=== PATIENT | male | born 1970 | race Caucasian/White ===

== ENCOUNTER → 2016-07-26 | Outpatient (CLI) | payer BC ==
[~2016-07-26] MED LIST: B-CO-25 PO; CHOL200010 PO; CNC/54 PO; DABI150C PO; MULT-281 PO; TADA5TAB11 PO; TMB/100 PO; TPRSR/50 PO
--- NOTE | 2016-07-27 07:18 | PAP/PSG TECHNICIAN REPORT ---
[facility] [employer] Polysomnogram Report Study name: None Report date: 07/27/2016 Study date: 07/26/2016 Referring Physician: DR.STEVEN HAMZAH M.D. Name: DEREK MUÑIZ Interpreting Physician: Leland Steel D.O. Date of : 1970 [employer]: Gladis Pablo, PSGT. Sex: Male Age: 45 StudyType: PSG Weight: 221 lbs Height: 45 years, Height 71" BMI: 30.82 Medications: Pradaha 150 mg, Flecaihide 100 mg, HCTZ 25/15 mg, Escitapram 10 mg, Omeprazole 20 mg, Methylphehidate ER 54 mg, Cialis 5 mg ,Vit.-D 1999 Patient History 45 yr. old male in room # 5, presents tonight for a baseline sleep study, he had a home sleep study that he states was inconclusive". Pt. feels tired all the time, has witnessed apnea choking and coughing throughout the night.Pt. states that he moves his legs a lot during sleep. Parameters Monitored NPSG: E1-M2, E2-M1, Fp1-M2, Fp2-M1, F3-M2, F4-M2, F4-M1, C3-M2, C4-M2, C4-M1, O1-M2, O2-M2, O2-M1, T3-M2, T4-M1, P3-M2, P4-M1, CHIN1, CHIN2, HR, EKG, Legs, PFLOW, SNOR, FLOW, CFLOW, Tidal Volume, THOR, ABDO, SpO2, PLTH, CPRESS, ETCO2 Wave, ETCO2, pH Sleep Architecture Sleep Stages Time at Lights Off 11:01:48 PM STAGES Time (min.) TST (%) Time at Lights On 5:17:48 AM Wake 95.0 -- Total Recording Time (TRT) 377.50 min. N1 7.0 2 Total Sleep Period (TSP) 317.0 min. N2 185.0 66 Total Sleep Time (TST) 281.0min. N3 62.5 22 Awake Time 95.5 min. REM 26.5 9 Wake after Sleep Onset 36.0 min. Sleep Efficiency (SE) 75 % Sleep Onset Latency (CLIF) 59.0 min. Number of Stage 1 Shifts None Awakenings 8 Stage Changes 31 Number of REM periods 3 REM 26.5 9 REM Latency 249.5 min. NREM 254.5 91 Body Position Analysis Supine Right Left Side Prone Vertical Total Sleep Time (min.) 182.7 27.3 121.5 148.76 0.0 0.0 Total Sleep Time (%) 47% 10% 43% 53 0% N/A% Total Sleep Time REM (min.) 17.1 9.4 0.0 None 0.0 0.0 Total Sleep Time NREM (min.) 115.2 17.8 121.5 None 0.0 0.0 Intermittent Wake (min.) 50.5 1.5 43.0 None 0.0 0.0 Total Sleep Period (%) 46% None None None None None Arousals Myoclonus (PLM) * Events Count Index Events Count Index Spontaneous 18 4 Events Awake (PLMW) 3 1.9 Respiratory 6 1.3 Events Asleep w/ Arousal (PLMA) 10 2.1 PLM 10 2 Events Asleep w/o Arousal (PLMS) 369 78.8 Snoring 4 1 Total Asleep 379 80.9 Total 38 8 Total 382 61 Respiratory Analysis * CA OA MA CH H RERA Total Count 0 26 6 0 78 0 110 Index 0.0 5.6 1.3 0 16.7 0 23.5 Mean Duration 0.0 23.3 28.2 0.00 20.9 0.0 21.9 Longest Duration 0.0 35.3 34.2 0.00 34.2 0.0 43.4 Respiratory Event Summary Total Supine ~Supine Right Left Prone REM NREM Apneas Count 32 25 7 3 4 N/A 4 28 Index 6.8 11 3 6.6 2.0 N/A 9 7 Hypopneas (4% Desat) Count 78 40 38 25 13 N/A 20 58 Index 16.7 18.1 15 55.0 6.4 N/A 45.3 13.7 Apneas & All Hypopneas Count 110 65 45 28 17 N/A 24 86 Index 23.5 29 18 62 8 N/A 54.3 20.3 Respiratory Events (Pigment Making Supervisor+All Hyp+RERA) Count 110 65 45 28 17 N/A 24 86 Index 23.5 29 18 61.6 8.4 N/A 54.3 20.3 Respiratory Related Arousal Count 6 65 2 1 1 N/A 1 5 Index 1.3 2 1 2 0 N/A 2 1 Snoring Analysis Supine Right Left Prone REM NREM Total Snore duration 26.5 min Snores count 739 77 403 N/A 23 1,196 1,219 Snore mean duration 1.3 Sec Snores index 335 169 199 N/A 52.1 282.0 260.3 TST with snoring (%) 9.4% Desaturation Event Summary: Minimum %SpO2 Event Count Mean/Min/Max Duration(sec.) Desaturation Index % Time In Bed > 90 118 26.3 / 12.0 / 59.0 22.7 85.4 86 - 90 8 19.5 / 13.3 / 29.3 9.8 13.4 81 - 85 0 N/A 0.0 1.2 76 - 80 0 N/A 0.0 0.0 71 - 75 0 N/A 0.0 0.0 66 - 70 0 N/A 0.0 0.0 61 - 65 0 N/A 0.0 0.0 56 - 60 0 N/A 0.0 0.0 51 - 55 0 N/A 0.0 0.0 < 50 0 N/A 0.0 0.0 Total REM NREM Awake <50% 0.0 min. 0.0 min. 0.0 min. 0.0 min. 51 - 60% 0.0 min. 0.0 min. 0.0 min. 0.0 min. 61 - 70% 0.0 min. 0.0 min. 0.0 min. 0.0 min. 71 - 80% 0.1 min. 0.0 min. 0.0 min. 0.1 min. 81 - 90% 53.4 min. 14.7 min. 32.6 min. 6.1 min. 91 - 100% 312.3 min. 11.8 min. 218.1 min. 82.3 min. Average 92 90 92 93 Minimum SpO2 80 83 82 80 Desaturation Event Index 19.1 52.1 22.9 0.6 # Desat. Events below 89% 72 18 54 0 Time(%) with Saturation below 89% 6.0 1.8 3.9 0.4 Time(min.) with Saturation below 89% 22.0 6.5 14.1 1.3 Time (mins) REM (mins) NREM (mins) % of TST SpO2 Below 90% 114 23 N91 11.2 SpO2 Below 88% 33 0 0 5 Heart Rate Analysis Min (bpm) Max (bpm) Average (bpm) Awake 38 127 56 NREM 42 76 51 REM 44 65 53 Overall 42 76 51 Supplemental O2 Values Minimum O2 level: None Value Start Time End Time [employer] Comments PSG Study Mr. Muñiz slept in the right, left, and supine positions. No cardiac arrhythmia or PLM's noted. No bruxism noted. Snoring was noted and scored as a 3 on a scale of 1 through 5. (0=no snoring, 5=snoring loud enough to be heard through a closed door or down the [address] way) Mr. Muñiz stated, I did sleep as well as I do when I am in my own bed. The final report will be interpreted and signed by a sleep physician. The completed physician report will then be placed in the patient medical record. Moderate snoring was displayed, most of his respiratory events were while he was in the supine position. Therapy (cm H2O) 0 TIB (min.) 376.0 TST (min.) 281.0 Sleep Onset (min.) 59.0 REM Onset From Sleep (min.) 249.5 Sleep Efficiency % 75 Wakefulness (%) 25 Wakefulness (min.) 95.5 NREM 1 (%) 2 NREM 1 (min.) 7.0 NREM 2 (%) 66 NREM 2 (min.) 185.0 NREM 3 (%) 22 NREM 3 (min.) 62.5 REM (%) 9 REM (min.) 26.5 # Arousals 38 Arousal Index 8 # Snore 1,219 Snore Index 260.3 AHI 23.5 AHI Supine 29 AHI Non-Supine 18 NREM AHI 20.3 REM AHI 54.3 RDI 23.5 # Obstructive Apnea 26 # Central Apnea 0 # Mixed Apnea 6 # Hypopneas 78 RERAs 0 Total Respiratory Events 110 Time Below SpO2 89% (min.) 20.7 Mean NREM SpO2 (%) 92 Mean REM SpO2 (%) 90 Mean Sleep SpO2 (%) 92 Min NREM SpO2 (%) 82 Min REM SpO2 (%) 83 Position Supine (min.) 182.7 Position Non-supine (min.) 148.8 LM Index Sleep 80.9 LM Index NREM 85.8 LM Index REM 34.0 Mean Heart Rate (bpm) 51 Min Heart Rate (bpm) 42
--- NOTE | 2016-07-31 21:04 | POLYSOMNOGRAPH REPORT ---
REFERRING PHYSICIAN: Dr. Ignacio West and Rafael Dugan. CLINICAL DATA: The patient is a 45-year-old male. He has a history of observed apnea, tiredness, and increased leg movements. A home study was done 04/10/2016 that suggested an AHI of 13.8. He is referred for an in-lab sleep study to confirm whether he definitively has sleep apnea and to evaluate the degree of abnormality. His BMI is 30.82. SLEEP ARCHITECTURE: The total sleep period was 317 minutes. Total sleep time was 281.0 minutes. Sleep efficiency was moderately reduced to 75%. Sleep onset latency was prolonged at 59 minutes. Wake after sleep onset was 36 minutes. REM latency was severely prolonged to 249.5 minutes. There was only 1 REM period. Sleep consisted of stage N1 2%, stage N2 66%, stage N3 22%, REM sleep 9%. AROUSAL DATA: The patient had a total of 38 arousals including 18 spontaneous arousals, 6 respiratory arousals, 10 PLM arousals, and 4 snoring arousals. The arousal index was 8. PLM DATA: The patient had a total of 379 periodic limb movements of sleep for an index of 80.9. This would be severely elevated. There were only 10 arousals associated with the limb movements for a PLM arousal index of 2.1. RESPIRATORY DATA: The patient had a total of 110 respiratory events including 26 obstructive apneas, 6 mixed apneas, and 78 hypopneas. The hypopneas were scored according to the 4% desaturation rule. The apnea hypopnea index was 23.5 and was compatible with moderate obstructive sleep apnea. The longest apnea was 35.3 seconds. The longest hypopnea was 34.2 seconds. OXIMETRY DATA: The average saturation was 92%. The minimum saturation was 80%. He had 33 minutes with saturations less than 88%. HEART RATE DATA: The cardiac rates ranged from 42-76 beats per minute. The average was 51 beats per minute. The rhythm was normal sinus. No arrhythmias were noted. STONEMASON SUPERVISOR COMMENTS: The patient slept in the right, left, and supine position. No bruxism was noted. Snoring was noted and scored as a 3 on a scale of 1 through 5. The patient indicated he did sleep as well as he does when he is in his own bed. IMPRESSION: 1. Obstructive sleep apnea -- moderate. 2. Periodic limb movement disorder. COMMENTS: The patient has moderate sleep apnea. His sleep efficiency was decreased mainly because of a marked prolongation of sleep initiation. His sleep architecture was abnormal showing decreased REM from normal. He does take escitalopram, which can suppress REM sleep. The patient has significant symptoms and treatment would seem to be indicated. RECOMMENDATIONS: 1. It is advised that the patient be given a trial of nasal CPAP. He could be referred for a CPAP titration. He would need to be referred back for this procedure. 2. An alternative to a CPAP titration study would be initiation of therapy with auto CPAP. 3. The patient has frequent leg movements. This likely does not need treatment at present. Would advise treatment of the underlying sleep disordered breathing first. Consideration could be given to pharmacological therapy for the leg movements if this did not improve significantly with treatment of the sleep apnea. 4. The patient has a mild elevation of body mass index at 30.82. Weight loss is advised as even modest weight reduction may result in improvement in sleep disordered breathing. 5. The patient had increased events supine. It is suggested that he avoid sleeping in the supine position.
== END | disposition home or self-care (01) ==
LOC: C.NEUR 20:00
PROVIDERS: ATTEND Internal Medicine Cardiovascular Disease
DX: G47.30 Sleep apnea, unspecified (principal); R06.83 Snoring

== ENCOUNTER → 2016-08-12 | Outpatient (CLI) | payer BC ==
[~2016-08-12] VITALS: Ht 180.3 cm; Wt 220.4 kg
[2016-08-12 14:30] VITALS: BP 130/8; PULSE 67; Ht 180.3 cm; Wt 220.4 kg
== END | disposition home or self-care (01) ==
LOC: C.NEUR 14:14
PROVIDERS: ATTEND Internal Medicine Pulmonary Disease
DX: G47.30 Sleep apnea, unspecified (principal); G47.61 Periodic limb movement disorder; I48.0 Paroxysmal atrial fibrillation

== ENCOUNTER → 2016-09-28 | Outpatient (CLI) | payer BC ==
--- NOTE | 2016-09-29 05:45 | PAP/PSG TECHNICIAN REPORT ---
[facility] General Maintenance Engineer Polysomnogram Report Study name: None Report date: 09/29/2016 Study date: 09/28/2016 Referring Physician: Artie Yu M.D. Name: DEREK MUÑIZ Interpreting Physician: Artie Yu M.D. Date of : 1970 General Maintenance Engineer: Jess Cullen RPSGT. Sex: Male Age: 46 StudyType: PSG PAP Weight: 220 lbs Height: 46 years, Height 5' 11" Neck Circum: 16 inches BMI: 30.68 Medications: Cialis 5 mg, Concerta 54 mg, Effexor XR 75 mg, Flecainide Acetate 100 mg, Mens One Daily, Pradaxa 150 mg, Spironolactone, Vitamin D 2000 units Patient History 46 yr. old male here for a new titration sleep study. Patients PSG was done on 07/26/16 and had an AHI of 23.5 and a PLM index of 80.9. ESS 11/20. Parameters Monitored NPSG: E1-M2, E2-M1, Fp1-M2, Fp2-M1, F3-M2, F4-M2, F4-M1, C3-M2, C4-M2, C4-M1, O1-M2, O2-M2, O2-M1, T3-M2, T4-M1, P3-M2, P4-M1, CHIN1, CHIN2, HR, EKG, Legs, PFLOW, SNOR, FLOW, CFLOW, Tidal Volume, THOR, ABDO, SpO2, PLTH, CPRESS, ETCO2 Wave, ETCO2, pH Sleep Architecture Sleep Stages Time at Lights Off 11:01:58 PM STAGES Time (min.) TST (%) Time at Lights On 5:35:28 AM Wake 69.0 -- Total Recording Time (TRT) 392.50 min. N1 21.5 7 Total Sleep Period (TSP) 355.0 min. N2 154.0 48 Total Sleep Time (TST) 323.5min. N3 126.0 39 Awake Time 69.0 min. REM 22.0 7 Wake after Sleep Onset 32.5 min. Sleep Efficiency (SE) 82 % Sleep Onset Latency (CLIF) 37.5 min. Number of Stage 1 Shifts None Awakenings 12 Stage Changes 51 Number of REM periods 2 REM 22.0 7 REM Latency 212.0 min. NREM 301.5 93 Body Position Analysis Supine Right Left Side Prone Vertical Total Sleep Time (min.) 246.9 0.0 138.0 138.00 0.0 0.0 Total Sleep Time (%) 57% 0% 43% 43 0% N/A% Total Sleep Time REM (min.) 0.0 0.0 22.0 None 0.0 0.0 Total Sleep Time NREM (min.) 185.5 0.0 116.0 None 0.0 0.0 Intermittent Wake (min.) 61.4 0.0 7.6 None 0.0 0.0 Total Sleep Period (%) 59% None None None None None Arousals Myoclonus (PLM) * Events Count Index Events Count Index Spontaneous 1 0 Events Awake (PLMW) 81 70.4 Respiratory 0 0.0 Events Asleep w/ Arousal (PLMA) 13 2.4 PLM 13 2 Events Asleep w/o Arousal (PLMS) 259 48.0 Snoring 0 0 Total Asleep 272 50.4 Total 14 3 Total 353 54 Respiratory Analysis * CA OA MA CH H RERA Total Count 0 0 0 0 0 0 0 Index 0.0 0.0 0.0 0 0.0 0 0.0 Mean Duration 0.0 0.0 0.0 0.00 0.0 0.0 0.0 Longest Duration 0.0 0.0 0.0 0.00 0.0 0.0 0.0 Respiratory Event Summary Total Supine ~Supine Right Left Prone REM NREM Apneas Count 0 0 0 N/A 0 N/A 0 0 Index 0.0 0 0 N/A 0.0 N/A 0 0 Hypopneas (4% Desat) Count 0 0 0 N/A 0 N/A 0 0 Index 0.0 0.0 0 N/A 0.0 N/A 0.0 0.0 Apneas & All Hypopneas Count 0 0 0 N/A 0 N/A 0 0 Index 0.0 0 0 N/A 0 N/A 0.0 0.0 Respiratory Events (Production Director+All Hyp+RERA) Count 0 0 0 N/A 0 N/A 0 0 Index 0.0 0 0 N/A 0.0 N/A 0.0 0.0 Respiratory Related Arousal Count 0 0 0 N/A 0 N/A 0 0 Index 0.0 0 0 N/A 0 N/A 0 0 Snoring Analysis Supine Right Left Prone REM NREM Total Snore duration 26.4 min Snores count 1,227 N/A 36 N/A 1 1,262 1,263 Snore mean duration 1.3 Sec Snores index 397 N/A 16 N/A 2.7 251.1 234.3 TST with snoring (%) 8.2% Desaturation Event Summary: Minimum %SpO2 Event Count Mean/Min/Max Duration(sec.) Desaturation Index % Time In Bed > 90 12 29.5 / 4.0 / 60.0 2.0 93.1 86 - 90 1 8.3 / 8.3 / 8.3 2.2 6.9 81 - 85 0 N/A 0.0 0.0 76 - 80 0 N/A 0.0 0.0 71 - 75 0 N/A 0.0 0.0 66 - 70 0 N/A 0.0 0.0 61 - 65 0 N/A 0.0 0.0 56 - 60 0 N/A 0.0 0.0 51 - 55 0 N/A 0.0 0.0 < 50 0 N/A 0.0 0.0 Total REM NREM Awake <50% 0.0 min. 0.0 min. 0.0 min. 0.0 min. 51 - 60% 0.0 min. 0.0 min. 0.0 min. 0.0 min. 61 - 70% 0.0 min. 0.0 min. 0.0 min. 0.0 min. 71 - 80% 0.0 min. 0.0 min. 0.0 min. 0.0 min. 81 - 90% 26.7 min. 0.5 min. 22.8 min. 3.5 min. 91 - 100% 363.0 min. 21.5 min. 277.5 min. 64.0 min. Average 93 92 93 94 Minimum SpO2 89 90 89 89 Desaturation Event Index 1.8 0.0 0.4 8.7 # Desat. Events below 89% N/A N/A N/A N/A Time(%) with Saturation below 89% 0.0 0.0 0.0 0.0 Time(min.) with Saturation below 89% 0.0 0.0 0.0 0.0 Time (mins) REM (mins) NREM (mins) % of TST SpO2 Below 90% 1 N/A N1 0.6 SpO2 Below 88% 0 0 0 0 Heart Rate Analysis Min (bpm) Max (bpm) Average (bpm) Awake 37 127 60 NREM 42 86 56 REM 48 64 54 Overall 42 86 55 Supplemental O2 Values Minimum O2 level: None Value Start Time End Time General Maintenance Engineer Comments Mr. Muñiz slept in the right, left, and supine positions. No cardiac arrhythmia or PLMs noted. No bruxism noted. CPAP was initiated at +4 CMH2O room air and up-titrated to a level of + 5 CMH2O Cflex 1, which nearly eliminated all respiratory events and snoring. A ResMEd Shore FX nasal mask was used during titration. Mr. Muñiz did not wake to use the restroom during the night. Mr. Muñiz, I slept better than I do at home. The final report will be interpreted and signed by a sleep physician. The completed physician report will then be placed in the patient medical record. Therapy Event: Therapy (cm H20) 4 5 Total Time at Pressure (min.) 51.9 340.6 TST at Pressure (min.) 14.4 309.1 # Periods 1 1 Sleep Onset (min.) 37.5 0.0 REM Onset (min.) N/A 197.6 Sleep Efficiency % 27 90 Wakefulness (%) 72.2 9.2 Wakefulness (min.) 37.5 31.5 NREM 1 (%) 9.6 4.8 NREM 1 (min.) 5.0 16.5 NREM 2 (%) 18.2 42.4 NREM 2 (min.) 9.4 144.6 NREM 3 (%) 0.0 37.0 NREM 3 (min.) 0.0 126.0 REM (%) 0.0 6.5 REM (min.) 0.0 22.0 # Arousals 1 13 Arousal Index 4.2 2.5 # Snore 62 1,201 Snore Index 257.5 233.2 AHI 0.0 0.0 AHI Supine 0.0 0.0 AHI Non-Supine N/A 0.0 NREM AHI 0.0 0.0 REM AHI N/A 0.0 RDI 0.0 0.0 # Obstructive 0 0 # Central Ap 0 0 # Mixed 0 0 # Hypopneas 0 0 RERAS 0 0 Total Respiratory Events 0 0 Time Below SpO2 89.00% (min.) 0.0 0.0 Mean NREM SpO2 (%) 91 93 Mean REM SpO2 (%) N/A 92 Mean Sleep SpO2 (%) 91 93 Min NREM SpO2 (%) 89 89 Min REM SpO2 (%) N/A 90 Position Supine (min.) 14.4 171.1 Position Non-supine (min.) 0.0 138.0 LM Index Sleep 141.2 46.2 LM Index NREM 141.2 47.7 LM Index REM N/A 27.3 Mean Heart Rate (bpm) 61 55 Min Heart Rate (bpm) 54 42
--- NOTE | 2016-10-03 01:50 | POLYSOMNOGRAPH REPORT ---
CLINICAL DATA: A 46-year-old male with BMI of 30.7 referred for a sleep study with CPAP. His baseline PSG done on 07/26/2016 showed moderate sleep apnea with an AHI of 23.5 and a PLM index of 80.9. His [place] sleep score is 9/24. SLEEP ARCHITECTURE: Total recording time was 392.5 minutes. Total sleep period was 355 minutes. Total sleep time was 323.5 minutes divided between 301.5 minutes of non-REM sleep and 22 minutes of REM sleep. Sleep onset latency was delayed at 37.5 minutes. REM latency was delayed at 212 minutes. Sleep efficiency was 83%. Wake after sleep onset was 33.5 minutes. Sleep consisted of stage N1 7%, stage N2 48%, stage N3 39% and REM 7%. AROUSAL DATA: 14 arousals were recorded for an index of 3 per hour. PERIODIC LIMB MOVEMENTS DATA: Significant PLMD was seen. There were 272 limb movements during sleep noted for an index of 50 per hour with arousal index of 2.4 per hour. RESPIRATORY DATA: The AHI was 0. No respiratory events were recorded. OXIMETRY DATA: No significant hypoxemia was seen. Oxygen jamie was 89%. Mean saturation was 93%. ELECTROCARDIOGRAM: Heart rate ranged from 42-86 beats per minute. No significant arrhythmias were noted. ELECTRONICS MANUFACTURER'S COMMENTS AND TREATMENT SUMMARY: The patient was started on CPAP at 5 cm water pressure. He slept at this level for 309 minutes with an AHI of 0. The patient used a ResMed Shore FX nasal mask during the titration. He slept better than he usually does. IMPRESSION: Moderate sleep apnea/hypopnea, corrected with CPAP at 5 cm water pressure. C-Flex 1 with a ResMed Shore FX nasal mask. RECOMMENDATIONS: The patient should be started on the above noted regimen and seen back in followup within 90 days to document efficacy and compliance.
== END | disposition home or self-care (01) ==
LOC: C.NEUR 20:00
PROVIDERS: ATTEND Internal Medicine Pulmonary Disease
DX: I48.0 Paroxysmal atrial fibrillation (principal); G47.30 Sleep apnea, unspecified; G47.61 Periodic limb movement disorder

== ENCOUNTER 2018-12-31 06:04 | Inpatient (IN) ==
[2018-12-12 12:22] LABS: Basophils # (auto) 0.05 K/uL (0-0.2); Basophils % (auto) 0.5 %; Eosinophils # (auto) 0.11 K/uL (0-0.5); Hematocrit (blood only) 42.1 % (42-52); Hemoglobin 14.6 g/dL (14.0-18.0); Immature Granulocytes # (auto) 0.04 K/uL (0.00-0.02); Immature Granulocytes % (auto) 0.4 %; Lymphocytes # (auto) 3.09 K/uL (1.2-3.4); Lymphocytes % (auto) 28.9 %; Mean Corpuscular Hgb Conc 34.7 g/dL (32-36); Mean Corpuscular Volume 86.4 fL (80-100); Mean Platelet Volume 9.3 fL (7.4-10.4); Monocytes # (auto) 0.99 K/uL (0.11-0.59); Monocytes % (auto) 9.2 %; Neutrophils # (auto) 6.43 K/uL (1.4-6.5); Platelet Count 273 K/uL (130-400); RDW Coefficient of Variation 13.3 % (11.5-14.5); RDW Standard Deviation 42.4 fL (36.4-46.3); Red Blood Count 4.87 M/uL (4.7-6.1); White Blood Count 10.71 K/uL (4.8-10.8)
[2018-12-12 12:27] LABS: INR 1.2 (0.9-1.1); Partial Thromboplastin Ratio 1.3; Partial Thromboplastin Time 33.9 Seconds (21.0-31.0); Prothrombin Time 12.3 Seconds (9.0-12.0)
[2018-12-12 12:30] LABS: BUN Creatinine Ratio 21.9 (10-20); Blood Urea Nitrogen 19 mg/dl (7-18); Calcium 9.1 mg/dl (8.5-10.1); Carbon Dioxide 32 mmol/L (21-32); Chloride 101 mmol/L (98-107); Est GFR (African American) 117.7; Est GFR (Non-African American) 101.6; Glucose 104 mg/dl (70-99); Potassium 3.7 mmol/L (3.5-5.1); Sodium 137 mmol/L (136-145)
--- NOTE | 2018-12-14 11:34 | Anesthesiology Consultation ---
Date of Service December 14, 2018 Assessment & Plan (1) Encounter for pre-operative examination: Chart Review Chart Review: Acceptable Risk for Surgery and Patient NOT seen in Pre Admission Testing Consults Requested none History Surgery Operation Date: 12/31/18 09:50 Proposed Procedures p C4-C5, C5-C6 Anterior Cervical Discectomy and Fusion with Iliac Crest Bone Graft - Artie Rodgers, Height/Weight Height: 5 ft 11 in Weight: 97.522 kg Allergies Allergy/AdvReac Type Severity Reaction Status Date / Time amoxicillin [From Augmentin] AdvReac Gastrointestinal Verified 12/14/18 10:15 Upset clavulanic acid AdvReac Gastrointestinal Verified 12/14/18 10:15 [From Augmentin] Upset levofloxacin [From Levaquin] AdvReac Vomiting Verified 12/14/18 10:15 Medications Home Medications Medication Instructions Recorded Confirmed Last Taken cholecalciferol (vitamin D3) 2,000 unit PO QAM 06/12/18 12/14/18 Unknown [Vitamin D3] diclofenac sodium 75 mg PO BID 06/12/18 12/14/18 Unknown flecainide 100 mg PO Q12H 06/12/18 12/14/18 Unknown methylphenidate HCl [Concerta] 54 mg PO QAM 06/12/18 12/14/18 Unknown omeprazole 20 mg PO QAM 06/12/18 12/14/18 Unknown pramipexole [Mirapex] 0.125 mg PO QPM 06/12/18 12/14/18 Unknown rivaroxaban [Xarelto] 20 mg PO QAM 06/12/18 12/14/18 Unknown rizatriptan [Maxalt] 10 mg PO DAILY PRN 06/12/18 12/14/18 Unknown spironolacton-hydrochlorothiaz 1 tab PO QAM 06/12/18 12/14/18 Unknown tadalafil [Cialis] 5 mg PO QAM 06/12/18 12/14/18 Unknown vitamin B complex 1 tab PO QAM 06/12/18 12/14/18 Unknown duloxetine 60 mg PO QAM 12/14/18 12/14/18 Unknown tramadol 50 mg PO Q6H PRN 12/14/18 12/14/18 Unknown Past Medical History Medical History Atrial fibrillation Chronic neck and back pain Chronic sinusitis Erectile dysfunction GERD (gastroesophageal reflux disease) Migraine Peripheral neuropathy LEFT ARM Restless leg syndrome Sleep apnea CPAP Past Surgical History Surgical History History of cardioversion [facility] ~2016 History of tooth extraction WITH ANESTHESIA STOP BANG Total 4 Social History Smoking Status: Former smoker Smoking cigarettes per day: SMOKED ~1-2PPD X 30 YEARS Do You Dip or Chew Tobacco: No Smoking End Date: 2013 Hx Alcohol Use: No Hx Substance Use: Yes substance use type: marijuana Testing Laboratory Results 12/12/18 10:28 12/12/18 10:28 PT 12.3 Seconds (9.0-12.0) H 12/12/18 10:28 INR 1.2 (0.9-1.1) H 12/12/18 10:28 APTT 33.9 Seconds (21.0-31.0) H 12/12/18 10:28 Electrocardiogram Date: 12/12/18 Sinus bradycardia. HR 55. Otherwise normal. Chest X-Ray Date: 06/19/18 XR chest Pre-admission PA/Lat HISTORY: 47 years-old Male pat preoperative exam. No acute chest complaints COMPARISON: None available TECHNIQUE: PA and lateral views of the chest FINDINGS: Cardiomediastinal and hilar silhouettes are within normal limits. There is minimal interstitial coarsening which may be chronic. Minimal right basilar and right perihilar opacities statistically favor atelectasis. No pneumothorax, pleural effusion, or overt pulmonary edema. Bones of the chest appear grossly intact. IMPRESSION: Minimal right basilar right perihilar opacities suggest probable atelectasis.
--- NOTE | 2018-12-28 13:47 | History and Physical Report ---
DATE OF ADMISSION: 12/31/2018 CHIEF COMPLAINT: Neck and arm pain with associated weakness. HISTORY OF PRESENT ILLNESS: John is delightful; he is 48 years of age. He has cervical disc pathology, cord compression, nerve root irritation. We have treated him conservatively for multiple months. He has had a progressive neurological deficit. We worked diligently to get him approved by insurance carriers and finally did gain approval. He is here for a 2-level ACDF cervical spine C4-C6. PAST MEDICAL HISTORY: Hypertension. PAST SURGICAL HISTORY: Cardioversion. ALLERGIES: AUGMENTIN, LEVAQUIN. SOCIAL HISTORY: He is . No alcohol or tobacco. REVIEW OF SYSTEMS: Twelve-system review is negative for fevers, sweats, or chills. Ears, nose, and throat negative. Denies chest pain or palpitations. No nausea, vomiting, urgency, or frequency. He has joint pain, stiffness and weakness. MEDICATIONS: Numerous, reviewed and entered. EXAMINATION GENERAL: He is 5 feet 11 inches, 209 pounds. VITAL SIGNS: Blood pressure 130/80, pulse 80, respirations 16. HEENT: Pupils react to light and accommodation. Ear, nose and throat clear. CARDIAC: Normal S1, S2. No S3. LUNGS: Clear to auscultation. ABDOMEN: Soft, nontender. MUSCULOSKELETAL: He has pain with flexion and extension of cervical spine. He has numbness and tingling. He has weakness as well. Positive Spurling maneuver with deltoid weakness and biceps malfunction. IMPRESSION: Includes a 2-level cervical spine pathology of significant severity with cord compression in a 48-year-old gentleman with deficits. PLAN: Includes an anterior cervical discectomy and fusion C4-C5 and C5-C6 cervical spine. [facility]
[~2018-12-31 06:04] MED LIST changes: -B-CO-25 PO; +CEFAZOLIN 2000MG 2,000 MG/15 ML SYR IV SCH; -CHOL200010 PO; -CNC/54 PO; -DABI150C PO; +LR 15ML/HR IV SCH; -MULT-281 PO; +SODIUM CHLORIDE 0.9% 1,000 ML IV SCH; -TADA5TAB11 PO; -TMB/100 PO; -TPRSR/50 PO
[2018-12-31] MEDS ORDERED: DEXAMETHASONE SOD INJ 4 MG/ML VIAL ONE (06:52)
[2018-12-31] MEDS ORDERED: NEOSTIGMINE METHYLSULFATE 5 MG/5 ML SYR ONE (06:52)
[2018-12-31] MEDS ORDERED: MIDAZOLAM HCL 1 MG/ML 2ML VIAL ONE (06:52)
[2018-12-31] MEDS ORDERED: LIDOCAINE HCL 2% 2 ML VIAL/AMP(20MG/ML) INFIL ONE (06:52)
[2018-12-31] MEDS ORDERED: PROPOFOL IV EMULSION 10 MG/ML 20 ML VIAL IV ONE (06:52)
[2018-12-31] MEDS ORDERED: fentaNYL citrate 100 MCG/2 ML VIAL ONE ×5 (06:52→09:40)
[2018-12-31] MEDS ORDERED: ONDANSETRON INJ 2 MG/ML 2 ML VIAL ONE (06:52)
[2018-12-31] MEDS ORDERED: ROCURONIUM BROMIDE 10 MG/ML 5 ML VIAL ONE ×4 (06:52→09:39)
[2018-12-31] MEDS ORDERED: GLYCOPYRROLATE 0.2 MG/ML VIAL ONE (06:52)
[2018-12-31] MEDS ORDERED: BACITRACIN INJ 50,000 UNIT VIAL ONE (07:01)
[2018-12-31] MEDS ORDERED: GELATIN SPONGE SZ 100 ONE (07:05)
[2018-12-31] MEDS ORDERED: THROMBIN FOR SOLN 20000 UNIT KIT ONE (07:06)
[2018-12-31] MEDS ORDERED: BUPIVACAINE 0.5 % 5 MG/1 ML MPF 30ML VIAL ONE (07:08)
--- NOTE | 2018-12-31 07:19 | History & Physical Bridge Note ---
Date of Service December 31, 2018 History & Physical Bridge Note I have examined the patient, reviewed the History & Physical and in the interval since the performance of the History & Physical I have noted the following changes of clinical significance: Iliac crest bone graft.
[2018-12-31] MEDS ORDERED: ATROPINE SULFATE 0.1 MG/ML 10ML SYR IV PRN (07:23)
[2018-12-31] MEDS ORDERED: ONDANSETRON INJ 2 MG/ML 2 ML VIAL IV PRN ×2 (07:23→12:05)
[2018-12-31] MEDS ORDERED: ePHEDrine sulfate 50 MG/ML AMP IV PRN (07:23)
--- NOTE | 2018-12-31 10:13 | Post Operative Brief Note ---
PG Immediate Post Op with CF Date of Surgery December 31, 2018 Pre & Post Diagnosis Operation Date: 12/31/18 07:30 Pre-Op Diagnosis: Cervical Stenosis Post-Op Diagnosis: Cervical Stenosis I identified the patient and participated in the time-out.: Yes Procedure Operation Date: 12/31/18 07:30 Actual Procedures p C4-C5, C5-C6, C6-C7 Anterior Cervical Discectomy and Fusion with Iliac Crest Bone Graft - Artie Rodgers DO Surgeon Artie Rodgers DO Shell Plater amie Estimated Blood Loss 15 Findings Consistent with Post-Op Diagnosis Specimens Specimen Description: none per surgeon Drains Fabens Drain
[2018-12-31] MEDS: fentaNYL citrate 100 MCG/2 ML VIAL IV PRN ×2 (10:31→10:36)
--- NOTE | 2018-12-31 11:01 | Fluoroscopy Report ---
FL spine 1V any level CLINICAL HISTORY: 48 years-old Male presenting with ACDF C4-C6. TECHNIQUE: 1 fluoroscopic image(s) recorded as part of an intraoperative procedure. COMPARISON: 04/27/2018. FINDINGS/IMPRESSION: Postsurgical changes of anterior cervical discectomy and fusion of C4-C7. Straightening of normal tiffanie tomic lordosis. Support tubing evident projecting over the anterior neck. Please see surgical report for further details. Fluoroscopy dosage (mGy): 1.11. Fluoroscopy time: 6.1 seconds. Number or time of high level fluoroscopy (HLF), digital spot, or digital subtraction images: 0. Electronically signed by: Russel Cantu M.D. 12/31/2018 10:59 AM
--- NOTE | 2018-12-31 11:01 | Operative Report ---
DATE OF OPERATION: 12/31/2018 PREOPERATIVE DIAGNOSIS: Spinal cord compression C4-C7 cervical spine. POSTOPERATIVE DIAGNOSIS: Spinal cord compression C4-C7 cervical spine. PROCEDURE: 1. Included a 3-level anterior cervical diskectomy and fusion C4-C5, C5-C6, C6-C7 cervical spine with an anterior plating system by the [employer]. 2 Structural autografts from the left iliac crest. Bone graft used was structural autograft, allograft spacer at C4-C5 cervical spine, demineralized bone matrix. SURGEON: Artie Rodgers DO. MAC OPERATOR: Oscar Farias PA-C. DESCRIPTION OF PROCEDURE: The patient was taken to the Operating Room and general intubated. Anesthetic provided to the patient, kept supine, scrubbed, prepped and draped sterile. I made a skin incision in the cervical spine roughly over the C5-C6 interspace dissecting the soft tissue in the same plane. We readily came down at C5-C6. We also dissected up to C4-C5 and down to C6-C7 with relative ease. Formal diskectomies were provided to each interspace C4-C5, C5-C6 and C6-C7. I cleaned out the entire disk itself. We were lateral to the uncovertebral joints. We were back in through the posterior longitudinal ligament. All visible disk material was retrieved. I undercut the vertebral bodies as well. I completed the foraminotomies in addition. We then went to the iliac crest. I made a skin incision, fascial incision. We were able to harvest structural autograft for the diskectomy sites. I felt that the volume of bone was quite significant. I thought it was only appropriate to take 2 of the iliac crest structural autograft versus 3. I thought 3 might be a little too much bone harvest and give rise to structural instability of his pelvis. I was able to place the bone graft into the C6-C7 area and then C5-C6 areas of cervical spine. The C6-C7 interval was approximately 8-9 mm in height, the C5-C6 was approximately 7-8 mm in height. The remaining disk at C4-C5 was approximately 6 mm in height to 7 and I placed in a structural allograft at the C5-C6 region. I also used demineralized bone matrix as an adjunct to the bone. We then picked a plate from the [employer], it measured 51 mm in longitudinal length. This fit nicely, contoured in lordosis in the cervical spine. I would get screws up into 4, down in 7 and all screws were filled in between. This was locked into place. I was very pleased with the contour of the plate and it sat flushing on the vertebral bodies. We irrigated thoroughly, locked in the plate, put a [place] drain deep to the wound, closed the wound over a drain in the cervical spine. The left iliac crest was closed with 1 Vicryl suture, 2-0 and 3-0 nylon on the skin surface. Sterile dressings applied as well to both areas. The patient then extubated safely. Collar applied and brought to the PACU in improved stable condition. There were no apparent intraoperative complications. ESTIMATED BLOOD LOSS: Approximately 15 mL. COUNTS: Sponge and needle count correct at the close. I attest to the content of the Intraoperative Record and any orders documented therein. Any exception s are noted below.
--- NOTE | 2018-12-31 11:08 | Anesthesiology Progress Note ---
Date of Service December 31, 2018 Anesthesia Post Procedure Vital Signs Vital Signs: Temp Pulse Pulse Resp BP Pulse Ox 12/31/18 11:00 36.8 C 91 H 20 158/94 H 98 12/31/18 10:50 36.8 C 88 16 168/92 H 98 12/31/18 10:40 36.8 C 85 17 151/95 H 93 12/31/18 10:30 36.8 C 80 12 168/114 H 98 12/31/18 10:22 36.8 C 93 H 16 172/103 H 96 12/31/18 06:22 36.7 C 84 20 156/93 H 96 Pain Intensity Right Shoulder: Pain Intensity: 3 Transfer of Care Handoff Completed per policy Notes Mental Status: alert / awake / arousable and participated in evaluation Patient Amnestic to Procedure: Yes Nausea / Vomiting: adequately controlled Pain: adequately controlled Airway Patency, RR, SpO2: stable & adequate BP & HR: stable & adequate Hydration State: stable & adequate Anesthetic Complications: no major complications apparent and Pt Satisfied with anesthetic care
[2018-12-31] MEDS: HYDROmorphone INJ 1 MG/ML SYRINGE IV PRN ×4 (11:10→11:25)
[2018-12-31] MEDS ORDERED: FAMOTIDINE 20 MG TAB PO PRN (12:05)
[2018-12-31] MEDS ORDERED: PROMETHAZINE HCL 12.5 MG in SODIUM CHLORIDE 0.9% 50 ML IV PRN (12:05)
[2018-12-31] MEDS ORDERED: DO NOT ADMINISTER FLU VACCINE PRN (12:05)
[2018-12-31] MEDS ORDERED: RACEPINEPHRINE 2.25% NEBU SOLN 0.5 ML VIAL INH PRN (12:05)
[2018-12-31] MEDS ORDERED: ONDANSETRON 4 MG OD TAB PO PRN (12:05)
[2018-12-31] MEDS ORDERED: SOD PHOSPHATE/SOD BIPHOSPHATE ENEMA 132 ML BTL PR PRN (12:05)
[2018-12-31] MEDS ORDERED: RIZATRIPTAN BENZOATE 10 MG TAB PO PRN (12:05)
[2018-12-31] MEDS ORDERED: MAGNESIUM HYDROXIDE SUSP 30 ML UDC PO PRN (12:05)
[2018-12-31] MEDS ORDERED: ALUMINUM/MAGNESIUM SUSP 30 ML UDC PO PRN (12:05)
[2018-12-31] MEDS ORDERED: LORazepam 0.5 MG TAB PO PRN (12:05)
[2018-12-31] MEDS ORDERED: HYDROmorphone INJ 0.5 MG/0.5 ML SYR IV PRN (12:05)
[2018-12-31] MEDS ORDERED: NALOXONE HCL 0.4 MG/1 ML VIAL/CARP IV PRN (12:05)
[2018-12-31] MEDS ORDERED: ACETAMINOPHEN 1,000 MG/100 ML VIAL IV PRN (12:05)
[2018-12-31] MEDS ORDERED: DO NOT ADMINISTER PNEUMOCOCCAL VACCINE PRN (12:05)
[2018-12-31] MEDS ORDERED: DEXAMETHASONE SOD PHOSPHATE 8 MG in SYRINGE 0 ML IV PRN (12:05)
[2018-12-31] MEDS ORDERED: LORazepam 0.5 MG/1 ML VIAL IV PRN (12:05)
[2018-12-31] MEDS: SODIUM CHLORIDE 0.9% 1000ML 1,000 ML IV SCH (14:25)
[2018-12-31] MEDS: CEFAZOLIN 2000MG 2,000 MG/15 ML SYR IV SCH ×2 (14:25→21:16)
[2018-12-31] MEDS: FLECAINIDE ACETATE 100 MG TABLET PO SCH ×2 (15:49→21:18)
[2018-12-31] MEDS: OXYCODONE HCL IR 5 MG TAB (IMMEDIATE RELEASE) PO PRN (19:27)
[2018-12-31] MEDS ORDERED: DOCUSATE SODIUM/SENNA 50/8.6MG TAB PO SCH (21:00)
[2018-12-31] MEDS ORDERED: PRAMIPEXOLE DIHYDROCHLO 0.25 MG TAB PO SCH (21:00)
[2019-01-01] MEDS: OXYCODONE HCL IR 5 MG TAB (IMMEDIATE RELEASE) PO PRN ×2 (01:04→05:08)
[2019-01-01] MEDS: SODIUM CHLORIDE 0.9% 1000ML 1,000 ML IV SCH (03:09)
--- NOTE | 2019-01-01 08:00 | Anesthesiology Progress Note ---
Date of Service January 01, 2019 Anesthesia Post Procedure Vital Signs Vital Signs: Temp Pulse Pulse Resp BP BP Pulse Ox 01/01/19 06:59 36.8 C 75 16 135/84 90 01/01/19 06:55 77 20 91 01/01/19 05:05 36.8 C 69 16 142/89 H 97 01/01/19 03:06 36.8 C 84 16 122/78 99 01/01/19 01:06 36.5 C 72 18 130/80 98 12/31/18 23:10 78 18 98 12/31/18 22:50 36.7 C 73 16 146/84 H 97 12/31/18 21:11 36.7 C 77 16 135/87 97 12/31/18 19:20 93 H 16 95 12/31/18 18:55 75 14 139/88 97 12/31/18 17:02 36.7 C 90 16 135/81 97 12/31/18 15:40 92 H 16 94 12/31/18 15:19 78 18 92 12/31/18 15:00 77 15 134/86 96 12/31/18 14:02 84 14 141/77 H 96 12/31/18 13:00 36.8 C 94 H 15 147/80 H 97 12/31/18 12:57 97 H 14 96 12/31/18 12:28 36.9 C 92 H 16 147/90 H 96 12/31/18 12:00 36.7 C 87 15 149/90 H 96 12/31/18 11:40 37.6 C H 83 19 148/95 H 95 12/31/18 11:30 37.6 C H 81 16 151/94 H 95 12/31/18 11:20 37.6 C H 89 13 144/92 H 98 12/31/18 11:10 37.6 C H 81 13 150/103 H 99 12/31/18 11:00 36.8 C 91 H 20 158/94 H 98 12/31/18 10:50 36.8 C 88 16 168/92 H 98 12/31/18 10:40 36.8 C 85 17 151/95 H 93 12/31/18 10:30 36.8 C 80 12 168/114 H 98 12/31/18 10:22 36.8 C 93 H 16 172/103 H 96 Pain Intensity Right Shoulder: Pain Intensity: 3 Neck: Pain Intensity: 5 Notes Mental Status: alert / awake / arousable and participated in evaluation Patient Amnestic to Procedure: Yes Nausea / Vomiting: adequately controlled Pain: adequately controlled Airway Patency, RR, SpO2: stable & adequate BP & HR: stable & adequate Hydration State: stable & adequate Anesthetic Complications: no major complications apparent and Pt Satisfied with anesthetic care
[2019-01-01] MEDS: FLECAINIDE ACETATE 100 MG TABLET PO SCH (08:04)
[2019-01-01] MEDS ORDERED: MULTIVITAMIN TAB PO SCH (09:00)
[2019-01-01] MEDS ORDERED: DULOXETINE HCL 60 MG CAP PO SCH (09:00)
[2019-01-01] MEDS ORDERED: PANTOprazole 40 MG TAB PO SCH (09:00)
[2019-01-01] MEDS ORDERED: SPIRONOLACTONE/HCTZ 25-25 PO SCH (09:00)
[2019-01-01] MEDS ORDERED: LACTATED RINGER'S 1,000 ML IV SCH (09:15)
[2019-01-01] MEDS ORDERED: POLYETHYLENE (MIRALAX) 17 GM PACK PO SCH (12:00)
[2019-01-01] MEDS ORDERED: RIVAROXABAN 20 MG TAB PO SCH (16:30)
[2019-01-02] MEDS ORDERED: BISACODYL 10 MG SUPP PR PRN (10:17)
--- NOTE | 2019-01-08 11:34 | Discharge Summary ---
He was discharged home after surgery, improved, stable. Minimal complaints of pain. No neurological deficit. No chest pain, shortness of breath. He has a followup appointment in 10 days and medication on his chart for pain. Instructions, precautions given at length.
--- NOTE | 2019-01-09 06:47 | Coding Query ---
CODING QUERY To promote full compliance with coding requirements relating to patient care, provider participation is requested in all cases of cpc coder uncertainty. Please assist us with the question(s) below: Coding Question(s): The H&P documents Cervical Spine Pathology of significant severity with cord compression, the Operative Report documents Spinal Cord Compression C4-C7 cervical spine and the Brief Operative Note documents Cervical Stenosis. Please specify below, in your clinical opinion. ( x) Cervical Spinal Pathology with Spinal Cord Compression with Cervical Spinal Stenosis ( ) Cervical Spinal Pathology with Spinal Cord Compression - NOT Cervical Spinal Stenosis ( ) Other: Please Specify Physician's Response(s): Thank you Ashley Joseph Principal Diagnosis: "that condition established after study, to be chiefly responsible for occasioning the admission of the patient to the hospital for care." Co-Existing Principal Diagnosis: "when two or more diagnoses equally meet the criteria for principal diagnosis as determined by the circumstances of admission, diagnostic work up, and/or therapy provided, and the Alphabetic Index, Tabular List, or another coding guideline does not provide sequencing direction, any one of the diagnoses may be sequenced first." "When the physician has documented what appears to be a current diagnosis in the body of the record, but has not included the diagnosis in the final diagnostic statement, the physician should be asked whether the diagnosis should be added." (Source [facility]oding [facility] 2 QTR90. p3-4) BIJAL
== END 2019-01-01 14:53 | disposition home or self-care (01) | DRG 472 ==
LOC: ASU 06:04 → 3E 10:20

== ENCOUNTER 2020-01-30 02:52 | Observation (INO) ==
[2020-01-30 03:24] LABS: Basophils # (auto) 0.03 K/uL (0-0.2); Basophils % (auto) 0.3 %; Hematocrit (blood only) 39.4 % (42-52); Hemoglobin 12.6 g/dL (14.0-18.0); Immature Granulocytes # (auto) 0.02 K/uL (0.00-0.02); Immature Granulocytes % (auto) 0.2 %; Lymphocytes # (auto) 1.42 K/uL (1.2-3.4); Lymphocytes % (auto) 12.1 %; Mean Corpuscular Hemoglobin 24.2 pg (25-34); Mean Corpuscular Volume 75.8 fL (80-100); Mean Platelet Volume 8.8 fL (7.4-10.4); Monocytes # (auto) 0.46 K/uL (0.11-0.59); Monocytes % (auto) 3.9 %; Neutrophils # (auto) 9.85 K/uL (1.4-6.5); Neutrophils % (auto) 83.5 %; Platelet Count 257 K/uL (130-400); RDW Coefficient of Variation 15.2 % (11.5-14.5); RDW Standard Deviation 41.9 fL (36.4-46.3); White Blood Count 11.78 K/uL (4.8-10.8)
--- NOTE | 2020-01-30 03:26 | Emergency Department Note ---
History of Present Illness General Chief complaint: Neuro Symptoms/Deficit Stated complaint: SOB Time Seen by Provider: 01/30/20 03:04 Source: patient Mode of arrival: ambulatory Limitations: altered mental status History of Present Illness Maximum Pain Intensity: 5 This patient is a 49-year-old male who presents to the emergency department accompanied by his for evaluation of headache and confusion. Patient states that he does not feel well, reports headache and nausea. According to the patient's , patient developed a headache yesterday, about 11 hours ago while at work. He returned home and the headache became more severe. His states that he did not eat much for dinner and went upstairs to take a nap, thinking that the headache was due to a migraine. She reports that she heard a loud noise and when she found the patient, he was on his knees beside the bed and had urinated himself. She states that he has been saying things that do not make sense. She reports there have been multiple episodes where the patient seems to fall asleep in the middle of talking and then jolts himself awake. Patient does have history of migraines and took a Maxalt tonight for possible migraine. She states he has never had any neurological symptoms with his migraines. Patient denies any drug or alcohol use. He denies any recent trauma. Home Medications Medication Instructions Recorded Confirmed Type cholecalciferol (vitamin D3) 2,000 unit PO QAM 06/12/18 01/30/20 History [Vitamin D3] omeprazole 20 mg PO QAM 06/12/18 01/30/20 History pramipexole [Mirapex] 0.125 mg PO QPM 06/12/18 01/30/20 History rizatriptan [Maxalt] 10 mg PO DAILY PRN 06/12/18 01/30/20 History tadalafil [Cialis] 5 mg PO QAM 06/12/18 01/30/20 History vitamin B complex 1 tab PO QAM 06/12/18 01/30/20 History multivitamin 1 tab PO DAILY 12/21/18 01/30/20 History flecainide 100 mg tablet 100 mg PO Q12H #180 tab 02/08/19 01/30/20 Rx albuterol sulfate 90 mcg/actuation 2 puff INHALATION Q6H PRN #18 g 01/07/20 01/30/20 Rx aerosol inhaler fluticasone fur. 100 mcg-umeclid 1 inh INHALATION DAILY #60 ea 01/07/20 01/30/20 Rx 62.5 mcg-vilant 25 mcg inhalat.powder Anoro Ellipta 1 inh INHALATION DAILY 01/30/20 01/30/20 History Allergies Allergy/AdvReac Type Severity Reaction Status Date / Time amoxicillin [From Augmentin] AdvReac Gastrointestinal Verified 01/30/20 03:20 Upset clavulanic acid AdvReac Gastrointestinal Verified 01/30/20 03:20 [From Augmentin] Upset levofloxacin [From Levaquin] AdvReac Vomiting Verified 01/30/20 03:20 Past Med/Surg History Medical History (Updated 02/05/20 @ 22:41 by Camelia Mclaughlin PA-C) Atrial fibrillation Chronic neck and back pain Chronic sinusitis Erectile dysfunction GERD (gastroesophageal reflux disease) Migraine Peripheral neuropathy LEFT ARM Restless leg syndrome Sleep apnea CPAP Surgical History History of cardioversion [facility] ~2016 History of cervical spinal surgery History of tooth extraction WITH ANESTHESIA Social History Smoking Status: Former smoker packs per day: 2; Years Smoked: 25; Cigarettes Per Day: SMOKED ~1-2PPD X 30 YEARS; Number of Years Since Quit: 2; Second Hand Exposure: No; Do You Dip or Chew Tobacco: No; Tobacco Cessation Education Requested by Patient: No Hx Alcohol Use: No Hx Substance Use: No Preferred Language: Mohawk Communication Ability: Effective Hospitality Host Required: No Beliefs That Will Affect Care: None Current Living Situation: Alone Other Information That Helps Us Care for You: No Feels Safe at Home: Yes Safety Concerns: Feels Safe At This Time Assistive Devices: Glasses Review of Systems A total of 10 systems reviewed and were otherwise negative Physical Exam Vital Signs Vital Signs - 24 hr 01/30/20 02:59 Temperature 36.3 C L Temperature Source Oral Pulse Rate 73 Respiratory Rate 18 Respiratory Effort / Characteristics Non-Labored Respiratory Depth Normal Blood Pressure 148/90 H Blood Pressure Mean 109 Pulse Oximetry 93 Oxygen Delivery Method Room Air Sepsis Recent Fever Within 48 Hours No Sepsis New/Unexplained Change in Mental Status Yes Sepsis Action Taken by Nursing No Action Required VITALS: Vitals are noted on the nurse's note and reviewed by myself. GENERAL: This is a 49-year-old male, in mild distress, sitting up in bed. SKIN: The skin was without rashes, erythema, edema, or bruising. HEAD: Normocephalic atraumatic. EARS: External auditory canals clear, tympanic membranes pearly rodriguez without erythema or effusion bilaterally. EYES: Pupils equal round and reactive to light and accommodation. Extraocular movements intact. NOSE: Patent, turbinates without inflammation or discharge. MOUTH: Mucous membranes moist. Tonsils are not enlarged. Pharynx without erythema or exudate. NECK: Supple without nuchal rigidity. No lymphadenopathy. No meningismus. HEART: Regular rate and rhythm without murmurs gallops or rubs. LUNGS: Clear to auscultation bilaterally without wheezes, rales or rhonchi. ABDOMEN: Positive bowel sounds x 4. Soft, nontender to palpation. MUSCULOSKELETAL: Full range of motion of all extremities strength 5/5 throughout all extremities. NEURO: Patient is alert and oriented to person and place. Initially states that it is August 30, 2020. Patient follows commands appropriately but seems to have some trouble with word finding and mild slurring of his speech. No obvious facial droop. Patient with positive right pronator drift. [id number] testing intact. Rapid alternating movements intact. Course Consultations Consultation #1: Dr. Dhruv Bright tele-stroke neurologist Reviewed patient's presentation and workup/exam findings with Dr. Bartlett. She states that given low NIH stroke scale, would not recommend intervention at this time. She agrees that TPA not indicated given anticoagulant use, length of time from symptoms, and relatively minor deficits on exam. She recommends obtaining MRI and admitting the patient to the hospital with frequent neuro checks. If patient's condition changes, Kaila can be consulted and transfer arranged at that time. Consultation #2: Dr. Chris Wells [facility] [place] Administered Medications Discontinued Medications Dexamethasone (Dexamethasone Sod Inj 10 Mg/Ml Vial) 10 mg IV NOW ONE Stop: 01/30/20 03:45 Last Admin: 01/30/20 04:10 Dose: 10 mg Documented by: [id number] Diphenhydramine HCl (Diphenhydramine 50 Mg/Ml Vial) 12.5 mg IV NOW STA Stop: 01/30/20 03:45 Last Admin: 01/30/20 04:10 Dose: 12.5 mg Documented by: [id number] Sodium Chloride (Nss 1000ml) 1,000 mls @ 999 mls/hr IV .Q1H1M ONE Stop: 01/30/20 04:41 Last Infusion: 01/30/20 05:24 Dose: 0 mls/hr Documented by: [id number] Admin: 01/30/20 04:10 Dose: 999 mls/hr Documented by: [id number] Prochlorperazine (Compazine) 1 mls @ 1 mls/min IV ONE ONE Stop: 01/30/20 03:45 Last Admin: 01/30/20 04:10 Dose: 1 mls/min Documented by: [id number] Lorazepam (Ativan) 1 mg in 2 mls @ 2 mls/min IV NOW STA Stop: 01/30/20 05:10 Last Admin: 01/30/20 05:23 Dose: 2 mls/min Documented by: [id number] Lactated Ringer's (Lr) 1,000 mls @ 125 mls/hr IV .Q8H BEKAH Stop: 02/29/20 09:13 Last Admin: 01/30/20 09:37 Dose: 125 mls/hr Documented by: [id number] Heparin Sodium/Dextrose (Heparin Sodium/Dextrose) 25,000 units in 500 mls @ 33 mls/hr IV .[id number] [facility]; Protocol Stop: 02/29/20 09:13 Last Admin: 01/30/20 09:37 Dose: 1,650 units/hr, 33 mls/hr Documented by: [id number] Cosigned by: [id number] Ioversol (Optiray 320 125ml) 125 ml IV ONCE ONE Stop: 01/30/20 04:09 Last Admin: 01/30/20 04:08 Dose: 119 ml Documented by: [id number] Medical Decision Making Differential Diagnosis Infection, hypoglycemia, electrolyte abnormalities, overdose, toxicologic, cardiac sources, intracerebral event, neurologic, trauma, as well as other pathologies. Home Medications Current Medication List: was personally reviewed by me Laboratory Data Attestation: I reviewed the patient's lab results. Result diagrams: 01/30/20 03:10 01/30/20 03:10 Lab Results 01/30/20 01/30/20 01/30/20 Range/Units 03:10 03:10 03:10 WBC 11.78 H (4.8-10.8) K/uL RBC 5.20 (4.7-6.1) M/uL Hgb 12.6 L (14.0-18.0) g/dL Hct 39.4 L (42-52) % MCV 75.8 L (80-100) fL MCH 24.2 L (25-34) pg MCHC 32.0 (32-36) g/dL RDW Std Deviation 41.9 (36.4-46.3) fL RDW Coeff of Aisha 15.2 H (11.5-14.5) % Plt Count 257 (130-400) K/uL MPV 8.8 (7.4-10.4) fL Immature Gran % (Auto) 0.2 % Neut % (Auto) 83.5 % Lymph % (Auto) 12.1 % [place] % (Auto) 3.9 % Eos % (Auto) 0.0 % Baso % (Auto) 0.3 % Neut # (Auto) 9.85 H (1.4-6.5) K/uL Lymph # (Auto) 1.42 (1.2-3.4) K/uL [place] # (Auto) 0.46 (0.11-0.59) K/uL Eos # (Auto) 0.00 (0-0.5) K/uL Baso # (Auto) 0.03 (0-0.2) K/uL Immature Gran # (Auto) 0.02 (0.00-0.02) K/uL PT 11.5 (9.0-12.0) Seconds INR 1.1 (0.9-1.1) APTT 27.1 (21.0-31.0) Seconds PTT Ratio 1.0 Heparin Anti-Xa, LM Wt (< 0.10) IU/ML Sodium (136-145) mmol/L Potassium (3.5-5.1) mmol/L Chloride (98-107) mmol/L Carbon Dioxide (21-32) mmol/L Anion Gap (3-11) BUN (7-18) mg/dl Creatinine (0.6-1.4) mg/dl Est Cr Clr Drug Dosing ml/min Est GFR ( Amer) Est GFR (Non-Af Amer) BUN/Creatinine Ratio (10-20) Glucose (70-99) mg/dl POC Glucose 123 H (70-99) mg/dl Calcium (8.5-10.1) mg/dl Magnesium (1.8-2.4) mg/dl Total Bilirubin (0.2-1) mg/dl AST (15-37) U/L ALT (12-78) U/L Alkaline Phosphatase (45-117) U/L Troponin I (0-0.045) ng/ml Total Protein (6.4-8.2) gm/dl Albumin (3.4-5.0) gm/dl Globulin (2.5-4.0) gm/dl Albumin/Globulin Ratio (0.9-2) Urine Color Urine Appearance (Clear) Urine pH (4.5-7.5) Ur Specific [place] (1.000-1.030) Urine Protein (Negative) Urine Glucose (UA) (Negative) Urine Ketones (Negative) Urine Blood (Negative) Urine Nitrite (Negative) Urine Bilirubin (Negative) Urine Urobilinogen (Negative) Ur Leukocyte Esterase (Negative) Urine Opiates Screen (Neg) Ur Methadone, Qual (Neg) Urine Barbiturates (Neg) Ur Phencyclidine (PCP) (Neg) U Amphetamin/Meth Scrn (Neg) MDMA (Ecstasy) Screen (Neg) U Benzodiazepines Scrn (Neg) Ur Cocaine Metabolite (Neg) U Marijuana (THC) Screen (Neg) Ethyl Alcohol mg/dL (0-3) mg/dl SARS-CoV-2 Ag (Rapid) (Negative) Blood Type Antibody Screen 01/30/20 01/30/20 01/30/20 Range/Units 03:10 03:24 04:05 WBC (4.8-10.8) K/uL RBC (4.7-6.1) M/uL Hgb (14.0-18.0) g/dL Hct (42-52) % MCV (80-100) fL MCH (25-34) pg MCHC (32-36) g/dL RDW Std Deviation (36.4-46.3) fL RDW Coeff of Aisha (11.5-14.5) % Plt Count (130-400) K/uL MPV (7.4-10.4) fL Immature Gran % (Auto) % Neut % (Auto) % Lymph % (Auto) % [place] % (Auto) % Eos % (Auto) % Baso % (Auto) % Neut # (Auto) (1.4-6.5) K/uL Lymph # (Auto) (1.2-3.4) K/uL [place] # (Auto) (0.11-0.59) K/uL Eos # (Auto) (0-0.5) K/uL Baso # (Auto) (0-0.2) K/uL Immature Gran # (Auto) (0.00-0.02) K/uL PT (9.0-12.0) Seconds INR (0.9-1.1) APTT (21.0-31.0) Seconds PTT Ratio Heparin Anti-Xa, LM Wt (< 0.10) IU/ML Sodium 137 Cancelled (136-145) mmol/L Potassium 3.5 Cancelled (3.5-5.1) mmol/L Chloride 105 Cancelled (98-107) mmol/L Carbon Dioxide 27 Cancelled (21-32) mmol/L Anion Gap 5.0 Cancelled (3-11) BUN 14 Cancelled (7-18) mg/dl Creatinine 1.00 Cancelled (0.6-1.4) mg/dl Est Cr Clr Drug Dosing 114.2 Cancelled ml/min Est GFR ( Amer) 102.0 Cancelled Est GFR (Non-Af Amer) 88.0 Cancelled BUN/Creatinine Ratio 13.6 Cancelled (10-20) Glucose 132 H Cancelled (70-99) mg/dl POC Glucose (70-99) mg/dl Calcium 8.4 L Cancelled (8.5-10.1) mg/dl Magnesium 2.0 (1.8-2.4) mg/dl Total Bilirubin 0.3 (0.2-1) mg/dl AST 25 (15-37) U/L ALT 41 (12-78) U/L Alkaline Phosphatase 93 (45-117) U/L Troponin I < 0.015 (0-0.045) ng/ml Total Protein 8.1 (6.4-8.2) gm/dl Albumin 3.6 (3.4-5.0) gm/dl Globulin 4.5 H (2.5-4.0) gm/dl Albumin/Globulin Ratio 0.8 L (0.9-2) Urine Color Urine Appearance (Clear) Urine pH (4.5-7.5) Ur Specific [place] (1.000-1.030) Urine Protein (Negative) Urine Glucose (UA) (Negative) Urine Ketones (Negative) Urine Blood (Negative) Urine Nitrite (Negative) Urine Bilirubin (Negative) Urine Urobilinogen (Negative) Ur Leukocyte Esterase (Negative) Urine Opiates Screen (Neg) Ur Methadone, Qual (Neg) Urine Barbiturates (Neg) Ur Phencyclidine (PCP) (Neg) U Amphetamin/Meth Scrn (Neg) MDMA (Ecstasy) Screen (Neg) U Benzodiazepines Scrn (Neg) Ur Cocaine Metabolite (Neg) U Marijuana (THC) Screen (Neg) Ethyl Alcohol mg/dL (0-3) mg/dl SARS-CoV-2 Ag (Rapid) (Negative) Blood Type A Positive Antibody Screen NEGATIVE 01/30/20 01/30/20 01/30/20 Range/Units 04:08 05:00 05:11 WBC (4.8-10.8) K/uL RBC (4.7-6.1) M/uL Hgb (14.0-18.0) g/dL Hct (42-52) % MCV (80-100) fL MCH (25-34) pg MCHC (32-36) g/dL RDW Std Deviation (36.4-46.3) fL RDW Coeff of Aisha (11.5-14.5) % Plt Count (130-400) K/uL MPV (7.4-10.4) fL Immature Gran % (Auto) % Neut % (Auto) % Lymph % (Auto) % [place] % (Auto) % Eos % (Auto) % Baso % (Auto) % Neut # (Auto) (1.4-6.5) K/uL Lymph # (Auto) (1.2-3.4) K/uL [place] # (Auto) (0.11-0.59) K/uL Eos # (Auto) (0-0.5) K/uL Baso # (Auto) (0-0.2) K/uL Immature Gran # (Auto) (0.00-0.02) K/uL PT (9.0-12.0) Seconds INR (0.9-1.1) APTT (21.0-31.0) Seconds PTT Ratio Heparin Anti-Xa, LM Wt (< 0.10) IU/ML Sodium (136-145) mmol/L Potassium (3.5-5.1) mmol/L Chloride (98-107) mmol/L Carbon Dioxide (21-32) mmol/L Anion Gap (3-11) BUN (7-18) mg/dl Creatinine (0.6-1.4) mg/dl Est Cr Clr Drug Dosing ml/min Est GFR ( Amer) Est GFR (Non-Af Amer) BUN/Creatinine Ratio (10-20) Glucose (70-99) mg/dl POC Glucose (70-99) mg/dl Calcium (8.5-10.1) mg/dl Magnesium (1.8-2.4) mg/dl Total Bilirubin (0.2-1) mg/dl AST (15-37) U/L ALT (12-78) U/L Alkaline Phosphatase (45-117) U/L Troponin I (0-0.045) ng/ml Total Protein (6.4-8.2) gm/dl Albumin (3.4-5.0) gm/dl Globulin (2.5-4.0) gm/dl Albumin/Globulin Ratio (0.9-2) Urine Color Yellow Urine Appearance Clear (Clear) Urine pH 6.0 (4.5-7.5) Ur Specific [place] 1.036 H (1.000-1.030) Urine Protein Negative (Negative) Urine Glucose (UA) Negative (Negative) Urine Ketones Trace H (Negative) Urine Blood Negative (Negative) Urine Nitrite Negative (Negative) Urine Bilirubin Negative (Negative) Urine Urobilinogen Negative (Negative) Ur Leukocyte Esterase Negative (Negative) Urine Opiates Screen (Neg) Ur Methadone, Qual (Neg) Urine Barbiturates (Neg) Ur Phencyclidine (PCP) (Neg) U Amphetamin/Meth Scrn (Neg) MDMA (Ecstasy) Screen (Neg) U Benzodiazepines Scrn (Neg) Ur Cocaine Metabolite (Neg) U Marijuana (THC) Screen (Neg) Ethyl Alcohol mg/dL < 3.0 (0-3) mg/dl SARS-CoV-2 Ag (Rapid) Negative (Negative) Blood Type Antibody Screen 01/30/20 01/30/20 Range/Units 05:11 05:17 WBC (4.8-10.8) K/uL RBC (4.7-6.1) M/uL Hgb (14.0-18.0) g/dL Hct (42-52) % MCV (80-100) fL MCH (25-34) pg MCHC (32-36) g/dL RDW Std Deviation (36.4-46.3) fL RDW Coeff of Aisha (11.5-14.5) % Plt Count (130-400) K/uL MPV (7.4-10.4) fL Immature Gran % (Auto) % Neut % (Auto) % Lymph % (Auto) % [place] % (Auto) % Eos % (Auto) % Baso % (Auto) % Neut # (Auto) (1.4-6.5) K/uL Lymph # (Auto) (1.2-3.4) K/uL [place] # (Auto) (0.11-0.59) K/uL Eos # (Auto) (0-0.5) K/uL Baso # (Auto) (0-0.2) K/uL Immature Gran # (Auto) (0.00-0.02) K/uL PT (9.0-12.0) Seconds INR (0.9-1.1) APTT (21.0-31.0) Seconds PTT Ratio Heparin Anti-Xa, LM Wt 0.45 (< 0.10) IU/ML Sodium (136-145) mmol/L Potassium (3.5-5.1) mmol/L Chloride (98-107) mmol/L Carbon Dioxide (21-32) mmol/L Anion Gap (3-11) BUN (7-18) mg/dl Creatinine (0.6-1.4) mg/dl Est Cr Clr Drug Dosing ml/min Est GFR ( Amer) Est GFR (Non-Af Amer) BUN/Creatinine Ratio (10-20) Glucose (70-99) mg/dl POC Glucose (70-99) mg/dl Calcium (8.5-10.1) mg/dl Magnesium (1.8-2.4) mg/dl Total Bilirubin (0.2-1) mg/dl AST (15-37) U/L ALT (12-78) U/L Alkaline Phosphatase (45-117) U/L Troponin I (0-0.045) ng/ml Total Protein (6.4-8.2) gm/dl Albumin (3.4-5.0) gm/dl Globulin (2.5-4.0) gm/dl Albumin/Globulin Ratio (0.9-2) Urine Color Urine Appearance (Clear) Urine pH (4.5-7.5) Ur Specific [place] (1.000-1.030) Urine Protein (Negative) Urine Glucose (UA) (Negative) Urine Ketones (Negative) Urine Blood (Negative) Urine Nitrite (Negative) Urine Bilirubin (Negative) Urine Urobilinogen (Negative) Ur Leukocyte Esterase (Negative) Urine Opiates Screen Neg (Neg) Ur Methadone, Qual Neg (Neg) Urine Barbiturates Neg (Neg) Ur Phencyclidine (PCP) Neg (Neg) U Amphetamin/Meth Scrn Neg (Neg) MDMA (Ecstasy) Screen Neg (Neg) U Benzodiazepines Scrn Neg (Neg) Ur Cocaine Metabolite Neg (Neg) U Marijuana (THC) Screen Neg (Neg) Ethyl Alcohol mg/dL (0-3) mg/dl SARS-CoV-2 Ag (Rapid) (Negative) Blood Type Antibody Screen Imaging Data Attestation: I personally reviewed and interpreted this imaging study as follows: Radiologist's Impression: CT HEAD: The paranasal sinuses and mastoid air cells are normally aerated. There is no skull fracture or scalp hematoma. There is a normal gyral pattern of the brain. There is no mass lesion or midline shift. The rodriguez-white matter differentiation is maintained. The ventricles and CSF spaces are normal. There is no evidence of acute large vessel infarct or intracranial hemorrhage. Radiologist: Wolf Estevez MD CTA HEAD: There is thrombus in the distal left internal carotid artery at the origin of the left M1 segment which is occluded. There is collateral reconstitution of the left M2 segments. The distal vertebral, and basilar arteries are widely patent bilaterally. The A1, right M1, and P1 segments are widely patent. The anterior, right middle, and posterior through arteries are otherwise unremarkable. No aneurysm or vascular formation. Radiologist: Wolf Estevez MD CTA NECK: Mild aneurysmal dilation of the ascending aortic arch measuring 3.9 cm. No dissection. The great vessel origins are widely patent. There is a trace amount of calcified plaque in both carotid bifurcations with no sylvian stenosis or dissection. Both internal carotid arteries are widely patent through the neck. The vertebral arteries there widely patent bilaterally. No stenosis or dissection. Incidental note is made of multilevel fusion in the cervical spine. Moderate emphysematous changes in the lungs bilaterally. No focal infiltrate, pneumothorax, or pleural effusion identified. Radiologist: Wolf Estevez MD MR brain wo con HISTORY: 49 years-old Male stroke acute strokelike symptoms COMPARISON: CT head, CTA head and neck studies of same day TECHNIQUE: Multiple planar multisequence MRI the brain was obtained without the use of IV contrast. FINDINGS: Acute infarct involves the head of the left caudate nucleus with small additional acute infarct of the medial left temporal lobe measuring up to 1.8 cm. Additional tiny areas of restricted diffusion suggestive of acute infarct noted within the left lentiform nucleus and left operculum. No significant T2/FLAIR prolongation identified within these distributions. There is no acute intracranial hemorrhage, midline shift, abnormal extra axial collection, hydrocephalus or intracranial mass. Motion degraded exam. Midline structures including the corpus callosum, brainstem, optic chiasm, pituitary and pineal glands appear unremarkable the sagittal T1 series. No cerebellar tonsillar herniation. Minimal patchy T2/FLAIR hyperintensities throughout the white matter may reflect a component of chronic microvascular ischemic disease.. Acute thrombus involving the left M1 segment is better characterized on comparison CTA of the head. Cerebral venous sinuses major arterial flow voids appear otherwise unremarkable. Mild mucosal thickening of the paranasal sinuses and nasal turbinates. Trace mastoid effusions. The orbits, skull and soft tissues are unremarkable. IMPRESSION: 1. Acute thrombus of the left M1 segment is better characterized on comparison CTA of the head. Acute infarcts of the left caudate head and medial left temporal lobe are noted in addition to a few additional tiny subcentimeter acute infarcts of the left MCA distribution. 2. No acute intracranial hemorrhage, midline shift or significant cytotoxic edema. ECG Data Attestation: I personally reviewed and interpreted this ECG as follows: Indication: + altered mental status Rate (beats per minute): 72 Rhythm: + normal sinus ECG Intervals/blocks: + First degree AV block ECG ST segments: + Nonspecific ST abnormalities Change: the following changes noted (T wave inversions anterior leads) MDM Narrative Continuous nurse monitoring: Order was placed for continuous nurse monitoring. Patient was placed on the nurse monitoring. Patient was noted to be in normal sinus rhythm at an initial rate of 73 bpm. The patient is a 49-year-old male who presents today for evaluation of headache and dysarthria. states that the patient seems to be somewhat confused at times and does not seem like himself. Patient's exam is remarkable for dysarthria, some trouble word finding and a right pronator drift. Otherwise, patient has no other focal neurological deficits. On initial evaluation, it was unclear whether the symptoms could be due to stroke or possibly a complex migraine. Stroke work-up was initiated while patient was given IV medications to treat a possible complex migraine. A noncontrast CT scan of the head was initially performed and was reviewed by stat rad with no acute abnormalities. A CT angiogram was then performed which did show a thrombus in the distal left ICA. At this time, the findings were di scussed with the patient and his . Patient is not a TPA candidate given anticoagulant use and length of time from the onset of symptoms (11 hours). The case was discussed with the stroke neurologist at [place], who agreed that TPA was not indicated and recommended MRI and admission to the medical service. She did not feel that patient would benefit from intervention at this time given low NIH stroke scale, but did recommend transfer if the patient's condition worsened. Patient was given 1 mg lorazepam for the MRI as he has restless legs and was unable to hold still for this. The patient was independently evaluated by Dr. Michaud, who agreed with my assessment and treatment plan. Impression & Plan Cerebrovascular accident Discharge Plan Visit Data Chief Complaint: Neuro Symptoms/Deficit Stated Complaint: SOB ED Provider: Marilee Michaud ED Midlevel Provider: Camelia Mclaughlin Discharge Problem: Cerebrovascular accident Patient Disposition: Admitted As Inpatient Discharge Instructions Interventions: ED Discharge Assessment Last Done: 01/30/20 08:25 Discharge Problem: Cerebrovascular accident Qualifiers: CVA mechanism: thrombosis Precerebral and cerebral artery: carotid artery Laterality of affected vessel: left Qualified Code(s): I63.032 - Cerebral infarction due to thrombosis of left carotid artery
[2020-01-30 03:34] LABS: INR 1.1 (0.9-1.1); Partial Thromboplastin Time 27.1 Seconds (21.0-31.0); Prothrombin Time 11.5 Seconds (9.0-12.0)
[2020-01-30] MEDS ORDERED: SODIUM CHLORIDE 0.9% 1000ML 1,000 ML IV ONE (03:41)
[2020-01-30 03:43] LABS: Alanine Aminotransferase 41 U/L (12-78); Albumin Level 3.6 gm/dl (3.4-5.0); Aspartate Aminotransferase 25 U/L (15-37); BUN Creatinine Ratio 13.6 (10-20); Blood Urea Nitrogen 14 mg/dl (7-18); Calcium 8.4 mg/dl (8.5-10.1); Carbon Dioxide 27 mmol/L (21-32); Chloride 105 mmol/L (98-107); Creatinine Clr Calc Pharmacy 114.2 ml/min; Glucose 132 mg/dl (70-99); Potassium 3.5 mmol/L (3.5-5.1); Sodium 137 mmol/L (136-145)
[2020-01-30] MEDS ORDERED: diphenhydrAMINE 50 MG/ML VIAL IV STA (03:44)
[2020-01-30] MEDS ORDERED: DEXAMETHASONE SOD INJ 10 MG/ML VIAL IV ONE (03:44)
[2020-01-30] MEDS ORDERED: PROCHLORPERAZINE 1 ML IV ONE (03:44)
[2020-01-30 03:48] LABS: Albumin Globulin Ratio 0.8 (0.9-2); Alkaline Phosphatase 93 U/L (45-117); Bilirubin,Total 0.3 mg/dl (0.2-1); Globulin 4.5 gm/dl (2.5-4.0); Total Protein 8.1 gm/dl (6.4-8.2); Troponin I < 0.015 ng/ml (0-0.045)
[2020-01-30] MEDS ORDERED: OPTIRAY 320 125ml IV ONE (04:08)
[2020-01-30] MEDS ORDERED: LORazepam 1 MG/2 ML VIAL IV STA (05:09)
[2020-01-30 05:24] LABS: Appearance Urine Clear (Clear); Bilirubin Urine Negative (Negative); Blood Urine Negative (Negative); Color Urine Yellow; Glucose Urine UA Negative (Negative); Ketones Urine Trace (Negative); Leukocyte Esterase Urine Negative (Negative); Nitrite Urine Negative (Negative); Protein Urine Negative (Negative); Specific Gravity Urine 1.036 (1.000-1.030); Urobilinogen Urine Negative (Negative)
[2020-01-30 06:05] LABS: Amphetamines+Metham, Urine Neg (Neg); Barbiturates, Urine Neg (Neg); Benzodiazepine, Urine Neg (Neg); Cocaine, Urine Neg (Neg); MDMA (Ecstacy), Urine Neg (Neg); Methadone, Urine Neg (Neg); Opiate, Urine Neg (Neg); Phencyclidine, Urine Neg (Neg)
--- NOTE | 2020-01-30 06:52 | Magnetic Resonance Report ---
MR brain wo con HISTORY: 49 years-old Male stroke acute strokelike symptoms COMPARISON: CT head, CTA head and neck studies of same day TECHNIQUE: Multiple planar multisequence MRI the brain was obtained without the use of IV contrast. FINDINGS: Acute infarct involves the head of the left caudate nucleus with small additional acute infarct of th e medial left temporal lobe measuring up to 1.8 cm. Additional tiny areas of restricted diffusion sug gestive of acute infarct noted within the left lentiform nucleus and left operculum. No significant T 2/FLAIR prolongation identified within these distributions. There is no acute intracranial hemorrhage, midline shift, abnormal extra axial collection, hydrocepha juju or intracranial mass. Motion degraded exam. Midline structures including the corpus callosum, bra instem, optic chiasm, pituitary and pineal glands appear unremarkable the sagittal T1 series. No cere bellar tonsillar herniation. Minimal patchy T2/FLAIR hyperintensities throughout the white matter may reflect a component of chronic microvascular ischemic disease.. Acute thrombus involving the left M1 segment is better characterized on comparison CTA of the head. Cerebral venous sinuses major arteria l flow voids appear otherwise unremarkable. Mild mucosal thickening of the paranasal sinuses and nasa l turbinates. Trace mastoid effusions. The orbits, skull and soft tissues are unremarkable. IMPRESSION: 1. Acute thrombus of the left M1 segment is better characterized on comparison CTA of the head. Acute infarcts of the left caudate head and medial left temporal lobe are noted in addition to a few addit ional tiny subcentimeter acute infarcts of the left MCA distribution. 2. No acute intracranial hemorrhage, midline shift or significant cytotoxic edema. ACT 112: Negative or not required by law. The above report was generated using voice recognition software. It may contain grammatical, syntax o r spelling errors. Electronically signed by: Ben Hicks M.D. 01/30/2020 6:50 AM
--- NOTE | 2020-01-30 06:52 | History & Physical Report ---
Date of Service January 30, 2020 Assessment & Plan (1) Carotid thrombosis, left: Patient is a 49-year-old male with a past medical history of COPD with emphysema, organic. Limb movement disorder, moderate obstructive sleep apnea, morbid obesity, ex-smoker, exertional shortness of breath, elevated hemidiaphragm, dyspnea, wheezing, migraine headaches on Maxalt status post cervical spinal fusion, with a history of paroxysmal atrial fibrillation on chronic anticoagulation with Xarelto, who presents after a syncopal episode in which he urinated himself and having strokelike symptoms imaging is diagnosed a left internal carotid artery thrombus. #Left carotid thrombus Patient presenting with signs and symptoms concerning for stroke, stroke work-up was obtained, demonstrating a left internal carotid thrombus. This finding is especially surprising given the fact that he appears to be on the appropriate therapy to prevent this from occurring including rivaroxaban 20 mg daily, appropriate diabetes therapy, he could benefit from the addition of a statin. [facility] was contacted who recommended he be evaluated here. He will be admitted to medical floors with telemetry, will hold blood thinners, will obtain an MRI to further characterize his condition, and have neurology evaluate him. -Follow-up brain MRI -Neuro vital checks -Monitor closely -Consult neurology -Hold rivaroxaban for now pending neurology consult -Start atorvastatin 40 mg -LR @125 #COPD with emphysema -Continue home Ellipta Continue home albuterol #Obstructive sleep apnea -CPAP ordered #Morbid obesity -Likely contributing to current presentation, recommend dietary consultation on discharge #ADHD -Holding methylphenidate #Migraine -Holding Maxalt #Paroxysmal atrial fibrillation -Continue flecainide grams twice daily -Hold Xarelto pending neurology evaluation #GERD -Continue omeprazole #Restless leg syndrome -Hold Mirapex #Diabetes type 2 -Glycemic consult placed FENa: N.p.o. pending neuro Code Status: Full DVT PPX: SCDs PT/OT: Ordered Dispo: Telemetry Seth Estevez MD PGY 2, FCM This chart was completed utilizing [employer] voice recognition software. Grammatical errors, random word insertions, pronoun errors, and in complete se ntences are an occasional consequence of the system. Any questions or concerns about the content, text, or information contained within the body of this dictation should be addressed directly to the physician for clarification. (2) COPD with emphysema: (3) Organic periodic limb movement disorder: (4) Moderate obstructive sleep apnea: (5) Morbid obesity: (6) Ex-smoker: (7) Exertional shortness of breath: (8) Dyspnea: (9) Elevated hemidiaphragm: (10) Wheezing: (11) S/P cervical spinal fusion: History of Present Illness Patient is a 49-year-old male with a past medical history of COPD with emphysema, organic. Limb movement disorder, moderate obstructive sleep apnea, morbid obesity, ex-smoker, exertional shortness of breath, elevated hemidiaphr agm, dyspnea, wheezing, migraine headaches on Maxalt status post cervical spinal fusion, with a history of paroxysmal atrial fibrillation on chronic anticoagulation with Xarelto, who presents after a syncopal episode in which he urinated himself and having strokelike symptoms imaging is diagnosed a left internal carotid artery thrombus. Patient is intermittently able to participate in the interview. The majority of the history was obtained from his . His reported that the patient stated he had a headache and nausea at work, it was so severe that he came home from work. His stated she had had beds in her ear and heard a thud at some point later, to which she found the patient having a syncopal episode and in his own urine. Patient was slightly confused and obtunded. She helped the patient cleaned himself up, and he appeared to be getting better. At some point later she reported that he was fully dressed and said he needed to go to the ER. He became somnolent in the car, and his neurological symptoms progressively worsened. He was evaluated in the emergency department, and imaging demonstrated left internal carotid artery thrombus. Labs were pertinent for an elevated white count of 11.78, Chem-7 was within normal limits, glucose was 132, UA was normal, drug screen was negative. The emergency department contacted [facility] who recommended admission to the hospital and further work-up locally. Patient will obtain a brain MRI, and be admitted for further work-up and evaluation by our specialists. Primary Care Provider: Ignacio West MD Allergies Allergy/AdvReac Type Severity Reaction Status Date / Time amoxicillin [From Augmentin] AdvReac Gastrointestinal Verified 01/30/20 03:20 Upset clavulanic acid AdvReac Gastrointestinal Verified 01/30/20 03:20 [From Augmentin] Upset levofloxacin [From Levaquin] AdvReac Vomiting Verified 01/30/20 03:20 Home Medications Medication Instructions Recorded Confirmed Type cholecalciferol (vitamin D3) 2,000 unit PO QAM 06/12/18 01/30/20 History [Vitamin D3] omeprazole 20 mg PO QAM 06/12/18 01/30/20 History pramipexole [Mirapex] 0.125 mg PO QPM 06/12/18 01/30/20 History rizatriptan [Maxalt] 10 mg PO DAILY PRN 06/12/18 01/30/20 History tadalafil [Cialis] 5 mg PO QAM 06/12/18 01/30/20 History vitamin B complex 1 tab PO QAM 06/12/18 01/30/20 History multivitamin 1 tab PO DAILY 12/21/18 01/30/20 History flecainide 100 mg tablet 100 mg PO Q12H #180 tab 02/08/19 01/30/20 Rx albuterol sulfate 90 mcg/actuation 2 puff INHALATION Q6H PRN #18 g 01/07/20 01/30/20 Rx aerosol inhaler fluticasone fur. 100 mcg-umeclid 1 inh INHALATION DAILY #60 ea 01/07/20 01/30/20 Rx 62.5 mcg-vilant 25 mcg inhalat.powder Anoro Ellipta 1 inh INHALATION DAILY 01/30/20 01/30/20 History Past Med/Surg History Medical History (Updated 01/30/20 @ 06:50 by Seth Estevez MD) Atrial fibrillation Chronic neck and back pain Chronic sinusitis Erectile dysfunction GERD (gastroesophageal reflux disease) Migraine Peripheral neuropathy LEFT ARM Restless leg syndrome Sleep apnea CPAP Surgical History History of cardioversion [facility] ~2016 History of cervical spinal surgery History of tooth extraction WITH ANESTHESIA Social History Smoking Status: Former smoker packs per day: 2; Years Smoked: 25; Cigarettes Per Day: SMOKED ~1-2PPD X 30 YEARS; Number of Years Since Quit: 2; Second Hand Exposure: No; Do You Dip or Chew Tobacco: No; Tobacco Cessation Education Requested by Patient: No Hx Alcohol Use: No Hx Substance Use: No Preferred Language: Greek Communication Ability: Effective [employer] Required: No Beliefs That Will Affect Care: None Current Living Situation: Alone Other Information That Helps Us Care for You: No Feels Safe at Home: Yes Safety Concerns: Feels Safe At This Time Assistive Devices: Glasses Review of Systems Review of Systems: All systems reviewed & are unremarkable except as noted in HPI & below Physical Exam 2 Physical Exam: General: No acute distress HEENT: Normocephalic atraumatic Neck: Normal to visual inspection Cardiac: Regular rate and rhythm, I did not appreciate significant murmurs rubs or gallops, normal S1, normal S2, pedal edema bilaterally 2+, Respiratory: Intermittent wheezes and rhonchi's bilaterally consistent with emphysema, patient was also snoring quite loudly GI: Soft nontender nondistended, bowel sounds present in all 4 quadrants MSK: Moves all extremities Neuro: Intermittently alert and oriented, when asked with day of the week it was he responded strawberry, however he knew what month it was, what year it was, and was attempting to state who the president was. Patient was able to report that sensation was intact, was able to answer some questions, however definitely struggled. He was unable to participate in her cranial nerve exam, however from what I could tell CN II through XII appear to be grossly intact his main limitations appear to be somnolence and intermittent expressive aphasia Psych: Somnolent Results & Data Results & Data ([facility]) Vital Signs (Past 12 Hours) Vital Signs Temp Pulse Resp BP Pulse Ox 01/30/20 06:07 82 23 142/93 H 95 01/30/20 05:18 22 161/107 H 95 01/30/20 05:00 78 19 167/86 H 94 01/30/20 04:31 79 17 122/93 94 01/30/20 04:05 84 21 177/96 H 93 01/30/20 03:30 68 17 138/90 01/30/20 02:59 36.3 C L 73 18 148/90 H 93 Laboratory Results 01/30/20 01/30/20 01/30/20 Range/Units 05:17 05:11 05:11 WBC (4.8-10.8) K/uL RBC (4.7-6.1) M/uL Hgb (14.0-18.0) g/dL Hct (42-52) % MCV (80-100) fL MCH (25-34) pg MCHC (32-36) g/dL RDW Std Deviation (36.4-46.3) fL RDW Coeff of Aisha (11.5-14.5) % Plt Count (130-400) K/uL MPV (7.4-10.4) fL Immature Gran % (Auto) % Neut % (Auto) % Lymph % (Auto) % [place] % (Auto) % Eos % (Auto) % Baso % (Auto) % Neut # (Auto) (1.4-6.5) K/uL Lymph # (Auto) (1.2-3.4) K/uL [place] # (Auto) (0.11-0.59) K/uL Eos # (Auto) (0-0.5) K/uL Baso # (Auto) (0-0.2) K/uL Immature Gran # (Auto) (0.00-0.02) K/uL PT (9.0-12.0) Seconds INR (0.9-1.1) APTT (21.0-31.0) Seconds PTT Ratio Heparin Anti-Xa, LM Wt 0.45 (< 0.10) IU/ML Sodium (136-145) mmol/L Potassium (3.5-5.1) mmol/L Chloride (98-107) mmol/L Carbon Dioxide (21-32) mmol/L Anion Gap (3-11) BUN (7-18) mg/dl Creatinine (0.6-1.4) mg/dl Est Cr Clr Drug Dosing ml/min Est GFR ( Amer) Est GFR (Non-Af Amer) BUN/Creatinine Ratio (10-20) Glucose (70-99) mg/dl POC Glucose (70-99) mg/dl Calcium (8.5-10.1) mg/dl Magnesium (1.8-2.4) mg/dl Total Bilirubin (0.2-1) mg/dl AST (15-37) U/L ALT (12-78) U/L Alkaline Phosphatase (45-117) U/L Troponin I (0-0.045) ng/ml Total Protein (6.4-8.2) gm/dl Albumin (3.4-5.0) gm/dl Globulin (2.5-4.0) gm/dl Albumin/Globulin Ratio (0.9-2) Urine Color Yellow Urine Appearance Clear (Clear) Urine pH 6.0 (4.5-7.5) Ur Specific [place] 1.036 H (1.000-1.030) Urine Protein Negative (Negative) Urine Glucose (UA) Negative (Negative) Urine Ketones Trace H (Negative) Urine Blood Negative (Negative) Urine Nitrite Negative (Negative) Urine Bilirubin Negative (Negative) Urine Urobilinogen Negative (Negative) Ur Leukocyte Esterase Negative (Negative) Urine Opiates Screen Neg (Neg) Ur Methadone, Qual Neg (Neg) Urine Barbiturates Neg (Neg) Ur Phencyclidine (PCP) Neg (Neg) U Amphetamin/Meth Scrn Neg (Neg) MDMA (Ecstasy) Screen Neg (Neg) U Benzodiazepines Scrn Neg (Neg) Ur Cocaine Metabolite Neg (Neg) U Marijuana (THC) Screen Neg (Neg) Ethyl Alcohol mg/dL (0-3) mg/dl SARS-CoV-2 Ag (Rapid) (Negative) Blood Type Antibody Screen 01/30/20 01/30/20 01/30/20 Range/Units 05:00 04:08 04:05 WBC (4.8-10.8) K/uL RBC (4.7-6.1) M/uL Hgb (14.0-18.0) g/dL Hct (42-52) % MCV (80-100) fL MCH (25-34) pg MCHC (32-36) g/dL RDW Std Deviation (36.4-46.3) fL RDW Coeff of Aisha (11.5-14.5) % Plt Count (130-400) K/uL MPV (7.4-10.4) fL Immature Gran % (Auto) % Neut % (Auto) % Lymph % (Auto) % [place] % (Auto) % Eos % (Auto) % Baso % (Auto) % Neut # (Auto) (1.4-6.5) K/uL Lymph # (Auto) (1.2-3.4) K/uL [place] # (Auto) (0.11-0.59) K/uL Eos # (Auto) (0-0.5) K/uL Baso # (Auto) (0-0.2) K/uL Immature Gran # (Auto) (0.00-0.02) K/uL PT (9.0-12.0) Seconds INR (0.9-1.1) APTT (21.0-31.0) Seconds PTT Ratio Heparin Anti-Xa, LM Wt (< 0.10) IU/ML Sodium Cancelled (136-145) mmol/L Potassium Cancelled (3.5-5.1) mmol/L Chloride Cancelled (98-107) mmol/L Carbon Dioxide Cancelled (21-32) mmol/L Anion Gap Cancelled (3-11) BUN Cancelled (7-18) mg/dl Creatinine Cancelled (0.6-1.4) mg/dl Est Cr Clr Drug Dosing Cancelled ml/min Est GFR ( Amer) Cancelled Est GFR (Non-Af Amer) Cancelled BUN/Creatinine Ratio Cancelled (10-20) Glucose Cancelled (70-99) mg/dl POC Glucose (70-99) mg/dl Calcium Cancelled (8.5-10.1) mg/dl Magnesium (1.8-2.4) mg/dl Total Bilirubin (0.2-1) mg/dl AST (15-37) U/L ALT (12-78) U/L Alkaline Phosphatase (45-117) U/L Troponin I (0-0.045) ng/ml Total Protein (6.4-8.2) gm/dl Albumin (3.4-5.0) gm/dl Globulin (2.5-4.0) gm/dl Albumin/Globulin Ratio (0.9-2) Urine Color Urine Appearance (Clear) Urine pH (4.5-7.5) Ur Specific [place] (1.000-1.030) Urine Protein (Negative) Urine Glucose (UA) (Negative) Urine Ketones (Negative) Urine Blood (Negative) Urine Nitrite (Negative) Urine Bilirubin (Negative) Urine Urobilinogen (Negative) Ur Leukocyte Esterase (Negative) Urine Opiates Screen (Neg) Ur Methadone, Qual (Neg) Urine Barbiturates (Neg) Ur Phencyclidine (PCP) (Neg) U Amphetamin/Meth Scrn (Neg) MDMA (Ecstasy) Screen (Neg) U Benzodiazepines Scrn (Neg) Ur Cocaine Metabolite (Neg) U Marijuana (THC) Screen (Neg) Ethyl Alcohol mg/dL < 3.0 (0-3) mg/dl SARS-CoV-2 Ag (Rapid) Negative (Negative) Blood Type Antibody Screen 01/30/20 01/30/20 01/30/20 Range/Units 03:24 03:10 03:10 WBC (4.8-10.8) K/uL RBC (4.7-6.1) M/uL Hgb (14.0-18.0) g/dL Hct (42-52) % MCV (80-100) fL MCH (25-34) pg MCHC (32-36) g/dL RDW Std Deviation (36.4-46.3) fL RDW Coeff of Aisha (11.5-14.5) % Plt Count (130-400) K/uL MPV (7.4-10.4) fL Immature Gran % (Auto) % Neut % (Auto) % Lymph % (Auto) % [place] % (Auto) % Eos % (Auto) % Baso % (Auto) % Neut # (Auto) (1.4-6.5) K/uL Lymph # (Auto) (1.2-3.4) K/uL [place] # (Auto) (0.11-0.59) K/uL Eos # (Auto) (0-0.5) K/uL Baso # (Auto) (0-0.2) K/uL Immature Gran # (Auto) (0.00-0.02) K/uL PT 11.5 (9.0-12.0) Seconds INR 1.1 (0.9-1.1) APTT 27.1 (21.0-31.0) Seconds PTT Ratio 1.0 Heparin Anti-Xa, LM Wt (< 0.10) IU/ML Sodium 137 (136-145) mmol/L Potassium 3.5 (3.5-5.1) mmol/L Chloride 105 (98-107) mmol/L Carbon Dioxide 27 (21-32) mmol/L Anion Gap 5.0 (3-11) BUN 14 (7-18) mg/dl Creatinine 1.00 (0.6-1.4) mg/dl Est Cr Clr Drug Dosing 114.2 ml/min Est GFR ( Amer) 102.0 Est GFR (Non-Af Amer) 88.0 BUN/Creatinine Ratio 13.6 (10-20) Glucose 132 H (70-99) mg/dl POC Glucose (70-99) mg/dl Calcium 8.4 L (8.5-10.1) mg/dl Magnesium 2.0 (1.8-2.4) mg/dl Total Bilirubin 0.3 (0.2-1) mg/dl AST 25 (15-37) U/L ALT 41 (12-78) U/L Alkaline Phosphatase 93 (45-117) U/L Troponin I < 0.015 (0-0.045) ng/ml Total Protein 8.1 (6.4-8.2) gm/dl Albumin 3.6 (3.4-5.0) gm/dl Globulin 4.5 H (2.5-4.0) gm/dl Albumin/Globulin Ratio 0.8 L (0.9-2) Urine Color Urine Appearance (Clear) Urine pH (4.5-7.5) Ur Specific [place] (1.000-1.030) Urine Protein (Negative) Urine Glucose (UA) (Negative) Urine Ketones (Negative) Urine Blood (Negative) Urine Nitrite (Negative) Urine Bilirubin (Negative) Urine Urobilinogen (Negative) Ur Leukocyte Esterase (Negative) Urine Opiates Screen (Neg) Ur Methadone, Qual (Neg) Urine Barbiturates (Neg) Ur Phencyclidine (PCP) (Neg) U Amphetamin/Meth Scrn (Neg) MDMA (Ecstasy) Screen (Neg) U Benzodiazepines Scrn (Neg) Ur Cocaine Metabolite (Neg) U Marijuana (THC) Screen (Neg) Ethyl Alcohol mg/dL (0-3) mg/dl SARS-CoV-2 Ag (Rapid) (Negative) Blood Type A Positive Antibody Screen NEGATIVE 01/30/20 01/30/20 Range/Units 03:10 03:10 WBC 11.78 H (4.8-10.8) K/uL RBC 5.20 (4.7-6.1) M/uL Hgb 12.6 L (14.0-18.0) g/dL Hct 39.4 L (42-52) % MCV 75.8 L (80-100) fL MCH 24.2 L (25-34) pg MCHC 32.0 (32-36) g/dL RDW Std Deviation 41.9 (36.4-46.3) fL RDW Coeff of Aisha 15.2 H (11.5-14.5) % Plt Count 257 (130-400) K/uL MPV 8.8 (7.4-10.4) fL Immature Gran % (Auto) 0.2 % Neut % (Auto) 83.5 % Lymph % (Auto) 12.1 % [place] % (Auto) 3.9 % Eos % (Auto) 0.0 % Baso % (Auto) 0.3 % Neut # (Auto) 9.85 H (1.4-6.5) K/uL Lymph # (Auto) 1.42 (1.2-3.4) K/uL [place] # (Auto) 0.46 (0.11-0.59) K/uL Eos # (Auto) 0.00 (0-0.5) K/uL Baso # (Auto) 0.03 (0-0.2) K/uL Immature Gran # (Auto) 0.02 (0.00-0.02) K/uL PT (9.0-12.0) Seconds INR (0.9-1.1) APTT (21.0-31.0) Seconds PTT Ratio Heparin Anti-Xa, LM Wt (< 0.10) IU/ML Sodium (136-145) mmol/L Potassium (3.5-5.1) mmol/L Chloride (98-107) mmol/L Carbon Dioxide (21-32) mmol/L Anion Gap (3-11) BUN (7-18) mg/dl Creatinine (0.6-1.4) mg/dl Est Cr Clr Drug Dosing ml/min Est GFR ( Amer) Est GFR (Non-Af Amer) BUN/Creatinine Ratio (10-20) Glucose (70-99) mg/dl POC Glucose 123 H (70-99) mg/dl Calcium (8.5-10.1) mg/dl Magnesium (1.8-2.4) mg/dl Total Bilirubin (0.2-1) mg/dl AST (15-37) U/L ALT (12-78) U/L Alkaline Phosphatase (45-117) U/L Troponin I (0-0.045) ng/ml Total Protein (6.4-8.2) gm/dl Albumin (3.4-5.0) gm/dl Globulin (2.5-4.0) gm/dl Albumin/Globulin Ratio (0.9-2) Urine Color Urine Appearance (Clear) Urine pH (4.5-7.5) Ur Specific [place] (1.000-1.030) Urine Protein (Negative) Urine Glucose (UA) (Negative) Urine Ketones (Negative) Urine Blood (Negative) Urine Nitrite (Negative) Urine Bilirubin (Negative) Urine Urobilinogen (Negative) Ur Leukocyte Esterase (Negative) Urine Opiates Screen (Neg) Ur Methadone, Qual (Neg) Urine Barbiturates (Neg) Ur Phencyclidine (PCP) (Neg) U Amphetamin/Meth Scrn (Neg) MDMA (Ecstasy) Screen (Neg) U Benzodiazepines Scrn (Neg) Ur Cocaine Metabolite (Neg) U Marijuana (THC) Screen (Neg) Ethyl Alcohol mg/dL (0-3) mg/dl SARS-CoV-2 Ag (Rapid) (Negative) Blood Type Antibody Screen Code Status & VTE Plan Code Status full Supervising Physician Co-Signing Physician Notes Attending addendum: I have physically seen this patient, have supervised the medical residents activities, and agree with the H&P unless as otherwise noted. Assessment and Plan: Thrombus of distal LICA at origin of left M1 segment- The patient will be admitted to telemetry for serial cardiac enzymes, serial EKG's, cardiac rhythm monitoring and a 2-D echocardiogram with Dopplers. Occurred while patient is on Xarelto. Anti- Xa pending. MRI brain ordered Stroke without TPA order set Consult PT/OT/neurology Start high-dose statin atorvastatin 40 mg daily LR @ 125 mils per hour COPD- Continue home inhalers ADHD- Hold methylphenidate Remaining orders and notations as noted Resident Activity Tracking Resident Involvement: Resident Care Provided Care Provided: Adult Hospital Medicine
--- NOTE | 2020-01-30 06:54 | CT Scan Report ---
CT head/brain wo con CLINICAL HISTORY: 49 years-old Male with Stroke evaluation . Acute strokelike symptoms TECHNIQUE: Multiple axial CT images of the head were obtained without contrast. A dose lowering tech nique was utilized adhering to the principles of ALARA. CT DOSE: 921.40 mGy.cm COMPARISON: MRI brain of same day. FINDINGS: Acute thrombus of the left M1 segment is noted with dense MCA sign. There is a small acute infarct of the medial left temporal lobe. The acute infarct of the left caudate head as seen on brain MRI of sa me day is not well appreciated by CT. There is no acute intracranial hemorrhage, midline shift or abn ormal extra axial collection. No hydrocephalus or intracranial mass. No acute calvarial fracture. The mastoid air cells are clear. Mild mucosal thickening of the ethmoid sinuses. Soft tissues and orbits are unremarkable. IMPRESSION: 1. Dense left MCA sign compatible with acute thrombus of the M1 segment. 2. Small acute infarct of the medial left temporal lobe. Please refer to MRI brain of same day for ad ditional findings. ACT 112: Negative or not required by law. The above report was generated using voice recognition software. It may contain grammatical, syntax o r spelling errors. Electronically signed by: Ben Hicks M.D. 01/30/2020 6:53 AM
[2020-01-30] MEDS ORDERED: ONDANSETRON INJ 2 MG/ML 2 ML VIAL IV PRN (07:07)
--- NOTE | 2020-01-30 07:09 | CT Scan Report ---
CT angio head w con CLINICAL HISTORY: 49 years-old Male with confusion, headache. Acute strokelike symptoms COMPARISON STUDY: Head CT and brain MRI studies of same day TECHNIQUE: Following the IV administration of 118 cc of Optiray 320, CT angiogram of the brain was pe rformed from the skull base to the vertex. Images are reviewed in the axial, sagittal, and coronal pl anes. 3-D MIPS images are created and assessed. IV contrast was administered without complication. Al l measurements were obtained according to NASCET criteria. A dose lowering technique was utilized adh ering to the principles of ALARA. CT DOSE: 757.33 mGy.cm FINDINGS: The dense MCA sign on the left correlates with acute occlusive thrombus of the left carotid terminus and left M1 segment measuring up to 1.4 cm in transverse dimension (image 108 series 3) with reconsti tution of the distal M1 segment just proximal to the trifurcation. The distal right internal carotid artery, right middle and bilateral anterior cerebral arteries are patent. The imaged distal vertebral arteries, basilar and posterior cerebral arteries are patent. Cerebral venous sinuses are patent. Ac thanh infarcts of the left caudate nucleus and medial left temporal lobe better seen on comparison brai n MRI. Unremarkable soft tissues. No acute calvarial fracture. IMPRESSION: 1. Acute occlusive thrombus of the left carotid terminus and left M1 segment with reconstitution of f low within the distal M1 segment just proximal to the trifurcation. 2. Acute infarcts of the left caudate nucleus and medial left temporal lobe are better characterized on the brain MRI study of same day. ACT 112: Negative or not required by law. The above report was generated using voice recognition software. It may contain grammatical, syntax o r spelling errors. Electronically signed by: Ben Hicks M.D. 01/30/2020 7:08 AM
--- NOTE | 2020-01-30 07:21 | CT Scan Report ---
NECK CTA HISTORY: confusion, headache TECHNIQUE: Multiaxial CT images of the neck were performed following the intravenous administration o f contrast to evaluate the major cervical vessels. Maximum intensity projection images were also obta ined. All measurements were calculated based on NASCET criteria. A dose lowering technique was utili zed adhering to the principles of ALARA. COMPARISON STUDY: None. FINDINGS: The aortic arch and proximal great vessels are widely patent. There is no significant sten osis, occlusion, or dissection identified within the bilateral common carotid, internal carotid, or v ertebral arteries. Anterior cervical discectomy and fusion from C4 through C7. Minimal calcified plaq ue within the carotid bifurcations. Emphysema. The ascending thoracic aorta measures up to 4 cm in di ameter. IMPRESSION: No significant stenosis, occlusion, or dissection identified within the carotid or vertebral arteries . Emphysema. The ascending thoracic aorta measures up to 4 cm in diameter. ACT 112: Negative or not required by law. Electronically signed by: Brice Franco M.D. 01/30/2020 7:19 AM
[2020-01-30] MEDS ORDERED: ATORVASTATIN 40 MG TAB PO SCH (09:00)
[2020-01-30] MEDS ORDERED: LACTATED RINGER'S 1,000 ML IV SCH (09:14)
[2020-01-30] MEDS ORDERED: POTASSIUM CHLORIDE 10 MEQ TABCR PO SCH (09:14)
[2020-01-30] MEDS ORDERED: HEPARIN SODIUM/DEXTROSE 25,000 UNITS/500 ML BAG IV SCH (09:14)
[2020-01-30] MEDS ORDERED: UMECLIDINIUM/VILANTEROL 62.5/25MCG 7 PUFFS/INHALER INH SCH (09:14)
[2020-01-30] MEDS ORDERED: ALBUTEROL HFA 8 GM INHALER INH PRN (09:14)
[2020-01-30] MEDS ORDERED: SPIRONOLACTONE/HCTZ 25-25 PO SCH (09:14)
[2020-01-30] MEDS ORDERED: MULTIVITAMIN TAB PO SCH (09:14)
[2020-01-30] MEDS ORDERED: FLECAINIDE ACETATE 100 MG TABLET PO SCH (09:14)
[2020-01-30] MEDS ORDERED: PHARMACY GLYCEMIC MGMT CONSULT PRN (09:30)
[2020-01-30] MEDS ORDERED: CHOLECALCIFEROL 1,000 UNITS 25 MCG TAB PO SCH (09:30)
[2020-01-30] MEDS ORDERED: VITAMIN B COMPLEX TAB PO SCH (09:30)
[2020-01-30] MEDS ORDERED: PANTOprazole 40 MG TAB PO SCH (09:30)
[2020-01-30] MEDS ORDERED: HEPARIN IV BOLUS 7,000 UNITS in SYRINGE 0 ML IV ONE (09:45)
[2020-01-30] MEDS ORDERED: Nursing to Pharmacy Communication SCH (09:45)
--- NOTE | 2020-01-30 10:21 | Discharge Summary ---
Date of Service January 30, 2020 Admission HPI Per Admitting Provider Patient is a 49-year-old male with a past medical history of COPD with emphysema, organic. Limb movement disorder, moderate obstructive sleep apnea, morbid obesity, ex-smoker, exertional shortness of breath, elevated hemidiaphragm, dyspnea, wheezing, migraine headaches on Maxalt status post cervical spinal fusion, with a history of paroxysmal atrial fibrillation on chronic anticoagulation with Xarelto, who presents after a syncopal episode in which he urinated himself and having strokelike symptoms imaging is diagnosed a left internal carotid artery thrombus. Patient is intermittently able to participate in the interview. The majority of the history was obtained from his . His reported that the patient stated he had a headache and nausea at work, it was so severe that he came home from work. His stated she had had beds in her ear and heard a thud at some point later, to which she found the patient having a syncopal episode and in his own urine. Patient was slightly confused and obtunded. She helped the patient cleaned himself up, and he appeared to be getting better. At some point later she reported that he was fully dressed and said he needed to go to the ER. He became somnolent in the car, and his neurological symptoms progressively worsened. He was evaluated in the emergency department, and imaging demonstrated left internal carotid artery thrombus. Labs were pertinent for an elevated white count of 11.78, Chem-7 was within normal limits, glucose was 132, UA was normal, drug screen was negative. The emergency department contacted [facility] who recommended admission to the hospital and further work-up locally. Patient will obtain a brain MRI, and be admitted for further work-up and evaluation by our specialists. Primary Care Provider: Ignacio West MD Admission Exam Per Admitting Provider General: No acute distress HEENT: Normocephalic atraumatic Neck: Normal to visual inspection Cardiac: Regular rate and rhythm, I did not appreciate significant murmurs rubs or gallops, normal S1, normal S2, pedal edema bilaterally 2+, Respiratory: Intermittent wheezes and rhonchi's bilaterally consistent with emphysema, patient was also snoring quite loudly GI: Soft nontender nondistended, bowel sounds present in all 4 quadrants MSK: Moves all extremities Neuro: Intermittently alert and oriented, when asked with day of the week it was he responded strawberry, however he knew what month it was, what year it was, and was attempting to state who the president was. Patient was able to report that sensation was intact, was able to answer some questions, however definitely struggled. He was unable to participate in her cranial nerve exam, however from what I could tell CN II through XII appear to be grossly intact his main limitations appear to be somnolence and intermittent expressive aphasia Psych: Somnolent Principal Diagnosis Intracranial ICA thrombus acute ischemic stroke Discharge Exam General: No acute distress HEENT: Normocephalic atraumatic Neck: Normal to visual inspection Cardiac: Regular rate and rhythm, I did not appreciate significant murmurs rubs or gallops, normal S1, normal S2, pedal edema bilaterally 2+, Respiratory: Intermittent wheezes and rhonchi's bilaterally consistent with emphysema, patient was also snoring quite loudly GI: Soft nontender nondistended, bowel sounds present in all 4 quadrants MSK: Moves all extremities Neuro: Intermittently alert and oriented, unable to answer any meaningful questions besides his name. CN II-XII intact, notable right pronator drift, patient with marked dysarthria and inappropriate word choices similar to a Broca's aphasia, inattentive, needs frequent coercion and stimulation, mild ataxia. Psych: Somnolent Discharge Data Allergies Allergy/AdvReac Type Severity Reaction Status Date / Time amoxicillin [From Augmentin] AdvReac Gastrointestinal Verified 01/30/20 03:20 Upset clavulanic acid AdvReac Gastrointestinal Verified 01/30/20 03:20 [From Augmentin] Upset levofloxacin [From Levaquin] AdvReac Vomiting Verified 01/30/20 03:20 Consultations 01/30/20 05:48 ED Decision to Admit Stat 01/30/20 07:07 Consult Neurology Routine 01/30/20 07:11 Consult Case Management - Discharge Planning Routine 01/30/20 09:44 Burn CD for patient Stat Ordered Studies 01/30/20 03:15 CT head/brain wo con Urgent 01/30/20 03:41 CT angio head w con Urgent CT angio neck with con Urgent 01/30/20 04:58 MR brain wo con Urgent Hospital Course (1) Carotid thrombosis, left: Update as of 7 am this morning, I evaluated patient and they appeared to be doing worse with confusion, dysarthria, inattention, incontinence, pronator drift on exam. NIH stroke scale had increased to 8 from 2 at time of initial telestroke evaluation from [facility]. Patient unable to tell me any significant history but at bedside, Ashley, tells me that his symptoms have been significantly waxing and waning tells me last known well was around 6 or 7 last night. Given progressive nature of symptoms immediately started patient on heparin drip and discussed case with our attending neurologist and then [facility] who was full of neuro ICU beds. I then called [facility] and spoke with their stroke neurologist production graphic designer, their interventionalist surgeon and their neuro ICU physician who will accept the patient (Dr. Bird) who all agreed he needed transfer for emergent thrombectomy. Patient will be taken by helicopter to [facility] directly to OR and we will continue heparin drip en route. -Kiran Ness Patient is a 49-year-old male with a past medical history of COPD with emphysema, organic. Limb movement disorder, moderate obstructive sleep apnea, morbid obesity, ex-smoker, exertional shortness of breath, elevated hemidiaphragm, dyspnea, wheezing, migraine headaches on Maxalt status post cervical spinal fusion, with a history of paroxysmal atrial fibrillation on chronic anticoagulation with Xarelto, who presents after a syncopal episode in which he urinated himself and having strokelike symptoms imaging is diagnosed a left internal carotid artery thrombus. #Left carotid thrombus Patient presenting with signs and symptoms concerning for stroke, stroke work-up was obtained, demonstrating a left internal carotid thrombus. This finding is especially surprising given the fact that he appears to be on the appropriate therapy to prevent this from occurring including rivaroxaban 20 mg daily, appropriate diabetes therapy, he could benefit from the addition of a statin. [facility] was contacted who recommended he be evaluated here. He will be admitted to medical floors with telemetry, will hold blood thinners, will obtain an MRI to further characterize his condition, and have neurology evaluate him. -Follow-up brain MRI -Neuro vital checks -Monitor closely -Consult neurology -Hold rivaroxaban for now pending neurology consult -Start atorvastatin 40 mg -LR @125 #COPD with emphysema -Continue home Ellipta Continue home albuterol #Obstructive sleep apnea -CPAP ordered #Morbid obesity -Likely contributing to current presentation, recommend dietary consultation on discharge #ADHD -Holding methylphenidate #Migraine -Holding Maxalt #Paroxysmal atrial fibrillation -Continue flecainide grams twice daily -Hold Xarelto pending neurology evaluation #GERD -Continue omeprazole #Restless leg syndrome -Hold Mirapex #Diabetes type 2 -Glycemic consult placed FENa: N.p.o. pending neuro Code Status: Full DVT PPX: SCDs PT/OT: Ordered Dispo: Telemetry Seth Estevez MD PGY 2, FCM This chart was completed utilizing [employer] voice recognition software. Grammatical errors, random word insertions, pronoun errors, and in complete sentences are an occasional consequence of the system. Any questions or concerns about the content, text, or information contained within the body of this dictation should be addressed directly to the physician for clarification. (2) COPD with emphysema: (3) Organic periodic limb movement disorder: (4) Moderate obstructive sleep apnea: (5) Morbid obesity: (6) Ex-smoker: (7) Exertional shortness of breath: (8) Dyspnea: (9) Elevated hemidiaphragm: (10) Wheezing: (11) S/P cervical spinal fusion: Total Time Total Time Spent Total Time Spent (In Minutes): 70 Discharge Plan Discharge Items Patient Disposition: Transfer Acute Care Hospital Reason For Visit: Stroke Discharge Diagnosis: Stroke Intracranial ICA thrombus Activity: Per Instructions section Non-emergency contact: Neurologist Call non-emergency contact if: your symptoms worsen Follow-up/Referrals: Ignacio West MD [Primary Care Provider] - Diet: Nothing by Mouth Addtl Attending Provider Instructions: H and P included below from admitting physician. With my (Dr. Ness) interval history immediately below Update as of 7 am this morning, I evaluated patient and they appeared to be doing worse with confusion, dysarthria, inattention, incontinence, pronator drift on exam. NIH stroke scale had increased to 8 from 2 at time of initial telestroke evaluation from [facility]. Patient unable to tell me any significant history but at bedside, Ashley, tells me that his symptoms have been significantly waxing and waning tells me last known well was around 6 or 7 last night. Given progressive nature of symptoms immediately started patient on heparin drip and discussed case with our attending neurologist and then contacted [facility] who was full of neuro ICU beds. I then called [facility] and spoke with their stroke neurologist production graphic designer, their interventionalist surgeon and their neuro ICU physician who will accept the patient (Dr. Bird) who all agreed he needed transfer for emergent thrombectomy. Patient will be taken by helicopter to [facility] directly to OR and we will continue heparin drip en route. Most recent vitals 9 am today BP 129/83 Pulse rate of 85 Resp Rate of 18 temp erature of 36.5 oxygenating at 93 and maintaining own airway. HISTORY AND PHYSICAL Date of Service January 30, 2020 Assessment & Plan (1) Carotid thrombosis, left: Patient is a 49-year-old male with a past medical history of COPD with emphysema, organic. Limb movement disorder, moderate obstructive sleep apnea, morbid obesity, ex-smoker, exertional shortness of breath, elevated hemidi aphragm, dyspnea, wheezing, migraine headaches on Maxalt status post cervical spinal fusion, with a history of paroxysmal atrial fibrillation on chronic anticoagulation with Xarelto, who presents after a syncopal episode in which he urinated himself and having strokelike symptoms imaging is diagnosed a left internal carotid artery thrombus. #Left carotid thrombus Patient presenting with signs and symptoms concerning for stroke, stroke work-up was obtained, demonstrating a left internal carotid thrombus. This finding is especially surprising given the fact that he appears to be on the appropriate therapy to prevent this from occurring including rivaroxaban 20 mg daily, appropriate diabetes therapy, he could benefit from the addition of a statin. [facility] was contacted who recommended he be evaluated here. He will be admitted to medical floors with telemetry, will hold blood thinners, will obtain an MRI to further characterize his condition, and have neurology evaluate him. -Follow-up brain MRI -Neuro vital checks -Monitor closely -Consult neurology -Hold rivaroxaban for now pending neurology consult -Start atorvastatin 40 mg -LR @125 #COPD with emphysema -Continue home Ellipta Continue home albuterol #Obstructive sleep apnea -CPAP ordered #Morbid obesity -Likely contributing to current presentation, recommend dietary consultation on discharge #ADHD -Holding methylphenidate #Migraine -Holding Maxalt #Paroxysmal atrial fibrillation -Continue flecainide grams twice daily -Hold Xarelto pending neurology evaluation #GERD -Continue omeprazole #Restless leg syndrome -Hold Mirapex #Diabetes type 2 -Glycemic consult placed FENa: N.p.o. pending neuro Code Status: Full DVT PPX: SCDs PT/OT: Ordered Dispo: Telemetry Seth Estevez MD PGY 2, FCM This chart was completed utilizing [employer] voice recognition software. Grammatical errors, random word insertions, pronoun errors, and in complete sentences are an occasional consequence of the system. Any questions or concerns about the content, text, or information contained within the body of this dictation should be addressed directly to the physician for clarification. (2) COPD with emphysema: (3) Organic periodic limb movement disorder: (4) Moderate obstructive sleep apnea: (5) Morbid obesity: (6) Ex-smoker: (7) Exertional shortness of breath: (8) Dyspnea: (9) Elevated hemidiaphragm: (10) Wheezing: (11) S/P cervical spinal fusion: History of Present Illness Patient is a 49-year-old male with a past medical history of COPD with emphysema, organic. Limb movement disorder, moderate obstructive sleep apnea, morbid obesity, ex-smoker, exertional shortness of breath, elevated hemidiaphragm, dyspnea, wheezing, migraine headaches on Maxalt status post cervical spinal fusion, with a history of paroxysmal atrial fibrillation on chronic anticoagulation with Xarelto, who presents after a syncopal episode in which he urinated himself and having strokelike symptoms imaging is diagnosed a left internal carotid artery thrombus. Patient is intermittently able to participate in the interview. The majority of the history was obtained from his . His reported that the patient stated he had a headache and nausea at work, it was so severe that he came home from work. His stated she had had beds in her ear and heard a thud at some point later, to which she found the patient having a syncopal episode and in his own urine. Patient was slightly confused and obtunded. She helped the patient cleaned himself up, and he appeared to be getting better. At some point later she reported that he was fully dressed and said he needed to go to the ER. He became somnolent in the car, and his neurological symptoms progressively worsened. He was evaluated in the emergency department, and imaging demonstrated left internal carotid artery thrombus. Labs were pertinent for an elevated white count of 11.78, Chem-7 was within normal limits, glucose was 132, UA was normal, drug screen was negative. The emergency department contacted [facility] who recommended admission to the hospital and further work-up locally. Patient will obtain a brain MRI, and be admitted for further work-up and evaluation by our specialists. Primary Care Provider: Ignacio West MD Allergies Allergy/AdvReac Type Severity Reaction Status Date / Time amoxicillin [From Augmentin] AdvReac Gastrointestinal Verified 01/30/20 03:20 Upset clavulanic acid AdvReac Gastrointestinal Verified 01/30/20 03:20 [From Augmentin] Upset levofloxacin [From Levaquin] AdvReac Vomiting Verified 01/30/20 03:20 Home Medications Medication Instructions Recorded Confirmed Type cholecalciferol (vitamin D3) 2,000 unit PO QAM 06/12/18 01/30/20 History [Vitamin D3] methylphenidate HCl [Concerta] 54 mg PO QAM 06/12/18 01/30/20 History omeprazole 20 mg PO QAM 06/12/18 01/30/20 History pramipexole [Mirapex] 0.125 mg PO QPM 06/12/18 01/30/20 History rizatriptan [Maxalt] 10 mg PO DAILY PRN 06/12/18 01/30/20 History tadalafil [Cialis] 5 mg PO QAM 06/12/18 01/30/20 History vitamin B complex 1 tab PO QAM 06/12/18 01/30/20 History multivitamin 1 tab PO DAILY 12/21/18 01/30/20 History flecainide 100 mg tablet 100 mg PO Q12H #180 tab 02/08/19 01/30/20 Rx spironolactone 25 1 tab PO QAM #90 tab 02/08/19 01/30/20 Rx mg-hydrochlorothiazide 25 mg tablet rivaroxaban 20 mg tablet 20 mg PO QAM #90 tab 09/17/19 01/30/20 Rx albuterol sulfate 90 mcg/actuation 2 puff INHALATION Q6H PRN #18 g 01/07/20 01/30/20 Rx aerosol inhaler fluticasone fur. 100 mcg-umeclid 1 inh INHALATION DAILY #60 ea 01/07/20 01/30/20 Rx 62.5 mcg-vilant 25 mcg inhalat.powder metformin 500 mg PO QPM 01/30/20 01/30/20 History potassium chloride 10 meq PO DAILY 01/30/20 01/30/20 History umeclidinium-vilanterol [Anoro 1 inh INHALATION DAILY 01/30/20 01/30/20 History Ellipta] Past Med/Surg History Medical History (Updated 01/30/20 @ 06:50 by Seth Estevez MD) Atrial fibrillation Chronic neck and back pain Chronic sinusitis Erectile dysfunction GERD (gastroesophageal reflux disease) Migraine Peripheral neuropathy LEFT ARM Restless leg syndrome Sleep apnea CPAP Surgical History History of cardioversion [facility] ~2015 History of cervical spinal surgery History of tooth extraction WITH ANESTHESIA Social History Smoking Status: Never smoker packs per day: 2; Years Smoked: 25; Cigarettes Per Day: SMOKED ~1-2PPD X 30 YEARS; Number of Years Since Quit: 2; Second Hand Exposure: No; Hx Alcohol Use: No Hx Substance Use: Yes Last Used Substance Other:: 06/11/2018 Preferred Language: Croatian Communication Ability: Effective Rural [facility] Consultant Required: No Beliefs That Will Affect Care: None Current Living Situation: Spouse Feels Safe at Home: Yes Assistive Devices: Glasses Review of Systems Review of Systems: All systems reviewed & are unremarkable except as noted in HPI & below Physical Exam Physical Exam: General: No acute distress HEENT: Normocephalic atraumatic Neck: Normal to visual inspection Cardiac: Regular rate and rhythm, I did not appreciate significant murmurs rubs or gallops, normal S1, normal S2, pedal edema bilaterally 2+, Respiratory: Intermittent wheezes and rhonchi's bilaterally consistent with emphysema, patient was also snoring quite loudly GI: Soft nontender nondistended, bowel sounds present in all 4 quadrants MSK: Moves all extremities Neuro: Intermittently alert and oriented, when asked with day of the week it was he responded strawberry, however he knew what month it was, what year it was, and was attempting to state who the president was. Patient was able to report that sensation was intact, was able to answer some questions, however definitely struggled. He was unable to participate in her cranial nerve exam, however from what I could tell CN II through XII appear to be grossly intact his main limitations appear to be somnolence and intermittent expressive aphasia Psych: Somnolent Results & Data Results & Data ([facility]) Vital Signs (Past 12 Hours) Vital Signs Temp Pulse Resp BP Pulse Ox 01/30/20 06:07 82 23 142/93 H 95 01/30/20 05:18 22 161/107 H 95 01/30/20 05:00 78 19 167/86 H 94 01/30/20 04:31 79 17 122/93 94 01/30/20 04:05 84 21 177/96 H 93 01/30/20 03:30 68 17 138/90 01/30/20 02:59 36.3 C L 73 18 148/90 H 93 Laboratory Results 01/30/20 01/30/20 01/30/20 Range/Units 05:17 05:11 05:11 WBC (4.8-10.8) K/uL RBC (4.7-6.1) M/uL Hgb (14.0-18.0) g/dL Hct (42-52) % MCV (80-100) fL MCH (25-34) pg MCHC (32-36) g/dL RDW Std Deviation (36.4-46.3) fL RDW Coeff of Aisha (11.5-14.5) % Plt Count (130-400) K/uL MPV (7.4-10.4) fL Immature Gran % (Auto) % Neut % (Auto) % Lymph % (Auto) % [place] % (Auto) % Eos % (Auto) % Baso % (Auto) % Neut # (Auto) (1.4-6.5) K/uL Lymph # (Auto) (1.2-3.4) K/uL [place] # (Auto) (0.11-0.59) K/uL Eos # (Auto) (0-0.5) K/uL Baso # (Auto) (0-0.2) K/uL Immature Gran # (Auto) (0.00-0.02) K/uL PT (9.0-12.0) Seconds INR (0.9-1.1) APTT (21.0-31.0) Seconds PTT Ratio Heparin Anti-Xa, LM Wt 0.45 (< 0.10) IU/ML Sodium (136-145) mmol/L Potassium (3.5-5.1) mmol/L Chloride (98-107) mmol/L Carbon Dioxide (21-32) mmol/L Anion Gap (3-11) BUN (7-18) mg/dl Creatinine (0.6-1.4) mg/dl Est Cr Clr Drug Dosing ml/min Est GFR ( Amer) Est GFR (Non-Af Amer) BUN/Creatinine Ratio (10-20) Glucose (70-99) mg/dl POC Glucose (70-99) mg/dl Calcium (8.5-10.1) mg/dl Magnesium (1.8-2.4) mg/dl Total Bilirubin (0.2-1) mg/dl AST (15-37) U/L ALT (12-78) U/L Alkaline Phosphatase (45-117) U/L Troponin I (0-0.045) ng/ml Total Protein (6.4-8.2) gm/dl Albumin (3.4-5.0) gm/dl Globulin (2.5-4.0) gm/dl Albumin/Globulin Ratio (0.9-2) Urine Color Yellow Urine Appearance Clear (Clear) Urine pH 6.0 (4.5-7.5) Ur Specific [place] 1.036 H (1.000-1.030) Urine Protein Negative (Negative) Urine Glucose (UA) Negative (Negative) Urine Ketones Trace H (Negative) Urine Blood Negative (Negative) Urine Nitrite Negative (Negative) Urine Bilirubin Negative (Negative) Urine Urobilinogen Negative (Negative) Ur Leukocyte Esterase Negative (Negative) Urine Opiates Screen Neg (Neg) Ur Methadone, Qual Neg (Neg) Urine Barbiturates Neg (Neg) Ur Phencyclidine (PCP) Neg (Neg) U Amphetamin/Meth Scrn Neg (Neg) MDMA (Ecstasy) Screen Neg (Neg) U Benzodiazepines Scrn Neg (Neg) Ur Cocaine Metabolite Neg (Neg) U Marijuana (THC) Screen Neg (Neg) Ethyl Alcohol mg/dL (0-3) mg/dl SARS-CoV-2 Ag (Rapid) (Negative) Blood Type Antibody Screen 01/30/20 01/30/20 01/30/20 Range/Units 05:00 04:08 04:05 WBC (4.8-10.8) K/uL RBC (4.7-6.1) M/uL Hgb (14.0-18.0) g/dL Hct (42-52) % MCV (80-100) fL MCH (25-34) pg MCHC (32-36) g/dL RDW Std Deviation (36.4-46.3) fL RDW Coeff of Aisha (11.5-14.5) % Plt Count (130-400) K/uL MPV (7.4-10.4) fL Immature Gran % (Auto) % Neut % (Auto) % Lymph % (Auto) % [place] % (Auto) % Eos % (Auto) % Baso % (Auto) % Neut # (Auto) (1.4-6.5) K/uL Lymph # (Auto) (1.2-3.4) K/uL [place] # (Auto) (0.11-0.59) K/uL Eos # (Auto) (0-0.5) K/uL Baso # (Auto) (0-0.2) K/uL Immature Gran # (Auto) (0.00-0.02) K/uL PT (9.0-12.0) Seconds INR (0.9-1.1) APTT (21.0-31.0) Seconds PTT Ratio Heparin Anti-Xa, LM Wt (< 0.10) IU/ML Sodium Cancelled (136-145) mmol/L Potassium Cancelled (3.5-5.1) mmol/L Chloride Cancelled (98-107) mmol/L Carbon Dioxide Cancelled (21-32) mmol/L Anion Gap Cancelled (3-11) BUN Cancelled (7-18) mg/dl Creatinine Cancelled (0.6-1.4) mg/dl Est Cr Clr Drug Dosing Cancelled ml/min Est GFR ( Amer) Cancelled Est GFR (Non-Af Amer) Cancelled BUN/Creatinine Ratio Cancelled (10-20) Glucose Cancelled (70-99) mg/dl POC Glucose (70-99) mg/dl Calcium Cancelled (8.5-10.1) mg/dl Magnesium (1.8-2.4) mg/dl Total Bilirubin (0.2-1) mg/dl AST (15-37) U/L ALT (12-78) U/L Alkaline Phosphatase (45-117) U/L Troponin I (0-0.045) ng/ml Total Protein (6.4-8.2) gm/dl Albumin (3.4-5.0) gm/dl Globulin (2.5-4.0) gm/dl Albumin/Globulin Ratio (0.9-2) Urine Color Urine Appearance (Clear) Urine pH (4.5-7.5) Ur Specific [place] (1.000-1.030) Urine Protein (Negative) Urine Glucose (UA) (Negative) Urine Ketones (Negative) Urine Blood (Negative) Urine Nitrite (Negative) Urine Bilirubin (Negative) Urine Urobilinogen (Negative) Ur Leukocyte Esterase (Negative) Urine Opiates Screen (Neg) Ur Methadone, Qual (Neg) Urine Barbiturates (Neg) Ur Phencyclidine (PCP) (Neg) U Amphetamin/Meth Scrn (Neg) MDMA (Ecstasy) Screen (Neg) U Benzodiazepines Scrn (Neg) Ur Cocaine Metabolite (Neg) U Marijuana (THC) Screen (Neg) Ethyl Alcohol mg/dL < 3.0 (0-3) mg/dl SARS-CoV-2 Ag (Rapid) Negative (Negative) Blood Type Antibody Screen 01/30/20 01/30/20 01/30/20 Range/Units 03:24 03:10 03:10 WBC (4.8-10.8) K/uL RBC (4.7-6.1) M/uL Hgb (14.0-18.0) g/dL Hct (42-52) % MCV (80-100) fL MCH (25-34) pg MCHC (32-36) g/dL RDW Std Deviation (36.4-46.3) fL RDW Coeff of Aisha (11.5-14.5) % Plt Count (130-400) K/uL MPV (7.4-10.4) fL Immature Gran % (Auto) % Neut % (Auto) % Lymph % (Auto) % [place] % (Auto) % Eos % (Auto) % Baso % (Auto) % Neut # (Auto) (1.4-6.5) K/uL Lymph # (Auto) (1.2-3.4) K/uL [place] # (Auto) (0.11-0.59) K/uL Eos # (Auto) (0-0.5) K/uL Baso # (Auto) (0-0.2) K/uL Immature Gran # (Auto) (0.00-0.02) K/uL PT 11.5 (9.0-12.0) Seconds INR 1.1 (0.9-1.1) APTT 27.1 (21.0-31.0) Seconds PTT Ratio 1.0 Heparin Anti-Xa, LM Wt (< 0.10) IU/ML Sodium 137 (136-145) mmol/L Potassium 3.5 (3.5-5.1) mmol/L Chloride 105 (98-107) mmol/L Carbon Dioxide 27 (21-32) mmol/L Anion Gap 5.0 (3-11) BUN 14 (7-18) mg/dl Creatinine 1.00 (0.6-1.4) mg/dl Est Cr Clr Drug Dosing 114.2 ml/min Est GFR ( Amer) 102.0 Est GFR (Non-Af Amer) 88.0 BUN/Creatinine Ratio 13.6 (10-20) Glucose 132 H (70-99) mg/dl POC Glucose (70-99) mg/dl Calcium 8.4 L (8.5-10.1) mg/dl Magnesium 2.0 (1.8-2.4) mg/dl Total Bilirubin 0.3 (0.2-1) mg/dl AST 25 (15-37) U/L ALT 41 (12-78) U/L Alkaline Phosphatase 93 (45-117) U/L Troponin I < 0.015 (0-0.045) ng/ml Total Protein 8.1 (6.4-8.2) gm/dl Albumin 3.6 (3.4-5.0) gm/dl Globulin 4.5 H (2.5-4.0) gm/dl Albumin/Globulin Ratio 0.8 L (0.9-2) Urine Color Urine Appearance (Clear) Urine pH (4.5-7.5) Ur Specific [place] (1.000-1.030) Urine Protein (Negative) Urine Glucose (UA) (Negative) Urine Ketones (Negative) Urine Blood (Negative) Urine Nitrite (Negative) Urine Bilirubin (Negative) Urine Urobilinogen (Negative) Ur Leukocyte Esterase (Negative) Urine Opiates Screen (Neg) Ur Methadone, Qual (Neg) Urine Barbiturates (Neg) Ur Phencyclidine (PCP) (Neg) U Amphetamin/Meth Scrn (Neg) MDMA (Ecstasy) Screen (Neg) U Benzodiazepines Scrn (Neg) Ur Cocaine Metabolite (Neg) U Marijuana (THC) Screen (Neg) Ethyl Alcohol mg/dL (0-3) mg/dl SARS-CoV-2 Ag (Rapid) (Negative) Blood Type A Positive Antibody Screen NEGATIVE 01/30/20 01/30/20 Range/Units 03:10 03:10 WBC 11.78 H (4.8-10.8) K/uL RBC 5.20 (4.7-6.1) M/uL Hgb 12.6 L (14.0-18.0) g/dL Hct 39.4 L (42-52) % MCV 75.8 L (80-100) fL MCH 24.2 L (25-34) pg MCHC 32.0 (32-36) g/dL RDW Std Deviation 41.9 (36.4-46.3) fL RDW Coeff of Aisha 15.2 H (11.5-14.5) % Plt Count 257 (130-400) K/uL MPV 8.8 (7.4-10.4) fL Immature Gran % (Auto) 0.2 % Neut % (Auto) 83.5 % Lymph % (Auto) 12.1 % [place] % (Auto) 3.9 % Eos % (Auto) 0.0 % Baso % (Auto) 0.3 % Neut # (Auto) 9.85 H (1.4-6.5) K/uL Lymph # (Auto) 1.42 (1.2-3.4) K/uL [place] # (Auto) 0.46 (0.11-0.59) K/uL Eos # (Auto) 0.00 (0-0.5) K/uL Baso # (Auto) 0.03 (0-0.2) K/uL Immature Gran # (Auto) 0.02 (0.00-0.02) K/uL PT (9.0-12.0) Seconds INR (0.9-1.1) APTT (21.0-31.0) Seconds PTT Ratio Heparin Anti-Xa, LM Wt (< 0.10) IU/ML Sodium (136-145) mmol/L Potassium (3.5-5.1) mmol/L Chloride (98-107) mmol/L Carbon Dioxide (21-32) mmol/L Anion Gap (3-11) BUN (7-18) mg/dl Creatinine (0.6-1.4) mg/dl Est Cr Clr Drug Dosing ml/min Est GFR ( Amer) Est GFR (Non-Af Amer) BUN/Creatinine Ratio (10-20) Glucose (70-99) mg/dl POC Glucose 123 H (70-99) mg/dl Calcium (8.5-10.1) mg/dl Magnesium (1.8-2.4) mg/dl Total Bilirubin (0.2-1) mg/dl AST (15-37) U/L ALT (12-78) U/L Alkaline Phosphatase (45-117) U/L Troponin I (0-0.045) ng/ml Total Protein (6.4-8.2) gm/dl Albumin (3.4-5.0) gm/dl Globulin (2.5-4.0) gm/dl Albumin/Globulin Ratio (0.9-2) Urine Color Urine Appearance (Clear) Urine pH (4.5-7.5) Ur Specific [place] (1.000-1.030) Urine Protein (Negative) Urine Glucose (UA) (Negative) Urine Ketones (Negative) Urine Blood (Negative) Urine Nitrite (Negative) Urine Bilirubin (Negative) Urine Urobilinogen (Negative) Ur Leukocyte Esterase (Negative) Urine Opiates Screen (Neg) Ur Methadone, Qual (Neg) Urine Barbiturates (Neg) Ur Phencyclidine (PCP) (Neg) U Amphetamin/Meth Scrn (Neg) MDMA (Ecstasy) Screen (Neg) U Benzodiazepines Scrn (Neg) Ur Cocaine Metabolite (Neg) U Marijuana (THC) Screen (Neg) Ethyl Alcohol mg/dL (0-3) mg/dl SARS-CoV-2 Ag (Rapid) (Negative) Blood Type Antibody Screen Code Status & VTE Plan Code Status full Signed By:<Electronically signed by Seth Estevez MD>01/30/20 2615 Pending Studies at Discharge: No Stand-Alone Forms: [facility] Skilled Items Patient informed of condition?: Yes DNR: No Discharge Level of Care: Other Communicable Disease: No Discharge Prognosis: Deteriorating Lines: Peripheral IV Urinary Catheter: No Medications and DC Order Prescriptions: Continued flecainide 100 mg tablet 100 mg PO Q12H Qty: 180 RF: 3 multivitamin [Multiple Vitamins] tablet 1 tab PO DAILY RF: 0 Trelegy Ellipta 100-62.5-25 mcg blister with device 1 inh inhalation DAILY Qty: 60 RF: 2 albuterol sulfate 90 mcg/actuation HFA aerosol inhaler 2 puff inhalation Q6H PRN (Reason: Shortness Of Breath Or Wheezing) Qty: 18 RF: 3 pramipexole [Mirapex] 0.125 mg Tablet 0.125 mg PO QPM RF: 0 vitamin B complex Tablet 1 tab PO QAM RF: 0 tadalafil [Cialis] 5 mg Tablet 5 mg PO QAM RF: 0 cholecalciferol (vitamin D3) [Vitamin D3] 2,000 unit Capsule 2,000 unit PO QAM RF: 0 rizatriptan [Maxalt] 10 mg Tablet 10 mg PO DAILY PRN (Reason: Migraine Headache) RF: 0 omeprazole 20 mg Capsule,Delayed Release(Dr/Ec) 20 mg PO QAM RF: 0 Anoro Ellipta 62.5-25 mcg/actuation blister with device 1 inh INHALATION DAILY RF: 0 Discontinued spironolacton-hydrochlorothiaz 25-25 mg tablet 1 tab PO QAM Qty: 90 RF: 3 Xarelto 20 mg tablet 20 mg PO QAM Qty: 90 RF: 3 methylphenidate HCl [Concerta] 54 mg Tablet Extended Release 24hr 54 mg PO QAM RF: 0 metformin 500 mg tablet 500 mg PO QPM RF: 0 potassium chloride 10 mEq tablet extended release 10 meq PO DAILY RF: 0 Discharge Orders: Discharge Order (Routine); Ordered 01/30/20 Ordered By: Kiran Ness Admission Data Admit Date/Time: 01/30/20 07:07 Attending Provider: Louie Perez Admit Provider: Seth Estevez I. Primary Care Provider: Ignacio West Other Providers: Louie Perez Other Interventions: Discharge Summary Assessment (RN) Last Done: 01/30/20 10:42 Supervising Physician Co-Signing Physician Notes Patient seen and evaluated independently of PGY-3 Dr. Ness. Agree with history,e xam findings and plan of care as outlined. Evolving neurologic deficits. 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 Heparin gtt not started on admission. On exam prior to transfer left pronator drift and difficulty with finger to nose on the left. Cased discussed with [facility] stroke team by Dr. Ness--agree with transfer to higher level of care for urgent thrombectomy. heparin gtt started. Life flighted to [facility]. I personally spent 45 minutes discharge planning for this patient. Resident Activity Tracking Resident Involvement: Resident Care Provided Care Provided: Adult Hospital Medicine
--- NOTE | 2020-01-30 10:56 | XCELERA ---
[id number]
--- NOTE | 2020-01-30 12:59 | Electrocardiogram Report ---
Test Reason : Blood Pressure : / mmHG Vent. Rate : 072 BPM Atrial Rate : 072 BPM P-R Int : 224 ms QRS Dur : 104 ms QT Int : 406 ms P-R-T Axes : 045 017 011 degrees QTc Int : 444 ms Sinus rhythm with 1st degree A-V block Nonspecific T wave abnormality Abnormal ECG When compared with ECG of 12-DEC-2018 10:41, [place] interval has increased Nonspecific T wave abnormality now evident in Inferior leads T wave inversion now evident in Anterior leads Confirmed by Tomas Mcneill ([id number]) on 01/30/2020 12:59:37 PM Referred By: REFERRED SELF Confirmed By:Emmanuel Mcneill
--- NOTE | 2020-01-31 03:15 | Billing Data ---
Date of Service January 31, 2020 Coding Level of Care Code 91001 Initial Inpt Care Lvl 3
[2020-01-31] MEDS ORDERED: FLUTICASONE FUROATE 100MCG 14 PUFFS/INHALER INH SCH (09:00)
== END 2020-01-30 10:42 | disposition short-term general hospital (02) ==
LOC: ED 02:52 → 2S 07:07 → INTOOBSV 07:07 → 2S 08:25

== ENCOUNTER 2020-03-16 13:29 | Inpatient (IN) ==
[2020-03-16] MEDS ORDERED: CEFEPIME 2,000 MG/20 ML VIAL IV STA (13:45)
[2020-03-16] MEDS ORDERED: SODIUM CHLORIDE 0.9% 1000ML 1,000 ML IV ONE (13:45)
--- NOTE | 2020-03-16 13:50 | Emergency Department Note ---
Impression & Plan Pneumonia due to 2019-nCoV, Hypoxia, Sepsis ED Provider Note NAME: DEREK BEYER III AGE: 49 SEX: M : 1970 ARRIVES VIA: Ambulance INFORMANT: Patient, Ambulance ED PROVIDER(S): Donald Hernandez DO CHIEF COMPLAINT: Shortness of breath/hypoxic HPI: Patient is a 49-year-old male who presents the ER for hypoxia. 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 He is aphasic from the stroke. EMS notes that they placed him on 6 L as he was 85% on room air. History is otherwise unobtainable secondary to mentation. ROS: Limited secondary to aphasia PAST MEDICAL HISTORY:See Below PAST SURGICAL HISTORY:See Below FAMILY HISTORY:See Below SOCIAL HISTORY:See Below HOME MEDICATIONS:See Below ALLERGIES:See Below VITALS:See Below PHYSICAL EXAMINATION: GENERAL: Sitting up in bed, alert, chronically ill-appearing able to state "ya" EYE EXAM: normal conjunctiva. PERRL and EOM's grossly intact. OROPHARYNX: mucous membranes are dry NECK: supple, no nuchal rigidity, no adenopathy, non-tender LUNGS: Clear to auscultation. Normal chest wall mechanics HEART: no murmurs, S1 normal and S2 normal ABDOMEN: abdomen soft, non-tender, normo-active bowel sounds, no masses, no rebound or guarding. UPPER EXTREMITIES: upper extremities are grossly normal. LOWER EXTREMITIES: No pitting edema. NEURO EXAM: Awake alert only able to state "ya", cranial nerves II-XII grossly intact, moves left upper extremity MEDICAL DECISION MAKING: Patient is a 49-year-old male with an extensive past medical history the presents the ER found to [facility] IV was established blood work was obtained. He remained on 4 L nasal cannula while in the ER. Labs showed no significant leukocytosis but mild anemia at 9.8. No thrombocytopenia. INR was therapeutic at 2.[address] angio was not performed. BMP with mild hyponatremia at 132. LFTs bilirubin and troponin were unremarkable. Pro-Zbigniew was negative. Covid was positive. Patient was typed and screened. Chest x-ray with multifocal pneumonia. He was covered with fluids and IV cefepime as well as oral Tylenol upon presentation as he was found to be febrile and hypoxic. Triage Nursing notes reviewed. Limited review of prior medical records performed Vital Signs: reviewed and remarkable for hypoxic, febrile Differential diagnosis: Differential diagnosis includes etiologies such as sepsis, UTI, pneumonia, metabolic, electrolyte abnormalities, cardiac sources, intracerebral event, toxicologic, neurological, as well as others were entertained. ER treatment provided: See below Diagnostics interpreted by me: ECG: Sinus rhythm rate 79 Normal axis No PVCs QTC 444 Cardiac Monitoring: An order was placed for continuous cardiac monitoring. The monitor shows a rate of 80 with sinus rhythm. Laboratory studies: As stated above and show below. Imaging studies: Portable AP upright 1 view of the chest shows multifocal pneumonia Consultation(s): Discussed with hospitalist for further evaluation Procedures: none Critical Care: I have personally spent 33 minutes of critical care time in the direct ruperto gement of this patient. This includes bedside care, interpretation of diagnostic studies, and testing, discussion with consultants, patient, and family members, and other required patient management activities. This 33 minutes is in excess of all separately billable procedures. Past Med/Surg History Medical History (Updated 03/16/20 @ 18:16 by Donald Hernandez DO) Atrial fibrillation Chronic neck and back pain Chronic sinusitis Erectile dysfunction GERD (gastroesophageal reflux disease) History of respiratory failure Migraine Peripheral neuropathy LEFT ARM Restless leg syndrome Sleep apnea CPAP Surgical History History of cardioversion [facility] ~2016 History of cervical spinal surgery History of tooth extraction WITH ANESTHESIA Social History Smoking Status: Unknown if ever smoked packs per day: 2; Years Smoked: 25; Cigarettes Per Day: SMOKED ~1-2PPD X 30 YEARS; Number of Years Since Quit: 2; Second Hand Exposure: No; Hx Alcohol Use: No Hx Substance Use: No Preferred Language: Bhutanese Communication Ability: Effective Plodding Operator Required: No Beliefs That Will Affect Care: None Current Living Situation: Alone Feels Safe at Home: Yes Assistive Devices: Glasses Allergies Allergies Allergy/AdvReac Type Severity Reaction Status Date / Time amoxicillin [From Augmentin] AdvReac Gastrointestinal Verified 03/16/20 17:35 Upset clavulanic acid AdvReac Gastrointestinal Verified 03/16/20 17:36 [From Augmentin] Upset levofloxacin [From Levaquin] AdvReac Vomiting Verified 03/16/20 17:36 Home Meds Home Medications Medication Instructions Recorded Confirmed Omeprazole Susp 20 ml G-TUBE DAILY 03/16/20 03/16/20 acetaminophen 500 mg FEEDING TUBE Q6H PRN 03/16/20 03/16/20 albuterol sulfate 2 puff INHALATION Q4H PRN 03/16/20 03/16/20 atorvastatin 40 mg FEEDING TUBE .EVENING MEAL 03/16/20 03/16/20 cholecalciferol (vitamin D3) 3,000 unit FEEDING TUBE DAILY 03/16/20 03/16/20 cyanocobalamin (vitamin B-12) 1,000 mcg FEEDING TUBE DAILY 03/16/20 03/16/20 docusate sodium 100 mg FEEDING TUBE BID 03/16/20 03/16/20 enoxaparin [Lovenox] 40 mg SUBCUT DAILY 03/16/20 03/16/20 flecainide 100 mg FEEDING TUBE Q12H 03/16/20 03/16/20 fluoxetine 20 mg FEEDING TUBE DAILY 03/16/20 03/16/20 insulin regular human [Humulin R 1 sliding scale dose SUBCUT ACHS 03/16/20 03/16/20 Regular U-100 Insuln] metformin 500 mg FEEDING TUBE QAM 03/16/20 03/16/20 polyethylene glycol 3350 [Miralax] 17 g FEEDING TUBE DAILY 03/16/20 03/16/20 potassium chloride 10 meq FEEDING TUBE DAILY 03/16/20 03/16/20 senna-docusate sodium [Senna Plus See Rx Instructions .ROUTE .COMPLEX 03/16/20 03/16/20 (senna-docusate)] sodium phosphates [Fleet Enema] 118 ml NE DAILY PRN 03/16/20 03/16/20 tamsulosin [Flomax] See Rx Instructions .ROUTE .COMPLEX 03/16/20 03/16/20 warfarin 15 mg FEEDING TUBE QPM 03/16/20 03/16/20 Previous Rx's Medication Instructions Recorded fluticasone fur. 100 mcg-umeclid 1 inh INHALATION DAILY #60 ea 01/07/20 62.5 mcg-vilant 25 mcg inhalat.powder Results & Data (ED) Vital Signs Vital Signs - 24 hr 03/16/20 13:40 03/16/20 13:42 03/16/20 13:47 Temperature Temperature Source Pulse Rate 74 Pulse Rate from SpO2 Sensor 80 79 Respiratory Rate 31 H 30 H Blood Pressure 141/91 H Blood Pressure Mean 112 Pulse Oximetry 88 L 96 97 Oxygen Delivery Method Room Air Oxygen Flow Rate Sepsis Recent Fever Within 48 Hours Sepsis New/Unexplained Change in Mental Status Sepsis Action Taken by Nursing Fraction of Inspired Oxygen - Titration 4 Pulse Oximetry Post Tiitration 95 03/16/20 13:50 03/16/20 14:00 03/16/20 14:01 Temperature Temperature Source Pulse Rate 77 78 77 Pulse Rate from SpO2 Sensor 78 79 78 Respiratory Rate 29 H 31 H 28 H Blood Pressure 127/78 Blood Pressure Mean 84 Pulse Oximetry 97 97 97 Oxygen Delivery Method Oxygen Flow Rate Sepsis Recent Fever Within 48 Hours Sepsis New/Unexplained Change in Mental Status Sepsis Action Taken by Nursing Fraction of Inspired Oxygen - Titration Pulse Oximetry Post Tiitration 03/16/20 14:04 03/16/20 14:10 03/16/20 14:20 Temperature 38.8 C H Temperature Source Oral Pulse Rate 85 76 81 Pulse Rate from SpO2 Sensor 79 81 Respiratory Rate 24 29 H 32 H Blood Pressure 127/78 Blood Pressure Mean 94 Pulse Oximetry 88 L 97 96 Oxygen Delivery Method Room Air Oxygen Flow Rate Sepsis Recent Fever Within 48 Hours Yes Sepsis New/Unexplained Change in Mental Status No Sepsis Action Taken by Nursing Physician Notified Fraction of Inspired Oxygen - Titration Pulse Oximetry Post Tiitration 03/16/20 14:30 03/16/20 14:31 03/16/20 14:40 Temperature Temperature Source Pulse Rate 80 77 88 Pulse Rate from SpO2 Sensor 77 78 90 Respiratory Rate 31 H 29 H 26 H Blood Pressure 134/71 Blood Pressure Mean 100 Pulse Oximetry 98 97 96 Oxygen Delivery Method Oxygen Flow Rate Sepsis Recent Fever Within 48 Hours Sepsis New/Unexplained Change in Mental Status Sepsis Action Taken by Nursing Fraction of Inspired Oxygen - Titration Pulse Oximetry Post Tiitration 03/16/20 14:50 03/16/20 15:00 03/16/20 15:30 Temperature Temperature Source Pulse Rate 83 74 74 Pulse Rate from SpO2 Sensor 81 Respiratory Rate 26 H 18 24 Blood Pressure 116/65 146/78 H Blood Pressure Mean 80 99 Pulse Oximetry 97 98 98 Oxygen Delivery Method Nasal Cannula Nasal Cannula Oxygen Flow Rate 4 4 Sepsis Recent Fever Within 48 Hours Sepsis New/Unexplained Change in Mental Status Sepsis Action Taken by Nursing Fraction of Inspired Oxygen - Titration Pulse Oximetry Post Tiitration 03/16/20 16:00 Temperature Temperature Source Pulse Rate 77 Pulse Rate from SpO2 Sensor 78 Respiratory Rate 28 H Blood Pressure 112/55 L Blood Pressure Mean 82 Pulse Oximetry 98 Oxygen Delivery Method Nasal Cannula Oxygen Flow Rate 4 Sepsis Recent Fever Within 48 Hours Sepsis New/Unexplained Change in Mental Status Sepsis Action Taken by Nursing Fraction of Inspired Oxygen - Titration Pulse Oximetry Post Tiitration Laboratory Data Result diagrams: 03/16/20 14:49 03/16/20 13:48 Lab Results 03/16/20 03/16/20 03/16/20 Range/Units 13:48 13:48 13:48 WBC Cancelled RBC Cancelled Hgb Cancelled Hct Cancelled MCV Cancelled MCH Cancelled MCHC Cancelled RDW Std Deviation Cancelled RDW Coeff of Aisha Cancelled Plt Count Cancelled MPV Cancelled Immature Gran % (Auto) Cancelled Neut % (Auto) Cancelled Lymph % (Auto) Cancelled [place] % (Auto) Cancelled Eos % (Auto) Cancelled Baso % (Auto) Cancelled Neut # (Auto) Cancelled Lymph # (Auto) Cancelled [place] # (Auto) Cancelled Eos # (Auto) Cancelled Baso # (Auto) Cancelled Immature Gran # (Auto) Cancelled Absolute Nucleated RBC Cancelled Nucleated RBC % (auto) Cancelled Neutrophils % (Manual) Cancelled Band Neutrophils % Cancelled Lymphocytes % (Manual) Cancelled Prolymphocyte % Cancelled Reactive Lymphs % (Man) Cancelled Monocytes % (Manual) Cancelled Eosinophils % (Manual) Cancelled Basophils % (Manual) Cancelled Metamyelocytes % (Man) Cancelled Myelocytes % (Man) Cancelled Promyelocytes % (Man) Cancelled Blast Cells % (Manual) Cancelled Plasma Cell % (Manual) Cancelled Other Cells % Cancelled Nucleated RBC % Cancelled Neutrophils # (Manual) Cancelled Band Neutrophils # Cancelled Total Absolute Neuts Cancelled Lymphocytes # (Manual) Cancelled Prolymphocyte # Cancelled Reactive Lymphs # Cancelled Total Abs Lymphocytes Cancelled Monocytes # (Manual) Cancelled Eosinophils # (Manual) Cancelled Basophils # (Manual) Cancelled Metamyelocytes # (Man) Cancelled Myelocytes # (Manual) Cancelled Promyelocytes # (Man) Cancelled Blast Cells # (Man) Cancelled Plasma Cell # (Manual) Cancelled Other Cells # Cancelled Nucleated RBCs # (Man) Cancelled Hypersegmented Neuts Cancelled Hyposegmented Neuts Cancelled Hypogranular Neuts Cancelled Large Granular Lymphs Cancelled # Lrg Granular Lymphs Cancelled Hairy Cells Cancelled Smudge Cells Cancelled Toxic Granulation Cancelled Toxic Vacuolation Cancelled Dohle Bodies Cancelled Matilde Rods Cancelled Platelet Estimate Cancelled Hypogranular Platelets Cancelled Clumped Platelets Cancelled Giant Platelets Cancelled Platelet Satelliting Cancelled RBC Morphology Cancelled Polychromasia Cancelled Hypochromasia Cancelled Poikilocytosis Cancelled Basophilic Stippling Cancelled Anisocytosis Cancelled Microcytosis Cancelled Macrocytosis Cancelled Spherocytes Cancelled Pappenheimer Bodies Cancelled Sickle Cells Cancelled Target Cells Cancelled Tear Drop Cells Cancelled Ovalocytes Cancelled Stomatocytes Cancelled Pan-Opheim Bodies Cancelled Echinocytes Cancelled Acanthocytes (Spur) Cancelled Rouleaux Cancelled RBC Agglutinates Cancelled Schistocytes Cancelled RBC Morph Comment Cancelled Sezary Cell Cancelled PT Cancelled INR Cancelled APTT Cancelled PTT Ratio Cancelled D-Dimer (0-500) ug/L FEU Sodium 132 L (136-145) mmol/L Potassium 4.1 (3.5-5.1) mmol/L Chloride 98 (98-107) mmol/L Carbon Dioxide 26 (21-32) mmol/L Anion Gap 8.0 (3-11) BUN 10 (7-18) mg/dl Creatinine 0.63 (0.6-1.4) mg/dl Est Cr Clr Drug Dosing Not Reportable Est GFR ( Amer) 134.1 Est GFR (Non-Af Amer) 115.7 BUN/Creatinine Ratio 16.3 (10-20) Glucose 91 (70-99) mg/dl Lactate (0.4-2.0) mmol/L Calcium 8.7 (8.5-10.1) mg/dl Magnesium 2.0 (1.8-2.4) mg/dl Total Bilirubin 0.3 (0.2-1) mg/dl AST 29 (15-37) U/L ALT 36 (12-78) U/L Alkaline Phosphatase 139 H (45-117) U/L Troponin I < 0.015 (0-0.045) ng/ml C-Reactive Protein (0-0.29) mg/dl Total Protein 8.0 (6.4-8.2) gm/dl Albumin 2.8 L (3.4-5.0) gm/dl Globulin 5.2 H (2.5-4.0) gm/dl Albumin/Globulin Ratio 0.5 L (0.9-2) Procalcitonin (0-0.5) ng/ml COVID-19 Eval Order SARS-CoV-2 (PCR) (Negative) Influenza Type A (PCR) (Neg) Influenza Type B (PCR) (Neg) RSV (RT-PCR) (Neg) Blood Type Antibody Screen 03/16/20 03/16/20 03/16/20 Range/Units 13:48 13:50 14:20 WBC RBC Hgb Hct MCV MCH MCHC RDW Std Deviation RDW Coeff of Aisha Plt Count MPV Immature Gran % (Auto) Neut % (Auto) Lymph % (Auto) [place] % (Auto) Eos % (Auto) Baso % (Auto) Neut # (Auto) Lymph # (Auto) [place] # (Auto) Eos # (Auto) Baso # (Auto) Immature Gran # (Auto) Absolute Nucleated RBC Nucleated RBC % (auto) Neutrophils % (Manual) Band Neutrophils % Lymphocytes % (Manual) Prolymphocyte % Reactive Lymphs % (Man) Monocytes % (Manual) Eosinophils % (Manual) Basophils % (Manual) Metamyelocytes % (Man) Myelocytes % (Man) Promyelocytes % (Man) Blast Cells % (Manual) Plasma Cell % (Manual) Other Cells % Nucleated RBC % Neutrophils # (Manual) Band Neutrophils # Total Absolute Neuts Lymphocytes # (Manual) Prolymphocyte # Reactive Lymphs # Total Abs Lymphocytes Monocytes # (Manual) Eosinophils # (Manual) Basophils # (Manual) Metamyelocytes # (Man) Myelocytes # (Manual) Promyelocytes # (Man) Blast Cells # (Man) Plasma Cell # (Manual) Other Cells # Nucleated RBCs # (Man) Hypersegmented Neuts Hyposegmented Neuts Hypogranular Neuts Large Granular Lymphs # Lrg Granular Lymphs Hairy Cells Smudge Cells Toxic Granulation Toxic Vacuolation Dohle Bodies Matilde Rods Platelet Estimate Hypogranular Platelets Clumped Platelets Giant Platelets Platelet Satelliting RBC Morphology Polychromasia Hypochromasia Poikilocytosis Basophilic Stippling Anisocytosis Microcytosis Macrocytosis Spherocytes Pappenheimer Bodies Sickle Cells Target Cells Tear Drop Cells Ovalocytes Stomatocytes Pan-Opheim Bodies Echinocytes Acanthocytes (Spur) Rouleaux RBC Agglutinates Schistocytes RBC Morph Comment Sezary Cell PT INR APTT PTT Ratio D-Dimer (0-500) ug/L FEU Sodium (136-145) mmol/L Potassium (3.5-5.1) mmol/L Chloride (98-107) mmol/L Carbon Dioxide (21-32) mmol/L Anion Gap (3-11) BUN (7-18) mg/dl Creatinine (0.6-1.4) mg/dl Est Cr Clr Drug Dosing Est GFR ( Amer) Est GFR (Non-Af Amer) BUN/Creatinine Ratio (10-20) Glucose (70-99) mg/dl Lactate 1.6 (0.4-2.0) mmol/L Calcium (8.5-10.1) mg/dl Magnesium (1.8-2.4) mg/dl Total Bilirubin (0.2-1) mg/dl AST (15-37) U/L ALT (12-78) U/L Alkaline Phosphatase (45-117) U/L Troponin I (0-0.045) ng/ml C-Reactive Protein (0-0.29) mg/dl Total Protein (6.4-8.2) gm/dl Albumin (3.4-5.0) gm/dl Globulin (2.5-4.0) gm/dl Albumin/Globulin Ratio (0.9-2) Procalcitonin < 0.05 (0-0.5) ng/ml COVID-19 Eval Order SARS-CoV-2 (PCR) POSITIVE A* (Negative) Influenza Type A (PCR) Negative (Neg) Influenza Type B (PCR) Negative (Neg) RSV (RT-PCR) Negative (Neg) Blood Type Antibody Screen 03/16/20 03/16/20 03/16/20 Range/Units 14:27 14:49 14:49 WBC 6.89 RBC 4.19 L Hgb 9.8 L Hct 31.8 L MCV 75.9 L MCH 23.4 L MCHC 30.8 L RDW Std Deviation 46.4 H RDW Coeff of Aisha 17.0 H Plt Count 320 MPV 9.1 Immature Gran % (Auto) 0.0 Neut % (Auto) 63.7 Lymph % (Auto) 23.9 [place] % (Auto) 12.3 Eos % (Auto) 0.0 Baso % (Auto) 0.1 Neut # (Auto) 4.38 Lymph # (Auto) 1.65 [place] # (Auto) 0.85 H Eos # (Auto) 0.00 Baso # (Auto) 0.01 Immature Gran # (Auto) 0.00 Absolute Nucleated RBC Nucleated RBC % (auto) Neutrophils % (Manual) Band Neutrophils % Lymphocytes % (Manual) Prolymphocyte % Reactive Lymphs % (Man) Monocytes % (Manual) Eosinophils % (Manual) Basophils % (Manual) Metamyelocytes % (Man) Myelocytes % (Man) Promyelocytes % (Man) Blast Cells % (Manual) Plasma Cell % (Manual) Other Cells % Nucleated RBC % Neutrophils # (Manual) Band Neutrophils # Total Absolute Neuts Lymphocytes # (Manual) Prolymphocyte # Reactive Lymphs # Total Abs Lymphocytes Monocytes # (Manual) Eosinophils # (Manual) Basophils # (Manual) Metamyelocytes # (Man) Myelocytes # (Manual) Promyelocytes # (Man) Blast Cells # (Man) Plasma Cell # (Manual) Other Cells # Nucleated RBCs # (Man) Hypersegmented Neuts Hyposegmented Neuts Hypogranular Neuts Large Granular Lymphs # Lrg Granular Lymphs Hairy Cells Smudge Cells Toxic Granulation Toxic Vacuolation Dohle Bodies Matilde Rods Platelet Estimate Hypogranular Platelets Clumped Platelets Giant Platelets Platelet Satelliting RBC Morphology Polychromasia Hypochromasia Poikilocytosis Basophilic Stippling Anisocytosis Microcytosis Macrocytosis Spherocytes Pappenheimer Bodies Sickle Cells Target Cells Tear Drop Cells Ovalocytes Stomatocytes Pan-Opheim Bodies Echinocytes Acanthocytes (Spur) Rouleaux RBC Agglutinates Schistocytes RBC Morph Comment Sezary Cell PT 22.6 H INR 2.2 H APTT 36.5 H PTT Ratio 1.3 D-Dimer (0-500) ug/L FEU Sodium (136-145) mmol/L Potassium (3.5-5.1) mmol/L Chloride (98-107) mmol/L Carbon Dioxide (21-32) mmol/L Anion Gap (3-11) BUN (7-18) mg/dl Creatinine (0.6-1.4) mg/dl Est Cr Clr Drug Dosing Est GFR ( Amer) Est GFR (Non-Af Amer) BUN/Creatinine Ratio (10-20) Glucose (70-99) mg/dl Lactate (0.4-2.0) mmol/L Calcium (8.5-10.1) mg/dl Magnesium (1.8-2.4) mg/dl Total Bilirubin (0.2-1) mg/dl AST (15-37) U/L ALT (12-78) U/L Alkaline Phosphatase (45-117) U/L Troponin I (0-0.045) ng/ml C-Reactive Protein (0-0.29) mg/dl Total Protein (6.4-8.2) gm/dl Albumin (3.4-5.0) gm/dl Globulin (2.5-4.0) gm/dl Albumin/Globulin Ratio (0.9-2) Procalcitonin (0-0.5) ng/ml COVID-19 Eval Order CovFluRsv at [facility] SARS-CoV-2 (PCR) (Negative) Influenza Type A (PCR) (Neg) Influenza Type B (PCR) (Neg) RSV (RT-PCR) (Neg) Blood Type Antibody Screen 03/16/20 03/16/20 03/16/20 Range/Units 14:49 14:49 15:54 WBC RBC Hgb Hct MCV MCH MCHC RDW Std Deviation RDW Coeff of Aisha Plt Count MPV Immature Gran % (Auto) Neut % (Auto) Lymph % (Auto) [place] % (Auto) Eos % (Auto) Baso % (Auto) Neut # (Auto) Lymph # (Auto) [place] # (Auto) Eos # (Auto) Baso # (Auto) Immature Gran # (Auto) Absolute Nucleated RBC Nucleated RBC % (auto) Neutrophils % (Manual) Band Neutrophils % Lymphocytes % (Manual) Prolymphocyte % Reactive Lymphs % (Man) Monocytes % (Manual) Eosinophils % (Manual) Basophils % (Manual) Metamyelocytes % (Man) Myelocytes % (Man) Promyelocytes % (Man) Blast Cells % (Manual) Plasma Cell % (Manual) Other Cells % Nucleated RBC % Neutrophils # (Manual) Band Neutrophils # Total Absolute Neuts Lymphocytes # (Manual) Prolymphocyte # Reactive Lymphs # Total Abs Lymphocytes Monocytes # (Manual) Eosinophils # (Manual) Basophils # (Manual) Metamyelocytes # (Man) Myelocytes # (Manual) Promyelocytes # (Man) Blast Cells # (Man) Plasma Cell # (Manual) Other Cells # Nucleated RBCs # (Man) Hypersegmented Neuts Hyposegmented Neuts Hypogranular Neuts Large Granular Lymphs # Lrg Granular Lymphs Hairy Cells Smudge Cells Toxic Granulation Toxic Vacuolation Dohle Bodies Matilde Rods Platelet Estimate Hypogranular Platelets Clumped Platelets Giant Platelets Platelet Satelliting RBC Morphology Polychromasia Hypochromasia Poikilocytosis Basophilic Stippling Anisocytosis Microcytosis Macrocytosis Spherocytes Pappenheimer Bodies Sickle Cells Target Cells Tear Drop Cells Ovalocytes Stomatocytes Pan-Opheim Bodies Echinocytes Acanthocytes (Spur) Rouleaux RBC Agglutinates Schistocytes RBC Morph Comment Sezary Cell PT INR APTT PTT Ratio D-Dimer 1530 H* (0-500) ug/L FEU Sodium (136-145) mmol/L Potassium (3.5-5.1) mmol/L Chloride (98-107) mmol/L Carbon Dioxide (21-32) mmol/L Anion Gap (3-11) BUN (7-18) mg/dl Creatinine (0.6-1.4) mg/dl Est Cr Clr Drug Dosing Est GFR ( Amer) Est GFR (Non-Af Amer) BUN/Creatinine Ratio (10-20) Glucose (70-99) mg/dl Lactate (0.4-2.0) mmol/L Calcium (8.5-10.1) mg/dl Magnesium (1.8-2.4) mg/dl Total Bilirubin (0.2-1) mg/dl AST (15-37) U/L ALT (12-78) U/L Alkaline Phosphatase (45-117) U/L Troponin I (0-0.045) ng/ml C-Reactive Protein 2.68 H (0-0.29) mg/dl Total Protein (6.4-8.2) gm/dl Albumin (3.4-5.0) gm/dl Globulin (2.5-4.0) gm/dl Albumin/Globulin Ratio (0.9-2) Procalcitonin (0-0.5) ng/ml COVID-19 Eval Order SARS-CoV-2 (PCR) (Negative) Influenza Type A (PCR) (Neg) Influenza Type B (PCR) (Neg) RSV (RT-PCR) (Neg) Blood Type A Positive Antibody Screen NEGATIVE Administered Medications Discontinued Medications Acetaminophen (Acetaminophen 325 Mg Tab) 650 mg PO NOW STA Stop: 03/16/20 14:22 Last Admin: 03/16/20 15:17 Dose: 650 mg Documented by: [id number] Dexamethasone (Dexamethasone Sod Inj 4 Mg/Ml Vial) 6 mg IV NOW STA Stop: 03/16/20 15:41 Last Admin: 03/16/20 16:25 Dose: 6 mg Documented by: [id number] Cefepime HCl (Maxipime) 2,000 mg in 20 mls @ 5 mls/min IV NOW STA; Protocol Stop: 03/16/20 13:48 Last Admin: 03/16/20 14:00 Dose: 5 mls/min Documented by: [id number] Sodium Chloride (Nss 1000ml) 1,000 mls @ 999 mls/hr IV .Q1H1M ONE Stop: 03/16/20 14:45 Last Infusion: 03/16/20 15:21 Dose: 0 mls/hr Documented by: [id number] Admin: 03/16/20 14:00 Dose: 999 mls/hr Documented by: [id number] Remdesivir 200 mg/ Sodium (Chloride) 250 mls @ 125 mls/hr IV NOW ONE; Protocol Stop: 03/16/20 17:59 Last Admin: 03/16/20 16:25 Dose: 125 mls/hr Documented by: [id number] Discharge Plan Visit Data Chief Complaint: Respiratory Problems ED Provider: Donald Hernandez Discharge Problem: Pneumonia due to 2019-nCoV, Hypoxia, Sepsis Patient Disposition: Admitted As Inpatient Discharge Instructions Interventions: ED Discharge Assessment Last Done: 03/16/20 17:05 Discharge Problem: Sepsis Qualifiers: Sepsis type: sepsis due to unspecified organism Severe sepsis acute organ dysfunction type: unspecified Severe sepsis shock status: unspecified
[2020-03-16] MEDS ORDERED: ACETAMINOPHEN 325 MG TAB PO STA (14:21)
[2020-03-16 14:41] LABS: Albumin Level 2.8 gm/dl (3.4-5.0); Aspartate Aminotransferase 29 U/L (15-37); BUN Creatinine Ratio 16.3 (10-20); Blood Urea Nitrogen 10 mg/dl (7-18); Calcium 8.7 mg/dl (8.5-10.1); Carbon Dioxide 26 mmol/L (21-32); Chloride 98 mmol/L (98-107); Est GFR (African American) 134.1; Est GFR (Non-African American) 115.7; Glucose 91 mg/dl (70-99); Potassium 4.1 mmol/L (3.5-5.1); Sodium 132 mmol/L (136-145)
[2020-03-16 14:46] LABS: Alanine Aminotransferase 36 U/L (12-78); Albumin Globulin Ratio 0.5 (0.9-2); Alkaline Phosphatase 139 U/L (45-117); Bilirubin,Total 0.3 mg/dl (0.2-1); Globulin 5.2 gm/dl (2.5-4.0); Troponin I < 0.015 ng/ml (0-0.045)
--- NOTE | 2020-03-16 14:48 | XRay Report ---
XR chest 1V portable CLINICAL HISTORY: SEPSIS COMPARISON STUDY: 10/08/2019 FINDINGS: The heart is mildly enlarged. There are bilateral interstitial opacities with a slight nodu lar appearance. A multifocal pneumonia is favored over pulmonary edema. Correlation with Covid 19 drew ting is recommended. Clinical and radiographic follow-up suggested.[ IMPRESSION: Bilateral interstitial pulmonary opacities with a slight nodular appearance. Diagnostic c onsiderations include a multifocal pneumonia versus pulmonary edema. A multifocal pneumonitis is favo red. Clinical and radiographic follow-up recommended ACT 112: Negative or not required by law. Electronically signed by: David Doyle M.D. 03/16/2020 2:47 PM
[2020-03-16 15:00] LABS: Basophils # (auto) 0.01 K/uL (0-0.2); Basophils % (auto) 0.1 %; Hematocrit (blood only) 31.8 % (42-52); Hemoglobin 9.8 g/dL (14.0-18.0); Lymphocytes # (auto) 1.65 K/uL (1.2-3.4); Lymphocytes % (auto) 23.9 %; Mean Corpuscular Hemoglobin 23.4 pg (25-34); Mean Corpuscular Hgb Conc 30.8 g/dL (32-36); Mean Corpuscular Volume 75.9 fL (80-100); Mean Platelet Volume 9.1 fL (7.4-10.4); Monocytes # (auto) 0.85 K/uL (0.11-0.59); Monocytes % (auto) 12.3 %; Neutrophils # (auto) 4.38 K/uL (1.4-6.5); Neutrophils % (auto) 63.7 %; Platelet Count 320 K/uL (130-400); RDW Standard Deviation 46.4 fL (36.4-46.3); Red Blood Count 4.19 M/uL (4.7-6.1); White Blood Count 6.89 K/uL (4.8-10.8)
[2020-03-16 15:17] LABS: Influenza A virus by PCR Negative (Neg); Influenza B virus by PCR Negative (Neg); RSV by PCR Negative (Neg)
[2020-03-16 15:22] LABS: INR 2.2 (0.9-1.1); Partial Thromboplastin Ratio 1.3; Partial Thromboplastin Time 36.5 Seconds (21.0-31.0); Prothrombin Time 22.6 Seconds (9.0-12.0)
[2020-03-16 15:32] LABS: SARS CoV2 RNA(COVID-19) InHosp POSITIVE (Negative)
--- NOTE | 2020-03-16 15:32 | History & Physical Report ---
Date of Service March 16, 2020 Assessment & Plan (1) Pneumonia due to COVID-19 virus: Dexamethasone 6 mg IV daily for 10 days Remdesivir - 5 day course Discussed convalescent plasma with his High risk of decline given recent CVA, dysphagia, recent respiratory failure last month at [facility] requiring intubation and subsequent tracheostomy. (2) Sepsis: Suspect all secondary to COVID-19 pneumonia. Procalcitonin negative, will discontinue further antibiotics at this time. (3) Gastrostomy tube in place: Consult dietary regarding tube feeds. Apparently he was having three meals a day at [facility]. (4) Dysphagia: Consult SLT to clear for diet (5) Hypoxia: Aim O2 sats > 90% Does not appear to be in respiratory failure on admission. (6) COPD with emphysema: Continue on his regular inhalers, does not appear to have acute exacerbation of this. (7) Moderate obstructive sleep apnea: CPAP HS (8) Paroxysmal atrial fibrillation: Currently in NSR Continue flecainide 100mg Q12H via G-tube (9) Open wound of right hand: Secondary to vancomycin infiltration at [facility] (10) Microcytic anemia: Appears stable from prior lab work from [facility]. FOB pending. Monitor with repeat CBC in AM with Iron sats - consider iron transfusion if low. 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 Continue warfarin, atorvastatin (13) DVT prophylaxis: INR therapeutic - continue on warfarin, no need for further lovenox (given as bridging at [facility]) Admission and Anticipated Discharge Date Admission Date: March 16, 2020 History of Present Illness Primary Care Provider: Ignacio West MD John Muñiz is a 49 year old male who presents to the ER from [facility] rehab ilitation after a recent stroke with sudden onset shortness of breath and fever. This came on over the course of 2 days. COVID-19 test pending from [facility]. Unable to get any history from patient due to aphasia - he replies yep to most questions which is his baseline s/p CVA per his . Occasional he will say "no" and a few other words but mostly says "yep" either appropriately or innapropriately. The patient points to his left leg when asked about pain but is unable to given me history regarding this or answer any follow up questions appropriately. He was recently diagnosed with CVA causing right sided weakness, dysphagia, aphasia and dysarthria with carotid thrombosis and subsequent transfer to [facility] for mechanical thrombectomy last month. TICI 0 s/p thrombectomy/DSA. He has known atrial fibrillation and was on Xarelto at that time therefore deemed to have failure of this and switched to warfarin. His course there was complicated by acute respiratory failure requiring intubation and subsequent tracheostomy 02/06 then changed to a cuff less trach 02/20. He was treated for aspiration and MSSA pneumonia. He developed a right hand bullae from IV vancomycin infiltration on right hand for which the patient underwent deroofing by general surgery at bedside. He was discharged to [facility] with tracheostomy in place on February 26, 2020. PEG tube was placed however discharge summary from [facility] does not indicated when this was performed. His tracheostomy scar appears well healed however I am unclear when this was removed. Patient noted to have a low grade temp on 03/15/2020 around 1600. COVID-19 test pending from this time. O2 sats dropped to 82% on RA with physical therapy this morning and he was started on 3L O2. He appeared to be short of breath at rest around noon with RR 22 therefore brought to the ER via EMS. Discussed his care with his over the phone. She reports he was making good progress at [facility] and managing to walk 10 feet with hand rails. Discussed given T2DM, SHELLI, recent need for tracheostomy, respiratory failure and CVA he is high risk for deterioration with COVID-19. Wishes to discuss further with his family but confirms DNR status in event of cardiac arrest. For now wishes intubation in setting of respiratory arrest. In the ER chest x-ray was concerning for multifocal pneumonia. Subsequent SARS-CoV-2 PCR positive. He was referred to medicine for admission and ongoing management of COVID-19 pneumonia. Allergies Allergy/AdvReac Type Severity Reaction Status Date / Time amoxicillin [From Augmentin] AdvReac Gastrointestinal Verified 03/16/20 17:35 Upset clavulanic acid AdvReac Gastrointestinal Verified 03/16/20 17:36 [From Augmentin] Upset levofloxacin [From Levaquin] AdvReac Vomiting Verified 03/16/20 17:36 Home Medications Medication Instructions Recorded Confirmed Type fluticasone fur. 100 mcg-umeclid 1 inh INHALATION DAILY #60 ea 01/07/20 03/16/20 Rx 62.5 mcg-vilant 25 mcg inhalat.powder Omeprazole Susp 20 ml G-TUBE DAILY 03/16/20 03/16/20 History acetaminophen 500 mg FEEDING TUBE Q6H PRN 03/16/20 03/16/20 History albuterol sulfate 2 puff INHALATION Q4H PRN 03/16/20 03/16/20 History atorvastatin 40 mg FEEDING TUBE .EVENING MEAL 03/16/20 03/16/20 History cholecalciferol (vitamin D3) 3,000 unit FEEDING TUBE DAILY 03/16/20 03/16/20 History cyanocobalamin (vitamin B-12) 1,000 mcg FEEDING TUBE DAILY 03/16/20 03/16/20 History docusate sodium 100 mg FEEDING TUBE BID 03/16/20 03/16/20 History enoxaparin [Lovenox] 40 mg SUBCUT DAILY 03/16/20 03/16/20 History flecainide 100 mg FEEDING TUBE Q12H 03/16/20 03/16/20 History fluoxetine 20 mg FEEDING TUBE DAILY 03/16/20 03/16/20 History insulin regular human [Humulin R 1 sliding scale dose SUBCUT ACHS 03/16/20 03/16/20 History Regular U-100 Insuln] metformin 500 mg FEEDING TUBE QAM 03/16/20 03/16/20 History polyethylene glycol 3350 [Miralax] 17 g FEEDING TUBE DAILY 03/16/20 03/16/20 History potassium chloride 10 meq FEEDING TUBE DAILY 03/16/20 03/16/20 History senna-docusate sodium [Senna Plus See Rx Instructions .ROUTE .COMPLEX 03/16/20 03/16/20 History (senna-docusate)] sodium phosphates [Fleet Enema] 118 ml GA DAILY PRN 03/16/20 03/16/20 History tamsulosin [Flomax] See Rx Instructions .ROUTE .COMPLEX 03/16/20 03/16/20 History warfarin 15 mg FEEDING TUBE QPM 03/16/20 03/16/20 History Past Med/Surg History Medical History (Updated 03/17/20 @ 12:13 by Олег Silveira MD) Atrial fibrillation Chronic neck and back pain Chronic sinusitis Erectile dysfunction 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 GERD (gastroesophageal reflux disease) History of respiratory failure s/p CVA requiring tracheostomy 01/2020 Migraine Peripheral neuropathy LEFT ARM Pneumonia due to methicillin susceptible Staphylococcus aureus (MSSA) Restless leg syndrome Sleep apnea CPAP Surgical History (Updated 03/17/20 @ 12:13 by Олег Silveira MD) History of cardioversion [facility] ~2016 History of cervical spinal surgery History of tooth extraction WITH ANESTHESIA History of tracheostomy 01/2020 s/p CVA and subsequent respiratory failure Social History Smoking Status: Former smoker packs per day: 2; Years Smoked: 25; Cigarettes Per Day: SMOKED ~1-2PPD X 30 YEARS; Smoking End Date: 2y ago; Number of Years Since Quit: 2; Second Hand Exposure: No; Hx Alcohol Use: No Hx Substance Use: No Preferred Language: Tamazight Communication Ability: Impaired Cover Remover Required: No Beliefs That Will Affect Care: None Current Living Situation: Rehab Feels Safe at Home: Yes Safety Concerns: Feels Safe At This Time Assistive Devices: Glasses and Oxygen - Continuous Review of Systems Review of Systems: Unobtainable due to cognitive status Physical Exam Constitutional: well developed and well nourished; no acute distress Eyes: PERRL, conjunctivae normal, anicteric sclerae ENMT: Mouth: + dry oral mucous membranes Neck: trachea midline; no tracheostomy present (prior scar appears well healed) Respiratory: normal respiratory effort; no respiratory distress, no retractions and does not use accessory muscles Auscultation: + rhonchi (bilateral anteriorly); no wheezes Cardiovascular: Rate/Rhythm: regular rate and regular rhythm Heart Sounds: no murmur Extremities: normal capillary refill and + pedal edema (Right > Left calf swelling) Gastrointestinal (Abdomen): Inspection/Auscultation: abdomen normal to inspection (G-tube in place without surrounding cellulitis) Skin: Trauma: + evidence of skin trauma (Open wound on back of right hand without surrounding cellulitis) Neurologic: + focal motor deficit (RUW/RLE 0/5 (RLE movement noted by RN), limited exam due to cognition) and awake Speech / Cognition: + expressive aphasia and + receptive aphasia Psychiatric: Orientation: alert; + not oriented x 3 Genitourinary: no CVA tenderness Results & Data Results & Data ([facility]) Vital Signs (Past 12 Hours) Vital Signs Temp Pulse Resp BP Pulse Ox 03/16/20 14:50 83 26 H 97 03/16/20 14:40 88 26 H 96 03/16/20 14:31 77 29 H 97 03/16/20 14:30 80 31 H 134/71 98 03/16/20 14:20 81 32 H 96 03/16/20 14:10 76 29 H 97 03/16/20 14:04 38.8 C H 85 24 127/78 88 L 03/16/20 14:01 77 28 H 97 03/16/20 14:00 78 31 H 127/78 97 03/16/20 13:50 77 29 H 97 03/16/20 13:47 74 30 H 97 03/16/20 13:42 31 H 141/91 H 96 03/16/20 13:40 88 L Diagnostic Findings XR chest 1V portable IMPRESSION: Bilateral interstitial pulmonary opacities with a slight nodular appearance. Diagnostic considerations include a multifocal pneumonia versus pulmonary edema. A multifocal pneumonitis is favored. Clinical and radiographic follow-up recommended Medications Administered ER medications given: Cefepime 2 g IV NSS 1L bolus Acetaminophen 650 mg p.o. ECG Indication: SOB/dyspnea Rate (beats per minute): 79 Rhythm: sinus with SA Findings: no acute ischemic change Comparison ECG Date: from (January 30, 2020) Change: the following changes noted (Nonspecific T wave abnormality replaced inverted T waves in anterior leads) Code Status & VTE Plan Code Status All treatment outside of cardiac arrest VTE Prophylaxis Plan VTE Prophylaxis will be ordered: Yes PG Care Time/CCT Total # of Minutes Spent Total Time Spent with Patient: Total time spent is greater than 50% in coordination of care (as documented) at patient's floor/unit and/or counseling patient: Coding Level of Care Code 16478 Initial Inpt Care Lvl 3 Diagnoses Pneumonia due to COVID-19 virus U07.1; J12.82 Sepsis A41.9 Sepsis type: sepsis due to unspecified organism Severe sepsis acute organ dysfunction type: unspecified Severe sepsis shock status: unspecified Gastrostomy tube in place Z93.1 Dysphagia R13.10 Hypoxia R09.02 COPD with emphysema J43.9 Moderate obstructive sleep apnea G47.33 Paroxysmal atrial fibrillation I48.0 Open wound of right hand S61.401A Microcytic anemia D50.9 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
[2020-03-16] MEDS ORDERED: DEXAMETHASONE SOD INJ 4 MG/ML VIAL IV STA (15:40)
[2020-03-16] MEDS ORDERED: SODIUM CHLORIDE 0.9% 10ML FLUSH IV SCH (15:45)
[2020-03-16] MEDS ORDERED: REMDESIVIR 200 MG in SODIUM CHLORIDE 0.9% 210 ML IV ONE (16:00)
[2020-03-16 16:15] LABS: D Dimer 1530 ug/L FEU (0-500)
--- NOTE | 2020-03-16 18:41 | Electrocardiogram Report ---
Test Reason : Blood Pressure : / mmHG Vent. Rate : 079 BPM Atrial Rate : 084 BPM P-R Int : 198 ms QRS Dur : 100 ms QT Int : 388 ms P-R-T Axes : 013 026 051 degrees QTc Int : 444 ms Normal sinus rhythm with sinus arrhythmia Normal ECG When compared with ECG of 30-JAN-2020 03:07, Nonspecific T wave abnormality has improved in Anterior leads Confirmed by Luis Alfredo Loo ([id number]) on 03/16/2020 6:41:25 PM Referred By: REFERRED SELF Confirmed By:Luis Alfredo Loo
[2020-03-16] MEDS ORDERED: SOD PHOSPHATE/SOD BIPHOSPHATE ENEMA 132 ML BTL PR PRN (19:55)
[2020-03-16] MEDS ORDERED: ALBUTEROL HFA 8 GM INHALER INH PRN (19:55)
[2020-03-16] MEDS ORDERED: GLUCOSE 40% GEL 15 GM TUBE PO PRN (20:35)
[2020-03-16] MEDS ORDERED: GLUCOSE 10 TABS/TUBE PO PRN (20:35)
[2020-03-16] MEDS ORDERED: DEXTROSE 50% 50 ML SYRINGE IV PRN (20:35)
[2020-03-16] MEDS ORDERED: GLUCAGON FOR INJ 1 MG VIAL SQ PRN (20:35)
[2020-03-16] MEDS ORDERED: CARBOHYDRATES FOR HYPOGLYCEMIA PO PRN (20:35)
[2020-03-16] MEDS: INSULIN ASPART 100 UNITS/ML 3 ML PEN SC SCH (21:28)
[2020-03-16] MEDS: FLECAINIDE ACETATE 100 MG TABLET PO SCH (21:28)
[2020-03-16] MEDS: DOCUSATE SODIUM SYRUP 100 MG/10 ML UDC GT SCH (21:28)
[2020-03-16] MEDS: WARFARIN SOD 7.5 MG TAB PO SCH (21:28)
[2020-03-17 05:00] LABS: Appearance Urine Clear (Clear); Bilirubin Urine Negative (Negative); Blood Urine Negative (Negative); Color Urine Yellow; Glucose Urine UA Negative (Negative); Ketones Urine Negative (Negative); Leukocyte Esterase Urine Negative (Negative); Nitrite Urine Negative (Negative); Protein Urine Negative (Negative); Specific Gravity Urine 1.012 (1.000-1.030); Urobilinogen Urine Negative (Negative)
[2020-03-17 08:08] LABS: Basophils # (auto) 0.01 K/uL (0-0.2); Basophils % (auto) 0.2 %; Hematocrit (blood only) 34.3 % (42-52); Hemoglobin 10.4 g/dL (14.0-18.0); Immature Granulocytes # (auto) 0.01 K/uL (0.00-0.02); Immature Granulocytes % (auto) 0.2 %; Lymphocytes # (auto) 1.51 K/uL (1.2-3.4); Lymphocytes % (auto) 25.8 %; Mean Corpuscular Hgb Conc 30.3 g/dL (32-36); Mean Corpuscular Volume 75.9 fL (80-100); Monocytes # (auto) 0.72 K/uL (0.11-0.59); Monocytes % (auto) 12.3 %; Neutrophils % (auto) 61.5 %; Platelet Count 332 K/uL (130-400); RDW Coefficient of Variation 16.8 % (11.5-14.5); RDW Standard Deviation 46.1 fL (36.4-46.3); Red Blood Count 4.52 M/uL (4.7-6.1); White Blood Count 5.85 K/uL (4.8-10.8)
[2020-03-17 08:15] LABS: Estimated Average Glucose 126 mg/dl; INR 2.5 (0.9-1.1); Prothrombin Time 25.1 Seconds (9.0-12.0)
[2020-03-17] MEDS: dexAMETHasone 6 MG in SYRINGE 0 ML IV SCH (08:33)
[2020-03-17] MEDS: DOCUSATE SODIUM SYRUP 100 MG/10 ML UDC GT SCH ×2 (08:33→20:14)
[2020-03-17] MEDS: POLYETHYLENE (MIRALAX) 17 GM PACK GT SCH ×2 (08:34→17:31)
[2020-03-17] MEDS: TAMSULOSIN HCL 0.4 MG CAP PEG SCH (08:34)
[2020-03-17] MEDS: CYANOCOBALAMIN 500 MCG TABLET (VITAMIN B-12) PO SCH (08:35)
[2020-03-17] MEDS: CHOLECALCIFEROL 1,000 UNITS 25 MCG TAB GT SCH (08:35)
[2020-03-17] MEDS: LANSOPRAZOLE 30 MG SOLTAB GT SCH (08:35)
[2020-03-17] MEDS: FLECAINIDE ACETATE 100 MG TABLET PO SCH ×2 (08:35→20:11)
[2020-03-17 08:45] LABS: Albumin Level 2.4 gm/dl (3.4-5.0); Calcium 8.6 mg/dl (8.5-10.1); Creatinine Clr Calc Pharmacy 210.7 ml/min; Est GFR (African American) 142.9; Est GFR (Non-African American) 123.3; Potassium 4.2 mmol/L (3.5-5.1)
[2020-03-17 08:48] LABS: Albumin Globulin Ratio 0.5 (0.9-2); Bilirubin,Total 0.4 mg/dl (0.2-1); Globulin 4.7 gm/dl (2.5-4.0); Total Protein 7.1 gm/dl (6.4-8.2)
[2020-03-17] MEDS ORDERED: POTASSIUM CHLORIDE 20MEQ/15ML 473ML GT SCH ×2 (09:00)
[2020-03-17] MEDS: UMECLIDINIUM/VILANTEROL 62.5/25MCG 7 PUFFS/INHALER INH SCH (09:17)
[2020-03-17] MEDS: INSULIN ASPART 100 UNITS/ML 3 ML PEN SC SCH ×4 (09:17→20:33)
[2020-03-17] MEDS: FLUTICASONE FUROATE 100MCG 14 PUFFS/INHALER INH SCH (09:18)
[2020-03-17] MEDS: SODIUM CHLORIDE 0.9% 10ML FLUSH IV SCH (14:20)
--- NOTE | 2020-03-17 14:26 | Hospitalist Progress Note ---
Date of Service March 17, 2020 Assessment & Plan (1) Pneumonia due to COVID-19 virus: Dexamethasone 6 mg IV daily, day 2 Remdesivir, day 2 no convalescent plasma doing well today, minimal oxygen requirements at 2.5L, no distress likely here several days then back to [facility] High risk of decline given recent CVA, dysphagia, recent respiratory failure last month at [place] requiring intubation and subsequent tracheostomy. is okay with intubation if needed, would not want CPR if cardiac arrest (2) Sepsis: due to COVID-19 pneumonia. Procalcitonin negative (3) Gastrostomy tube in place: he is eating well at this time, no need for feeds (4) Dysphagia: Consult SLT to clear for diet (5) Hypoxia: requiring 2.5L NC, no distress or accessory muscle use (6) COPD with emphysema: Continue on his regular inhalers, does not appear to have acute exacerbation of this. (7) Moderate obstructive sleep apnea: CPAP HS (8) Paroxysmal atrial fibrillation: Currently in NSR Continue flecainide 100mg Q12H (9) Open wound of right hand: Secondary to vancomycin infiltration at [facility] (10) Microcytic anemia: Appears stable from prior lab work from [facility]. FOB pending. Monitor with repeat CBC in AM with Iron sats - consider iron transfusion if low. 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 Continue warfarin, atorvastatin (13) DVT prophylaxis: INR therapeutic - continue on warfarin, no need for further lovenox (given as bridging at [facility]) Admission and Anticipated Discharge Date Admission Date: March 16, 2020 Subjective patient breathing comfortably, no distress at all, he is on 2.5L NC he is eating well, finished his lunch no fever/chills he replies "yep" to most questions reviewed the chart, reviewed labs updated his Ashley over the phone, told her I will call every day since the patient is limited in his communication Review of Systems Review of Systems: All systems reviewed & are unremarkable except as noted in Subjective Physical Exam Constitutional: well developed, well nourished, well groomed and comfortable; no acute distress Neck: trachea midline, no thyromegaly (tracheostomy scar) Respiratory: normal respiratory effort, lungs clear to auscultation Cardiovascular: RRR, no murmur, no edema Gastrointestinal (Abdomen): normal bowel sounds, soft, nontender, no hepatosplenomegaly (PEG tube) Musculoskeletal: Head/Neck/Chest: normocephalic, head atraumatic and neck supple Extremities: + abnormal strength (right side is flacid) and + muscle atrophy; no cyanosis, no clubbing and no petechiae Skin: no rashes, warm and dry + wound (right hand, dressed) Neurologic: CN's II-XI intact bilaterally, + focal motor deficit (right arm and leg) and awake Speech / Cognition: + abnormal speech (replies "yep" to questions, follows commands) Psychiatric: A+Ox3, euthymic affect Lymphatic: no cervical or axillary lymphadenopathy Results & Data Results & Data ([facility]) Vital Signs (Past 12 Hours) Vital Signs Temp Pulse Pulse Resp BP Pulse Ox 03/17/20 11:34 36.8 C 71 18 120/74 91 03/17/20 08:24 36.6 C 68 18 125/78 92 03/17/20 07:44 69 03/17/20 04:00 36.6 C 62 20 105/74 92 Laboratory Results Laboratory Results - last 24 hr 03/16/20 03/16/20 03/16/20 13:48 13:48 13:48 WBC Cancelled RBC Cancelled Hgb Cancelled Hct Cancelled MCV Cancelled MCH Cancelled MCHC Cancelled RDW Std Deviation Cancelled RDW Coeff of Aisha Cancelled Plt Count Cancelled MPV Cancelled Immature Gran % (Auto) Cancelled Neut % (Auto) Cancelled Lymph % (Auto) Cancelled Stark % (Auto) Cancelled Eos % (Auto) Cancelled Baso % (Auto) Cancelled Neut # (Auto) Cancelled Lymph # (Auto) Cancelled Stark # (Auto) Cancelled Eos # (Auto) Cancelled Baso # (Auto) Cancelled Immature Gran # (Auto) Cancelled Absolute Nucleated RBC Cancelled Nucleated RBC % (auto) Cancelled Neutrophils % (Manual) Cancelled Band Neutrophils % Cancelled Lymphocytes % (Manual) Cancelled Prolymphocyte % Cancelled Reactive Lymphs % (Man) Cancelled Monocytes % (Manual) Cancelled Eosinophils % (Manual) Cancelled Basophils % (Manual) Cancelled Metamyelocytes % (Man) Cancelled Myelocytes % (Man) Cancelled Promyelocytes % (Man) Cancelled Blast Cells % (Manual) Cancelled Plasma Cell % (Manual) Cancelled Other Cells % Cancelled Nucleated RBC % Cancelled Neutrophils # (Manual) Cancelled Band Neutrophils # Cancelled Total Absolute Neuts Cancelled Lymphocytes # (Manual) Cancelled Prolymphocyte # Cancelled Reactive Lymphs # Cancelled Total Abs Lymphocytes Cancelled Monocytes # (Manual) Cancelled Eosinophils # (Manual) Cancelled Basophils # (Manual) Cancelled Metamyelocytes # (Man) Cancelled Myelocytes # (Manual) Cancelled Promyelocytes # (Man) Cancelled Blast Cells # (Man) Cancelled Plasma Cell # (Manual) Cancelled Other Cells # Cancelled Nucleated RBCs # (Man) Cancelled Hypersegmented Neuts Cancelled Hyposegmented Neuts Cancelled Hypogranular Neuts Cancelled Large Granular Lymphs Cancelled # Lrg Granular Lymphs Cancelled Hairy Cells Cancelled Smudge Cells Cancelled Toxic Granulation Cancelled Toxic Vacuolation Cancelled Dohle Bodies Cancelled Matilde Rods Cancelled Platelet Estimate Cancelled Hypogranular Platelets Cancelled Clumped Platelets Cancelled Giant Platelets Cancelled Platelet Satelliting Cancelled RBC Morphology Cancelled Polychromasia Cancelled Hypochromasia Cancelled Poikilocytosis Cancelled Basophilic Stippling Cancelled Anisocytosis Cancelled Microcytosis Cancelled Macrocytosis Cancelled Spherocytes Cancelled Pappenheimer Bodies Cancelled Sickle Cells Cancelled Target Cells Cancelled Tear Drop Cells Cancelled Ovalocytes Cancelled Stomatocytes Cancelled Pan-Acme Bodies Cancelled Echinocytes Cancelled Acanthocytes (Spur) Cancelled Rouleaux Cancelled RBC Agglutinates Cancelled Schistocytes Cancelled RBC Morph Comment Cancelled Sezary Cell Cancelled PT Cancelled INR Cancelled APTT Cancelled PTT Ratio Cancelled D-Dimer Sodium 132 L Potassium 4.1 Chloride 98 Carbon Dioxide 26 Anion Gap 8.0 BUN 10 Creatinine 0.63 Est Cr Clr Drug Dosing Not Reportable Est GFR ( Amer) 134.1 Est GFR (Non-Af Amer) 115.7 BUN/Creatinine Ratio 16.3 Glucose 91 POC Glucose Estimat Average Glucose Hemoglobin A1c Lactate Calcium 8.7 Magnesium 2.0 Total Bilirubin 0.3 AST 29 ALT 36 Alkaline Phosphatase 139 H Troponin I < 0.015 C-Reactive Protein Total Protein 8.0 Albumin 2.8 L Globulin 5.2 H Albumin/Globulin Ratio 0.5 L Procalcitonin Urine Color Urine Appearance Urine pH Ur Specific [place] Urine Protein Urine Glucose (UA) Urine Ketones Urine Blood Urine Nitrite Urine Bilirubin Urine Urobilinogen Ur Leukocyte Esterase Nasal Screen MRSA (PCR) COVID-19 Eval Order SARS-CoV-2 (PCR) Influenza Type A (PCR) Influenza Type B (PCR) RSV (RT-PCR) Blood Type Antibody Screen 03/16/20 03/16/20 03/16/20 13:48 13:50 14:20 WBC RBC Hgb Hct MCV MCH MCHC RDW Std Deviation RDW Coeff of Aisha Plt Count MPV Immature Gran % (Auto) Neut % (Auto) Lymph % (Auto) Stark % (Auto) Eos % (Auto) Baso % (Auto) Neut # (Auto) Lymph # (Auto) Stark # (Auto) Eos # (Auto) Baso # (Auto) Immature Gran # (Auto) Absolute Nucleated RBC Nucleated RBC % (auto) Neutrophils % (Manual) Band Neutrophils % Lymphocytes % (Manual) Prolymphocyte % Reactive Lymphs % (Man) Monocytes % (Manual) Eosinophils % (Manual) Basophils % (Manual) Metamyelocytes % (Man) Myelocytes % (Man) Promyelocytes % (Man) Blast Cells % (Manual) Plasma Cell % (Manual) Other Cells % Nucleated RBC % Neutrophils # (Manual) Band Neutrophils # Total Absolute Neuts Lymphocytes # (Manual) Prolymphocyte # Reactive Lymphs # Total Abs Lymphocytes Monocytes # (Manual) Eosinophils # (Manual) Basophils # (Manual) Metamyelocytes # (Man) Myelocytes # (Manual) Promyelocytes # (Man) Blast Cells # (Man) Plasma Cell # (Manual) Other Cells # Nucleated RBCs # (Man) Hypersegmented Neuts Hyposegmented Neuts Hypogranular Neuts Large Granular Lymphs # Lrg Granular Lymphs Hairy Cells Smudge Cells Toxic Granulation Toxic Vacuolation Dohle Bodies Matilde Rods Platelet Estimate Hypogranular Platelets Clumped Platelets Giant Platelets Platelet Satelliting RBC Morphology Polychromasia Hypochromasia Poikilocytosis Basophilic Stippling Anisocytosis Microcytosis Macrocytosis Spherocytes Pappenheimer Bodies Sickle Cells Target Cells Tear Drop Cells Ovalocytes Stomatocytes Pan-Acme Bodies Echinocytes Acanthocytes (Spur) Rouleaux RBC Agglutinates Schistocytes RBC Morph Comment Sezary Cell PT INR APTT PTT Ratio D-Dimer Sodium Potassium Chloride Carbon Dioxide Anion Gap BUN Creatinine Est Cr Clr Drug Dosing Est GFR ( Amer) Est GFR (Non-Af Amer) BUN/Creatinine Ratio Glucose POC Glucose Estimat Average Glucose Hemoglobin A1c Lactate 1.6 Calcium Magnesium Total Bilirubin AST ALT Alkaline Phosphatase Troponin I C-Reactive Protein Total Protein Albumin Globulin Albumin/Globulin Ratio Procalcitonin < 0.05 Urine Color Urine Appearance Urine pH Ur Specific [place] Urine Protein Urine Glucose (UA) Urine Ketones Urine Blood Urine Nitrite Urine Bilirubin Urine Urobilinogen Ur Leukocyte Esterase Nasal Screen MRSA (PCR) COVID-19 Eval Order SARS-CoV-2 (PCR) POSITIVE A* Influenza Type A (PCR) Negative Influenza Type B (PCR) Negative RSV (RT-PCR) Negative Blood Type Antibody Screen 03/16/20 03/16/20 03/16/20 14:27 14:49 14:49 WBC 6.89 RBC 4.19 L Hgb 9.8 L Hct 31.8 L MCV 75.9 L MCH 23.4 L MCHC 30.8 L RDW Std Deviation 46.4 H RDW Coeff of Aisha 17.0 H Plt Count 320 MPV 9.1 Immature Gran % (Auto) 0.0 Neut % (Auto) 63.7 Lymph % (Auto) 23.9 Stark % (Auto) 12.3 Eos % (Auto) 0.0 Baso % (Auto) 0.1 Neut # (Auto) 4.38 Lymph # (Auto) 1.65 Stark # (Auto) 0.85 H Eos # (Auto) 0.00 Baso # (Auto) 0.01 Immature Gran # (Auto) 0.00 Absolute Nucleated RBC Nucleated RBC % (auto) Neutrophils % (Manual) Band Neutrophils % Lymphocytes % (Manual) Prolymphocyte % Reactive Lymphs % (Man) Monocytes % (Manual) Eosinophils % (Manual) Basophils % (Manual) Metamyelocytes % (Man) Myelocytes % (Man) Promyelocytes % (Man) Blast Cells % (Manual) Plasma Cell % (Manual) Other Cells % Nucleated RBC % Neutrophils # (Manual) Band Neutrophils # Total Absolute Neuts Lymphocytes # (Manual) Prolymphocyte # Reactive Lymphs # Total Abs Lymphocytes Monocytes # (Manual) Eosinophils # (Manual) Basophils # (Manual) Metamyelocytes # (Man) Myelocytes # (Manual) Promyelocytes # (Man) Blast Cells # (Man) Plasma Cell # (Manual) Other Cells # Nucleated RBCs # (Man) Hypersegmented Neuts Hyposegmented Neuts Hypogranular Neuts Large Granular Lymphs # Lrg Granular Lymphs Hairy Cells Smudge Cells Toxic Granulation Toxic Vacuolation Dohle Bodies Matilde Rods Platelet Estimate Hypogranular Platelets Clumped Platelets Giant Platelets Platelet Satelliting RBC Morphology Polychromasia Hypochromasia Poikilocytosis Basophilic Stippling Anisocytosis Microcytosis Macrocytosis Spherocytes Pappenheimer Bodies Sickle Cells Target Cells Tear Drop Cells Ovalocytes Stomatocytes Pna-Acme Bodies Echinocytes Acanthocytes (Spur) Rouleaux RBC Agglutinates Schistocytes RBC Morph Comment Sezary Cell PT 22.6 H INR 2.2 H APTT 36.5 H PTT Ratio 1.3 D-Dimer Sodium Potassium Chloride Carbon Dioxide Anion Gap BUN Creatinine Est Cr Clr Drug Dosing Est GFR ( Amer) Est GFR (Non-Af Amer) BUN/Creatinine Ratio Glucose POC Glucose Estimat Average Glucose Hemoglobin A1c Lactate Calcium Magnesium Total Bilirubin AST ALT Alkaline Phosphatase Troponin I C-Reactive Protein Total Protein Albumin Globulin Albumin/Globulin Ratio Procalcitonin Urine Color Urine Appearance Urine pH Ur Specific [place] Urine Protein Urine Glucose (UA) Urine Ketones Urine Blood Urine Nitrite Urine Bilirubin Urine Urobilinogen Ur Leukocyte Esterase Nasal Screen MRSA (PCR) COVID-19 Eval Order CovFluRsv at [facility] SARS-CoV-2 (PCR) Influenza Type A (PCR) Influenza Type B (PCR) RSV (RT-PCR) Blood Type Antibody Screen 03/16/20 03/16/20 03/16/20 14:49 14:49 15:54 WBC RBC Hgb Hct MCV MCH MCHC RDW Std Deviation RDW Coeff of Aisha Plt Count MPV Immature Gran % (Auto) Neut % (Auto) Lymph % (Auto) Stark % (Auto) Eos % (Auto) Baso % (Auto) Neut # (Auto) Lymph # (Auto) Stark # (Auto) Eos # (Auto) Baso # (Auto) Immature Gran # (Auto) Absolute Nucleated RBC Nucleated RBC % (auto) Neutrophils % (Manual) Band Neutrophils % Lymphocytes % (Manual) Prolymphocyte % Reactive Lymphs % (Man) Monocytes % (Manual) Eosinophils % (Manual) Basophils % (Manual) Metamyelocytes % (Man) Myelocytes % (Man) Promyelocytes % (Man) Blast Cells % (Manual) Plasma Cell % (Manual) Other Cells % Nucleated RBC % Neutrophils # (Manual) Band Neutrophils # Total Absolute Neuts Lymphocytes # (Manual) Prolymphocyte # Reactive Lymphs # Total Abs Lymphocytes Monocytes # (Manual) Eosinophils # (Manual) Basophils # (Manual) Metamyelocytes # (Man) Myelocytes # (Manual) Promyelocytes # (Man) Blast Cells # (Man) Plasma Cell # (Manual) Other Cells # Nucleated RBCs # (Man) Hypersegmented Neuts Hyposegmented Neuts Hypogranular Neuts Large Granular Lymphs # Lrg Granular Lymphs Hairy Cells Smudge Cells Toxic Granulation Toxic Vacuolation Dohle Bodies Matilde Rods Platelet Estimate Hypogranular Platelets Clumped Platelets Giant Platelets Platelet Satelliting RBC Morphology Polychromasia Hypochromasia Poikilocytosis Basophilic Stippling Anisocytosis Microcytosis Macrocytosis Spherocytes Pappenheimer Bodies Sickle Cells Target Cells Tear Drop Cells Ovalocytes Stomatocytes Pan-Acme Bodies Echinocytes Acanthocytes (Spur) Rouleaux RBC Agglutinates Schistocytes RBC Morph Comment Sezary Cell PT INR APTT PTT Ratio D-Dimer 1530 H* Sodium Potassium Chloride Carbon Dioxide Anion Gap BUN Creatinine Est Cr Clr Drug Dosing Est GFR ( Amer) Est GFR (Non-Af Amer) BUN/Creatinine Ratio Glucose POC Glucose Estimat Average Glucose Hemoglobin A1c Lactate Calcium Magnesium Total Bilirubin AST ALT Alkaline Phosphatase Troponin I C-Reactive Protein 2.68 H Total Protein Albumin Globulin Albumin/Globulin Ratio Procalcitonin Urine Color Urine Appearance Urine pH Ur Specific [place] Urine Protein Urine Glucose (UA) Urine Ketones Urine Blood Urine Nitrite Urine Bilirubin Urine Urobilinogen Ur Leukocyte Esterase Nasal Screen MRSA (PCR) COVID-19 Eval Order SARS-CoV-2 (PCR) Influenza Type A (PCR) Influenza Type B (PCR) RSV (RT-PCR) Blood Type A Positive Antibody Screen NEGATIVE 03/16/20 03/16/20 03/16/20 18:15 19:05 21:22 WBC RBC Hgb Hct MCV MCH MCHC RDW Std Deviation RDW Coeff of Aisha Plt Count MPV Immature Gran % (Auto) Neut % (Auto) Lymph % (Auto) Stark % (Auto) Eos % (Auto) Baso % (Auto) Neut # (Auto) Lymph # (Auto) Stark # (Auto) Eos # (Auto) Baso # (Auto) Immature Gran # (Auto) Absolute Nucleated RBC Nucleated RBC % (auto) Neutrophils % (Manual) Band Neutrophils % Lymphocytes % (Manual) Prolymphocyte % Reactive Lymphs % (Man) Monocytes % (Manual) Eosinophils % (Manual) Basophils % (Manual) Metamyelocytes % (Man) Myelocytes % (Man) Promyelocytes % (Man) Blast Cells % (Manual) Plasma Cell % (Manual) Other Cells % Nucleated RBC % Neutrophils # (Manual) Band Neutrophils # Total Absolute Neuts Lymphocytes # (Manual) Prolymphocyte # Reactive Lymphs # Total Abs Lymphocytes Monocytes # (Manual) Eosinophils # (Manual) Basophils # (Manual) Metamyelocytes # (Man) Myelocytes # (Manual) Promyelocytes # (Man) Blast Cells # (Man) Plasma Cell # (Manual) Other Cells # Nucleated RBCs # (Man) Hypersegmented Neuts Hyposegmented Neuts Hypogranular Neuts Large Granular Lymphs # Lrg Granular Lymphs Hairy Cells Smudge Cells Toxic Granulation Toxic Vacuolation Dohle Bodies Matilde Rods Platelet Estimate Hypogranular Platelets Clumped Platelets Giant Platelets Platelet Satelliting RBC Morphology Polychromasia Hypochromasia Poikilocytosis Basophilic Stippling Anisocytosis Microcytosis Macrocytosis Spherocytes Pappenheimer Bodies Sickle Cells Target Cells Tear Drop Cells Ovalocytes Stomatocytes Pan-Acme Bodies Echinocytes Acanthocytes (Spur) Rouleaux RBC Agglutinates Schistocytes RBC Morph Comment Sezary Cell PT INR APTT PTT Ratio D-Dimer Sodium Potassium Chloride Carbon Dioxide Anion Gap BUN Creatinine Est Cr Clr Drug Dosing Est GFR ( Amer) Est GFR (Non-Af Amer) BUN/Creatinine Ratio Glucose POC Glucose 115 H Estimat Average Glucose Hemoglobin A1c Lactate Calcium Magnesium Total Bilirubin AST ALT Alkaline Phosphatase Troponin I C-Reactive Protein Total Protein Albumin Globulin Albumin/Globulin Ratio Procalcitonin Urine Color Urine Appearance Urine pH Ur Specific [place] Urine Protein Urine Glucose (UA) Urine Ketones Urine Blood Urine Nitrite Urine Bilirubin Urine Urobilinogen Ur Leukocyte Esterase Nasal Screen MRSA (PCR) Cancelled Negative COVID-19 Eval Order SARS-CoV-2 (PCR) Influenza Type A (PCR) Influenza Type B (PCR) RSV (RT-PCR) Blood Type Antibody Screen 03/17/20 03/17/20 03/17/20 00:04 04:45 05:38 WBC RBC Hgb Hct MCV MCH MCHC RDW Std Deviation RDW Coeff of Aisha Plt Count MPV Immature Gran % (Auto) Neut % (Auto) Lymph % (Auto) Stark % (Auto) Eos % (Auto) Baso % (Auto) Neut # (Auto) Lymph # (Auto) Stark # (Auto) Eos # (Auto) Baso # (Auto) Immature Gran # (Auto) Absolute Nucleated RBC Nucleated RBC % (auto) Neutrophils % (Manual) Band Neutrophils % Lymphocytes % (Manual) Prolymphocyte % Reactive Lymphs % (Man) Monocytes % (Manual) Eosinophils % (Manual) Basophils % (Manual) Metamyelocytes % (Man) Myelocytes % (Man) Promyelocytes % (Man) Blast Cells % (Manual) Plasma Cell % (Manual) Other Cells % Nucleated RBC % Neutrophils # (Manual) Band Neutrophils # Total Absolute Neuts Lymphocytes # (Manual) Prolymphocyte # Reactive Lymphs # Total Abs Lymphocytes Monocytes # (Manual) Eosinophils # (Manual) Basophils # (Manual) Metamyelocytes # (Man) Myelocytes # (Manual) Promyelocytes # (Man) Blast Cells # (Man) Plasma Cell # (Manual) Other Cells # Nucleated RBCs # (Man) Hypersegmented Neuts Hyposegmented Neuts Hypogranular Neuts Large Granular Lymphs # Lrg Granular Lymphs Hairy Cells Smudge Cells Toxic Granulation Toxic Vacuolation Dohle Bodies Matilde Rods Platelet Estimate Hypogranular Platelets Clumped Platelets Giant Platelets Platelet Satelliting RBC Morphology Polychromasia Hypochromasia Poikilocytosis Basophilic Stippling Anisocytosis Microcytosis Macrocytosis Spherocytes Pappenheimer Bodies Sickle Cells Target Cells Tear Drop Cells Ovalocytes Stomatocytes Pan-Acme Bodies Echinocytes Acanthocytes (Spur) Rouleaux RBC Agglutinates Schistocytes RBC Morph Comment Sezary Cell PT INR APTT PTT Ratio D-Dimer Sodium Potassium Chloride Carbon Dioxide Anion Gap BUN Creatinine Est Cr Clr Drug Dosing Est GFR ( Amer) Est GFR (Non-Af Amer) BUN/Creatinine Ratio Glucose POC Glucose 122 H 106 H Estimat Average Glucose Hemoglobin A1c Lactate Calcium Magnesium Total Bilirubin AST ALT Alkaline Phosphatase Troponin I C-Reactive Protein Total Protein Albumin Globulin Albumin/Globulin Ratio Procalcitonin Urine Color Yellow Urine Appearance Clear Urine pH 7.0 Ur Specific [place] 1.012 Urine Protein Negative Urine Glucose (UA) Negative Urine Ketones Negative Urine Blood Negative Urine Nitrite Negative Urine Bilirubin Negative Urine Urobilinogen Negative Ur Leukocyte Esterase Negative Nasal Screen MRSA (PCR) COVID-19 Eval Order SARS-CoV-2 (PCR) Influenza Type A (PCR) Influenza Type B (PCR) RSV (RT-PCR) Blood Type Antibody Screen 03/17/20 03/17/20 03/17/20 07:55 07:55 07:55 WBC 5.85 RBC 4.52 L Hgb 10.4 L Hct 34.3 L MCV 75.9 L MCH 23.0 L MCHC 30.3 L RDW Std Deviation 46.1 RDW Coeff of Aisha 16.8 H Plt Count 332 MPV 9.0 Immature Gran % (Auto) 0.2 Neut % (Auto) 61.5 Lymph % (Auto) 25.8 Stark % (Auto) 12.3 Eos % (Auto) 0.0 Baso % (Auto) 0.2 Neut # (Auto) 3.60 Lymph # (Auto) 1.51 Stark # (Auto) 0.72 H Eos # (Auto) 0.00 Baso # (Auto) 0.01 Immature Gran # (Auto) 0.01 Absolute Nucleated RBC Nucleated RBC % (auto) Neutrophils % (Manual) Band Neutrophils % Lymphocytes % (Manual) Prolymphocyte % Reactive Lymphs % (Man) Monocytes % (Manual) Eosinophils % (Manual) Basophils % (Manual) Metamyelocytes % (Man) Myelocytes % (Man) Promyelocytes % (Man) Blast Cells % (Manual) Plasma Cell % (Manual) Other Cells % Nucleated RBC % Neutrophils # (Manual) Band Neutrophils # Total Absolute Neuts Lymphocytes # (Manual) Prolymphocyte # Reactive Lymphs # Total Abs Lymphocytes Monocytes # (Manual) Eosinophils # (Manual) Basophils # (Manual) Metamyelocytes # (Man) Myelocytes # (Manual) Promyelocytes # (Man) Blast Cells # (Man) Plasma Cell # (Manual) Other Cells # Nucleated RBCs # (Man) Hypersegmented Neuts Hyposegmented Neuts Hypogranular Neuts Large Granular Lymphs # Lrg Granular Lymphs Hairy Cells Smudge Cells Toxic Granulation Toxic Vacuolation Dohle Bodies Matilde Rods Platelet Estimate Hypogranular Platelets Clumped Platelets Giant Platelets Platelet Satelliting RBC Morphology Polychromasia Hypochromasia Poikilocytosis Basophilic Stippling Anisocytosis Microcytosis Macrocytosis Spherocytes Pappenheimer Bodies Sickle Cells Target Cells Tear Drop Cells Ovalocytes Stomatocytes Pan-Acme Bodies Echinocytes Acanthocytes (Spur) Rouleaux RBC Agglutinates Schistocytes RBC Morph Comment Sezary Cell PT 25.1 H INR 2.5 H APTT PTT Ratio D-Dimer Sodium 135 L Potassium 4.2 Chloride 102 Carbon Dioxide 26 Anion Gap 7.0 BUN 10 Creatinine 0.54 L Est Cr Clr Drug Dosing 210.7 Est GFR ( Amer) 142.9 Est GFR (Non-Af Amer) 123.3 BUN/Creatinine Ratio 18.0 Glucose 100 H POC Glucose Estimat Average Glucose Hemoglobin A1c Lactate Calcium 8.6 Magnesium Total Bilirubin 0.4 AST 22 ALT 31 Alkaline Phosphatase 130 H Troponin I C-Reactive Protein Total Protein 7.1 Albumin 2.4 L Globulin 4.7 H Albumin/Globulin Ratio 0.5 L Procalcitonin Urine Color Urine Appearance Urine pH Ur Specific [place] Urine Protein Urine Glucose (UA) Urine Ketones Urine Blood Urine Nitrite Urine Bilirubin Urine Urobilinogen Ur Leukocyte Esterase Nasal Screen MRSA (PCR) COVID-19 Eval Order SARS-CoV-2 (PCR) Influenza Type A (PCR) Influenza Type B (PCR) RSV (RT-PCR) Blood Type Antibody Screen 03/17/20 03/17/20 03/17/20 07:55 08:21 11:29 WBC RBC Hgb Hct MCV MCH MCHC RDW Std Deviation RDW Coeff of Aisha Plt Count MPV Immature Gran % (Auto) Neut % (Auto) Lymph % (Auto) Stark % (Auto) Eos % (Auto) Baso % (Auto) Neut # (Auto) Lymph # (Auto) Stark # (Auto) Eos # (Auto) Baso # (Auto) Immature Gran # (Auto) Absolute Nucleated RBC Nucleated RBC % (auto) Neutrophils % (Manual) Band Neutrophils % Lymphocytes % (Manual) Prolymphocyte % Reactive Lymphs % (Man) Monocytes % (Manual) Eosinophils % (Manual) Basophils % (Manual) Metamyelocytes % (Man) Myelocytes % (Man) Promyelocytes % (Man) Blast Cells % (Manual) Plasma Cell % (Manual) Other Cells % Nucleated RBC % Neutrophils # (Manual) Band Neutrophils # Total Absolute Neuts Lymphocytes # (Manual) Prolymphocyte # Reactive Lymphs # Total Abs Lymphocytes Monocytes # (Manual) Eosinophils # (Manual) Basophils # (Manual) Metamyelocytes # (Man) Myelocytes # (Manual) Promyelocytes # (Man) Blast Cells # (Man) Plasma Cell # (Manual) Other Cells # Nucleated RBCs # (Man) Hypersegmented Neuts Hyposegmented Neuts Hypogranular Neuts Large Granular Lymphs # Lrg Granular Lymphs Hairy Cells Smudge Cells Toxic Granulation Toxic Vacuolation Dohle Bodies Matilde Rods Platelet Estimate Hypogranular Platelets Clumped Platelets Giant Platelets Platelet Satelliting RBC Morphology Polychromasia Hypochromasia Poikilocytosis Basophilic Stippling Anisocytosis Microcytosis Macrocytosis Spherocytes Pappenheimer Bodies Sickle Cells Target Cells Tear Drop Cells Ovalocytes Stomatocytes Pan-Acme Bodies Echinocytes Acanthocytes (Spur) Rouleaux RBC Agglutinates Schistocytes RBC Morph Comment Sezary Cell PT INR APTT PTT Ratio D-Dimer Sodium Potassium Chloride Carbon Dioxide Anion Gap BUN Creatinine Est Cr Clr Drug Dosing Est GFR ( Amer) Est GFR (Non-Af Amer) BUN/Creatinine Ratio Glucose POC Glucose 97 128 H Estimat Average Glucose 126 Hemoglobin A1c 6.0 H Lactate Calcium Magnesium Total Bilirubin AST ALT Alkaline Phosphatase Troponin I C-Reactive Protein Total Protein Albumin Globulin Albumin/Globulin Ratio Procalcitonin Urine Color Urine Appearance Urine pH Ur Specific [place] Urine Protein Urine Glucose (UA) Urine Ketones Urine Blood Urine Nitrite Urine Bilirubin Urine Urobilinogen Ur Leukocyte Esterase Nasal Screen MRSA (PCR) COVID-19 Eval Order SARS-CoV-2 (PCR) Influenza Type A (PCR) Influenza Type B (PCR) RSV (RT-PCR) Blood Type Antibody Screen Medications Administered Current Inpatient Medications Albuterol (Albuterol Hfa 8 Gm Inhaler) 2 puffs INH Q4H PRN PRN Reason: Shortness Of Breath Or Wheezing Stop: 04/15/20 19:54 Atorvastatin Calcium (Atorvastatin 40 Mg Tab) 40 mg GT QDD [facility] Stop: 04/16/20 16:29 Cyanocobalamin (Cyanocobalamin 500 Mcg Tablet (Vitamin B-12)) 1,000 mcg PO DAILY [facility] Stop: 04/16/20 08:59 Last Admin: 03/17/20 08:35 Dose: 1,000 mcg Documented by: Dextrose (Dextrose 50% 50 Ml Syringe) 25 - 50 ml IV UD PRN; Protocol PRN Reason: Hypoglycemia Protocol Stop: 04/15/20 20:34 Docusate Sodium (Docusate Sodium Syrup 100 Mg/10 Ml Udc) 100 mg GT BID [facility] Stop: 04/15/20 20:59 Last Admin: 03/17/20 08:33 Dose: 100 mg Documented by: Flecainide Acetate (Flecainide Acetate 100 Mg Tablet) 100 mg PO Q12H [facility] Stop: 04/15/20 20:59 Last Admin: 03/17/20 08:35 Dose: 100 mg Documented by: Fluoxetine HCl (Fluoxetine Hcl 20 Mg/5 Ml Udp) 20 mg GT DAILY [facility] Stop: 04/16/20 08:59 Last Admin: 03/17/20 08:33 Dose: 20 mg Documented by: Fluticasone Furoate (Fluticasone Furoate 100mcg 14 Puffs/Inhaler) 1 puffs INH DAILY [facility] Stop: 04/16/20 08:59 Last Admin: 03/17/20 09:18 Dose: 1 puffs Documented by: Glucagon (Glucagon For Inj 1 Mg Vial) 1 mg SQ UD PRN; Protocol PRN Reason: Hypoglycemia Protocol Stop: 04/15/20 20:34 Glucose (Glucose 10 Tabs/Tube) 4 - 8 tabs PO UD PRN; Protocol PRN Reason: Hypoglycemia Protocol Stop: 04/15/20 20:34 Glucose (Glucose 40% Gel 15 Gm Tube) 15 - 30 gm PO UD PRN; Protocol PRN Reason: Hypoglycemia Protocol Stop: 04/15/20 20:34 Dexamethasone 6 mg/ Syringe 1.5 mls @ 1 mls/min IV QAM [facility] Stop: 03/26/20 08:59 Last Admin: 03/17/20 08:33 Dose: 1 mls/min Documented by: Remdesivir 100 mg/ Sodium (Chloride) 250 mls @ 250 mls/hr IV Q24H [facility]; Protocol Stop: 03/21/20 12:59 Insulin Aspart (Insulin Aspart 100 Units/Ml 3 Ml Pen) 0 units SC ACHS [facility] Stop: 04/15/20 20:59 Last Admin: 03/17/20 11:43 Dose: Not Given Documented by: Lansoprazole (Lansoprazole 30 Mg Soltab) 30 mg GT DAILY [facility] Stop: 04/16/20 08:59 Last Admin: 03/17/20 08:35 Dose: 30 mg Documented by: Miscellaneous (Carbohydrates For Hypoglycemia ) 15 - 30 gm PO UD PRN PRN Reason: Hypoglycemia Protocol Stop: 04/15/20 20:34 Polyethylene Glycol (Polyethylene (Miralax) 17 Gm Pack) 17 gm GT DAILY [facility] Stop: 04/16/20 08:59 Last Admin: 03/17/20 08:34 Dose: Not Given Documented by: Potassium Chloride (Potassium Chloride 20meq/15ml 473ml) 10 meq GT DAILY [facility] Stop: 04/16/20 08:59 Last Admin: 03/17/20 08:34 Dose: 10 meq Documented by: Sodium Biphosphate/Sodium Phosphate (Sod Phosphate/Sod Biphosphate Enema 132 Ml Btl) 118 ml [place] DAILY PRN PRN Reason: Constipation Stop: 04/15/20 19:54 Sodium Chloride (Sodium Chloride 0.9% 10ml Flush) 30 ml IV Q24H [facility] Stop: 03/20/20 13:01 Last Admin: 03/17/20 14:20 Dose: Not Given Documented by: Tamsulosin HCl (Tamsulosin Hcl 0.4 Mg Cap) 0.4 mg PEG DAILY [facility] Stop: 04/16/20 08:59 Last Admin: 03/17/20 08:34 Dose: 0.4 mg Documented by: Umeclidinium/Vilanterol (Umeclidinium/Vilanterol 62.5/25mcg 7 Puffs/Inhaler) 1 puffs INH DAILY [facility] Stop: 04/16/20 08:59 Last Admin: 03/17/20 09:17 Dose: 1 puffs Documented by: Vitamin D (Cholecalciferol 1,000 Units 25 Mcg Tab) 3,000 units GT DAILY [facility] Stop: 04/16/20 08:59 Last Admin: 03/17/20 08:35 Dose: 3,000 units Documented by: Warfarin Sodium (Warfarin Sod 7.5 Mg Tab) 7.5 mg PO QPM [facility] Stop: 04/15/20 20:59 Last Admin: 03/16/20 21:28 Dose: 7.5 mg Documented by: PG Care Time/CCT Total # of Minutes Spent Total Time Spent with Patient: Total time spent is greater than 50% in coordination of care (as documented) at patient's floor/unit and/or counseling patient: Coding Level of Care Code 07433 Subseq Hosp Care Lvl 3 Diagnoses Pneumonia due to COVID-19 virus U07.1; J12.82 Sepsis A41.9 Sepsis type: sepsis due to unspecified organism Severe sepsis acute organ dysfunction type: unspecified Severe sepsis shock status: unspecified Gastrostomy tube in place Z93.1 Dysphagia R13.10 Hypoxia R09.02 COPD with emphysema J43.9 Moderate obstructive sleep apnea G47.33 Paroxysmal atrial fibrillation I48.0 Open wound of right hand S61.401A Microcytic anemia D50.9 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
[2020-03-17] MEDS: ATORVASTATIN 40 MG TAB GT SCH (17:30)
[2020-03-17] MEDS: WARFARIN SOD 7.5 MG TAB PO SCH (20:11)
[2020-03-18 06:43] LABS: Basophils # (auto) 0.01 K/uL (0-0.2); Basophils % (auto) 0.1 %; Eosinophils # (auto) 0.01 K/uL (0-0.5); Eosinophils % (auto) 0.1 %; Hematocrit (blood only) 35.3 % (42-52); Hemoglobin 10.8 g/dL (14.0-18.0); Immature Granulocytes # (auto) 0.01 K/uL (0.00-0.02); Immature Granulocytes % (auto) 0.1 %; Lymphocytes # (auto) 2.24 K/uL (1.2-3.4); Lymphocytes % (auto) 30.2 %; Mean Corpuscular Hemoglobin 23.2 pg (25-34); Mean Corpuscular Hgb Conc 30.6 g/dL (32-36); Mean Corpuscular Volume 75.8 fL (80-100); Mean Platelet Volume 9.7 fL (7.4-10.4); Monocytes # (auto) 0.74 K/uL (0.11-0.59); Neutrophils % (auto) 59.5 %; Platelet Count 339 K/uL (130-400); RDW Coefficient of Variation 16.7 % (11.5-14.5); RDW Standard Deviation 45.6 fL (36.4-46.3); Red Blood Count 4.66 M/uL (4.7-6.1); White Blood Count 7.41 K/uL (4.8-10.8)
[2020-03-18 06:54] LABS: INR 3.5 (0.9-1.1); Prothrombin Time 34.6 Seconds (9.0-12.0)
[2020-03-18 07:11] LABS: Albumin Level 2.6 gm/dl (3.4-5.0); BUN Creatinine Ratio 23.4 (10-20); Creatinine Clr Calc Pharmacy 184.8 ml/min; Est GFR (African American) 135.9; Est GFR (Non-African American) 117.3; Potassium 3.4 mmol/L (3.5-5.1)
[2020-03-18 07:21] LABS: Albumin Globulin Ratio 0.5 (0.9-2); Bilirubin,Total 0.5 mg/dl (0.2-1); Globulin 4.9 gm/dl (2.5-4.0); Total Protein 7.5 gm/dl (6.4-8.2)
[2020-03-18] MEDS: FLUTICASONE FUROATE 100MCG 14 PUFFS/INHALER INH SCH (08:49)
[2020-03-18] MEDS: INSULIN ASPART 100 UNITS/ML 3 ML PEN SC SCH ×4 (08:49→21:02)
[2020-03-18] MEDS: UMECLIDINIUM/VILANTEROL 62.5/25MCG 7 PUFFS/INHALER INH SCH (08:49)
[2020-03-18] MEDS: FLECAINIDE ACETATE 100 MG TABLET PO SCH ×2 (08:50→21:22)
[2020-03-18] MEDS: DOCUSATE SODIUM SYRUP 100 MG/10 ML UDC GT SCH ×2 (08:50→21:21)
[2020-03-18] MEDS: dexAMETHasone 6 MG in SYRINGE 0 ML IV SCH (08:50)
[2020-03-18] MEDS: POLYETHYLENE (MIRALAX) 17 GM PACK GT SCH (08:50)
[2020-03-18] MEDS: CHOLECALCIFEROL 1,000 UNITS 25 MCG TAB GT SCH (08:51)
[2020-03-18] MEDS: TAMSULOSIN HCL 0.4 MG CAP PEG SCH (08:51)
[2020-03-18] MEDS: CYANOCOBALAMIN 500 MCG TABLET (VITAMIN B-12) PO SCH (08:51)
[2020-03-18] MEDS: LANSOPRAZOLE 30 MG SOLTAB GT SCH (08:51)
[2020-03-18] MEDS: POTASSIUM CHLORIDE 20 MEQ/15 ML UDC GT SCH (09:06)
[2020-03-18] MEDS: REMDESIVIR 100 MG in SODIUM CHLORIDE 0.9% 230 ML IV SCH (12:20)
[2020-03-18] MEDS: SODIUM CHLORIDE 0.9% 10ML FLUSH IV SCH (12:22)
--- NOTE | 2020-03-18 16:03 | Hospitalist Progress Note ---
Date of Service March 18, 2020 Assessment & Plan (1) Pneumonia due to COVID-19 virus: Dexamethasone 6 mg IV daily, day 3 Remdesivir, day 3 no convalescent plasma doing well today, minimal oxygen requirements at 2L, no distress likely here several days then back to [facility] will move to medical floor as he is stable for 48 hours is okay with intubation if needed, would not want CPR if cardiac arrest (2) Sepsis: due to COVID-19 pneumonia. Procalcitonin negative vitals stable, no fever (3) Gastrostomy tube in place: he is eating well at this time, no need for feeds (4) Dysphagia: Consult SLT to clear for diet (5) Hypoxia: requiring 2L NC, no distress or accessory muscle use (6) COPD with emphysema: Continue on his regular inhalers, does not appear to have acute exacerbation of this. (7) Moderate obstructive sleep apnea: CPAP HS (8) Paroxysmal atrial fibrillation: Currently in NSR Continue flecainide 100mg Q12H move to medical floor (9) Open wound of right hand: Secondary to vancomycin infiltration at [facility] [place] (10) Microcytic anemia: Appears stable from prior lab work from [facility]. FOB pending. Monitor with repeat CBC in AM with Iron sats - consider iron transfusion if low. 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 Continue warfarin, atorvastatin (13) DVT prophylaxis: INR therapeutic - continue on warfarin Admission and Anticipated Discharge Date Admission Date: March 16, 2020 Subjective patient doing great, breathing comfortably on 2L eating well labs stable will move to medical floor, left a message for his as update Review of Systems Review of Systems: All systems reviewed & are unremarkable except as noted in Subjective Musculoskeletal: + muscle weakness (right side paralyzed) Physical Exam Constitutional: well developed, well nourished, well groomed and comfortable; no acute distress Neck: trachea midline, no thyromegaly (tracheostomy scar) Respiratory: normal respiratory effort, lungs clear to auscultation Cardiovascular: RRR, no murmur, no edema Gastrointestinal (Abdomen): normal bowel sounds, soft, nontender, no hepatosplenomegaly (PEG tube) Musculoskeletal: Head/Neck/Chest: normocephalic, head atraumatic and neck supple Extremities: + abnormal strength (right side is flacid) and + muscle atrophy; no cyanosis, no clubbing and no petechiae Skin: no rashes, warm and dry + wound (right hand, dressed) Neurologic: CN's II-XI intact bilaterally, + focal motor deficit (right arm and leg) and awake Speech / Cognition: + abnormal speech (replies "yep" to questions, follows commands) Psychiatric: A+Ox3, euthymic affect Lymphatic: no cervical or axillary lymphadenopathy Results & Data Results & Data ([facility]) Vital Signs (Past 12 Hours) Vital Signs Temp Pulse Pulse Resp BP Pulse Ox 03/18/20 14:19 36.9 C 72 20 117/73 92 03/18/20 11:52 36.6 C 68 20 125/67 89 L 03/18/20 11:19 71 03/18/20 08:16 36.9 C 70 20 110/72 95 03/18/20 04:07 46 L 16 93 Laboratory Results Laboratory Results - last 24 hr 03/17/20 03/17/20 03/18/20 17:10 20:09 06:11 WBC 7.41 RBC 4.66 L Hgb 10.8 L Hct 35.3 L MCV 75.8 L MCH 23.2 L MCHC 30.6 L RDW Std Deviation 45.6 RDW Coeff of Aisha 16.7 H Plt Count 339 MPV 9.7 Immature Gran % (Auto) 0.1 Neut % (Auto) 59.5 Lymph % (Auto) 30.2 [place] % (Auto) 10.0 Eos % (Auto) 0.1 Baso % (Auto) 0.1 Neut # (Auto) 4.40 Lymph # (Auto) 2.24 [place] # (Auto) 0.74 H Eos # (Auto) 0.01 Baso # (Auto) 0.01 Immature Gran # (Auto) 0.01 PT INR Sodium Potassium Chloride Carbon Dioxide Anion Gap BUN Creatinine Est Cr Clr Drug Dosing Est GFR ( Amer) Est GFR (Non-Af Amer) BUN/Creatinine Ratio Glucose POC Glucose 138 H 122 H Calcium Iron Transferrin Transferrin % Sat Total Bilirubin AST ALT Alkaline Phosphatase Total Protein Albumin Globulin Albumin/Globulin Ratio 03/18/20 03/18/20 03/18/20 06:11 06:11 08:13 WBC RBC Hgb Hct MCV MCH MCHC RDW Std Deviation RDW Coeff of Aisha Plt Count MPV Immature Gran % (Auto) Neut % (Auto) Lymph % (Auto) [place] % (Auto) Eos % (Auto) Baso % (Auto) Neut # (Auto) Lymph # (Auto) [place] # (Auto) Eos # (Auto) Baso # (Auto) Immature Gran # (Auto) PT 34.6 H INR 3.5 H Sodium 136 Potassium 3.4 L D Chloride 102 Carbon Dioxide 27 Anion Gap 7.0 BUN 14 Creatinine 0.61 Est Cr Clr Drug Dosing 184.8 Est GFR ( Amer) 135.9 Est GFR (Non-Af Amer) 117.3 BUN/Creatinine Ratio 23.4 H Glucose 107 H POC Glucose 92 Calcium 9.0 Iron 26 L Transferrin 315 Transferrin % Sat 6 L Total Bilirubin 0.5 AST 33 ALT 41 Alkaline Phosphatase 135 H Total Protein 7.5 Albumin 2.6 L Globulin 4.9 H Albumin/Globulin Ratio 0.5 L 03/18/20 03/18/20 11:30 12:15 WBC RBC Hgb Hct MCV MCH MCHC RDW Std Deviation RDW Coeff of Aisha Plt Count MPV Immature Gran % (Auto) Neut % (Auto) Lymph % (Auto) [place] % (Auto) Eos % (Auto) Baso % (Auto) Neut # (Auto) Lymph # (Auto) [place] # (Auto) Eos # (Auto) Baso # (Auto) Immature Gran # (Auto) PT INR Sodium Potassium Chloride Carbon Dioxide Anion Gap BUN Creatinine Est Cr Clr Drug Dosing Est GFR ( Amer) Est GFR (Non-Af Amer) BUN/Creatinine Ratio Glucose POC Glucose 126 H 124 H Calcium Iron Transferrin Transferrin % Sat Total Bilirubin AST ALT Alkaline Phosphatase Total Protein Albumin Globulin Albumin/Globulin Ratio Medications Administered Current Inpatient Medications Albuterol (Albuterol Hfa 8 Gm Inhaler) 2 puffs INH Q4H PRN PRN Reason: Shortness Of Breath Or Wheezing Stop: 04/15/20 19:54 Atorvastatin Calcium (Atorvastatin 40 Mg Tab) 40 mg GT QDD [facility] Stop: 04/16/20 16:29 Last Admin: 03/17/20 17:30 Dose: 40 mg Documented by: Cyanocobalamin (Cyanocobalamin 500 Mcg Tablet (Vitamin B-12)) 1,000 mcg PO DAILY [facility] Stop: 04/16/20 08:59 Last Admin: 03/18/20 08:51 Dose: 1,000 mcg Documented by: Dextrose (Dextrose 50% 50 Ml Syringe) 25 - 50 ml IV UD PRN; Protocol PRN Reason: Hypoglycemia Protocol Stop: 04/15/20 20:34 Docusate Sodium (Docusate Sodium Syrup 100 Mg/10 Ml Udc) 100 mg GT BID [facility] Stop: 04/15/20 20:59 Last Admin: 03/18/20 08:50 Dose: 100 mg Documented by: Flecainide Acetate (Flecainide Acetate 100 Mg Tablet) 100 mg PO Q12H [facility] Stop: 04/15/20 20:59 Last Admin: 03/18/20 08:50 Dose: 100 mg Documented by: Fluoxetine HCl (Fluoxetine Hcl 20 Mg/5 Ml Udp) 20 mg GT DAILY [facility] Stop: 04/16/20 08:59 Last Admin: 03/18/20 08:50 Dose: 20 mg Documented by: Fluticasone Furoate (Fluticasone Furoate 100mcg 14 Puffs/Inhaler) 1 puffs INH DAILY [facility] Stop: 04/16/20 08:59 Last Admin: 03/18/20 08:49 Dose: 1 puffs Documented by: Glucagon (Glucagon For Inj 1 Mg Vial) 1 mg SQ UD PRN; Protocol PRN Reason: Hypoglycemia Protocol Stop: 04/15/20 20:34 Glucose (Glucose 10 Tabs/Tube) 4 - 8 tabs PO UD PRN; Protocol PRN Reason: Hypoglycemia Protocol Stop: 04/15/20 20:34 Glucose (Glucose 40% Gel 15 Gm Tube) 15 - 30 gm PO UD PRN; Protocol PRN Reason: Hypoglycemia Protocol Stop: 04/15/20 20:34 Dexamethasone 6 mg/ Syringe 1.5 mls @ 1 mls/min IV QAM [facility] Stop: 03/26/20 08:59 Last Admin: 03/18/20 08:50 Dose: 1 mls/min Documented by: Remdesivir 100 mg/ Sodium (Chloride) 250 mls @ 250 mls/hr IV Q24H [facility]; Protocol Stop: 03/21/20 12:59 Last Infusion: 03/18/20 13:41 Dose: Infused Documented by: Insulin Aspart (Insulin Aspart 100 Units/Ml 3 Ml Pen) 0 units SC ACHS [facility] Stop: 04/15/20 20:59 Last Admin: 03/18/20 11:42 Dose: Not Given Documented by: Lansoprazole (Lansoprazole 30 Mg Soltab) 30 mg GT DAILY [facility] Stop: 04/16/20 08:59 Last Admin: 03/18/20 08:51 Dose: 30 mg Documented by: Miscellaneous (Carbohydrates For Hypoglycemia ) 15 - 30 gm PO UD PRN PRN Reason: Hypoglycemia Protocol Stop: 04/15/20 20:34 Polyethylene Glycol (Polyethylene (Miralax) 17 Gm Pack) 17 gm GT DAILY [facility] Stop: 04/16/20 08:59 Last Admin: 03/18/20 08:50 Dose: 17 gm Documented by: Potassium Chloride (Potassium Chloride 20 Meq/15 Ml Udc) 20 meq GT DAILY [facility] Stop: 04/17/20 08:59 Last Admin: 03/18/20 09:06 Dose: 20 meq Documented by: Sodium Biphosphate/Sodium Phosphate (Sod Phosphate/Sod Biphosphate Enema 132 Ml Btl) 118 ml [place] DAILY PRN PRN Reason: Constipation Stop: 04/15/20 19:54 Sodium Chloride (Sodium Chloride 0.9% 10ml Flush) 30 ml IV Q24H [facility] Stop: 03/20/20 13:01 Last Admin: 03/18/20 12:22 Dose: 30 ml Documented by: Tamsulosin HCl (Tamsulosin Hcl 0.4 Mg Cap) 0.4 mg PEG DAILY [facility] Stop: 04/16/20 08:59 Last Admin: 03/18/20 08:51 Dose: 0.4 mg Documented by: Umeclidinium/Vilanterol (Umeclidinium/Vilanterol 62.5/25mcg 7 Puffs/Inhaler) 1 puffs INH DAILY [facility] Stop: 04/16/20 08:59 Last Admin: 03/18/20 08:49 Dose: 1 puffs Documented by: Vitamin D (Cholecalciferol 1,000 Units 25 Mcg Tab) 3,000 units GT DAILY [facility] Stop: 04/16/20 08:59 Last Admin: 03/18/20 08:51 Dose: 3,000 units Documented by: Warfarin Sodium (Warfarin Sod 5 Mg Tab) 5 mg PO QPM [facility] Stop: 04/17/20 20:59 PG Care Time/CCT Total # of Minutes Spent Total Time Spent with Patient: Total time spent is greater than 50% in coordination of care (as documented) at patient's floor/unit and/or counseling patient: Coding Level of Care Code 38649 Subseq Hosp Care Lvl 2 Diagnoses Pneumonia due to COVID-19 virus U07.1; J12.82 Sepsis A41.9 Sepsis type: sepsis due to unspecified organism Severe sepsis acute organ dysfunction type: unspecified Severe sepsis shock status: unspecified Gastrostomy tube in place Z93.1 Dysphagia R13.10 Hypoxia R09.02 COPD with emphysema J43.9 Moderate obstructive sleep apnea G47.33 Paroxysmal atrial fibrillation I48.0 Open wound of right hand S61.401A Microcytic anemia D50.9 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
[2020-03-18] MEDS: ATORVASTATIN 40 MG TAB GT SCH (16:08)
[2020-03-18] MEDS: WARFARIN SOD 5 MG TAB PO SCH (21:21)
[2020-03-19 06:56] LABS: INR 4.4 (0.9-1.1); Prothrombin Time 43.3 Seconds (9.0-12.0)
[2020-03-19] MEDS: INSULIN ASPART 100 UNITS/ML 3 ML PEN SC SCH ×4 (07:50→21:01)
[2020-03-19] MEDS: dexAMETHasone 6 MG in SYRINGE 0 ML IV SCH (09:58)
[2020-03-19] MEDS: CHOLECALCIFEROL 1,000 UNITS 25 MCG TAB GT SCH (09:59)
[2020-03-19] MEDS: POTASSIUM CHLORIDE 20 MEQ/15 ML UDC GT SCH (09:59)
[2020-03-19] MEDS: DOCUSATE SODIUM SYRUP 100 MG/10 ML UDC GT SCH ×2 (09:59→21:04)
[2020-03-19] MEDS: FLECAINIDE ACETATE 100 MG TABLET PO SCH ×2 (10:00→21:04)
[2020-03-19] MEDS: CYANOCOBALAMIN 500 MCG TABLET (VITAMIN B-12) PO SCH (10:00)
[2020-03-19] MEDS: LANSOPRAZOLE 30 MG SOLTAB GT SCH (10:00)
[2020-03-19] MEDS: TAMSULOSIN HCL 0.4 MG CAP PEG SCH (10:00)
[2020-03-19] MEDS: POLYETHYLENE (MIRALAX) 17 GM PACK GT SCH (10:00)
[2020-03-19] MEDS: UMECLIDINIUM/VILANTEROL 62.5/25MCG 7 PUFFS/INHALER INH SCH (10:01)
[2020-03-19] MEDS: FLUTICASONE FUROATE 100MCG 14 PUFFS/INHALER INH SCH (10:02)
[2020-03-19] MEDS: REMDESIVIR 100 MG in SODIUM CHLORIDE 0.9% 230 ML IV SCH (12:15)
[2020-03-19] MEDS: SODIUM CHLORIDE 0.9% 10ML FLUSH IV SCH (13:44)
--- NOTE | 2020-03-19 14:15 | Hospitalist Progress Note ---
Date of Service March 19, 2020 Assessment & Plan (1) Pneumonia due to COVID-19 virus: Dexamethasone 6 mg IV daily, day 4 Remdesivir, day 4 no convalescent plasma doing well today, minimal oxygen requirements at 2L, no distress likely here several days then back to [facility] will move to medical floor once there is a bed available is okay with intubation if needed, would not want CPR if cardiac arrest (2) Sepsis: due to COVID-19 pneumonia. Procalcitonin negative vitals stable, no fever (3) Gastrostomy tube in place: he is eating well at this time, no need for feeds (4) Dysphagia: Consult SLT to clear for diet (5) Hypoxia: still requiring 2L NC, no distress or accessory muscle use (6) COPD with emphysema: Continue on his regular inhalers, does not appear to have acute exacerbation of this. (7) Moderate obstructive sleep apnea: CPAP HS (8) Paroxysmal atrial fibrillation: Currently in NSR Continue flecainide 100mg Q12H move to medical floor (9) Open wound of right hand: Secondary [place] [facility] (10) Microcytic anemia: Appears stable from prior lab work from [facility]. FOB pending. Monitor with repeat CBC in AM with Iron sats - consider iron transfusion if low. 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 Continue warfarin, atorvastatin (13) DVT prophylaxis: INR therapeutic - continue on warfarin Admission and Anticipated Discharge Date Admission Date: March 16, 2020 Subjective patient doing well, no issues, eating well still on 2L NC, 94% at rest will get PT/OT to see him so that he can return to [facility] once he is medically recovered Review of Systems Review of Systems: All systems reviewed & are unremarkable except as noted in Subjective Physical Exam Constitutional: well developed, well nourished, well groomed and comfortable; no acute distress Neck: trachea midline, no thyromegaly (tracheostomy scar) Respiratory: normal respiratory effort, lungs clear to auscultation Cardiovascular: RRR, no murmur, no edema Gastrointestinal (Abdomen): normal bowel sounds, soft, nontender, no hepatosplenomegaly (PEG tube) Musculoskeletal: Head/Neck/Chest: normocephalic, head atraumatic and neck supple Extremities: + abnormal strength (right side is flacid) and + muscle atrophy; no cyanosis, no clubbing and no petechiae Skin: no rashes, warm and dry + wound (right hand, dressed) Neurologic: CN's II-XI intact bilaterally, + focal motor deficit (right arm and leg) and awake Speech / Cognition: + abnormal speech (replies "yep" to questions, follows commands) Psychiatric: A+Ox3, euthymic affect Lymphatic: no cervical or axillary lymphadenopathy Results & Data Results & Data ([facility]) Vital Signs (Past 12 Hours) Vital Signs Temp Pulse Pulse Resp BP Pulse Ox 03/19/20 07:50 37.2 C 59 L 20 116/70 96 03/19/20 03:28 68 15 93 Laboratory Results Laboratory Results - last 24 hr 03/18/20 03/18/20 03/19/20 17:24 20:06 06:22 PT 43.3 H INR 4.4 H POC Glucose 130 H 148 H 03/19/20 03/19/20 07:47 11:30 PT INR POC Glucose 89 114 H Medications Administered Current Inpatient Medications Albuterol (Albuterol Hfa 8 Gm Inhaler) 2 puffs INH Q4H PRN PRN Reason: Shortness Of Breath Or Wheezing Stop: 04/15/20 19:54 Atorvastatin Calcium (Atorvastatin 40 Mg Tab) 40 mg GT QDD [facility] Stop: 04/16/20 16:29 Last Admin: 03/18/20 16:08 Dose: 40 mg Documented by: Cyanocobalamin (Cyanocobalamin 500 Mcg Tablet (Vitamin B-12)) 1,000 mcg PO DAILY [facility] Stop: 04/16/20 08:59 Last Admin: 03/19/20 10:00 Dose: 1,000 mcg Documented by: Dextrose (Dextrose 50% 50 Ml Syringe) 25 - 50 ml IV UD PRN; Protocol PRN Reason: Hypoglycemia Protocol Stop: 04/15/20 20:34 Docusate Sodium (Docusate Sodium Syrup 100 Mg/10 Ml Udc) 100 mg GT BID [facility] Stop: 04/15/20 20:59 Last Admin: 03/19/20 09:59 Dose: 100 mg Documented by: Flecainide Acetate (Flecainide Acetate 100 Mg Tablet) 100 mg PO Q12H [facility] Stop: 04/15/20 20:59 Last Admin: 03/19/20 10:00 Dose: 100 mg Documented by: Fluoxetine HCl (Fluoxetine Hcl 20 Mg/5 Ml Udp) 20 mg GT DAILY [facility] Stop: 04/16/20 08:59 Last Admin: 03/19/20 09:59 Dose: 20 mg Documented by: Fluticasone Furoate (Fluticasone Furoate 100mcg 14 Puffs/Inhaler) 1 puffs INH DAILY [facility] Stop: 04/16/20 08:59 Last Admin: 03/19/20 10:02 Dose: 1 puffs Documented by: Glucagon (Glucagon For Inj 1 Mg Vial) 1 mg SQ UD PRN; Protocol PRN Reason: Hypoglycemia Protocol Stop: 04/15/20 20:34 Glucose (Glucose 10 Tabs/Tube) 4 - 8 tabs PO UD PRN; Protocol PRN Reason: Hypoglycemia Protocol Stop: 04/15/20 20:34 Glucose (Glucose 40% Gel 15 Gm Tube) 15 - 30 gm PO UD PRN; Protocol PRN Reason: Hypoglycemia Protocol Stop: 04/15/20 20:34 Dexamethasone 6 mg/ Syringe 1.5 mls @ 1 mls/min IV QAM [facility] Stop: 03/26/20 08:59 Last Admin: 03/19/20 09:58 Dose: 1 mls/min Documented by: Remdesivir 100 mg/ Sodium (Chloride) 250 mls @ 250 mls/hr IV Q24H [facility]; Protocol Stop: 03/21/20 12:59 Last Infusion: 03/19/20 13:43 Dose: Infused Documented by: Insulin Aspart (Insulin Aspart 100 Units/Ml 3 Ml Pen) 0 units SC ACHS [facility] Stop: 04/15/20 20:59 Last Admin: 03/19/20 11:46 Dose: Not Given Documented by: Lansoprazole (Lansoprazole 30 Mg Soltab) 30 mg GT DAILY [facility] Stop: 04/16/20 08:59 Last Admin: 03/19/20 10:00 Dose: 30 mg Documented by: Miscellaneous (Carbohydrates For Hypoglycemia ) 15 - 30 gm PO UD PRN PRN Reason: Hypoglycemia Protocol Stop: 04/15/20 20:34 Polyethylene Glycol (Polyethylene (Miralax) 17 Gm Pack) 17 gm GT DAILY [facility] Stop: 04/16/20 08:59 Last Admin: 03/19/20 10:00 Dose: 17 gm Documented by: Potassium Chloride (Potassium Chloride 20 Meq/15 Ml Udc) 20 meq GT DAILY [facility] Stop: 04/17/20 08:59 Last Admin: 03/19/20 09:59 Dose: 20 meq Documented by: Sodium Biphosphate/Sodium Phosphate (Sod Phosphate/Sod Biphosphate Enema 132 Ml Btl) 118 ml [place] DAILY PRN PRN Reason: Constipation Stop: 04/15/20 19:54 Sodium Chloride (Sodium Chloride 0.9% 10ml Flush) 30 ml IV Q24H [facility] Stop: 03/20/20 13:01 Last Admin: 03/19/20 13:44 Dose: 30 ml Documented by: Tamsulosin HCl (Tamsulosin Hcl 0.4 Mg Cap) 0.4 mg PEG DAILY [facility] Stop: 04/16/20 08:59 Last Admin: 03/19/20 10:00 Dose: 0.4 mg Documented by: Umeclidinium/Vilanterol (Umeclidinium/Vilanterol 62.5/25mcg 7 Puffs/Inhaler) 1 puffs INH DAILY [facility] Stop: 04/16/20 08:59 Last Admin: 03/19/20 10:01 Dose: 1 puffs Documented by: Vitamin D (Cholecalciferol 1,000 Units 25 Mcg Tab) 3,000 units GT DAILY [facility] Stop: 04/16/20 08:59 Last Admin: 03/19/20 09:59 Dose: 3,000 units Documented by: Warfarin Sodium (Warfarin Sod 5 Mg Tab) 5 mg PO QPM [facility] Stop: 04/17/20 20:59 Last Admin: 03/18/20 21:21 Dose: 5 mg Documented by: PG Care Time/CCT Total # of Minutes Spent Total Time Spent with Patient: Total time spent is greater than 50% in coordination of care (as documented) at patient's floor/unit and/or counseling patient: Coding Level of Care Code 65396 Subseq Hosp Care Lvl 2 Diagnoses Pneumonia due to COVID-19 virus U07.1; J12.82 Sepsis A41.9 Sepsis type: sepsis due to unspecified organism Severe sepsis acute organ dysfunction type: unspecified Severe sepsis shock status: unspecified Gastrostomy tube in place Z93.1 Dysphagia R13.10 Hypoxia R09.02 COPD with emphysema J43.9 Moderate obstructive sleep apnea G47.33 Paroxysmal atrial fibrillation I48.0 Open wound of right hand S61.401A Microcytic anemia D50.9 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
[2020-03-19] MEDS: ATORVASTATIN 40 MG TAB GT SCH (16:44)
[2020-03-20] MEDS: INSULIN ASPART 100 UNITS/ML 3 ML PEN SC SCH ×4 (08:46→21:30)
[2020-03-20] MEDS: dexAMETHasone 4 MG TAB PO SCH (09:18)
[2020-03-20] MEDS: UMECLIDINIUM/VILANTEROL 62.5/25MCG 7 PUFFS/INHALER INH SCH (09:18)
[2020-03-20] MEDS: FLECAINIDE ACETATE 100 MG TABLET PO SCH ×2 (09:18→21:27)
[2020-03-20] MEDS: FLUTICASONE FUROATE 100MCG 14 PUFFS/INHALER INH SCH (09:18)
[2020-03-20] MEDS: DOCUSATE SODIUM SYRUP 100 MG/10 ML UDC GT SCH ×2 (09:19→21:27)
[2020-03-20] MEDS: CYANOCOBALAMIN 500 MCG TABLET (VITAMIN B-12) PO SCH (09:20)
[2020-03-20] MEDS: POLYETHYLENE (MIRALAX) 17 GM PACK GT SCH (09:20)
[2020-03-20] MEDS: LANSOPRAZOLE 30 MG SOLTAB GT SCH (09:20)
[2020-03-20] MEDS: POTASSIUM CHLORIDE 20 MEQ/15 ML UDC GT SCH (09:20)
[2020-03-20] MEDS: CHOLECALCIFEROL 1,000 UNITS 25 MCG TAB GT SCH (09:20)
[2020-03-20] MEDS: TAMSULOSIN HCL 0.4 MG CAP PEG SCH (09:21)
--- NOTE | 2020-03-20 11:00 | XRay Report ---
XR chest 1V portable CLINICAL HISTORY: hypoxia COMPARISON STUDY: 03/17/2020 FINDINGS: The heart remains mildly enlarged. There is improving diffuse interstitial thickening. Ther e is no lobar consolidation. Postsurgical changes are present within the cervical spine[ IMPRESSION: Persistent but improving bilateral interstitial thickening ACT 112: Negative or not required by law. Electronically signed by: David Doyle M.D. 03/20/2020 10:59 AM
[2020-03-20] MEDS: ATORVASTATIN 40 MG TAB GT SCH (16:39)
--- NOTE | 2020-03-20 16:42 | Hospitalist Progress Note ---
Date of Service March 20, 2020 Assessment & Plan (1) Pneumonia due to COVID-19 virus: Dexamethasone 6 mg PO daily, day 5 Remdesivir stopped as he is on room air no convalescent plasma needed doing well today, titrated off of oxygen likely here several days then back to [facility] per CM he can go back 03/25 will move to medical floor once there is a bed available is okay with intubation if needed, would not want CPR if cardiac arrest (2) Sepsis: due to COVID-19 pneumonia. Procalcitonin negative vitals stable, no fever (3) Gastrostomy tube in place: he is eating well at this time, no need for feeds (4) Dysphagia: Consult SLT to clear for diet (5) Hypoxia: resolved, on room air 03/20 (6) COPD with emphysema: Continue on his regular inhalers, does not appear to have acute exacerbation of this. (7) Moderate obstructive sleep apnea: CPAP HS (8) Paroxysmal atrial fibrillation: Currently in NSR Continue flecainide 100mg Q12H move to medical floor (9) Open wound of right hand: Secondary to vancomycin infiltration at Rest[facility] R[facility] (10) Microcytic anemia: Appears stable from prior lab work from [facility]. FOB pending. Monitor with repeat CBC in AM with Iron sats - consider iron transfusion if low. 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 Continue warfarin, atorvastatin (13) DVT prophylaxis: INR therapeutic - continue on warfarin Admission and Anticipated Discharge Date Admission Date: March 16, 2020 Subjective patient on room air today, no distress he is eating and drinking well no fever, vital stable no labs today I updated his over the phone d/w CM, will probably not go back to [facility] until Monday Review of Systems Review of Systems: Unobtainable due to cognitive status (just answers "yep" but he is not in distress) Physical Exam Constitutional: well developed, well nourished, well groomed and comfortable; no acute distress Neck: trachea midline, no thyromegaly (tracheostomy scar) Respiratory: normal respiratory effort, lungs clear to auscultation Cardiovascular: RRR, no murmur, no edema Gastrointestinal (Abdomen): normal bowel sounds, soft, nontender, no hepatosplenomegaly (PEG tube) Musculoskeletal: Head/Neck/Chest: normocephalic, head atraumatic and neck supple Extremities: + abnormal strength (right side is flacid) and + muscle atrophy; no cyanosis, no clubbing and no petechiae Skin: no rashes, warm and dry + wound (right hand, dressed) Neurologic: CN's II-XI intact bilaterally, + focal motor deficit (right arm and leg) and awake Speech / Cognition: + abnormal speech (replies "yep" to questions, follows commands) Psychiatric: A+Ox3, euthymic affect Lymphatic: no cervical or axillary lymphadenopathy Results & Data Results & Data ([facility]) Vital Signs (Past 12 Hours) Vital Signs Temp Pulse Resp BP Pulse Ox 03/20/20 14:00 37.0 C 76 20 118/73 91 03/20/20 07:58 36.9 C 76 20 116/70 90 Medications Administered Current Inpatient Medications Albuterol (Albuterol Hfa 8 Gm Inhaler) 2 puffs INH Q4H PRN PRN Reason: Shortness Of Breath Or Wheezing Stop: 04/15/20 19:54 Atorvastatin Calcium (Atorvastatin 40 Mg Tab) 40 mg GT QDD BEKAH Stop: 04/16/20 16:29 Last Admin: 03/19/20 16:44 Dose: 40 mg Documented by: Cyanocobalamin (Cyanocobalamin 500 Mcg Tablet (Vitamin B-12)) 1,000 mcg PO DAILY BEKAH Stop: 04/16/20 08:59 Last Admin: 03/20/20 09:20 Dose: 1,000 mcg Documented by: Dexamethasone (Dexamethasone 4 Mg Tab) 6 mg PO QAM BEKAH Stop: 04/19/20 08:59 Last Admin: 03/20/20 09:18 Dose: 6 mg Documented by: Dextrose (Dextrose 50% 50 Ml Syringe) 25 - 50 ml IV UD PRN; Protocol PRN Reason: Hypoglycemia Protocol Stop: 04/15/20 20:34 Docusate Sodium (Docusate Sodium Syrup 100 Mg/10 Ml Udc) 100 mg GT BID BEKAH Stop: 04/15/20 20:59 Last Admin: 03/20/20 09:19 Dose: 100 mg Documented by: Flecainide Acetate (Flecainide Acetate 100 Mg Tablet) 100 mg PO Q12H BEKAH Stop: 04/15/20 20:59 Last Admin: 01/22/21 09:18 Dose: 100 mg Documented by: Fluoxetine HCl (Fluoxetine Hcl 20 Mg/5 Ml Udp) 20 mg GT DAILY BEKAH Stop: 04/16/20 08:59 Last Admin: 03/20/20 09:21 Dose: 20 mg Documented by: Fluticasone Furoate (Fluticasone Furoate 100mcg 14 Puffs/Inhaler) 1 puffs INH DAILY BEKAH Stop: 04/16/20 08:59 Last Admin: 03/20/20 09:18 Dose: 1 puffs Documented by: Glucagon (Glucagon For Inj 1 Mg Vial) 1 mg SQ UD PRN; Protocol PRN Reason: Hypoglycemia Protocol Stop: 04/15/20 20:34 Glucose (Glucose 10 Tabs/Tube) 4 - 8 tabs PO UD PRN; Protocol PRN Reason: Hypoglycemia Protocol Stop: 04/15/20 20:34 Glucose (Glucose 40% Gel 15 Gm Tube) 15 - 30 gm PO UD PRN; Protocol PRN Reason: Hypoglycemia Protocol Stop: 04/15/20 20:34 Insulin Aspart (Insulin Aspart 100 Units/Ml 3 Ml Pen) 0 units SC ACHS BEKAH Stop: 04/15/20 20:59 Last Admin: 03/20/20 12:30 Dose: Not Given Documented by: Lansoprazole (Lansoprazole 30 Mg Soltab) 30 mg GT DAILY BEKAH Stop: 04/16/20 08:59 Last Admin: 03/20/20 09:20 Dose: 30 mg Documented by: Miscellaneous (Carbohydrates For Hypoglycemia ) 15 - 30 gm PO UD PRN PRN Reason: Hypoglycemia Protocol Stop: 04/15/20 20:34 Polyethylene Glycol (Polyethylene (Miralax) 17 Gm Pack) 17 gm GT DAILY BEK[facility] Stop: 04/16/20 08:59 Last Admin: 03/20/20 09:20 Dose: 17 gm Documented by: Potassium Chloride (Potassium Chloride 20 Meq/15 Ml Udc) 20 meq GT DAILY BEKAH Stop: 04/17/20 08:59 Last Admin: 03/20/20 09:20 Dose: 20 meq Documented by: Sodium Biphosphate/Sodium Phosphate (Sod Phosphate/Sod Biphosphate Enema 132 Ml Btl) 118 ml MI DAILY PRN PRN Reason: Constipation Stop: 04/15/20 19:54 Tamsulosin HCl (Tamsulosin Hcl 0.4 Mg Cap) 0.4 mg PEG DAILY BEK[facility] Stop: 04/16/20 08:59 Last Admin: 03/20/20 09:21 Dose: 0.4 mg Documented by: Umeclidinium/Vilanterol (Umeclidinium/Vilanterol 62.5/25mcg 7 Puffs/Inhaler) 1 puffs INH DAILY BEKAH Stop: 04/16/20 08:59 Last Admin: 03/20/20 09:18 Dose: 1 puffs Documented by: Vitamin D (Cholecalciferol 1,000 Units 25 Mcg Tab) 3,000 units GT DAILY BEKAH Stop: 04/16/20 08:59 Last Admin: 03/20/20 09:20 Dose: 3,000 units Documented by: Warfarin Sodium (Warfarin Sod 5 Mg Tab) 5 mg PO QPM BEKAH Stop: 04/17/20 20:59 Last Admin: 03/18/20 21:21 Dose: 5 mg Documented by: PG Care Time/CCT Total # of Minutes Spent Total Time Spent with Patient: Total time spent is greater than 50% in coordination of care (as documented) at patient's floor/unit and/or counseling patient: Coding Level of Care Code 74945 Subseq Hosp Care Lvl 2 Diagnoses Pneumonia due to COVID-19 virus U07.1; J12.82 Sepsis A41.9 Sepsis type: sepsis due to unspecified organism Severe sepsis acute organ dysfunction type: unspecified Severe sepsis shock status: unspecified Gastrostomy tube in place Z93.1 Dysphagia R13.10 Hypoxia R09.02 COPD with emphysema J43.9 Moderate obstructive sleep apnea G47.33 Paroxysmal atrial fibrillation I48.0 Open wound of right hand S61.401A Microcytic anemia D50.9 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
[2020-03-21 08:05] LABS: INR 3.3 (0.9-1.1); Prothrombin Time 32.4 Seconds (9.0-12.0)
[2020-03-21] MEDS: UMECLIDINIUM/VILANTEROL 62.5/25MCG 7 PUFFS/INHALER INH SCH (09:26)
[2020-03-21] MEDS: FLUTICASONE FUROATE 100MCG 14 PUFFS/INHALER INH SCH (09:26)
[2020-03-21] MEDS: FLECAINIDE ACETATE 100 MG TABLET PO SCH ×2 (09:26→21:42)
[2020-03-21] MEDS: dexAMETHasone 4 MG TAB PO SCH (09:26)
[2020-03-21] MEDS: CYANOCOBALAMIN 500 MCG TABLET (VITAMIN B-12) PO SCH (09:27)
[2020-03-21] MEDS: CHOLECALCIFEROL 1,000 UNITS 25 MCG TAB GT SCH (09:27)
[2020-03-21] MEDS: LANSOPRAZOLE 30 MG SOLTAB GT SCH (09:27)
[2020-03-21] MEDS: TAMSULOSIN HCL 0.4 MG CAP PEG SCH (09:28)
[2020-03-21] MEDS: POTASSIUM CHLORIDE 20 MEQ/15 ML UDC GT SCH (09:28)
[2020-03-21] MEDS: DOCUSATE SODIUM SYRUP 100 MG/10 ML UDC GT SCH ×2 (09:28→21:42)
[2020-03-21] MEDS: POLYETHYLENE (MIRALAX) 17 GM PACK GT SCH (09:28)
[2020-03-21] MEDS: INSULIN ASPART 100 UNITS/ML 3 ML PEN SC SCH ×4 (10:17→20:38)
--- NOTE | 2020-03-21 14:45 | Hospitalist Progress Note ---
Date of Service March 21, 2020 Assessment & Plan (1) Pneumonia due to COVID-19 virus: Dexamethasone 6 mg PO daily, day 6 Remdesivir stopped as he is on room air no convalescent plasma needed doing well today, titrated off of oxygen likely here several days then back to [facility] per CM he can go back Wed 03/25 will move to medical floor once there is a bed available (2) Sepsis: due to COVID-19 pneumonia. Procalcitonin negative vitals stable, no fever (3) Gastrostomy tube in place: he is eating well at this time, no need for feeds (4) Dysphagia: Consult SLT to clear for diet (5) Hypoxia: resolved, on room air 03/20 (6) COPD with emphysema: Continue on his regular inhalers, does not appear to have acute exacerbation of this. (7) Moderate obstructive sleep apnea: CPAP HS (8) Paroxysmal atrial fibrillation: Currently in NSR Continue flecainide 100mg Q12H move to medical floor (9) Open wound of right hand: Secondary to vancomycin infiltration at [facility] (10) Microcytic anemia: Appears stable from prior lab work from [facility]. FOB pending. Monitor with repeat CBC in AM with Iron sats - consider iron transfusion if low. 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 Continue warfarin, atorvastatin (13) DVT prophylaxis: INR 3.3, adjust Warfarin dose Admission and Anticipated Discharge Date Admission Date: March 16, 2020 Subjective no new issues, patient remains stable on room air eating well, no fever, no cough d/w RN, no issues according to staff Review of Systems Review of Systems: Unobtainable due to cognitive status (answers "yep" to all questions) Physical Exam Constitutional: well developed, well nourished, well groomed and comfortable; no acute distress Neck: trachea midline, no thyromegaly (tracheostomy scar) Respiratory: normal respiratory effort, lungs clear to auscultation Cardiovascular: RRR, no murmur, no edema Gastrointestinal (Abdomen): normal bowel sounds, soft, nontender, no hepatosplenomegaly (PEG tube) Musculoskeletal: Head/Neck/Chest: normocephalic, head atraumatic and neck supple Extremities: + abnormal strength (right side is flacid) and + muscle atrophy; no cyanosis, no clubbing and no petechiae Skin: no rashes, warm and dry + wound (right hand, dressed) Neurologic: CN's II-XI intact bilaterally, + focal motor deficit (right arm and leg) and awake Speech / Cognition: + abnormal speech (replies "yep" to questions, follows commands) Psychiatric: A+Ox3, euthymic affect Lymphatic: no cervical or axillary lymphadenopathy Results & Data Results & Data ([facility]) Vital Signs (Past 12 Hours) Vital Signs Temp Pulse Resp BP Pulse Ox 03/21/20 08:20 36.8 C 63 18 117/73 92 03/21/20 05:56 20 90 Laboratory Results Laboratory Results - last 24 hr 03/20/20 03/20/20 03/21/20 16:47 21:29 07:28 PT 32.4 H INR 3.3 H POC Glucose 105 H 113 H 03/21/20 03/21/20 07:54 11:57 PT INR POC Glucose 92 101 H Medications Administered Current Inpatient Medications Albuterol (Albuterol Hfa 8 Gm Inhaler) 2 puffs INH Q4H PRN PRN Reason: Shortness Of Breath Or Wheezing Stop: 04/15/20 19:54 Atorvastatin Calcium (Atorvastatin 40 Mg Tab) 40 mg GT QDD BEKAH Stop: 04/16/20 16:29 Last Admin: 03/20/20 16:39 Dose: 40 mg Documented by: Cyanocobalamin (Cyanocobalamin 500 Mcg Tablet (Vitamin B-12)) 1,000 mcg PO DAILY BEKAH Stop: 04/16/20 08:59 Last Admin: 03/21/20 09:27 Dose: 1,000 mcg Documented by: Dexamethasone (Dexamethasone 4 Mg Tab) 6 mg PO QAM BEKAH Stop: 04/19/20 08:59 Last Admin: 03/21/20 09:26 Dose: 6 mg Documented by: Dextrose (Dextrose 50% 50 Ml Syringe) 25 - 50 ml IV UD PRN; Protocol PRN Reason: Hypoglycemia Protocol Stop: 04/15/20 20:34 Docusate Sodium (Docusate Sodium Syrup 100 Mg/10 Ml Udc) 100 mg GT BID BEKAH Stop: 04/15/20 20:59 Last Admin: 03/21/20 09:28 Dose: Not Given Documented by: Flecainide Acetate (Flecainide Acetate 100 Mg Tablet) 100 mg PO Q12H BEKAH Stop: 04/15/20 20:59 Last Admin: 03/21/20 09:26 Dose: 100 mg Documented by: Fluoxetine HCl (Fluoxetine Hcl 20 Mg/5 Ml Udp) 20 mg GT DAILY BEKAH Stop: 04/16/20 08:59 Last Admin: 03/21/20 09:27 Dose: 20 mg Documented by: Fluticasone Furoate (Fluticasone Furoate 100mcg 14 Puffs/Inhaler) 1 puffs INH DAILY BEKAH Stop: 04/16/20 08:59 Last Admin: 03/21/20 09:26 Dose: 1 puffs Documented by: Glucagon (Glucagon For Inj 1 Mg Vial) 1 mg SQ UD PRN; Protocol PRN Reason: Hypoglycemia Protocol Stop: 04/15/20 20:34 Glucose (Glucose 10 Tabs/Tube) 4 - 8 tabs PO UD PRN; Protocol PRN Reason: Hypoglycemia Protocol Stop: 04/15/20 20:34 Glucose (Glucose 40% Gel 15 Gm Tube) 15 - 30 gm PO UD PRN; Protocol PRN Reason: Hypoglycemia Protocol Stop: 04/15/20 20:34 Insulin Aspart (Insulin Aspart 100 Units/Ml 3 Ml Pen) 0 units SC ACHS BEKAH Stop: 04/15/20 20:59 Last Admin: 03/21/20 12:09 Dose: Not Given Documented by: Lansoprazole (Lansoprazole 30 Mg Soltab) 30 mg GT DAILY BEKAH Stop: 04/16/20 08:59 Last Admin: 03/21/20 09:27 Dose: 30 mg Documented by: Miscellaneous (Carbohydrates For Hypoglycemia ) 15 - 30 gm PO UD PRN PRN Reason: Hypoglycemia Protocol Stop: 04/15/20 20:34 Polyethylene Glycol (Polyethylene (Miralax) 17 Gm Pack) 17 gm GT DAILY BEKAH Stop: 04/16/20 08:59 Last Admin: 03/21/20 09:28 Dose: Not Given Documented by: Potassium Chloride (Potassium Chloride 20 Meq/15 Ml Udc) 20 meq GT DAILY BEKAH Stop: 04/17/20 08:59 Last Admin: 03/21/20 09:28 Dose: 20 meq Documented by: Sodium Biphosphate/Sodium Phosphate (Sod Phosphate/Sod Biphosphate Enema 132 Ml Btl) 118 ml MS DAILY PRN PRN Reason: Constipation Stop: 04/15/20 19:54 Tamsulosin HCl (Tamsulosin Hcl 0.4 Mg Cap) 0.4 mg PEG DAILY [facility] Stop: 04/16/20 08:59 Last Admin: 03/21/20 09:28 Dose: 0.4 mg Documented by: Umeclidinium/Vilanterol (Umeclidinium/Vilanterol 62.5/25mcg 7 Puffs/Inhaler) 1 puffs INH DAILY BEKAH Stop: 04/16/20 08:59 Last Admin: 03/21/20 09:26 Dose: 1 puffs Documented by: Vitamin D (Cholecalciferol 1,000 Units 25 Mcg Tab) 3,000 units GT DAILY [facility] Stop: 04/16/20 08:59 Last Admin: 03/21/20 09:27 Dose: 3,000 units Documented by: Warfarin Sodium (Warfarin Sod 5 Mg Tab) 5 mg PO QPM [facility] Stop: 04/17/20 20:59 Last Admin: 03/18/20 21:21 Dose: 5 mg Documented by: PG Care Time/CCT Total # of Minutes Spent Total Time Spent with Patient: Total time spent is greater than 50% in coordination of care (as documented) at patient's floor/unit and/or counseling patient: Coding Level of Care Code 68574 Subseq Hosp Care Lvl 2 Diagnoses Pneumonia due to COVID-19 virus U07.1; J12.82 Sepsis A41.9 Sepsis type: sepsis due to unspecified organism Severe sepsis acute organ dysfunction type: unspecified Severe sepsis shock status: unspecified Gastrostomy tube in place Z93.1 Dysphagia R13.10 Hypoxia R09.02 COPD with emphysema J43.9 Moderate obstructive sleep apnea G47.33 Paroxysmal atrial fibrillation I48.0 Open wound of right hand S61.401A Microcytic anemia D50.9 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
[2020-03-21] MEDS: ATORVASTATIN 40 MG TAB GT SCH (16:25)
[2020-03-22] MEDS: FLUTICASONE FUROATE 100MCG 14 PUFFS/INHALER INH SCH (09:00)
[2020-03-22] MEDS: UMECLIDINIUM/VILANTEROL 62.5/25MCG 7 PUFFS/INHALER INH SCH (09:00)
[2020-03-22] MEDS: FLECAINIDE ACETATE 100 MG TABLET PO SCH ×2 (09:01→20:54)
[2020-03-22] MEDS: CYANOCOBALAMIN 500 MCG TABLET (VITAMIN B-12) PO SCH (09:01)
[2020-03-22] MEDS: LANSOPRAZOLE 30 MG SOLTAB GT SCH (09:01)
[2020-03-22] MEDS: CHOLECALCIFEROL 1,000 UNITS 25 MCG TAB GT SCH (09:01)
[2020-03-22] MEDS: dexAMETHasone 4 MG TAB PO SCH (09:01)
[2020-03-22] MEDS: POLYETHYLENE (MIRALAX) 17 GM PACK GT SCH (09:02)
[2020-03-22] MEDS: POTASSIUM CHLORIDE 20 MEQ/15 ML UDC GT SCH (09:02)
[2020-03-22] MEDS: TAMSULOSIN HCL 0.4 MG CAP PEG SCH (09:02)
[2020-03-22] MEDS: DOCUSATE SODIUM SYRUP 100 MG/10 ML UDC GT SCH (09:02)
[2020-03-22] MEDS: INSULIN ASPART 100 UNITS/ML 3 ML PEN SC SCH ×4 (09:30→22:11)
[2020-03-22] MEDS ORDERED: POLYETHYLENE (MIRALAX) 17 GM PACK GT PRN (12:06)
--- NOTE | 2020-03-22 12:10 | Hospitalist Progress Note ---
Date of Service March 22, 2020 Assessment & Plan (1) Pneumonia due to COVID-19 virus: Dexamethasone 6 mg PO daily, day 7 no further doses needed, on room air for three days Remdesivir stopped as he is on room air no convalescent plasma needed doing well today, breathing is stable, no distress at all, no cough likely here several days then back to [facility] per CM he can go back Wed 03/25 try to [facility] if there is a bed available (2) Sepsis: due to COVID-19 pneumonia. Procalcitonin negative vitals stable, no fever sepsis resolved quickly (3) Gastrostomy tube in place: he is eating well at this time, no need for feeds (4) Dysphagia: Consult SLT to clear for diet (5) Hypoxia: resolved, on room air 03/20 can stop dexamethasone (6) COPD with emphysema: Continue on his regular inhalers, does not appear to have acute exacerbation of this. (7) Moderate obstructive sleep apnea: CPAP HS (8) Paroxysmal atrial fibrillation: Currently in NSR Continue flecainide 100mg Q12H move to medical floor (9) Open wound of right hand: Secondary to vancomycin infiltration at Rest[facility] R[facility] (10) Microcytic anemia: Appears stable from prior lab work from [facility]. 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 Continue warfarin, atorvastatin (13) DVT prophylaxis: INR 3.3 03/21, continue to hold, repeat INR tomorrow AM (14) Frequent loose stools: likely from Miralax daily and Colace BID that was scheduled, he got these every day up until 03/21 in the morning will stop Colace for now, make Miralax PRN abdomen soft, NT, no fevers if loose stools persist then check C diff, check CBC tomorrow Admission and Anticipated Discharge Date Admission Date: March 16, 2020 Subjective no new issues, patient remains stable on room air eating well, no fever, no cough d/w RN, having loose stools, they have held Colace and Miralax two days in a row will stop the Colace, make Miralax PRN can stop dexamethasone today, room air for three days Review of Systems Review of Systems: Unobtainable due to cognitive status (answers "yep" to questions, no distress) Musculoskeletal: + muscle weakness (right side paralyzed) Physical Exam Constitutional: well developed, well nourished, well groomed and comfortable; no acute distress Neck: trachea midline, no thyromegaly (tracheostomy scar) Respiratory: normal respiratory effort, lungs clear to auscultation Cardiovascular: RRR, no murmur, no edema Gastrointestinal (Abdomen): normal bowel sounds, soft, nontender, no hepatosplenomegaly (PEG tube) Musculoskeletal: Head/Neck/Chest: normocephalic, head atraumatic and neck supple Extremities: + abnormal strength (right side is flacid) and + muscle atrophy; no cyanosis, no clubbing and no petechiae Skin: no rashes, warm and dry + wound (right hand, dressed) Neurologic: CN's II-XI intact bilaterally, + focal motor deficit (right arm and leg) and awake Speech / Cognition: + abnormal speech (replies "yep" to questions, follows commands) Psychiatric: A+Ox3, euthymic affect Lymphatic: no cervical or axillary lymphadenopathy Results & Data Results & Data ([facility]) Vital Signs (Past 12 Hours) Vital Signs Temp Pulse Resp BP Pulse Ox 03/22/20 08:20 36.6 C 70 16 124/70 93 Laboratory Results Laboratory Results - last 24 hr 03/21/20 03/21/20 03/22/20 16:28 20:26 08:06 POC Glucose 115 H 107 H 97 03/22/20 11:48 POC Glucose 104 H Medications Administered Current Inpatient Medications Albuterol (Albuterol Hfa 8 Gm Inhaler) 2 puffs INH Q4H PRN PRN Reason: Shortness Of Breath Or Wheezing Stop: 04/15/20 19:54 Atorvastatin Calcium (Atorvastatin 40 Mg Tab) 40 mg GT QDD BEKAH Stop: 04/16/20 16:29 Last Admin: 03/21/20 16:25 Dose: 40 mg Documented by: Cyanocobalamin (Cyanocobalamin 500 Mcg Tablet (Vitamin B-12)) 1,000 mcg PO DAILY [facility] Stop: 04/16/20 08:59 Last Admin: 03/22/20 09:01 Dose: 1,000 mcg Documented by: Dextrose (Dextrose 50% 50 Ml Syringe) 25 - 50 ml IV UD PRN; Protocol PRN Reason: Hypoglycemia Protocol Stop: 04/15/20 20:34 Flecainide Acetate (Flecainide Acetate 100 Mg Tablet) 100 mg PO Q12H BEK[facility] Stop: 04/15/20 20:59 Last Admin: 03/22/20 09:01 Dose: 100 mg Documented by: Fluoxetine HCl (Fluoxetine Hcl 20 Mg/5 Ml Udp) 20 mg GT DAILY [facility] Stop: 04/16/20 08:59 Last Admin: 03/22/20 09:02 Dose: 20 mg Documented by: Fluticasone Furoate (Fluticasone Furoate 100mcg 14 Puffs/Inhaler) 1 puffs INH DAILY [facility] Stop: 04/16/20 08:59 Last Admin: 03/22/20 09:00 Dose: 1 puffs Documented by: Glucagon (Glucagon For Inj 1 Mg Vial) 1 mg SQ UD PRN; Protocol PRN Reason: Hypoglycemia Protocol Stop: 04/15/20 20:34 Glucose (Glucose 10 Tabs/Tube) 4 - 8 tabs PO UD PRN; Protocol PRN Reason: Hypoglycemia Protocol Stop: 04/15/20 20:34 Glucose (Glucose 40% Gel 15 Gm Tube) 15 - 30 gm PO UD PRN; Protocol PRN Reason: Hypoglycemia Protocol Stop: 04/15/20 20:34 Insulin Aspart (Insulin Aspart 100 Units/Ml 3 Ml Pen) 0 units SC ACHS BEK[facility] Stop: 04/15/20 20:59 Last Admin: 03/22/20 09:30 Dose: Not Given Documented by: Lansoprazole (Lansoprazole 30 Mg Soltab) 30 mg GT DAILY [facility] Stop: 04/16/20 08:59 Last Admin: 03/22/20 09:01 Dose: 30 mg Documented by: Miscellaneous (Carbohydrates For Hypoglycemia ) 15 - 30 gm PO UD PRN PRN Reason: Hypoglycemia Protocol Stop: 04/15/20 20:34 Polyethylene Glycol (Polyethylene (Miralax) 17 Gm Pack) 17 gm GT DAILY PRN PRN Reason: constipation Stop: 04/16/20 08:59 Potassium Chloride (Potassium Chloride 20 Meq/15 Ml Udc) 20 meq GT DAILY [facility] Stop: 04/17/20 08:59 Last Admin: 03/22/20 09:02 Dose: 20 meq Documented by: Sodium Biphosphate/Sodium Phosphate (Sod Phosphate/Sod Biphosphate Enema 132 Ml Btl) 118 ml IN DAILY PRN PRN Reason: Constipation Stop: 04/15/20 19:54 Tamsulosin HCl (Tamsulosin Hcl 0.4 Mg Cap) 0.4 mg PEG DAILY [facility] Stop: 04/16/20 08:59 Last Admin: 03/22/20 09:02 Dose: 0.4 mg Documented by: Umeclidinium/Vilanterol (Umeclidinium/Vilanterol 62.5/25mcg 7 Puffs/Inhaler) 1 puffs INH DAILY [facility] Stop: 04/16/20 08:59 Last Admin: 03/22/20 09:00 Dose: 1 puffs Documented by: Vitamin D (Cholecalciferol 1,000 Units 25 Mcg Tab) 3,000 units GT DAILY [facility] Stop: 04/16/20 08:59 Last Admin: 03/22/20 09:01 Dose: 3,000 units Documented by: Warfarin Sodium (Warfarin Sod 5 Mg Tab) 5 mg PO QPM [facility] Stop: 04/17/20 20:59 Last Admin: 03/18/20 21:21 Dose: 5 mg Documented by: PG Care Time/CCT Total # of Minutes Spent Total Time Spent with Patient: Total time spent is greater than 50% in coordination of care (as documented) at patient's floor/unit and/or counseling patient: Coding Level of Care Code 85346 Subseq Hosp Care Lvl 2 Diagnoses Pneumonia due to COVID-19 virus U07.1; J12.82 Sepsis A41.9 Sepsis type: sepsis due to unspecified organism Severe sepsis acute organ dysfunction type: unspecified Severe sepsis shock status: unspecified Gastrostomy tube in place Z93.1 Dysphagia R13.10 Hypoxia R09.02 COPD with emphysema J43.9 Moderate obstructive sleep apnea G47.33 Paroxysmal atrial fibrillation I48.0 Open wound of right hand S61.401A Microcytic anemia D50.9 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
[2020-03-22] MEDS: ATORVASTATIN 40 MG TAB GT SCH (17:18)
[2020-03-23 07:04] LABS: Hematocrit (blood only) 38.2 % (42-52); Hemoglobin 11.7 g/dL (14.0-18.0); Mean Corpuscular Hemoglobin 23.1 pg (25-34); Mean Corpuscular Hgb Conc 30.6 g/dL (32-36); Mean Corpuscular Volume 75.5 fL (80-100); Mean Platelet Volume 9.3 fL (7.4-10.4); Platelet Count 366 K/uL (130-400); RDW Coefficient of Variation 16.9 % (11.5-14.5); RDW Standard Deviation 46.4 fL (36.4-46.3); Red Blood Count 5.06 M/uL (4.7-6.1)
[2020-03-23 07:18] LABS: INR 1.8 (0.9-1.1)
[2020-03-23 07:25] LABS: BUN Creatinine Ratio 22.1 (10-20); Calcium 8.9 mg/dl (8.5-10.1); Creatinine Clr Calc Pharmacy 176.6 ml/min; Est GFR (African American) 135.9; Est GFR (Non-African American) 117.3; Potassium 3.2 mmol/L (3.5-5.1)
[2020-03-23] MEDS: INSULIN ASPART 100 UNITS/ML 3 ML PEN SC SCH ×4 (09:08→20:39)
--- NOTE | 2020-03-23 09:27 | Hospitalist Progress Note ---
Date of Service March 23, 2020 Assessment & Plan (1) Pneumonia due to COVID-19 virus: Dexamethasone & Remdesivir stopped as he is on room air no convalescent plasma needed doing well does have chronic limitations, , breathing is stable, back to [facility] targeting Wed 03/25 (2) Sepsis: due to COVID-19 pneumonia. Procalcitonin negative vitals stable, no fever sepsis resolved quickly (3) Gastrostomy tube in place: he is eating well at this time, no need for feeds, needs thickened liquids to limit aspiration (4) Dysphagia: Consult SLT did que for recommends minced and moist diet nectar thick liquids aspiration precautions no straws set up with meals continue speech-language pathology services at [facility] (5) Hypoxia: resolved, on room air 03/20 (6) COPD with emphysema: Continue on his regular inhalers, does not appear to have acute exacerbation of this. (7) Moderate obstructive sleep apnea: CPAP HS (8) Paroxysmal atrial fibrillation: Currently in NSR Continue flecainide 100mg Q12H move to medical floor (9) Open wound of right hand: Secondary to vancomycin infiltration at [facility] (10) Microcytic anemia: Appears stable from prior lab work from [facility]. 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 Continue warfarin, atorvastatin (13) DVT prophylaxis: INR was elevated now 1.8 with resumption of oral warfarin (14) Frequent loose stools: likely from Miralax daily and Colace BID that was scheduled, he got these every day up until 03/21 in the morning will stop Colace for now, make Miralax PRN abdomen soft, NT, no fevers Admission and Anticipated Discharge Date Admission Date: March 16, 2020 Subjective no new issues, patient remains stable with oxygen supplementation needed eating well, no fever, no cough d/w RN, having loose stools, they have held Colace and Miralax Review of Systems Review of Systems: unable to obtain due to communication pt states yes to every question Physical Exam Physical Exam: The patient appeared well Vital signs as documented. Lungs are clear to auscultation and appear unlabored Cardiac exam, Rhythm is regular.. No murmurs, rubs or gallops. Abdominal exam reveals normal bowel sounds, soft non tender, no masses Extremities are nonedematous and both pedal pulses are normal. Neurologic exam is alert and fairly dense right hemipelegia Skin is without bruises or rashes Results & Data Results & Data ([facility]) Vital Signs (Past 12 Hours) Vital Signs Temp Pulse Pulse Resp BP Pulse Ox 03/23/20 08:38 97.7 F 70 20 117/80 91 03/22/20 23:48 44 L 19 94 03/22/20 23:07 97.9 F 78 18 133/68 96 PG Care Time/CCT Total # of Minutes Spent Total Time Spent with Patient: Total time spent is greater than 50% in coordination of care (as documented) at patient's floor/unit and/or counseling patient: Coding Level of Care Code 26407 Subseq Hosp Care Lvl 3 Diagnoses Pneumonia due to COVID-19 virus U07.1; J12.82 Sepsis A41.9 Sepsis type: sepsis due to unspecified organism Severe sepsis acute organ dysfunction type: unspecified Severe sepsis shock status: unspecified Gastrostomy tube in place Z93.1 Dysphagia R13.10 Hypoxia R09.02 COPD with emphysema J43.9 Moderate obstructive sleep apnea G47.33 Paroxysmal atrial fibrillation I48.0 Open wound of right hand S61.401A Microcytic anemia D50.9 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
[2020-03-23] MEDS: FLUTICASONE FUROATE 100MCG 14 PUFFS/INHALER INH SCH (09:44)
[2020-03-23] MEDS: UMECLIDINIUM/VILANTEROL 62.5/25MCG 7 PUFFS/INHALER INH SCH (09:45)
[2020-03-23] MEDS: POTASSIUM CHLORIDE 20 MEQ/15 ML UDC GT SCH (09:47)
[2020-03-23] MEDS: TAMSULOSIN HCL 0.4 MG CAP PEG SCH (09:47)
[2020-03-23] MEDS: FLECAINIDE ACETATE 100 MG TABLET PO SCH ×2 (09:47→20:20)
[2020-03-23] MEDS: LANSOPRAZOLE 30 MG SOLTAB GT SCH (09:47)
[2020-03-23] MEDS: CHOLECALCIFEROL 1,000 UNITS 25 MCG TAB GT SCH (09:48)
[2020-03-23] MEDS: CYANOCOBALAMIN 500 MCG TABLET (VITAMIN B-12) PO SCH (09:48)
[2020-03-23] MEDS: ATORVASTATIN 40 MG TAB GT SCH (16:47)
[2020-03-23] MEDS: WARFARIN SOD 5 MG TAB PO SCH (20:19)
[2020-03-24] MEDS ORDERED: ACETAMINOPHEN 1000 MG/100 ML IV IV PRN (00:53)
[2020-03-24] MEDS ORDERED: ACETAMINOPHEN 325 MG TAB PO PRN (00:56)
[2020-03-24] MEDS ORDERED: ACETAMINOPHEN 325 MG TAB ONE (01:14)
[2020-03-24] MEDS: FLUTICASONE FUROATE 100MCG 14 PUFFS/INHALER INH SCH (10:02)
[2020-03-24] MEDS: TAMSULOSIN HCL 0.4 MG CAP PEG SCH (10:02)
[2020-03-24] MEDS: UMECLIDINIUM/VILANTEROL 62.5/25MCG 7 PUFFS/INHALER INH SCH (10:02)
[2020-03-24] MEDS: POTASSIUM CHLORIDE 20 MEQ/15 ML UDC GT SCH (10:02)
[2020-03-24] MEDS: CYANOCOBALAMIN 500 MCG TABLET (VITAMIN B-12) PO SCH (10:03)
[2020-03-24] MEDS: LANSOPRAZOLE 30 MG SOLTAB GT SCH (10:03)
[2020-03-24] MEDS: FLECAINIDE ACETATE 100 MG TABLET PO SCH ×2 (10:03→20:50)
[2020-03-24] MEDS: CHOLECALCIFEROL 1,000 UNITS 25 MCG TAB GT SCH (10:04)
[2020-03-24] MEDS ORDERED: NITROFURANTOIN MONOHYDRATE 100 MG CAP PO STA (10:21)
[2020-03-24] MEDS: INSULIN ASPART 100 UNITS/ML 3 ML PEN SC SCH ×4 (11:36→20:51)
--- NOTE | 2020-03-24 15:30 | Hospitalist Progress Note ---
Date of Service March 24, 2020 Assessment & Plan (1) Pneumonia due to COVID-19 virus: Dexamethasone & Remdesivir stopped as he is on room air no convalescent plasma needed does have chronic limitations, , breathing is stable, back to [facility] targeting 03/25, if urine infection is ruled in or out, (2) Sepsis: due to COVID-19 pneumonia. Procalcitonin negative vitals stable, no fever sepsis resolved quickly (3) Gastrostomy tube in place: he is eating well at this time, no need for feeds, needs thickened liquids to limit aspiration (4) Urinary retention: concern for metabolic encephalopathy will check urine culture and start macrobid, did have condom cath and urinary retention so concern would be of uti (5) Hypoxia: resolved, on room air 03/20 (6) Dysphagia: Consult SLT did clear for recommends minced and moist diet nectar thick liquids aspiration precautions no straws set up with meals continue speech-language pathology services at [facility] (7) COPD with emphysema: Continue on his regular inhalers, does not appear to have acute exacerbation of this. (8) Moderate obstructive sleep apnea: CPAP HS (9) Paroxysmal atrial fibrillation: Currently in NSR Continue flecainide 100mg Q12H (10) Open wound of right hand: Secondary to vancomycin infiltration at [facility] (11) Microcytic anemia: Appears stable from prior lab work from [facility]. 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 Continue warfarin, atorvastatin (14) DVT prophylaxis: INR was elevated now 1.8 with resumption of oral warfarin Admission and Anticipated Discharge Date Admission Date: March 16, 2020 Subjective pt is slighlty more sedate did have some urinary retention, given concern for uti did have st cath urine and start macrobid, stopped use of condom cath Review of Systems Review of Systems: unable to obtain due to communication pt states yes to every question Physical Exam Physical Exam: The patient appeared more sleepy today Vital signs as documented. Lungs are clear to auscultation and appear unlabored Cardiac exam, Rhythm is regular.. No murmurs, rubs or gallops. Abdominal exam reveals normal bowel sounds, soft non tender, no masses Extremities are nonedematous and both pedal pulses are normal. Neurologic exam is alert and fairly dense right hemipelegia Skin is without bruises or rashes Results & Data Results & Data ([facility]) Vital Signs (Past 12 Hours) Vital Signs Temp Pulse Resp BP Pulse Ox 03/24/20 14:08 96 03/24/20 08:20 97.7 F 72 18 125/78 95 03/24/20 03:58 98.1 F PG Care Time/CCT Total # of Minutes Spent Total Time Spent with Patient: Total time spent is greater than 50% in coordination of care (as documented) at patient's floor/unit and/or counseling patient: Coding Level of Care Code 15288 Subseq Hosp Care Lvl 3 Diagnoses Pneumonia due to COVID-19 virus U07.1; J12.82 Sepsis A41.9 Sepsis type: sepsis due to unspecified organism Severe sepsis acute organ dysfunction type: unspecified Severe sepsis shock status: unspecified Gastrostomy tube in place Z93.1 Urinary retention R33.9 Hypoxia R09.02 Dysphagia R13.10 COPD with emphysema J43.9 Moderate obstructive sleep apnea G47.33 Paroxysmal atrial fibrillation I48.0 Open wound of right hand S61.401A Microcytic anemia D50.9 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
[2020-03-24] MEDS: ATORVASTATIN 40 MG TAB GT SCH (17:26)
[2020-03-24] MEDS: NITROFURANTOIN MONOHYDRATE 100 MG CAP PO SCH (20:50)
[2020-03-24] MEDS: WARFARIN SOD 5 MG TAB PO SCH (20:50)
[2020-03-25 07:02] LABS: Hematocrit (blood only) 37.3 % (42-52); Hemoglobin 11.5 g/dL (14.0-18.0); Mean Corpuscular Hemoglobin 23.1 pg (25-34); Mean Corpuscular Hgb Conc 30.8 g/dL (32-36); Mean Corpuscular Volume 74.9 fL (80-100); Platelet Count 288 K/uL (130-400); RDW Coefficient of Variation 16.7 % (11.5-14.5); RDW Standard Deviation 45.7 fL (36.4-46.3); Red Blood Count 4.98 M/uL (4.7-6.1); White Blood Count 13.86 K/uL (4.8-10.8)
[2020-03-25 07:09] LABS: INR 1.9 (0.9-1.1); Prothrombin Time 19.5 Seconds (9.0-12.0)
[2020-03-25 07:33] LABS: BUN Creatinine Ratio 17.9 (10-20); Calcium 8.6 mg/dl (8.5-10.1); Creatinine Clr Calc Pharmacy 186.1 ml/min; Est GFR (African American) 138.8; Est GFR (Non-African American) 119.7; Potassium 3.2 mmol/L (3.5-5.1)
[2020-03-25] MEDS: INSULIN ASPART 100 UNITS/ML 3 ML PEN SC SCH ×4 (10:11→20:02)
[2020-03-25] MEDS: UMECLIDINIUM/VILANTEROL 62.5/25MCG 7 PUFFS/INHALER INH SCH (10:19)
[2020-03-25] MEDS: FLUTICASONE FUROATE 100MCG 14 PUFFS/INHALER INH SCH (10:20)
[2020-03-25] MEDS: TAMSULOSIN HCL 0.4 MG CAP PEG SCH (10:21)
[2020-03-25] MEDS: POTASSIUM CHLORIDE 20 MEQ/15 ML UDC GT SCH (10:21)
[2020-03-25] MEDS: LANSOPRAZOLE 30 MG SOLTAB GT SCH (10:22)
[2020-03-25] MEDS: FLECAINIDE ACETATE 100 MG TABLET PO SCH ×2 (10:22→19:48)
[2020-03-25] MEDS: NITROFURANTOIN MONOHYDRATE 100 MG CAP PO SCH (10:22)
[2020-03-25] MEDS: CYANOCOBALAMIN 500 MCG TABLET (VITAMIN B-12) PO SCH (10:22)
[2020-03-25] MEDS: CHOLECALCIFEROL 1,000 UNITS 25 MCG TAB GT SCH (10:22)
--- NOTE | 2020-03-25 14:50 | Hospitalist Progress Note ---
Date of Service March 25, 2020 Assessment & Plan (1) Pneumonia due to COVID-19 virus: Dexamethasone & Remdesivir stopped as he is on room air no convalescent plasma needed does have chronic limitations, , breathing is stable, however with fever and some decline in overall fibrin stable check chest x-ray to look for progression of basilar infiltrates commented on previous x-ray from back to [facility] targeting 03/25, if urine infection is ruled in or out, (2) Sepsis: due to COVID-19 pneumonia. Procalcitonin negative vitals stable, no fever from 126 early in the morning negative urine culture pending chest x-ray sepsis resolved quickly (3) Gastrostomy tube in place: His oral intake is declined at this time will have some nocturnal feeding increasing free water flushes, needs thickened liquids to limit aspiration (4) Urinary retention: concern for metabolic encephalopathy patient has a negative urine culture check chest x-ray for secondary bacterial infection stopping Macrobid at this time (5) Hypoxia: resolved, remains on room air 03/20 (6) Dysphagia: Consult SLT did clear for recommends minced and moist diet nectar thick liquids aspiration precautions no straws set up with meals continue speech-language pathology services at [facility]. Patient's had poor intake pushing food is side is difficult to ascertain what his choices for food would be I left a message for his on 03/25 to try to communicate his favorite foods to best we can offer him more palatable foods is typically when asking him questions he answers yes to every question (7) COPD with emphysema: Continue on his regular inhalers, does not appear to have acute exacerbation of this. (8) Moderate obstructive sleep apnea: CPAP HS (9) Paroxysmal atrial fibrillation: Currently in NSR Continue flecainide 100mg Q12H (10) Open wound of right hand: Secondary to vancomycin infiltration at [facility] (11) Microcytic anemia: Appears stable from prior lab work from [facility]. 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 Continue warfarin, atorvastatin (14) DVT prophylaxis: INR was elevated now 1.9 with resumption of oral warfarin Admission and Anticipated Discharge Date Admission Date: March 16, 2020 Subjective Patient is more alert responsive than he was in 03/24 however he is not his vibrant self as he was a few days prior. Initial thoughts for urinary tract infection given his condom catheter and some urinary retention have been unfounded as his urine culture was unremarkable. Patient does have Covid and does have chest x-ray changes consistent with Covid pneumonia however he did have a temperature of 102 2 nights ago therefore we will check a chest x-ray to see if he is a secondary bacterial infection. He has had decreased oral intake we are increasing free water flushes and will have some nocturnal feeding start with dietary oversight on the evening of 03/25 we are therefore postponing his transfer to [facility] at this time Review of Systems Review of Systems: unable to obtain due to communication pt states yes to every question Musculoskeletal: + muscle weakness (right side paralyzed) Physical Exam Physical Exam: The patient appeared more sleepy today Vital signs as documented. Lungs are diminished but appear unlabored Cardiac exam, Rhythm is regular.. No murmurs, rubs or gallops. Abdominal exam reveals normal bowel sounds, soft non tender, no masses Extremities are nonedematous and both pedal pulses are normal. Neurologic exam is alert answers yes to every question did say okay once, and fairly dense right hemipelegia Skin is without bruises or rashes Results & Data Results & Data ([facility]) Vital Signs (Past 12 Hours) Vital Signs Temp Pulse Resp BP Pulse Ox 03/25/20 14:10 97.3 F L 79 20 127/79 94 03/25/20 09:35 90 03/25/20 08:10 98.6 F 84 20 119/73 93 03/25/20 06:38 98.2 F 81 20 129/77 93 PG Care Time/CCT Total # of Minutes Spent Total Time Spent with Patient: Total time spent is greater than 50% in coordination of care (as documented) at patient's floor/unit and/or counseling patient: Coding Level of Care Code 71026 Subseq Hosp Care Lvl 3 Diagnoses Pneumonia due to COVID-19 virus U07.1; J12.82 Sepsis A41.9 Sepsis type: sepsis due to unspecified organism Severe sepsis acute organ dysfunction type: unspecified Severe sepsis shock status: unspecified Gastrostomy tube in place Z93.1 Urinary retention R33.9 Hypoxia R09.02 Dysphagia R13.10 COPD with emphysema J43.9 Moderate obstructive sleep apnea G47.33 Paroxysmal atrial fibrillation I48.0 Open wound of right hand S61.401A Microcytic anemia D50.9 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
[2020-03-25] MEDS ORDERED: AZITHROMYCIN 500 MG in DEXTROSE 5% 250 ML IV ONE (15:30)
[2020-03-25] MEDS: POTASSIUM CHLORIDE PWD 20 MEQ PACK GT SCH ×2 (16:30→19:48)
[2020-03-25] MEDS: TUBE FEEDING WATER FLUSH GT SCH ×3 (16:30→21:25)
[2020-03-25] MEDS: ATORVASTATIN 40 MG TAB GT SCH (16:31)
--- NOTE | 2020-03-25 17:03 | XRay Report ---
XR chest 1V portable HISTORY: 49 years-old Male eval for progressive infiltrates acute shortness of breath. COVID Positiv e. COMPARISON: Chest radiograph 03/20/2020 TECHNIQUE: Portable AP view of the chest FINDINGS: Cardiac silhouette is mildly enlarged. Mild right hemidiaphragmatic elevation. Bilateral reticular op acities are redemonstrated, mildly improved on the right. There is no pneumothorax, pleural effusion or overt pulmonary edema. Mild blunting of the right costophrenic angle. Degenerative changes of the shoulders and spine. Cervical spinal fusion hardware. IMPRESSION: Persistent bilateral reticular opacities with mildly improved aeration of the right lung. ACT 112: Negative or not required by law. The above report was generated using voice recognition software. It may contain grammatical, syntax o r spelling errors. Electronically signed by: Ben Hicks M.D. 03/25/2020 5:01 PM
[2020-03-25] MEDS: PEPTAMEN 1.5 CAL 1,000 ML BAG PEG SCH (19:20)
[2020-03-25] MEDS: WARFARIN SOD 5 MG TAB PO SCH (19:48)
[2020-03-26 07:37] LABS: Hematocrit (blood only) 37.6 % (42-52); Hemoglobin 11.6 g/dL (14.0-18.0); Mean Corpuscular Hemoglobin 22.9 pg (25-34); Mean Corpuscular Hgb Conc 30.9 g/dL (32-36); Mean Corpuscular Volume 74.3 fL (80-100); Mean Platelet Volume 9.7 fL (7.4-10.4); Platelet Count 265 K/uL (130-400); RDW Coefficient of Variation 16.5 % (11.5-14.5); RDW Standard Deviation 44.9 fL (36.4-46.3); Red Blood Count 5.06 M/uL (4.7-6.1); White Blood Count 13.48 K/uL (4.8-10.8)
[2020-03-26 08:07] LABS: BUN Creatinine Ratio 15.9 (10-20); Calcium 8.7 mg/dl (8.5-10.1); Creatinine Clr Calc Pharmacy 196.2 ml/min; Est GFR (African American) 141.8; Est GFR (Non-African American) 122.4; Potassium 3.5 mmol/L (3.5-5.1)
[2020-03-26] MEDS ORDERED: MULTI VIT W/MINERALS LIQUID 15 ML UDP PEG SCH (09:00)
[2020-03-26] MEDS: UMECLIDINIUM/VILANTEROL 62.5/25MCG 7 PUFFS/INHALER INH SCH (09:23)
[2020-03-26] MEDS: FLUTICASONE FUROATE 100MCG 14 PUFFS/INHALER INH SCH (09:23)
[2020-03-26] MEDS: POTASSIUM CHLORIDE 20 MEQ/15 ML UDC GT SCH (09:24)
[2020-03-26] MEDS: TUBE FEEDING WATER FLUSH GT SCH ×4 (09:24→21:52)
[2020-03-26] MEDS: CHOLECALCIFEROL 1,000 UNITS 25 MCG TAB GT SCH (09:24)
[2020-03-26] MEDS: LANSOPRAZOLE 30 MG SOLTAB GT SCH (09:24)
[2020-03-26] MEDS: FLECAINIDE ACETATE 100 MG TABLET PO SCH ×2 (09:24→21:35)
[2020-03-26] MEDS: TAMSULOSIN HCL 0.4 MG CAP PEG SCH (09:24)
[2020-03-26] MEDS: CYANOCOBALAMIN 500 MCG TABLET (VITAMIN B-12) PO SCH (09:24)
[2020-03-26] MEDS: POTASSIUM CHLORIDE PWD 20 MEQ PACK GT SCH (09:25)
[2020-03-26] MEDS: INSULIN ASPART 100 UNITS/ML 3 ML PEN SC SCH ×4 (10:13→21:35)
[2020-03-26] MEDS: ATORVASTATIN 40 MG TAB GT SCH (16:27)
--- NOTE | 2020-03-26 18:16 | Hospitalist Progress Note ---
Date of Service March 26, 2020 Assessment & Plan (1) Pneumonia due to COVID-19 virus: Dexamethasone & Remdesivir stopped when on room air, but now on oxygen will restart decadron no convalescent plasma given does have chronic limitations, , breathing is stable, repeat CXR 03/25 with some improvement (2) Sepsis: due to COVID-19 pneumonia. Procalcitonin negative vitals stable, no fever from 126 early in the morning negative urine culture pen ding chest x-ray sepsis resolved quickly concerned with low grade fever, re check urine and consider sinus as cause (3) Gastrostomy tube in place: His oral intake is declined at this time will have some nocturnal feeding increasing free water flushes, needs thickened liquids to limit aspiration (4) Urinary retention: concern for metabolic encephalopathy patient has a negative urine culture 03/24/20 negative chest x-ray for secondary bacterial infection 03/25/20 repeat ua again (5) Hypoxia: recurred (6) Dysphagia: Consult SLT did clear for recommends minced and moist diet nectar thick liquids aspiration precautions no straws set up with meals continue speech-language pathology services at [facility]. Patient's had poor intake pushing food is side is difficult to ascertain what his choices for food would be I left a message for his on 03/25 to try to communicate his favorite foods to best we can offer him more palatable foods is typically when asking him questions he answers yes to every question (7) COPD with emphysema: Continue on his regular inhalers, does not appear to have acute exacerbation of this. 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 Continue warfarin, atorvastatin (14) DVT prophylaxis: INR was elevated now 1.9 with resumption of oral warfarin Admission and Anticipated Discharge Date Admission Date: March 16, 2020 Subjective low grade temp. Patient does have Covid and does have chest x-ray changes consistent with Covid pneumonia states he does have frequent sinus infections typically not with congestion or drainage He has had decreased oral intake we are increasing free water flushes and will have some nocturnal feeding start with dietary oversight Review of Systems Review of Systems: Unobtainable due to cognitive status Physical Exam Physical Exam: The patient appeared more sleepy today Vital signs as documented. Lungs are diminished but appear unlabored Cardiac exam, Rhythm is regular.. No murmurs, rubs or gallops. Abdominal exam reveals normal bowel sounds, soft non tender, no masses Extremities are nonedematous and both pedal pulses are normal. Neurologic exam is alert answers yes to every question did say okay once, and fairly dense right hemipelegia Skin is without bruises or rashes Results & Data Results & Data ([place]) Vital Signs (Past 12 Hours) Vital Signs Temp Pulse Resp BP Pulse Ox 03/26/20 15:37 99.0 F 85 18 116/79 92 03/26/20 11:46 94 03/26/20 06:30 99.9 F H 82 20 108/64 96 PG Care Time/CCT Total # of Minutes Spent Total Time Spent with Patient: Total time spent is greater than 50% in coordination of care (as documented) at patient's floor/unit and/or counseling patient: Coding Level of Care Code 26258 Subseq Hosp Care Lvl 3 Diagnoses Pneumonia due to COVID-19 virus U07.1; J12.82 Sepsis A41.9 Sepsis type: sepsis due to unspecified organism Severe sepsis acute organ dysfunction type: unspecified Severe sepsis shock status: unspecified Gastrostomy tube in place Z93.1 Urinary retention R33.9 Hypoxia R09.02 Dysphagia R13.10 COPD with emphysema J43.9 Moderate obstructive sleep apnea G47.33 Paroxysmal atrial fibrillation I48.0 Open wound of right hand S61.401A Microcytic anemia D50.9 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
[2020-03-26] MEDS: PEPTAMEN 1.5 CAL 1,000 ML BAG PEG SCH (18:47)
[2020-03-26] MEDS: DEXAMETHASONE SOD PHOSPHATE 6 MG in SYRINGE 0 ML IV SCH (19:40)
[2020-03-26] MEDS ORDERED: TAMSULOSIN HCL 0.4 MG CAP PO SCH (21:00)
[2020-03-26] MEDS: DOXYCYCLINE SUSP 25 MG/5 ML 60ML GT SCH (21:36)
[2020-03-26] MEDS: WARFARIN SOD 5 MG TAB PO SCH (21:52)
[2020-03-27 07:08] LABS: INR 2.4 (0.9-1.1)
[2020-03-27] MEDS: CHOLECALCIFEROL 1,000 UNITS 25 MCG TAB GT SCH (08:17)
[2020-03-27] MEDS: LANSOPRAZOLE 30 MG SOLTAB GT SCH (08:18)
[2020-03-27] MEDS: CYANOCOBALAMIN 500 MCG TABLET (VITAMIN B-12) PO SCH (08:18)
[2020-03-27] MEDS: FLECAINIDE ACETATE 100 MG TABLET PO SCH ×2 (08:18→21:34)
[2020-03-27] MEDS: POTASSIUM CHLORIDE 20 MEQ/15 ML UDC GT SCH (08:18)
[2020-03-27] MEDS: TAMSULOSIN HCL 0.4 MG CAP PEG SCH (08:18)
[2020-03-27] MEDS: FINASTERIDE 5 MG TAB PO SCH (08:19)
[2020-03-27] MEDS: UMECLIDINIUM/VILANTEROL 62.5/25MCG 7 PUFFS/INHALER INH SCH (08:19)
[2020-03-27] MEDS: FLUTICASONE FUROATE 100MCG 14 PUFFS/INHALER INH SCH (08:19)
[2020-03-27] MEDS: DOXYCYCLINE SUSP 25 MG/5 ML 60ML GT SCH ×2 (08:19→21:30)
[2020-03-27] MEDS: TUBE FEEDING WATER FLUSH GT SCH ×4 (08:20→21:35)
[2020-03-27] MEDS: INSULIN ASPART 100 UNITS/ML 3 ML PEN SC SCH ×4 (08:42→22:50)
[2020-03-27] MEDS: MULTI VIT W/MINERALS LIQUID 15 ML UDP PEG SCH (12:22)
[2020-03-27] MEDS: ATORVASTATIN 40 MG TAB GT SCH (16:07)
--- NOTE | 2020-03-27 16:16 | Discharge Summary ---
Date of Service March 27, 2020 Admission HPI Per Admitting Provider John Muñiz is a 49 year old male who presents to the ER from [facility] rehabilitation after a recent stroke with sudden onset shortness of breath and fever. This came on over the course of 2 days. COVID-19 test pending from [facility]. Unable to get any history from patient due to aphasia - he replies yep to most questions which is his baseline s/p CVA per his . Occasional he will say "no" and a few other words but mostly says "yep" either appropriately or innapropriately. The patient points to his left leg when asked about pain but is unable to given me history regarding this or answer any follow up questions appropriately. He was recently diagnosed with CVA causing right sided weakness, dysphagia, aphasia and dysarthria with carotid thrombosis and subsequent transfer to [facility] for mechanical thrombectomy last month. TICI 0 s/p thrombectomy/DSA. He has known atrial fibrillation and was on Xarelto at that time therefore deemed to have failure of this and switched to warfarin. His course there was complicated by acute respiratory failure requiring intubation and subsequent tracheostomy 02/06 then changed to a cuff less trach 02/20. He was treated for aspiration and MSSA pneumonia. He developed a right hand bullae from IV vancomycin infiltration on right hand for which the patient underwent deroofing by general surgery at bedside. He was discharged to [facility] with tracheostomy in place on February 26, 2020. PEG tube was placed however discharge summary from [facility] does not indicated when this was performed. His tracheostomy scar appears well healed however I am unclear when this was removed. Patient noted to have a low grade temp on 03/15/2020 around 1600. COVID-19 test pending from this time. O2 sats dropped to 82% on RA with physical therapy this morning and he was started on 3L O2. He appeared to be short of breath at rest around noon with RR 22 therefore brought to the ER via EMS. Discussed his care with his over the phone. She reports he was making good progress at [facility] and managing to walk 10 feet with hand rails. Discussed given T2DM, SHELLI, recent need for tracheostomy, respiratory failure and CVA he is high risk for deterioration with COVID-19. Wishes to discuss further with his family but confirms DNR status in event of cardiac arrest. For now wishes intubation in setting of respiratory arrest. In the ER chest x-ray was concerning for multifocal pneumonia. Subsequent SARS-CoV-2 PCR positive. He was referred to medicine for admission and ongoing management of COVID-19 pneumonia. Discharge Data Allergies Allergy/AdvReac Type Severity Reaction Status Date / Time amoxicillin [From Augmentin] AdvReac Gastrointestinal Verified 03/16/20 17:35 Upset clavulanic acid AdvReac Gastrointestinal Verified 03/16/20 17:36 [From Augmentin] Upset levofloxacin [From Levaquin] AdvReac Vomiting Verified 03/16/20 17:36 Consultations 03/16/20 15:17 ED Decision to Admit Stat Discharge Plan Discharge Items Reason For Visit: COVID-19 PNEUMONIA Follow-up/Referrals: Ignacio West MD [Primary Care Provider] - Medications and DC Order Prescriptions: No Action Trelegy Ellipta 100-62.5-25 mcg blister with device 1 inh inhalation DAILY Qty: 60 RF: 2 albuterol sulfate 90 mcg/actuation HFA aerosol inhaler 2 puff inhalation Q4H PRN (Reason: Shortness Of Breath Or Wheezing) RF: 0 flecainide 100 mg tablet 100 mg feeding tube Q12H RF: 0 fluoxetine 20 mg Tablet 20 mg feeding tube DAILY RF: 0 potassium chloride 10 mEq Capsule, Extended Release 10 meq feeding tube DAILY RF: 0 atorvastatin 40 mg Tablet 40 mg feeding tube .EVENING MEAL RF: 0 cholecalciferol (vitamin D3) 25 mcg (1,000 unit) Tablet 3,000 unit feeding tube DAILY RF: 0 metformin 500 mg tablet 500 mg feeding tube QAM RF: 0 cyanocobalamin (vitamin B-12) 1,000 mcg Tablet 1,000 mcg feeding tube DAILY RF: 0 Omeprazole Susp 20 ml G-tube DAILY RF: 0 Humulin R Regular U-100 Insuln 100 unit/mL Solution 1 sliding scale dose SUBCUT ACHS RF: 0 tamsulosin [Flomax] 0.4 mg Capsule See Rx Instructions .ROUTE .COMPLEX RF: 0 acetaminophen 500 mg Tablet 500 mg feeding tube Q6H PRN (Reason: Pain) RF: 0 Fleet Enema 19-7 gram/118 mL Enema 118 ml [place] DAILY PRN (Reason: Constipation) RF: 0 enoxaparin [Lovenox] 40 mg/0.4 mL Syringe 40 mg SUBCUT DAILY RF: 0 warfarin 7.5 mg Tablet 15 mg feeding tube QPM RF: 0 Senna Plus (senna-docusate) Tablet See Rx Instructions .ROUTE .COMPLEX RF: 0 docusate sodium 50 mg/15 mL Syrup 100 mg feeding tube BID RF: 0 polyethylene glycol 3350 [Miralax] 17 gram Powder In Packet 17 g feeding tube DAILY RF: 0 Admission Data Admit Date/Time: 03/16/20 16:05 Attending Provider: Twan Blackwell Admit Provider: Олег Silveira Primary Care Provider: Ignacio West Other Providers: [facility] ; Олег Silveira Coding
--- NOTE | 2020-03-27 16:23 | Hospitalist Progress Note ---
Date of Service March 27, 2020 Assessment & Plan (1) Pneumonia due to COVID-19 virus: Dexamethasone & Remdesivir stopped when on room air, but now on oxygen did restart decadron no convalescent plasma given does have chronic limitations, , breathing is stable, repeat CXR 03/25 with some improvement will recheck on 03/28/20 (2) Sepsis: due to COVID-19 pneumonia. Procalcitonin negative vitals stable, no fever from 03/24 early in the morning negative urine culture negative chest x-ray sepsis resolved quickly with low grade fever consider sinus as cause as has history of the same, did start doxycycline 03/26 (3) Gastrostomy tube in place: His oral intake is declined at this time will have some nocturnal feeding increasing free water flushes, needs thickened liquids to limit aspiration, aspiration does place risk for pneumonitis (4) Urinary retention: concern for metabolic encephalopathy patient has a negative urine culture 03/24/20 negative chest x-ray for secondary bacterial infection 03/25/20 repeat ua again negative at this time (5) Hypoxia: recurred (6) Dysphagia: Consult SLT did clear for recommends minced and moist diet nectar thick liquids aspiration precautions no straws set up with meals continue speech-language pathology services at [facility]. (7) COPD with emphysema: Continue on his regular inhalers, does not appear to have acute exacerbation of this. 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 Continue warfarin, atorvastatin (14) DVT prophylaxis: INR was elevated now 1.9 with resumption of oral warfarin Admission and Anticipated Discharge Date Admission Date: March 16, 2020 Subjective no temp for 24 hours, low level hypoia and chest x-ray changes consistent with Covid pneumonia however could also be aspiration pneumonitis, is near 11 day cut off for infectivity increasing free water flushes and will have some nocturnal feeding start with dietary oversight Review of Systems Review of Systems: unable to obtain due to communication pt states yes to every question Physical Exam Physical Exam: The patient appeared more sleepy today Vital signs as documented. Lungs are diminished but appear unlabored Cardiac exam, Rhythm is regular.. No murmurs, rubs or gallops. Abdominal exam reveals normal bowel sounds, soft non tender, no masses Extremities are nonedematous and both pedal pulses are normal. Neurologic exam is alert answers yes to every question did say okay once, and fairly dense right hemipelegia Skin is without bruises or rashes Results & Data Results & Data ([facility]) Vital Signs (Past 12 Hours) Vital Signs Temp Pulse Resp BP Pulse Ox 03/27/20 14:20 98.4 F 77 20 117/78 95 03/27/20 07:51 97.0 F L 61 22 112/78 95 03/27/20 06:32 97.5 F L 634 H 20 122/78 92 PG Care Time/CCT Total # of Minutes Spent Total Time Spent with Patient: Total time spent is greater than 50% in coordination of care (as documented) at patient's floor/unit and/or counseling patient: Coding Level of Care Code 58387 Subseq Hosp Care Lvl 3 Diagnoses Pneumonia due to COVID-19 virus U07.1; J12.82 Sepsis A41.9 Sepsis type: sepsis due to unspecified organism Severe sepsis acute organ dysfunction type: unspecified Severe sepsis shock status: unspecified Gastrostomy tube in place Z93.1 Urinary retention R33.9 Hypoxia R09.02 Dysphagia R13.10 COPD with emphysema J43.9 Moderate obstructive sleep apnea G47.33 Paroxysmal atrial fibrillation I48.0 Open wound of right hand S61.401A Microcytic anemia D50.9 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
[2020-03-27] MEDS: PEPTAMEN 1.5 CAL 1,000 ML BAG PEG SCH (17:44)
[2020-03-27] MEDS: DEXAMETHASONE SOD PHOSPHATE 6 MG in SYRINGE 0 ML IV SCH (17:44)
[2020-03-27] MEDS: WARFARIN SOD 5 MG TAB PO SCH (21:32)
[2020-03-28 06:56] LABS: Hematocrit (blood only) 34.2 % (42-52); Hemoglobin 10.6 g/dL (14.0-18.0); Mean Corpuscular Hemoglobin 22.8 pg (25-34); Mean Corpuscular Volume 73.5 fL (80-100); Mean Platelet Volume 9.6 fL (7.4-10.4); Platelet Count 353 K/uL (130-400); RDW Standard Deviation 43.1 fL (36.4-46.3); Red Blood Count 4.65 M/uL (4.7-6.1); White Blood Count 13.97 K/uL (4.8-10.8)
[2020-03-28 07:26] LABS: BUN Creatinine Ratio 23.8 (10-20); Calcium 8.7 mg/dl (8.5-10.1); Creatinine Clr Calc Pharmacy 211.9 ml/min; Est GFR (African American) 146.3; Est GFR (Non-African American) 126.2; Potassium 4.3 mmol/L (3.5-5.1)
--- NOTE | 2020-03-28 08:47 | XRay Report ---
XR chest 1V portable CLINICAL HISTORY: Shortness of breath. Covid positive patient COMPARISON STUDY: 03/25/2020 FINDINGS: The heart remains borderline enlarged. There are bilateral interstitial opacities similar t o the preceding study. There is no overt failure. There are no significant pleural effusions.[ IMPRESSION: No significant change from the preceding study. Persistent bilateral interstitial opaciti es left greater than right. ACT 112: Negative or not required by law. Electronically signed by: David Doyle M.D. 03/28/2020 8:46 AM
[2020-03-28] MEDS: INSULIN ASPART 100 UNITS/ML 3 ML PEN SC SCH ×4 (10:14→21:01)
[2020-03-28] MEDS: UMECLIDINIUM/VILANTEROL 62.5/25MCG 7 PUFFS/INHALER INH SCH (10:20)
[2020-03-28] MEDS: FLUTICASONE FUROATE 100MCG 14 PUFFS/INHALER INH SCH (10:21)
[2020-03-28] MEDS: DOXYCYCLINE SUSP 25 MG/5 ML 60ML GT SCH ×2 (10:22→20:05)
[2020-03-28] MEDS: TAMSULOSIN HCL 0.4 MG CAP PEG SCH (10:29)
[2020-03-28] MEDS: TUBE FEEDING WATER FLUSH GT SCH ×4 (10:30→20:14)
[2020-03-28] MEDS: FINASTERIDE 5 MG TAB PO SCH (10:30)
[2020-03-28] MEDS: LANSOPRAZOLE 30 MG SOLTAB GT SCH (10:30)
[2020-03-28] MEDS: POTASSIUM CHLORIDE 20 MEQ/15 ML UDC GT SCH (10:30)
[2020-03-28] MEDS: CHOLECALCIFEROL 1,000 UNITS 25 MCG TAB GT SCH (10:31)
[2020-03-28] MEDS: FLECAINIDE ACETATE 100 MG TABLET PO SCH ×3 (10:31→20:17)
[2020-03-28] MEDS: CYANOCOBALAMIN 500 MCG TABLET (VITAMIN B-12) PO SCH (10:31)
[2020-03-28] MEDS: MULTI VIT W/MINERALS LIQUID 15 ML UDP PEG SCH (12:49)
--- NOTE | 2020-03-28 14:49 | Hospitalist Progress Note ---
Date of Service March 28, 2020 Assessment & Plan (1) Pneumonia due to COVID-19 virus: Dexamethasone & Remdesivir stopped when on room air, but now on oxygen did restart decadron no convalescent plasma given does have chronic limitations, , breathing is stable, repeat CXR 03/28 with no significant change (2) Sepsis: due to COVID-19 pneumonia. Procalcitonin negative vitals stable, no fever from 03/24 early in the morning negative urine culture n egative chest x-ray sepsis resolved quickly with low grade fever consider sinus as cause as has history of the same, did start doxycycline 03/26 to treat sinusitis (3) Gastrostomy tube in place: His oral intake is declined at this time will have some nocturnal feeding increasing free water flushes, needs thickened liquids to limit aspiration, aspiration does place risk for pneumonitis (4) Urinary retention: concern for metabolic encephalopathy patient has a negative urine culture 03/24/20 negative chest x-ray for secondary bacterial infection 03/25/20 repeat ua again negative at this time (5) Hypoxia: recurred (6) Dysphagia: Consult SLT did clear for recommends minced and moist diet nectar thick liquids aspiration precautions no straws set up with meals continue speech-language pathology services at [facility]. (7) COPD with emphysema: Continue on his regular inhalers, does not appear to have acute exacerbation of this. 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 Continue warfarin, atorvastatin (14) DVT prophylaxis: INR was elevated now 1.9 with resumption of oral warfarin Admission and Anticipated Discharge Date Admission Date: March 16, 2020 Subjective only low grade temp, no focal signs of infection, low level hypoia and chest x- ray changes consistent with Covid pneumonia however could also be aspiration pneumonitis, is near 11 day cut off for infectivity will come off airborne and have just ppe precautions continuing with free water flushes and nocturnal feeding start with dietary oversight Review of Systems Review of Systems: unable to obtain due to communication pt states yes to every question Physical Exam Physical Exam: The patient appeared more sleepy today Vital signs as documented. Lungs are diminished but appear unlabored Cardiac exam, Rhythm is regular.. No murmurs, rubs or gallops. Abdominal exam reveals normal bowel sounds, soft non tender, no masses Extremities are nonedematous and both pedal pulses are normal. Neurologic exam is alert answers yes to every question did say okay once, and fairly dense right hemipelegia Skin is without bruises or rashes Results & Data Results & Data ([facility]) Vital Signs (Past 12 Hours) Vital Signs Temp Pulse Resp BP Pulse Ox 03/28/20 06:50 97.7 F 63 20 116/65 92 PG Care Time/CCT Total # of Minutes Spent Total Time Spent with Patient: Total time spent is greater than 50% in coordination of care (as documented) at patient's floor/unit and/or counseling patient: Coding Level of Care Code 12376 Subseq Hosp Care Lvl 2 Diagnoses Pneumonia due to COVID-19 virus U07.1; J12.82 Sepsis A41.9 Sepsis type: sepsis due to unspecified organism Severe sepsis acute organ dysfunction type: unspecified Severe sepsis shock status: unspecified Gastrostomy tube in place Z93.1 Urinary retention R33.9 Hypoxia R09.02 Dysphagia R13.10 COPD with emphysema J43.9 Moderate obstructive sleep apnea G47.33 Paroxysmal atrial fibrillation I48.0 Open wound of right hand S61.401A Microcytic anemia D50.9 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
[2020-03-28] MEDS: ATORVASTATIN 40 MG TAB GT SCH (17:50)
[2020-03-28] MEDS: PEPTAMEN 1.5 CAL 1,000 ML BAG PEG SCH (17:59)
[2020-03-28] MEDS: DEXAMETHASONE SOD PHOSPHATE 6 MG in SYRINGE 0 ML IV SCH (19:58)
[2020-03-28] MEDS: WARFARIN SOD 5 MG TAB PO SCH (20:05)
[2020-03-29 06:41] LABS: INR 2.4 (0.9-1.1); Prothrombin Time 23.9 Seconds (9.0-12.0)
[2020-03-29] MEDS: INSULIN ASPART 100 UNITS/ML 3 ML PEN SC SCH ×2 (08:36→12:57)
[2020-03-29] MEDS: DOXYCYCLINE SUSP 25 MG/5 ML 60ML GT SCH (08:37)
[2020-03-29] MEDS: FLUTICASONE FUROATE 100MCG 14 PUFFS/INHALER INH SCH (08:37)
[2020-03-29] MEDS: UMECLIDINIUM/VILANTEROL 62.5/25MCG 7 PUFFS/INHALER INH SCH (08:37)
[2020-03-29] MEDS: TAMSULOSIN HCL 0.4 MG CAP PEG SCH (08:39)
[2020-03-29] MEDS: POTASSIUM CHLORIDE 20 MEQ/15 ML UDC GT SCH (08:40)
[2020-03-29] MEDS: FINASTERIDE 5 MG TAB PO SCH (08:40)
[2020-03-29] MEDS: LANSOPRAZOLE 30 MG SOLTAB GT SCH (08:40)
[2020-03-29] MEDS: TUBE FEEDING WATER FLUSH GT SCH ×2 (08:42→12:18)
[2020-03-29] MEDS: FLECAINIDE ACETATE 100 MG TABLET PO SCH (08:42)
[2020-03-29] MEDS: CHOLECALCIFEROL 1,000 UNITS 25 MCG TAB GT SCH (08:42)
[2020-03-29] MEDS: CYANOCOBALAMIN 500 MCG TABLET (VITAMIN B-12) PO SCH (08:42)
[2020-03-29] MEDS: MULTI VIT W/MINERALS LIQUID 15 ML UDP PEG SCH (12:18)
--- NOTE | 2020-03-29 14:03 | Discharge Summary ---
Date of Service March 29, 2020 Principal Diagnosis COVID-19 positive test (U07.1, COVID-19) with Acute Pneumonia (J12.89, Other viral pneumonia) (If respiratory failure or sepsis present, add as separate assessment) Sinus infection Chronic right hemiplegia due to stroke Decreased oral intake due to stroke with aspiration risk Discharge Exam The patient appeared chronically limited Vital signs as documented. Lungs are clear to auscultation and appear unlabored Cardiac exam, Rhythm is regular.. No murmurs, rubs or gallops. Abdominal exam reveals normal bowel sounds, soft non tender, peg tube in upper abdomen Extremities are nonedematous and both pedal pulses are normal. Neurologic exam is alert and oriented,right sided hemiparesis Skin is with healing right hand bruise Psychologically is with concerns for depression. Discharge Data Allergies Allergy/AdvReac Type Severity Reaction Status Date / Time amoxicillin [From Augmentin] AdvReac Gastrointestinal Verified 03/16/20 17:35 Upset clavulanic acid AdvReac Gastrointestinal Verified 03/16/20 17:36 [From Augmentin] Upset levofloxacin [From Levaquin] AdvReac Vomiting Verified 03/16/20 17:36 Consultations 03/16/20 15:17 ED Decision to Admit Stat Hospital Course (1) Pneumonia due to COVID-19 virus: Dexamethasone & Remdesivir stopped when on room air, but now on oxygen did restart decadron however now feel oxygen maybe from chronic pneumonitis from possible aspiration, continue to support with oxygen but stop dexamethasone, continue with support for aspiration with positioning and speech therapy, nectar liquids no convalescent plasma given does have chronic limitations, , breathing is stable, repeat CXR 03/28 with no significant change (2) Sepsis: due to COVID-19 pneumonia. Procalcitonin negative vitals stable, no fever from 03/24 early in the morning negative urine culture negative chest x-ray sepsis resolved quickly with low grade fever consider sinus as cause as has history of the same, did start doxycycline 03/26 to treat sinusitis (3) Gastrostomy tube in place: His oral intake is declined. at this time continue nocturnal feeding increasing free water flushes, needs thickened liquids to limit aspiration, aspiration does place risk for pneumonitis (4) Urinary retention: concern for metabolic encephalopathy patient has a negative urine culture 03/24/20 negative chest x-ray for secondary bacterial infection 03/28/20 repeat ua again negative at this time (5) Hypoxia: recurred (6) Dysphagia: Consult SLT did clear for recommends minced and moist diet nectar thick liquids aspiration precautions no straws set up with meals continue speech-language pathology services at [facility]. (7) COPD with emphysema: Continue on his regular inhalers, does not appear to have acute exacerbation of this. 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 Continue warfarin, atorvastatin (14) DVT prophylaxis: warfarin Total Time Total Time Spent Total Time Spent (In Minutes): It required greater than 30 minutes to prepare this patient for discharge Discharge Plan Discharge Items Patient Disposition: Transfer Inpatient Rehab Fac Reason For Visit: COVID-19 PNEUMONIA Discharge Diagnosis: covid pneumonia right hemiparesis sinusitis Activity: Per Instructions section Activity Comment: per PT/OT Non-emergency contact: Primary Care Provider Call non-emergency contact if: your symptoms worsen Follow-up/Referrals: Ignacio West MD [Primary Care Provider] - Diet: Carb Consistent or DM2 Diet Texture: Easy to Chew Liquid Consistency: [place] thick Addtl Attending Provider Instructions: Patient did have a low-grade fever possibly attributed to his Covid infection or perhaps concurrent sinus infection doxycycline was started for this reason. This being a 10-day course. Patient is on aspiration precautions to continue and he will likely hopefully be eventually transitioned from nocturnal feedings and free water flushes to increased oral intake as his strength improves Pending Studies at Discharge: No Stand-Alone Forms: [facility] Skilled Items Patient informed of condition?: Yes DNR: Yes Discharge Level of Care: Acute rehab Communicable Disease: No Discharge Prognosis: Stable Lines: None Urinary Catheter: Yes Medications and DC Order Prescriptions: New doxycycline monohydrate 25 mg/5 mL Suspension For Reconstitution 100 mg G-tube BID Qty: 400 RF: 0 finasteride [Proscar] 5 mg Tablet 5 mg PO QAM Qty: 30 RF: 0 Arnuity Ellipta 100 mcg/actuation Blister With Device 1 inh inhalation DAILY Qty: 14 RF: 0 [id number] gluconate [Centrum] 9 mg iron/15 mL Liquid 15 ml PEG DAILY@1200 Qty: 237 RF: 0 Peptamen 1.5 0.068 gram- 1.5 kcal/mL Liquid See Rx Instructions .ROUTE .COMPLEX Qty: 6000 RF: 0 Tube Feeding Water Flush 250 ml G-tube QID Qty: 250 RF: 3 Continued Trelegy Ellipta 100-62.5-25 mcg blister with device 1 inh inhalation DAILY Qty: 60 RF: 2 albuterol sulfate 90 mcg/actuation HFA aerosol inhaler 2 puff inhalation Q4H PRN (Reason: Shortness Of Breath Or Wheezing) RF: 0 flecainide 100 mg tablet 100 mg feeding tube Q12H RF: 0 fluoxetine 20 mg Tablet 20 mg feeding tube DAILY RF: 0 potassium chloride 10 mEq Capsule, Extended Release 10 meq feeding tube DAILY RF: 0 atorvastatin 40 mg Tablet 40 mg feeding tube .EVENING MEAL RF: 0 cholecalciferol (vitamin D3) 25 mcg (1,000 unit) Tablet 3,000 unit feeding tube DAILY RF: 0 metformin 500 mg tablet 500 mg feeding tube QAM RF: 0 cyanocobalamin (vitamin B-12) 1,000 mcg Tablet 1,000 mcg feeding tube DAILY RF: 0 Omeprazole Susp 20 ml G-tube DAILY RF: 0 Humulin R Regular U-100 Insuln 100 unit/mL Solution 1 sliding scale dose SUBCUT ACHS RF: 0 tamsulosin [Flomax] 0.4 mg Capsule See Rx Instructions .ROUTE .COMPLEX RF: 0 acetaminophen 500 mg Tablet 500 mg feeding tube Q6H PRN (Reason: Pain) RF: 0 Fleet Enema 19-7 gram/118 mL Enema 118 ml [place] DAILY PRN (Reason: Constipation) RF: 0 warfarin 7.5 mg Tablet 15 mg feeding tube QPM RF: 0 senna-docusate sodium Tablet See Rx Instructions .ROUTE .COMPLEX RF: 0 docusate sodium 50 mg/15 mL Syrup 100 mg feeding tube BID RF: 0 polyethylene glycol 3350 [Miralax] 17 gram Powder In Packet 17 g feeding tube DAILY RF: 0 Discontinued enoxaparin [Lovenox] 40 mg/0.4 mL Syringe 40 mg SUBCUT DAILY RF: 0 Discharge Orders: Discharge Order (Routine); Ordered 03/29/20 Ordered By: Twan Blackwell Admission Data Admit Date/Time: 03/16/20 16:05 Attending Provider: Twan Blackwell Admit Provider: Олег Silveira Primary Care Provider: Ignacio West Other Providers: [facility] ; Олег Silveira Other Interventions: Discharge Summary Assessment (RN) Last Done: 03/29/20 13:49 Coding Level of Care Code D/C Day Management >30 mins Diagnoses Pneumonia due to COVID-19 virus U07.1; J12.82 Sepsis A41.9 Sepsis type: sepsis due to unspecified organism Severe sepsis acute organ dysfunction type: unspecified Severe sepsis shock status: unspecified Gastrostomy tube in place Z93.1 Urinary retention R33.9 Hypoxia R09.02 Dysphagia R13.10 COPD with emphysema J43.9 Moderate obstructive sleep apnea G47.33 Paroxysmal atrial fibrillation I48.0 Open wound of right hand S61.401A Microcytic anemia D50.9 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
== END 2020-03-29 14:56 | DRG 177 ==
LOC: ED 13:29 → SUATTDRO 16:05 → 2N 16:05

== ENCOUNTER 2020-08-21 20:27 | Inpatient (IN) ==
[2020-08-21 21:22] LABS: Basophils # (auto) 0.05 K/uL (0-0.2); Basophils % (auto) 0.5 %; Eosinophils # (auto) 0.23 K/uL (0-0.5); Eosinophils % (auto) 2.4 %; Hematocrit (blood only) 37.4 % (42-52); Hemoglobin 11.8 g/dL (14.0-18.0); Immature Granulocytes # (auto) 0.08 K/uL (0.00-0.02); Immature Granulocytes % (auto) 0.8 %; Lymphocytes # (auto) 2.44 K/uL (1.2-3.4); Lymphocytes % (auto) 25.3 %; Mean Corpuscular Hemoglobin 22.6 pg (25-34); Mean Corpuscular Hgb Conc 31.6 g/dL (32-36); Mean Corpuscular Volume 71.6 fL (80-100); Mean Platelet Volume 9.6 fL (7.4-10.4); Monocytes # (auto) 0.52 K/uL (0.11-0.59); Monocytes % (auto) 5.4 %; Neutrophils # (auto) 6.33 K/uL (1.4-6.5); Neutrophils % (auto) 65.6 %; Platelet Count 391 K/uL (130-400); RDW Coefficient of Variation 16.8 % (11.5-14.5); RDW Standard Deviation 44.1 fL (36.4-46.3); Red Blood Count 5.22 M/uL (4.7-6.1); White Blood Count 9.65 K/uL (4.8-10.8)
[2020-08-21 21:31] LABS: Alanine Aminotransferase 16 U/L (12-78); Aspartate Aminotransferase 13 U/L (15-37); Blood Urea Nitrogen 9 mg/dl (7-18); Calcium 8.7 mg/dl (8.5-10.1); Carbon Dioxide 21 mmol/L (21-32); Chloride 106 mmol/L (98-107); Creatinine Clr Calc Pharmacy 111.5 ml/min; Est GFR (African American) 116.9 ml/min; Est GFR (Non-African American) 100.9 ml/min; Glucose 104 mg/dl (70-99); Potassium 4.4 mmol/L (3.5-5.1); Sodium 139 mmol/L (136-145)
[2020-08-21 21:32] LABS: INR 2.3 (0.9-1.1); Prothrombin Time 21.8 Seconds (9.0-12.0)
[2020-08-21 21:34] LABS: Albumin Globulin Ratio 0.7 (0.9-2); Alkaline Phosphatase 151 U/L (45-117); Bilirubin,Total 0.2 mg/dl (0.2-1); Globulin 4.3 gm/dl (2.5-4.0); Total Protein 7.3 gm/dl (6.4-8.2)
--- NOTE | 2020-08-21 21:59 | Emergency Department Note ---
Impression & Plan Seizure, Cyanosis, History of CVA (cerebrovascular accident) ED Provider Note NAME: DEREK BEYER III AGE: 49 SEX: M : 1970 ARRIVES VIA: Ambulance INFORMANT: [, ems] ED PROVIDER(S): [Tommy Perez MD] CHIEF COMPLAINT: Seizure HISTORY OF PRESENT ILLNESS: The patient is a 49-year-old male with a history of stroke. The stroke has affected his right side and he is basically immobile on the right. He has expressive aphasia as well. He is on Coumadin. The patient today, had a decent day as per his . She heard a noise this evening and went into the room, he was shaking and having a seizure. He turned blue. The whole episode lasted a few minutes. The called 911 and was advised to start CPR. She did start CPR and, he seemed to come around and the cyanosis resolved. He was quite confused after although, he now seems back to his baseline mental state. There has been no recent fever or chill. He has no prior seizure history. He is not on antiseizure medication. He did start Concerta 5 days ago and the was warned that Concerta can cause seizure activity. As per EMS, the BSG was 105. REVIEW OF SYSTEMS: See HPI for pertinent positives and negatives. A total of ten systems were reviewed and were otherwise negative. PMHx/PSHx: See Below SOCIAL HISTORY: See Below. PHYSICAL EXAM: GENERAL: Patient is in no acute distress. HEENT: No acute trauma, normocephalic atraumatic, mucous membranes moist, no nasal congestion, no scleral icterus. NECK: No stridor, no adenopathy, no meningismus, trachea is midline. LUNGS: Clear to auscultation bilaterally, no wheeze, no rhonchi, breath sounds equal. HEART: Without murmurs gallops or rubs, regular rate and rhythm. ABDOMEN: Soft, nontender, bowel sounds positive, no hernias, no peritonitis. EXTREMITIES: No cyanosis, full range of motion of all the joints without pain or difficulty, no signs for acute trauma. NEUROLOGIC: Awake and alert. Expressive aphasia noted. The right arm and leg are basically nonfunctional. SKIN: No rash, no jaundice, no diaphoresis. DIFFERENTIAL DIAGNOSIS: Seizure, dysrhythmia, V. tach, A. fib, a flutter, electrolyte imbalance, anemia, UTI, intracranial bleeding, intracranial mass, medication reaction, among o thers. EMERGENCY DEPARTMENT COURSE/PROCEDURES: ECG: Indication was seizure. The ECG shows a normal sinus rhythm with a rate of 77. There was no ST elevation, no PVCs. The QTc is 448. Continuous Cardiac Monitoring: An order was placed for continuous cardiac monitoring. The monitor shows a rate of 81 with normal sinus rhythm. Critical Care Note: I have personally spent 46 minutes of critical care time in the direct management of this patient. This includes bedside care, interpretation of diagnostic studies, and testing, discussion with consultants, patient, and family members, and other required patient management activities. This 46 minutes is in excess of all separately billable procedures. MEDICAL DECISION MAKING: There is no leukocytosis. The patient does have a mild anemia but this is baseline. There is a normal platelet count. INR is 2.3, this is therapeutic for someone using Coumadin. No significant electrolyte abnormality or kidney failure. No worrisome liver enzyme elevation. ECG showed a sinus rhythm, no acute ischemic change. Cardiac enzyme testing x1 is not significant with acute cardiac injury. Urinalysis does not show infection or hematuria. Covid testing returned negative. On exam, the patient was awake. He seemed interactive. As per his , he was in his baseline mental state. A brain CT was done, there was no acute bleed or mass-effect. An old left MCA stroke was noted. Chest x-ray showed some atelectasis, no pneumonia or CHF. Patient received IV Keppra, 2000 mg. He did not have any further seizure activi ty while here in the ED. The patient is in need of a hospital stay. He is at risk for seizure with the previous CVA. In addition, he was just started on Concerta which has a tendency to reduce the seizure threshold. I did speak with the patient's , I talked with the patient. I spoke with ca se administrative manager. The on-call hospitalist was consulted. The patient did receive CPR tonight from his . I highly doubt any type of dysrhythmia or cardiac issue. I suspect the patient had a seizure and suffered some difficulty with his airway. This led to his cyanosis and unresponsiveness. 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 GERD (gastroesophageal reflux disease) History of respiratory failure s/p CVA requiring tracheostomy 01/2020 Migraine Peripheral neuropathy LEFT ARM Pneumonia due to methicillin susceptible Staphylococcus aureus (MSSA) Restless leg syndrome Sleep apnea CPAP Surgical History History of cardioversion History of cervical spinal surgery History of tooth extraction History of tracheostomy Family History Other Diabetes Hypertension Prostate cancer Social History Smoking Status: Former smoker Tobacco Type: Cigarettes packs per day: 2; Years Smoked: 25; Cigarettes Per Day: SMOKED ~1-2PPD X 30 YEARS; Number of Years Since Quit: 2; Second Hand Exposure: No; Hx Alcohol Use: No Hx Substance Use: No Preferred Language: Irish Communication Ability: Unable Visual Impairment: No Limitations Hearing Ability: Normal Remote Broadcast Engineer Required: No Beliefs That Will Affect Care: None marital status: Current Living Situation: Rehab Feels Safe at Home: Yes Assistive Devices: Glasses and Oxygen - Continuous Allergies Allergies Allergy/AdvReac Type Severity Reaction Status Date / Time amoxicillin [From Augmentin] AdvReac Unknown Gastrointestinal Verified 08/21/20 21:36 Upset clavulanic acid AdvReac Unknown Gastrointestinal Verified 08/21/20 21:36 [From Augmentin] Upset levofloxacin [From Levaquin] AdvReac Unknown Vomiting Verified 08/21/20 21:36 Home Meds Home Medications Medication Instructions Recorded Confirmed cholecalciferol (vitamin D3) 3,000 unit PO QDB 03/16/20 08/21/20 cyanocobalamin (vitamin B-12) 1,000 mcg PO QDB 03/16/20 08/21/20 fluoxetine 20 mg PO QDB 03/16/20 08/21/20 metformin 500 mg PO QDB 03/16/20 08/21/20 tamsulosin [Flomax] 0.4 mg PO QDB 03/16/20 08/21/20 finasteride [Proscar] 5 mg PO QDB 05/02/20 08/21/20 omeprazole 20 mg PO DAILYBB 05/02/20 08/21/20 pedi multivit no.25-folic acid See Rx Instructions .ROUTE .COMPLEX 05/02/20 08/21/20 [Children's Chewable Multivitmn] warfarin 3 mg PO HS 05/02/20 08/21/20 flecainide 100 mg PO Q12H 05/05/20 08/21/20 pramipexole 0.125 mg PO HS 05/05/20 08/21/20 budesonide 0.5 mg/2 mL suspension 0.5 mg INHALATION BID 05/06/20 08/21/20 for nebulization ipratropium 0.5 mg-albuterol 3 mg 3 ml INHALATION QID 05/06/20 08/21/20 (2.5 mg base)/3 mL nebulization soln methylphenidate HCl [Concerta] 27 mg PO DAILY 08/21/20 08/21/20 Results & Data (ED) Vital Signs Vital Signs - 24 hr 08/21/20 20:32 08/21/20 20:52 08/21/20 20:57 Temperature 36.5 C Temperature Source Oral Pulse Rate 83 81 91 H Pulse Rate from SpO2 Sensor 83 81 Pulse Rhythm Regular Pulse Strength Normal Respiratory Rate 18 16 18 Respiratory Effort / Characteristics Non-Labored Respiratory Depth Normal Respiratory Pattern Regular Blood Pressure 102/67 102/67 Blood Pressure Mean 78 78 Blood Pressure Position Lying Pulse Oximetry 93 94 88 L Oxygen Delivery Method Room Air Oxygen Flow Rate Sepsis Recent Fever Within 48 Hours No Sepsis New/Unexplained Change in Mental Status No Sepsis Action Taken by Nursing No Action Required Pulse Oximetry Post Tiitration 08/21/20 21:00 08/21/20 21:01 08/21/20 21:30 Temperature Temperature Source Pulse Rate 82 78 Pulse Rate from SpO2 Sensor 82 78 Pulse Rhythm Pulse Strength Respiratory Rate 18 19 Respiratory Effort / Characteristics Respiratory Depth Respiratory Pattern Blood Pressure Blood Pressure Mean Blood Pressure Position Pulse Oximetry 94 88 L 96 Oxygen Delivery Method Nasal Cannula Oxygen Flow Rate 2 Sepsis Recent Fever Within 48 Hours Sepsis New/Unexplained Change in Mental Status Sepsis Action Taken by Nursing Pulse Oximetry Post Tiitration 95 08/21/20 22:01 08/21/20 22:30 08/21/20 22:56 Temperature Temperature Source Pulse Rate 72 65 69 Pulse Rate from SpO2 Sensor 65 69 Pulse Rhythm Pulse Strength Respiratory Rate 20 20 18 Respiratory Effort / Characteristics Respiratory Depth Respiratory Pattern Blood Pressure 120/76 Blood Pressure Mean 90 Blood Pressure Position Pulse Oximetry 99 100 Oxygen Delivery Method Oxygen Flow Rate Sepsis Recent Fever Within 48 Hours Sepsis New/Unexplained Change in Mental Status Sepsis Action Taken by Nursing Pulse Oximetry Post Tiitration 08/21/20 23:00 08/21/20 23:30 08/22/20 00:00 Temperature Temperature Source Pulse Rate 70 70 70 Pulse Rate from SpO2 Sensor 70 70 Pulse Rhythm Pulse Strength Respiratory Rate 18 23 18 Respiratory Effort / Characteristics Respiratory Depth Respiratory Pattern Blood Pressure 118/78 129/76 122/82 Blood Pressure Mean 91 93 95 Blood Pressure Position Pulse Oximetry 100 100 Oxygen Delivery Method Oxygen Flow Rate Sepsis Recent Fever Within 48 Hours Sepsis New/Unexplained Change in Mental Status Sepsis Action Taken by Nursing Pulse Oximetry Post Tiitration Home Medications Current Medication List: was personally reviewed by me Laboratory Data Attestation: I reviewed the patient's lab results. Result diagrams: 08/21/20 20:40 08/21/20 20:40 Lab Results 08/21/20 08/21/20 08/21/20 Range/Units 20:40 20:40 20:40 WBC 9.65 (4.8-10.8) K/uL RBC 5.22 (4.7-6.1) M/uL Hgb 11.8 L (14.0-18.0) g/dL Hct 37.4 L (42-52) % MCV 71.6 L (80-100) fL MCH 22.6 L (25-34) pg MCHC 31.6 L (32-36) g/dL RDW Std Deviation 44.1 (36.4-46.3) fL RDW Coeff of Aisha 16.8 H (11.5-14.5) % Plt Count 391 (130-400) K/uL MPV 9.6 (7.4-10.4) fL Immature Gran % (Auto) 0.8 % Neut % (Auto) 65.6 % Lymph % (Auto) 25.3 % [place] % (Auto) 5.4 % Eos % (Auto) 2.4 % Baso % (Auto) 0.5 % Neut # (Auto) 6.33 (1.4-6.5) K/uL Lymph # (Auto) 2.44 (1.2-3.4) K/uL [place] # (Auto) 0.52 (0.11-0.59) K/uL Eos # (Auto) 0.23 (0-0.5) K/uL Baso # (Auto) 0.05 (0-0.2) K/uL Immature Gran # (Auto) 0.08 H (0.00-0.02) K/uL PT 21.8 H (9.0-12.0) Seconds INR 2.3 H (0.9-1.1) APTT (21.0-31.0) Seconds PTT Ratio Sodium 139 (136-145) mmol/L Potassium 4.4 (3.5-5.1) mmol/L Chloride 106 (98-107) mmol/L Carbon Dioxide 21 (21-32) mmol/L Anion Gap 12.0 H (3-11) BUN 9 (7-18) mg/dl Creatinine 0.88 (0.6-1.4) mg/dl Est Cr Clr Drug Dosing 111.5 ml/min Est GFR ( Amer) 116.9 ml/min Est GFR (Non-Af Amer) 100.9 ml/min BUN/Creatinine Ratio 10.0 (10-20) Glucose 104 H (70-99) mg/dl Calcium 8.7 (8.5-10.1) mg/dl Total Bilirubin 0.2 (0.2-1) mg/dl AST 13 L (15-37) U/L ALT 16 (12-78) U/L Alkaline Phosphatase 151 H (45-117) U/L Troponin I < 0.015 (0-0.045) ng/ml Total Protein 7.3 (6.4-8.2) gm/dl Albumin 3.0 L (3.4-5.0) gm/dl Globulin 4.3 H (2.5-4.0) gm/dl Albumin/Globulin Ratio 0.7 L (0.9-2) Urine Color Urine Appearance (Clear) Urine pH (4.5-7.5) Ur Specific [place] (1.000-1.030) Urine Protein (Negative) Urine Glucose (UA) (Negative) Urine Ketones (Negative) Urine Blood (Negative) Urine Nitrite (Negative) Urine Bilirubin (Negative) Urine Urobilinogen (Negative) Ur Leukocyte Esterase (Negative) COVID-19 Eval Order SARS-CoV-2 (PCR) (Negative) 08/21/20 08/21/20 08/21/20 Range/Units 20:40 22:20 22:21 WBC (4.8-10.8) K/uL RBC (4.7-6.1) M/uL Hgb (14.0-18.0) g/dL Hct (42-52) % MCV (80-100) fL MCH (25-34) pg MCHC (32-36) g/dL RDW Std Deviation (36.4-46.3) fL RDW Coeff of Aisha (11.5-14.5) % Plt Count (130-400) K/uL MPV (7.4-10.4) fL Immature Gran % (Auto) % Neut % (Auto) % Lymph % (Auto) % [place] % (Auto) % Eos % (Auto) % Baso % (Auto) % Neut # (Auto) (1.4-6.5) K/uL Lymph # (Auto) (1.2-3.4) K/uL [place] # (Auto) (0.11-0.59) K/uL Eos # (Auto) (0-0.5) K/uL Baso # (Auto) (0-0.2) K/uL Immature Gran # (Auto) (0.00-0.02) K/uL PT (9.0-12.0) Seconds INR (0.9-1.1) APTT 27.1 (21.0-31.0) Seconds PTT Ratio 1.0 Sodium (136-145) mmol/L Potassium (3.5-5.1) mmol/L Chloride (98-107) mmol/L Carbon Dioxide (21-32) mmol/L Anion Gap (3-11) BUN (7-18) mg/dl Creatinine (0.6-1.4) mg/dl Est Cr Clr Drug Dosing ml/min Est GFR ( Amer) ml/min Est GFR (Non-Af Amer) ml/min BUN/Creatinine Ratio (10-20) Glucose (70-99) mg/dl Calcium (8.5-10.1) mg/dl Total Bilirubin (0.2-1) mg/dl AST (15-37) U/L ALT (12-78) U/L Alkaline Phosphatase (45-117) U/L Troponin I (0-0.045) ng/ml Total Protein (6.4-8.2) gm/dl Albumin (3.4-5.0) gm/dl Globulin (2.5-4.0) gm/dl Albumin/Globulin Ratio (0.9-2) Urine Color Yellow Urine Appearance Clear (Clear) Urine pH 7.0 (4.5-7.5) Ur Specific [place] 1.008 (1.000-1.030) Urine Protein Negative (Negative) Urine Glucose (UA) Negative (Negative) Urine Ketones Negative (Negative) Urine Blood Negative (Negative) Urine Nitrite Negative (Negative) Urine Bilirubin Negative (Negative) Urine Urobilinogen Negative (Negative) Ur Leukocyte Esterase Negative (Negative) COVID-19 Eval Order Covid19 at [facility] SARS-CoV-2 (PCR) (Negative) 08/21/20 Range/Units 22:21 WBC (4.8-10.8) K/uL RBC (4.7-6.1) M/uL Hgb (14.0-18.0) g/dL Hct (42-52) % MCV (80-100) fL MCH (25-34) pg MCHC (32-36) g/dL RDW Std Deviation (36.4-46.3) fL RDW Coeff of Aisha (11.5-14.5) % Plt Count (130-400) K/uL MPV (7.4-10.4) fL Immature Gran % (Auto) % Neut % (Auto) % Lymph % (Auto) % [place] % (Auto) % Eos % (Auto) % Baso % (Auto) % Neut # (Auto) (1.4-6.5) K/uL Lymph # (Auto) (1.2-3.4) K/uL [place] # (Auto) (0.11-0.59) K/uL Eos # (Auto) (0-0.5) K/uL Baso # (Auto) (0-0.2) K/uL Immature Gran # (Auto) (0.00-0.02) K/uL PT (9.0-12.0) Seconds INR (0.9-1.1) APTT (21.0-31.0) Seconds PTT Ratio Sodium (136-145) mmol/L Potassium (3.5-5.1) mmol/L Chloride (98-107) mmol/L Carbon Dioxide (21-32) mmol/L Anion Gap (3-11) BUN (7-18) mg/dl Creatinine (0.6-1.4) mg/dl Est Cr Clr Drug Dosing ml/min Est GFR ( Amer) ml/min Est GFR (Non-Af Amer) ml/min BUN/Creatinine Ratio (10-20) Glucose (70-99) mg/dl Calcium (8.5-10.1) mg/dl Total Bilirubin (0.2-1) mg/dl AST (15-37) U/L ALT (12-78) U/L Alkaline Phosphatase (45-117) U/L Troponin I (0-0.045) ng/ml Total Protein (6.4-8.2) gm/dl Albumin (3.4-5.0) gm/dl Globulin (2.5-4.0) gm/dl Albumin/Globulin Ratio (0.9-2) Urine Color Urine Appearance (Clear) Urine pH (4.5-7.5) Ur Specific [place] (1.000-1.030) Urine Protein (Negative) Urine Glucose (UA) (Negative) Urine Ketones (Negative) Urine Blood (Negative) Urine Nitrite (Negative) Urine Bilirubin (Negative) Urine Urobilinogen (Negative) Ur Leukocyte Esterase (Negative) COVID-19 Eval Order SARS-CoV-2 (PCR) NEGATIVE (Negative) Administered Medications Discontinued Medications Levetiracetam 2,000 mg/ Sodium (Chloride) 270 mls @ 999 mls/hr IV NOW STA Stop: 08/21/20 21:59 Last Infusion: 08/21/20 22:35 Dose: 0 mls/hr Documented by: [id number] Admin: 08/21/20 22:21 Dose: 999 mls/hr Documented by: [id number] Imaging Data Radiologist's Impression: Chest X-Ray 08/21/20 21:43 SINGLE VIEW CHEST CLINICAL HISTORY: Seizure. Status post resuscitation. FINDINGS: An AP, portable, upright chest radiograph is compared to study dated 05/05/2020 and correlated with chest CT dated 12/03/2019. The cardiomediastinal heart is top normal for projection. There is prominence of the pulmonary vasculature. Emphysema and chronic interstitial thickening is similar to previous. Bibasilar airspace opacities likely represent atelectasis. No large pleural effusion or pneumothorax is seen. The skeletal structures are osteopenic. The bony thorax is grossly intact. Fusion hardware is noted in the lower cervical spine. IMPRESSION: 1. Emphysema. 2. Bibasilar airspace opacities likely represent atelectasis. Correlate clinically for evidence of a superimposed infectious/inflammatory pneumonitis. 3. There is prominence of the pulmonary vasculature. Correlate clinically for ev idence of congestion/fluid overload. ACT 112: Negative or not required by law. Electronically signed by: Tommy Rosenbaum M.D. 08/21/2020 10:[address] 08/21/20 21:43 CT SCAN OF THE BRAIN WITHOUT IV CONTRAST CLINICAL HISTORY: Seizure. COMPARISON STUDY: CT and MRI Of the brain dated 01/30/2020. TECHNIQUE: Unenhanced axial CT scan of the brain is performed from the vertex to the skull base. A dose lowering technique was utilized adhering to the p rinciples of ALA. CT DOSE: 537.48 mGy.cm FINDINGS: Brain parenchyma: Left MCA territory encephalomalacia is consistent with a remote infarct. Wallerian degeneration is noted in the left aspect of the mirela. There is no hemorrhage, mass effect, or evidence of acute territorial ischemia by CT criteria. Rocha-white matter differentiation is preserved. No extra-axial fluid collection is seen. Ventricles, sulci, cisterns: Normal in configuration. Intracranial vasculature: The visualized intracranial vasculature at the skull base is normal in appearance. Calvarium: Unremarkable. Sinuses and mastoids: Mild mucosal thickening is noted in the maxillary antra. Trace mucosal thickening is seen within the sphenoid and right posterior ethmoid sinuses. The mastoid air cells are well pneumatized. Orbits: The bony orbits are grossly intact. IMPRESSION: 1. There is no hemorrhage, mass effect, or evidence of acute territorial isch emia by CT criteria. 2. Remote left MCA territory infarct. ACT 112: Negative or not required by law. Electronically signed by: Tommy Rosenbaum M.D. 08/21/2020 10:12 PM Discharge Plan Visit Data Chief Complaint: Seizure ED Provider: Feese,Tommy J Discharge Problem: Seizure, Cyanosis, History of CVA (cerebrovascular accident) Patient Disposition: Admitted As Inpatient Condition: Fair Forms Stand Alone Forms: My [facility] Prescriptions Prescriptions: No Action ipratropium-albuterol 0.5 mg-3 mg(2.5 mg base)/3 mL solution for nebulization 3 ml inhalation QID RF: 0 budesonide 0.5 mg/2 mL suspension for nebulization 0.5 mg inhalation BID RF: 0 fluoxetine 20 mg Tablet 20 mg PO QDB RF: 0 cholecalciferol (vitamin D3) 25 mcg (1,000 unit) Tablet 3,000 unit PO QDB RF: 0 metformin 500 mg tablet 500 mg PO QDB RF: 0 cyanocobalamin (vitamin B-12) 1,000 mcg Tablet 1,000 mcg PO QDB RF: 0 tamsulosin [Flomax] 0.4 mg Capsule 0.4 mg PO QDB RF: 0 flecainide 50 mg tablet 100 mg PO Q12H RF: 0 pramipexole 0.125 mg tablet 0.125 mg PO HS RF: 0 methylphenidate HCl [Concerta] 27 mg Tablet Extended Release 24hr 27 mg PO DAILY RF: 0 warfarin 3 mg tablet 3 mg PO HS RF: 0 omeprazole 20 mg capsule,delayed release(DR/EC) 20 mg PO DAILYBB RF: 0 Children's Chewable Multivitmn 300 mcg Tablet,Chewable See Rx Instructions .ROUTE .COMPLEX RF: 0 finasteride [Proscar] 5 mg tablet 5 mg PO QDB RF: 0 Referrals Referrals: Ignacio West MD [Primary Care Provider] -
[2020-08-21 22:04] LABS: Troponin I < 0.015 ng/ml (0-0.045)
--- NOTE | 2020-08-21 22:14 | CT Scan Report ---
CT SCAN OF THE BRAIN WITHOUT IV CONTRAST CLINICAL HISTORY: Seizure. COMPARISON STUDY: CT and MRI Of the brain dated 01/30/2020. TECHNIQUE: Unenhanced axial CT scan of the brain is performed from the vertex to the skull base. A d ose lowering technique was utilized adhering to the principles of ALARA. CT DOSE: 537.48 mGy.cm FINDINGS: Brain parenchyma: Left MCA territory encephalomalacia is consistent with a remote infarct. Wallerian degeneration is noted in the left aspect of the mirela. There is no hemorrhage, mass effect, or evidenc e of acute territorial ischemia by CT criteria. Rocha-white matter differentiation is preserved. No ex tra-axial fluid collection is seen. Ventricles, sulci, cisterns: Normal in configuration. Intracranial vasculature: The visualized intracranial vasculature at the skull base is normal in appe arance. Calvarium: Unremarkable. Sinuses and mastoids: Mild mucosal thickening is noted in the maxillary antra. Trace mucosal thickeni ng is seen within the sphenoid and right posterior ethmoid sinuses. The mastoid air cells are well pn eumatized. Orbits: The bony orbits are grossly intact. IMPRESSION: 1. There is no hemorrhage, mass effect, or evidence of acute territorial ischemia by CT criteria. 2. Remote left MCA territory infarct. ACT 112: Negative or not required by law. Electronically signed by: Tommy Rosenbaum M.D. 08/21/2020 10:12 PM
[2020-08-21 22:21] LABS: Partial Thromboplastin Time 27.1 Seconds (21.0-31.0)
[2020-08-21 22:32] LABS: Appearance Urine Clear (Clear); Bilirubin Urine Negative (Negative); Blood Urine Negative (Negative); Color Urine Yellow; Glucose Urine UA Negative (Negative); Ketones Urine Negative (Negative); Leukocyte Esterase Urine Negative (Negative); Nitrite Urine Negative (Negative); Protein Urine Negative (Negative); Specific Gravity Urine 1.008 (1.000-1.030); Urobilinogen Urine Negative (Negative)
--- NOTE | 2020-08-21 22:45 | XRay Report ---
SINGLE VIEW CHEST CLINICAL HISTORY: Seizure. Status post resuscitation. FINDINGS: An AP, portable, upright chest radiograph is compared to study dated 05/05/2020 and correlate d with chest CT dated 12/03/2019. The cardiomediastinal heart is top normal for projection. There is p rominence of the pulmonary vasculature. Emphysema and chronic interstitial thickening is similar to p revious. Bibasilar airspace opacities likely represent atelectasis. No large pleural effusion or pneu mothorax is seen. The skeletal structures are osteopenic. The bony thorax is grossly intact. Fusion h ardware is noted in the lower cervical spine. IMPRESSION: 1. Emphysema. 2. Bibasilar airspace opacities likely represent atelectasis. Correlate clinically for evidence of a superimposed infectious/inflammatory pneumonitis. 3. There is prominence of the pulmonary vasculature. Correlate clinically for evidence of congestion/ fluid overload. ACT 112: Negative or not required by law. Electronically signed by: Tommy Rosenbaum M.D. 08/21/2020 10:43 PM
--- NOTE | 2020-08-21 23:44 | History & Physical Report ---
Date of Service August 21, 2020 Assessment & Plan (1) Seizure: New onset seizure activity- Given Keppra 2000 mg IV loading dose in the ED. Continue Keppra 500 mg IV every 12 hours, with dosing to be reviewed by neurology CT head shows old left MCA infarct We will order MRI brain, and EEG in a.m., if limb movements improve His reports that he has been on Concerta for for complete days doses. We will hold Concerta until reviewed by neurology Consult his neurologist Dr. 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 Duonebs every 4 hours while awake and every 2 hours when necessary. Present on Admission?: Yes (6) Paroxysmal atrial flutter: Paroxysmal atrial flutter/paroxysmal atrial fibrillation- Continue flecainide Continue warfarin, INR therapeutic at 2.3 Present on Admission?: Yes (7) Paroxysmal atrial fibrillation: See above Present on Admission?: Yes (8) Diabetes mellitus: Hold Metformin placed on Accu-Cheks before meals and at bedtime with NovoLog coverage per scale Present on Admission?: Yes (9) GERD (gastroesophageal reflux disease): Continue omeprazole/pantoprazole Present on Admission?: Yes (10) Moderate obstructive sleep apnea: His reports that the patient will not wear CPAP at nighttime Present on Admission?: Yes History of Present Illness Chief Complaint: Patient presents to the emergency department with unresponsive episode after new onset seizure activity noted by , with beginning CPR after being instructed to by 911, and the patient was then brought to the emergency department by EMS for further assessment Primary Care Provider: Ignacio West MD The patient is a 49-year-old male with a past medical history including CVA with persistent right-sided hemiplegia, BPH with LUTS, previous pneumonia due to COVID-19 virus, dysphagia, gastrostomy tube in place, left carotid thrombosis, COPD with emphysema, organic periodic limb movement disorder, moderate SHELLI, morbid obesity, ex-smoker, status post cervical spine fusion, paroxysmal atrial fibrillation and atrial flutter. He presents to the ED as noted above. Allergies Allergy/AdvReac Type Severity Reaction Status Date / Time amoxicillin [From Augmentin] AdvReac Unknown Gastrointestinal Verified 08/21/20 21:36 Upset clavulanic acid AdvReac Unknown Gastrointestinal Verified 08/21/20 21:36 [From Augmentin] Upset levofloxacin [From Levaquin] AdvReac Unknown Vomiting Verified 08/21/20 21:36 Home Medications Medication Instructions Recorded Confirmed Type cholecalciferol (vitamin D3) 3,000 unit PO QDB 03/16/20 08/21/20 History cyanocobalamin (vitamin B-12) 1,000 mcg PO QDB 03/16/20 08/21/20 History fluoxetine 20 mg PO QDB 03/16/20 08/21/20 History metformin 500 mg PO QDB 03/16/20 08/21/20 History tamsulosin [Flomax] 0.4 mg PO QDB 03/16/20 08/21/20 History finasteride [Proscar] 5 mg PO QDB 05/02/20 08/21/20 History omeprazole 20 mg PO DAILYBB 05/02/20 08/21/20 History pedi multivit no.25-folic acid See Rx Instructions .ROUTE .COMPLEX 05/02/20 08/21/20 History [Children's Chewable Multivitmn] warfarin 3 mg PO HS 05/02/20 08/21/20 History flecainide 100 mg PO Q12H 05/05/20 08/21/20 History pramipexole 0.125 mg PO HS 05/05/20 08/21/20 History budesonide 0.5 mg/2 mL suspension 0.5 mg INHALATION BID 05/06/20 08/21/20 History for nebulization ipratropium 0.5 mg-albuterol 3 mg 3 ml INHALATION QID 05/06/20 08/21/20 History (2.5 mg base)/3 mL nebulization soln methylphenidate HCl [Concerta] 27 mg PO DAILY 08/21/20 08/21/20 History 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 GERD (gastroesophageal reflux disease) History of respiratory failure s/p CVA requiring tracheostomy 01/2020 Migraine Peripheral neuropathy LEFT ARM Pneumonia due to methicillin susceptible Staphylococcus aureus (MSSA) Restless leg syndrome Sleep apnea CPAP Surgical History History of cardioversion History of cervical spinal surgery History of tooth extraction History of tracheostomy Family History Other Diabetes Hypertension Prostate cancer Social History Smoking Status: Former smoker Tobacco Type: Cigarettes packs per day: 2; Years Smoked: 25; Cigarettes Per Day: SMOKED ~1-2PPD X 30 YEARS; Number of Years Since Quit: 2; Second Hand Exposure: No; Hx Alcohol Use: No Hx Substance Use: No Preferred Language: Pry[place]in[place] Communication Ability: Impaired Visual Impairment: No Limitations Hearing Ability: Normal Configuration Manager Required: No Beliefs That Will Affect Care: None marital status: Current Living Situation: Spouse Other Information That Helps Us Care for You: No Feels Safe at Home: Yes Safety Concerns: Feels Safe At This Time Assistive Devices: Glasses and Walker Assistive Devices Comment: pt. uses transfer chair at home Review of Systems Review of Systems: Unobtainable due to cognitive status HPI and review of systems is relayed by Physical Exam Physical Exam: The patient is sedated and unresponsive, normocephalic and atraumatic, lying in bed and in no acute distress. HEENT--PERRL, EOMI, mucous membranes and oropharynx normal. Neck--supple. No JVD. No bruits. Thyroid normal, trachea midline, no adenopathy. Heart--normal S1 and S2. No murmurs, rubs or gallops. Lungs--clear bilaterally, no respiratory distress, no accessory muscle use. Abdomen--normal bowel sounds and soft. Nontender. Nondistended. Extremities--no cyanosis or clubbing. No edema. Dermatologic--normal skin turgor, normal color, no abnormal lymph nodes, no rash. Neurologic--right hemiplegia. Left periodic limb movements Rheumatologic--limited exam Psychiatric--limited exam. Results & Data Results & Data ([facility]) Vital Signs (Past 12 Hours) Vital Signs Temp Pulse Resp BP Pulse Ox 08/21/20 22:30 65 20 99 08/21/20 22:01 72 20 08/21/20 21:30 78 19 96 08/21/20 21:01 88 L 08/21/20 21:00 82 18 94 08/21/20 20:57 97.7 F 91 H 18 102/67 88 L 08/21/20 20:52 81 16 94 08/21/20 20:32 83 18 102/67 93 Laboratory Results Laboratory Results WBC 9.65 K/uL (4.8-10.8) 08/21/20 20:40 RBC 5.22 M/uL (4.7-6.1) 08/21/20 20:40 Hgb 11.8 g/dL (14.0-18.0) L 08/21/20 20:40 Hct 37.4 % (42-52) L 08/21/20 20:40 MCV 71.6 fL (80-100) L 08/21/20 20:40 MCH 22.6 pg (25-34) L 08/21/20 20:40 MCHC 31.6 g/dL (32-36) L 08/21/20 20:40 RDW Std Deviation 44.1 fL (36.4-46.3) 08/21/20 20:40 RDW Coeff of Aisha 16.8 % (11.5-14.5) H 08/21/20 20:40 Plt Count 391 K/uL (130-400) 08/21/20 20:40 MPV 9.6 fL (7.4-10.4) 08/21/20 20:40 Immature Gran % (Auto) 0.8 % 08/21/20 20:40 Neut % (Auto) 65.6 % 08/21/20 20:40 Lymph % (Auto) 25.3 % 08/21/20 20:40 [place] % (Auto) 5.4 % 08/21/20 20:40 Eos % (Auto) 2.4 % 08/21/20 20:40 Baso % (Auto) 0.5 % 08/21/20 20:40 Neut # (Auto) 6.33 K/uL (1.4-6.5) 08/21/20 20:40 Lymph # (Auto) 2.44 K/uL (1.2-3.4) 08/21/20 20:40 [place] # (Auto) 0.52 K/uL (0.11-0.59) 08/21/20 20:40 Eos # (Auto) 0.23 K/uL (0-0.5) 08/21/20 20:40 Baso # (Auto) 0.05 K/uL (0-0.2) 08/21/20 20:40 Immature Gran # (Auto) 0.08 K/uL (0.00-0.02) H 08/21/20 20:40 PT 21.8 Seconds (9.0-12.0) H 08/21/20 20:40 INR 2.3 (0.9-1.1) H 08/21/20 20:40 APTT 27.1 Seconds (21.0-31.0) 08/21/20 20:40 PTT Ratio 1.0 08/21/20 20:40 Sodium 139 mmol/L (136-145) 08/21/20 20:40 Potassium 4.4 mmol/L (3.5-5.1) 08/21/20 20:40 Chloride 106 mmol/L (98-107) 08/21/20 20:40 Carbon Dioxide 21 mmol/L (21-32) 08/21/20 20:40 Anion Gap 12.0 (3-11) H 08/21/20 20:40 BUN 9 mg/dl (7-18) 08/21/20 20:40 Creatinine 0.88 mg/dl (0.6-1.4) 08/21/20 20:40 Est Cr Clr Drug Dosing 111.5 ml/min 08/21/20 20:40 Est GFR ( Amer) 116.9 ml/min 08/21/20 20:40 Est GFR (Non-Af Amer) 100.9 ml/min 08/21/20 20:40 BUN/Creatinine Ratio 10.0 (10-20) 08/21/20 20:40 Glucose 104 mg/dl (70-99) H 08/21/20 20:40 POC Glucose 122 mg/dl (70-99) H 08/22/20 01:31 Calcium 8.7 mg/dl (8.5-10.1) 08/21/20 20:40 Total Bilirubin 0.2 mg/dl (0.2-1) 08/21/20 20:40 AST 13 U/L (15-37) L 08/21/20 20:40 ALT 16 U/L (12-78) 08/21/20 20:40 Alkaline Phosphatase 151 U/L (45-117) H 08/21/20 20:40 Troponin I < 0.015 ng/ml (0-0.045) 08/21/20 20:40 Total Protein 7.3 gm/dl (6.4-8.2) 08/21/20 20:40 Albumin 3.0 gm/dl (3.4-5.0) L 08/21/20 20:40 Globulin 4.3 gm/dl (2.5-4.0) H 08/21/20 20:40 Albumin/Globulin Ratio 0.7 (0.9-2) L 08/21/20 20:40 Urine Color Yellow 08/21/20 22:20 Urine Appearance Clear (Clear) 08/21/20 22:20 Urine pH 7.0 (4.5-7.5) 08/21/20 22:20 Ur Specific [place] 1.008 (1.000-1.030) 08/21/20 22:20 Urine Protein Negative (Negative) 08/21/20 22:20 Urine Glucose (UA) Negative (Negative) 08/21/20 22:20 Urine Ketones Negative (Negative) 08/21/20 22:20 Urine Blood Negative (Negative) 08/21/20 22:20 Urine Nitrite Negative (Negative) 08/21/20 22:20 Urine Bilirubin Negative (Negative) 08/21/20 22:20 Urine Urobilinogen Negative (Negative) 08/21/20 22:20 Ur Leukocyte Esterase Negative (Negative) 08/21/20 22:20 COVID-19 Eval Order Covid19 at [facility] 08/21/20 22:21 SARS-CoV-2 (PCR) NEGATIVE (Negative) 08/21/20 22:21 Impressions Chest X-Ray 08/21/20 21:43 SINGLE VIEW CHEST CLINICAL HISTORY: Seizure. Status post resuscitation. FINDINGS: An AP, portable, upright chest radiograph is compared to study dated 05/05/2020 and correlated with chest CT dated 12/03/2019. The cardiomediastinal heart is top normal for projection. There is prominence of the pulmonary vasculature. Emphysema and chronic interstitial thickening is similar to previous. Bibasilar airspace opacities likely represent atelectasis. No large pleural effusion or pneumothorax is seen. The skeletal structures are osteopenic. The bony thorax is grossly intact. Fusion hardware is noted in the lower cervical spine. IMPRESSION: 1. Emphysema. 2. Bibasilar airspace opacities likely represent atelectasis. Correlate clinically for evidence of a superimposed infectious/inflammatory pneumonitis. 3. There is prominence of the pulmonary vasculature. Correlate clinically for evidence of congestion/fluid overload. ACT 112: Negative or not required by law. Electronically signed by: Tommy Rosnebaum M.D. 08/21/2020 10:[address] 08/21/20 21:43 CT SCAN OF THE BRAIN WITHOUT IV CONTRAST CLINICAL HISTORY: Seizure. COMPARISON STUDY: CT and MRI Of the brain dated 01/30/2020. TECHNIQUE: Unenhanced axial CT scan of the brain is performed from the vertex to the skull base. A dose lowering technique was utilized adhering to the principles of ALARA. CT DOSE: 537.48 mGy.cm FINDINGS: Brain parenchyma: Left MCA territory encephalomalacia is consistent with a remote infarct. Wallerian degeneration is noted in the left aspect of the mirela. There is no hemorrhage, mass effect, or evidence of acute territorial ischemia by CT criteria. Rocha-white matter differentiation is preserved. No extra-axial fluid collection is seen. Ventricles, sulci, cisterns: Normal in configuration. Intracranial vasculature: The visualized intracranial vasculature at the skull base is normal in appearance. Calvarium: Unremarkable. Sinuses and mastoids: Mild mucosal thickening is noted in the maxillary antra. Trace mucosal thickening is seen within the sphenoid and right posterior ethmoid sinuses. The mastoid air cells are well pneumatized. Orbits: The bony orbits are grossly intact. IMPRESSION: 1. There is no hemorrhage, mass effect, or evidence of acute territorial ischemia by CT criteria. 2. Remote left MCA territory infarct. ACT 112: Negative or not required by law. Electronically signed by: Tommy Rosenbaum M.D. 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
[2020-08-22] MEDS ORDERED: ACETAMINOPHEN 325 MG TAB PO PRN (01:24)
[2020-08-22] MEDS ORDERED: CARBOHYDRATES FOR HYPOGLYCEMIA PO PRN (01:24)
[2020-08-22] MEDS ORDERED: DEXTROSE 50% 50 ML SYRINGE IV PRN (01:24)
[2020-08-22] MEDS ORDERED: GLUCAGON FOR INJ 1 MG VIAL SQ PRN (01:24)
[2020-08-22] MEDS ORDERED: ONDANSETRON INJ 2 MG/ML 2 ML VIAL IV PRN (01:24)
[2020-08-22] MEDS ORDERED: GLUCOSE 40% GEL 15 GM TUBE PO PRN (01:24)
[2020-08-22] MEDS ORDERED: GLUCOSE 10 TABS/TUBE PO PRN (01:24)
[2020-08-22] MEDS ORDERED: NSS + 20MEQ KCL 20 MEQ/1,000 ML BAG IV SCH (02:00)
[2020-08-22] MEDS: FLECAINIDE ACETATE 100 MG TABLET PO SCH ×3 (02:12→21:45)
[2020-08-22] MEDS: BUDESONIDE 0.5 MG/2 ML VIAL (PULMICORT) INH SCH ×3 (03:37→19:20)
[2020-08-22] MEDS: PANTOprazole 40 MG TAB PO SCH (05:57)
[2020-08-22] MEDS: ALBUT/IPRATROP 3MG/0.5MG NEB 3 ML VIAL INH SCH ×2 (07:12→10:57)
[2020-08-22 07:16] LABS: Basophils # (auto) 0.04 K/uL (0-0.2); Basophils % (auto) 0.4 %; Eosinophils # (auto) 0.28 K/uL (0-0.5); Hematocrit (blood only) 35.3 % (42-52); Immature Granulocytes # (auto) 0.02 K/uL (0.00-0.02); Immature Granulocytes % (auto) 0.2 %; Lymphocytes # (auto) 2.71 K/uL (1.2-3.4); Lymphocytes % (auto) 28.8 %; Mean Corpuscular Hgb Conc 31.2 g/dL (32-36); Mean Corpuscular Volume 73.8 fL (80-100); Monocytes # (auto) 0.64 K/uL (0.11-0.59); Monocytes % (auto) 6.8 %; Neutrophils # (auto) 5.73 K/uL (1.4-6.5); Neutrophils % (auto) 60.8 %; Platelet Count 370 K/uL (130-400); RDW Coefficient of Variation 16.9 % (11.5-14.5); RDW Standard Deviation 46.1 fL (36.4-46.3); Red Blood Count 4.78 M/uL (4.7-6.1); White Blood Count 9.42 K/uL (4.8-10.8)
[2020-08-22 07:36] LABS: Albumin Globulin Ratio 0.6 (0.9-2); Albumin Level 2.8 gm/dl (3.4-5.0); Bilirubin,Total 0.3 mg/dl (0.2-1); Calcium 8.8 mg/dl (8.5-10.1); Creatinine Clr Calc Pharmacy 142.8 ml/min; Est GFR (Non-African American) 109.5 ml/min; Globulin 4.7 gm/dl (2.5-4.0); Potassium 3.6 mmol/L (3.5-5.1); Total Protein 7.5 gm/dl (6.4-8.2)
[2020-08-22] MEDS: TAMSULOSIN HCL 0.4 MG CAP PO SCH (07:44)
[2020-08-22] MEDS: CHOLECALCIFEROL 1,000 UNITS 25 MCG TAB PO SCH (07:44)
[2020-08-22] MEDS: CYANOCOBALAMIN 500 MCG TABLET (VITAMIN B-12) PO SCH (07:44)
[2020-08-22] MEDS: FINASTERIDE 5 MG TAB PO SCH (07:44)
[2020-08-22] MEDS: FLUoxetine HCL 20 MG CAP PO SCH (07:44)
[2020-08-22 08:43] LABS: Estimated Average Glucose 126 mg/dl
[2020-08-22] MEDS: INSULIN ASPART 100 UNITS/ML 3 ML PEN SC SCH ×4 (09:08→21:00)
[2020-08-22] MEDS: levETIRAcetam 500 MG in 0.9 % SODIUM CHLORIDE 100 ML IV SCH ×2 (09:18→21:46)
--- NOTE | 2020-08-22 10:31 | Neurology Consultation ---
Date of Consultation August 22, 2020 Assessment & Plan (1) Seizure: New onset seizure, generalized tonic-clonic seizure with associated cyanosis. The seizure occurs in the context of a large chronic left MCA territory infarct occurring this past January, in the context of an occluded left internal carotid artery, status post thrombectomy at [facility]. Unfortunately, he has a chronic rather significant aphasia and hemiplegia. He has a history of atrial fibrillation and is now on warfarin, had previously been on Xarelto. He was given a loading dose of levetiracetam while in the emergency department and has a standing order for IV levetiracetam 500 mg every 12 hours which is appropriate. I would recommend that he continue with this medication. Can transition to crushed tablets or liquid via gastrostomy tube when appropriate. Patient's seizure may in part have been triggered by starting Concerta recently. Would remain off this medication for the time being. However, if he does well with Keppra may be able to restart this medication in a few weeks. Brain MRI with seizure protocol. I do not think an inpatient EEG is necessary at this time. Would will plan for an outpatient study after discharge. History of Present Illness Reason for Consultation: Seizure Requesting Physician: Louie Perez MD Attending Physician: Jesse King MD History of Present Illness The patient is a 49-year-old male with a history of acute left hemispheric stroke occurring this past January. He was managed at [facility] and underwent thrombectomy for an occluded left internal carotid artery. He has chronic residual aphasia, dysarthria, and right hemiplegia. The stroke occurred while on Xarelto, this medication was switched to warfarin. Follows with [facility] physician group cardiology. The patient presented to the emergency d [facility] yesterday for further evaluation of a seizure episode, witnessed by his spouse. Generalized shaking, cyanotic, duration a few minutes. Spouse did start CPR and had contacted EMS. Postevent confusion noted although back to baseline during his assessment in the emergency department. No prior history of seizures. No recent infection. Had started Concerta 5 days prior to the above event. Patient was given an IV loading dose of Keppra in the emergency department. A CT of the head shows a chronic left MCA territory infarct. The patient is a difficult historian due to his chronic aphasia. He seems to have significant difficulty with expressive and receptive speech. He is unable to relay any reliable information pertaining to his history of present illness due to his aphasia. Allergies Allergy/AdvReac Type Severity Reaction Status Date / Time amoxicillin [From Augmentin] AdvReac Unknown Gastrointestinal Verified 08/21/20 21:36 Upset clavulanic acid AdvReac Unknown Gastrointestinal Verified 08/21/20 21:36 [From Augmentin] Upset levofloxacin [From Levaquin] AdvReac Unknown Vomiting Verified 08/21/20 21:36 Home Medications Medication Instructions Recorded Confirmed Type cholecalciferol (vitamin D3) 3,000 unit PO QDB 03/16/20 08/21/20 History cyanocobalamin (vitamin B-12) 1,000 mcg PO QDB 03/16/20 08/21/20 History fluoxetine 20 mg PO QDB 03/16/20 08/21/20 History metformin 500 mg PO QDB 03/16/20 08/21/20 History tamsulosin [Flomax] 0.4 mg PO QDB 03/16/20 08/21/20 History finasteride [Proscar] 5 mg PO QDB 05/02/20 08/21/20 History omeprazole 20 mg PO DAILYBB 05/02/20 08/21/20 History pedi multivit no.25-folic acid See Rx Instructions .ROUTE .COMPLEX 05/02/20 08/21/20 History [Children's Chewable Multivitmn] warfarin 3 mg PO HS 05/02/20 08/21/20 History flecainide 100 mg PO Q12H 05/05/20 08/21/20 History pramipexole 0.125 mg PO HS 05/05/20 08/21/20 History budesonide 0.5 mg/2 mL suspension 0.5 mg INHALATION BID 05/06/20 08/21/20 History for nebulization ipratropium 0.5 mg-albuterol 3 mg 3 ml INHALATION QID 05/06/20 08/21/20 History (2.5 mg base)/3 mL nebulization soln methylphenidate HCl [Concerta] 27 mg PO DAILY 08/21/20 08/21/20 History Patient History Medical History Atrial fibrillation Chronic neck and back pain Chronic sinusitis Diabetes mellitus Erectile dysfunction 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 ~2016 History of cervical spinal surgery History of tooth extraction WITH ANESTHESIA History of tracheostomy 01/2020 s/p CVA and subsequent respiratory failure Family History Other Diabetes Hypertension Prostate cancer Social History Smoking Status: Former smoker Tobacco Type: Cigarettes packs per day: 2; Years Smoked: 25; Cigarettes Per Day: SMOKED ~1-2PPD X 30 YEARS; Number of Years Since Quit: 2; Second Hand Exposure: No; Hx Alcohol Use: No Hx Substance Use: No Preferred Language: Swedish Communication Ability: Impaired Visual Impairment: No Limitations Hearing Ability: Normal [place] Farmer Required: No Beliefs That Will Affect Care: None marital status: Current Living Situation: Spouse Other Information That Helps Us Care for You: No Feels Safe at Home: Yes Safety Concerns: Feels Safe At This Time Assistive Devices: Glasses and Walker Assistive Devices Comment: pt. uses transfer chair at home Review of Systems Review of Systems: Unobtainable due to cognitive status Exam (Neuro) Constitutional: well developed and well nourished; no acute distress Eyes: normal visual avery by confrontation, PERRL, normal accommodation and EOM intact bilaterally; no fundoscopic abnormality, no nystagmus and no papilledema Cardiovascular: Vessels: normal carotid upstroke; no carotid bruit Neurologic: Oriented to:: Person; negative Place and Time Memory: negative Short Term Intact and Remote Intact Attention: Span Intact; negative Concentration Intact Language: negative Naming Objects and Repeating Phrases Speech Fluency: Dysarthria and Limited Comprehension Speech Aphasia: Aphasia Fund of Knowledge: Current Events, Past History and Vocabulary Cranial Nerves: Normal II (Visual avery full to confrontation, visual acuity normal), III, IV, (Pupils equal round reactive to light and accommodation, eye movements normal), V (Facial sensation intact), VIII (Hearing intact), IX, X (Palate elevates to midline), XI (Shoulder shrug intact) and XII (Tongue protrudes to midline); Abnorm VII (Significant right lower facial weakness noted) Motor Strength: Hemiplegia (Face and arm greater than leg. Right arm 0 out of 5 strength.) Laterality: Right; negative Normal Lower Extremities, Normal Upper Extremities and Pronator Drift Motor Tone: negative Normal Lower Extremities and Normal Upper Extremities (Increased tone noted for the right upper and lower limbs.) Muscle Bulk/Involuntary Movements: No Involuntary Movements; negative Muscle Atrophy Sensation: Light Touch Intact, Pain/Temperature Intact, Vibration Intact and Proprioception Intact Coordination: Finger-Nose Abnormal (Unable to perform due to profound weakness) Laterality: Right and Heel-Hairston Abnormal Laterality: Right Deep Tendon Reflexes: Rt Triceps: 3+, Lt Triceps: 2+, Rt Biceps: 3+, Lt Biceps: 2+, Rt Brachioradialis: 3+, Lt Brachioradialis: 2+, Rt Patellar: 3+, Lt Patellar: 2+, Rt Ankle: 3+ and Lt Ankle: 2+ Special Tests: Babinski Present (Right) Details: Gait cannot be assessed in the context of patient's neurological status. Results & Data ([facility]) Vital Signs (Past 12 Hours) Vital Signs Temp Pulse Pulse Resp BP BP Pulse Ox 08/22/20 07:34 36.4 C L 62 20 104/71 95 08/22/20 07:13 61 14 97 08/22/20 03:01 66 08/22/20 01:41 36.7 C 65 18 110/71 98 08/22/20 01:00 68 16 122/82 99 08/22/20 00:00 70 18 122/82 100 08/21/20 23:30 70 23 129/76 08/21/20 23:00 70 18 118/78 100 08/21/20 22:56 69 18 120/76 100 08/21/20 22:30 65 20 99 Laboratory Results WBC 9.42, hemoglobin 11.0, hematocrit 35.3, platelet count 370, sodium 139, potassium 3.6, BUN 7, creatinine 0.72, glucose 97, hemoglobin A1c 6.0, calcium 8.8, magnesium 2.0, AST 11, ALT 14, albumin 2.[address] of the head completed yesterday negative for hemorrhage or acute process. There is evidence of a remote large left MCA territory infarct. There is wallerian degeneration within the left aspect of the mirela. I reviewed the images as well as the radiologist's interpretation of this test and agree. Electrocardiogram reveals a normal sinus rhythm, 77 bpm. Coding Level of Care Code 75650 Inpt Consult Level 5 Diagnoses Seizure R56.9
--- NOTE | 2020-08-22 12:57 | Hospitalist Progress Note ---
Date of Service August 22, 2020 Assessment & Plan (1) Seizure: New onset seizure activity; likely due to prior CVA. - Continue Keppra 500 mg IV every 12 hours - Neurology consulted -> MRI brain with seizure protocol ordered. 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 Diet is nectar thickened liquids. - Monitor for any aspiration issues. (3) BPH NOS w ur obs/LUTS: No report of LUTS. - Continue tamsulosin and finasteride (4) Gastrostomy tube in place: For free water flushes as needed - Monitor Na and volume status (5) COPD with emphysema: Reported to me on 08/22 that breathing was at baseline. - Continue Pulmicort Respules. - Duonebs PRN (6) Paroxysmal atrial flutter: Paroxysmal atrial flutter/fibrillation. - Continue flecainide - Continue warfarin, INR therapeutic at 2.3. (7) Diabetes mellitus: A1c was 6.0% this admission. - Hold Metformin - Sliding scale insulin -> Blood sugars at goal 100 - 120 in last 24 hours. (8) GERD (gastroesophageal reflux disease): - Continue PPI (9) Moderate obstructive sleep apnea: His reports that the patient will not wear CPAP at nighttime. (10) DVT prophylaxis: Warfarin for afib Admission and Anticipated Discharge Date Admission Date: August 21, 2020 Subjective Doing well today. No inpatient seizure activity. Reports no fevers/chills, chest pain, shortness of breath, abdominal pain, nausea, or vomiting. Physical Exam Constitutional: WD/WN, vitals as above Eyes: EOM intact bilaterally; no conjunctival abnormality ENMT: external ear and nose normal, oropharynx normal Neck: trachea midline, no thyromegaly normal visual inspection Respiratory: normal respiratory effort, lungs clear to auscultation no respiratory distress Cardiovascular: RRR, no murmur, no edema Gastrointestinal (Abdomen): Inspection/Auscultation: abdomen normal to inspection; abdomen not distended Skin: no rashes, warm and dry Neurologic: awake Speech / Cognition: + expressive aphasia Psychiatric: Orientation: alert, oriented to person and cooperative Results & Data Results & Data ([facility]) Vital Signs (Past 12 Hours) Vital Signs Temp Pulse Pulse Resp BP BP Pulse Ox 08/22/20 12:01 36.5 C 83 20 122/75 95 08/22/20 10:58 63 16 94 08/22/20 07:34 36.4 C L 62 20 104/71 95 08/22/20 07:13 61 14 97 08/22/20 03:01 66 08/22/20 01:41 36.7 C 65 18 110/71 98 08/22/20 01:00 68 16 122/82 99 PG Care Time/CCT Total # of Minutes Spent Total Time Spent with Patient: Total time spent is greater than 50% in coordination of care (as documented) at patient's floor/unit and/or counseling patient: Coding Level of Care Code 80255 Subseq Hosp Care Lvl 3 Diagnoses Seizure R56.9 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
[2020-08-22] MEDS ORDERED: ALBUT/IPRATROP 3MG/0.5MG NEB 3 ML VIAL INH PRN (13:02)
[2020-08-22] MEDS ORDERED: WARFARIN SOD 3 MG TAB PO SCH (16:00)
--- NOTE | 2020-08-22 17:29 | Magnetic Resonance Report ---
MRI OF THE BRAIN WITHOUT CONTRAST CLINICAL HISTORY: History of left hemispheric stroke. Since seizure. COMPARISON STUDY: 01/30/2020 FINDINGS: Sagittal T1, axial diffusion, proton density and T2 weighted axial, coronal FLAIR, and axial T1-weigh georgie images were acquired. No intra or extra-axial mass lesions are visualized Axial diffusion-weighted images reveal no evidence of acute or subacute infarction. There is minimal dilatation of temporal horns, likely secondary to volume loss Proton density T2-weighted and FLAIR images reveal there is an old large left MCA territory infarct. In addition there are a few scattered foci of increased T2 signal within the white matter likely on a small vessel basis. There is mild dilatation the left temporal horn secondary to volume loss. There is left temporal and parietal lobe peripheral infarct gliosis There are no abnormal flow voids. IMPRESSION: 1. No acute intracranial findings 2. No evidence of acute or subacute infarction 3. No evidence of intracranial mass 4. Old large left MCA territory infarct ACT 112: Negative or not required by law. Electronically signed by: David Doyle M.D. 08/22/2020 5:28 PM
[2020-08-22] MEDS ORDERED: PRAMIPEXOLE DIHYDROCHLO 0.25 MG TAB PO SCH (21:00)
[2020-08-23] MEDS: PANTOprazole 40 MG TAB PO SCH (06:26)
[2020-08-23 06:43] LABS: Basophils # (auto) 0.04 K/uL (0-0.2); Basophils % (auto) 0.5 %; Eosinophils # (auto) 0.31 K/uL (0-0.5); Eosinophils % (auto) 3.7 %; Hematocrit (blood only) 35.8 % (42-52); Hemoglobin 11.1 g/dL (14.0-18.0); Immature Granulocytes # (auto) 0.02 K/uL (0.00-0.02); Immature Granulocytes % (auto) 0.2 %; Lymphocytes # (auto) 2.44 K/uL (1.2-3.4); Lymphocytes % (auto) 28.8 %; Mean Corpuscular Hemoglobin 22.7 pg (25-34); Mean Corpuscular Volume 73.1 fL (80-100); Monocytes # (auto) 0.58 K/uL (0.11-0.59); Monocytes % (auto) 6.8 %; Neutrophils # (auto) 5.09 K/uL (1.4-6.5); Platelet Count 353 K/uL (130-400); RDW Coefficient of Variation 17.1 % (11.5-14.5); RDW Standard Deviation 45.6 fL (36.4-46.3); White Blood Count 8.48 K/uL (4.8-10.8)
[2020-08-23 06:51] LABS: INR 2.2 (0.9-1.1); Prothrombin Time 21.2 Seconds (9.0-12.0)
[2020-08-23 07:03] LABS: Albumin Level 2.9 gm/dl (3.4-5.0); BUN Creatinine Ratio 10.5 (10-20); Creatinine Clr Calc Pharmacy 166.2 ml/min; Est GFR (Non-African American) 116.5 ml/min; Potassium 3.8 mmol/L (3.5-5.1)
[2020-08-23 07:06] LABS: Albumin Globulin Ratio 0.7 (0.9-2); Bilirubin,Total 0.5 mg/dl (0.2-1); Globulin 4.3 gm/dl (2.5-4.0); Total Protein 7.2 gm/dl (6.4-8.2)
[2020-08-23] MEDS: BUDESONIDE 0.5 MG/2 ML VIAL (PULMICORT) INH SCH (07:10)
[2020-08-23] MEDS: TAMSULOSIN HCL 0.4 MG CAP PO SCH (07:55)
[2020-08-23] MEDS: CHOLECALCIFEROL 1,000 UNITS 25 MCG TAB PO SCH (07:55)
[2020-08-23] MEDS: FINASTERIDE 5 MG TAB PO SCH (07:55)
[2020-08-23] MEDS: FLECAINIDE ACETATE 100 MG TABLET PO SCH (07:55)
[2020-08-23] MEDS: FLUoxetine HCL 20 MG CAP PO SCH (07:55)
[2020-08-23] MEDS: CYANOCOBALAMIN 500 MCG TABLET (VITAMIN B-12) PO SCH (07:55)
[2020-08-23] MEDS: INSULIN ASPART 100 UNITS/ML 3 ML PEN SC SCH ×2 (08:10→12:09)
[2020-08-23] MEDS: levETIRAcetam 500 MG in 0.9 % SODIUM CHLORIDE 100 ML IV SCH (10:27)
--- NOTE | 2020-08-23 11:26 | Discharge Summary ---
Date of Service August 23, 2020 Admission HPI Per Admitting Provider The patient is a 49-year-old male with a past medical history including CVA with persistent right-sided hemiplegia, BPH with LUTS, previous pneumonia due to COVID-19 virus, dysphagia, gastrostomy tube in place, left carotid thrombosis, COPD with emphysema, organic periodic limb movement disorder, moderate SHELLI, morbid obesity, ex-smoker, status post cervical spine fusion, paroxysmal atrial fibrillation and atrial flutter. He presents to the ED as noted above. Principal Diagnosis Seizure Discharge Exam Constitutional WD/WN, vitals as above Eyes EOM intact bilaterally; no conjunctival abnormality ENMT external ear and nose normal, oropharynx normal Neck trachea midline, no thyromegaly normal visual inspection Respiratory normal respiratory effort, lungs clear to auscultation no respiratory distress Cardiovascular RRR, no murmur, no edema Gastrointestinal (Abdomen) Inspection/Auscultation: abdomen normal to inspection; abdomen not distended Skin no rashes, warm and dry Neurologic awake Speech / Cognition: + expressive aphasia Psychiatric Orientation: alert, oriented to person and cooperative Discharge Data Allergies Allergy/AdvReac Type Severity Reaction Status Date / Time amoxicillin [From Augmentin] AdvReac Unknown Gastrointestinal Verified 08/21/20 21:36 Upset clavulanic acid AdvReac Unknown Gastrointestinal Verified 08/21/20 21:36 [From Augmentin] Upset levofloxacin [From Levaquin] AdvReac Unknown Vomiting Verified 08/21/20 21:36 Consultations 08/21/20 22:30 ED Decision to Admit Stat 08/22/20 01:24 Consult Neurology Routine Ordered Studies 08/21/20 21:43 CT head/brain wo con Stat 08/22/20 12:51 MR brain wo con Routine Hospital Course (1) Seizure: New onset seizure activity; likely due to prior CVA. - Continued Keppra 500 mg IV every 12 hours -> Discharged on Keppra 500 mg PO BID. - Neurology consulted -> MRI brain with seizure protocol ordered. - Hold Concerta until approved by his home physicians. 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 Diet is nectar thickened liquids. - Monitor for any aspiration issues. (3) BPH NOS w ur obs/LUTS: No report of LUTS. - Continue tamsulosin and finasteride (4) Gastrostomy tube in place: For free water flushes as needed - Monitor Na and volume status -> Stable while inpatient. (5) COPD with emphysema: Reported to me on 08/22 that breathing was at baseline. - Continue Pulmicort Respules. - Duonebs PRN (6) Paroxysmal atrial flutter: Paroxysmal atrial flutter/fibrillation. - Continue flecainide - Continue warfarin, INR therapeutic at 2.2 on discharge. Keppra does not interact with warfarin, so no change in dosing. Normal follow-up. (7) Diabetes mellitus: A1c was 6.0% this admission. - Hold Metformin - Sliding scale insulin -> Blood sugars at goal 100 - 120 in last 24 hours. (8) GERD (gastroesophageal reflux disease): - Continue PPI (9) Moderate obstructive sleep apnea: His reports that the patient will not wear CPAP at nighttime. (10) DVT prophylaxis: Warfarin for afib Total Time Total Time Spent Total Time Spent (In Minutes): 35 Discharge Plan Discharge Items Patient Disposition: Home - Self-Care Reason For Visit: SEIZURE Discharge Diagnosis: Seizure Condition on Discharge: Good Activity: Resume your previous activity Non-emergency contact: Primary Care Provider and Neurologist Call non-emergency contact if: your symptoms worsen Follow-up/Referrals: Ignacio West MD [Primary Care Provider] - (Patient will make follow-up discharge appointment with PCP within 7-10 days.) Diet: Heart Healthy Addtl Attending Provider Instructions: Mr. Muñiz, You were admitted to the hospital with a seizure. This was almost certainly stemming from your prior stroke which can be a focus due to the previously damaged neurons. We gave you Keppra in the Emergency Department, and we haven't seen another seizure in the hospital. Dr. Rust saw you, and you are cleared to go home. We will start you on Keppra 500 mg by mouth twice a day. Please stop taking the Concerta as it can sometimes cause seizures. Your doctor may be able to restart you on this medication in a few weeks if you do well with the Keppra and don't have any further seizures. Please see your neurologist in 1-2 weeks to be sure you are doing well. Pending Studies at Discharge: No Stand-Alone Forms: My [facility], Smoking Cessation Medications and DC Order Prescriptions: New levetiracetam [Keppra] 500 mg tablet 500 mg PO BID Qty: 60 RF: 0 Continued ipratropium-albuterol 0.5 mg-3 mg(2.5 mg base)/3 mL solution for nebulization 3 ml inhalation QID RF: 0 budesonide 0.5 mg/2 mL suspension for nebulization 0.5 mg inhalation BID RF: 0 fluoxetine 20 mg Tablet 20 mg PO QDB RF: 0 cholecalciferol (vitamin D3) 25 mcg (1,000 unit) Tablet 3,000 unit PO QDB RF: 0 metformin 500 mg tablet 500 mg PO QDB RF: 0 cyanocobalamin (vitamin B-12) 1,000 mcg Tablet 1,000 mcg PO QDB RF: 0 tamsulosin [Flomax] 0.4 mg Capsule 0.4 mg PO QDB RF: 0 flecainide 50 mg tablet 100 mg PO Q12H RF: 0 pramipexole 0.125 mg tablet 0.125 mg PO HS RF: 0 warfarin 3 mg tablet 3 mg PO HS RF: 0 omeprazole 20 mg capsule,delayed release(DR/EC) 20 mg PO DAILYBB RF: 0 Children's Chewable Multivitmn 300 mcg Tablet,Chewable See Rx Instructions .ROUTE .COMPLEX RF: 0 finasteride [Proscar] 5 mg tablet 5 mg PO QDB RF: 0 Discontinued methylphenidate HCl [Concerta] 27 mg Tablet Extended Release 24hr 27 mg PO DAILY RF: 0 Discharge Orders: Discharge Order (Routine); Ordered 08/23/20 Ordered By: Jesse Vaughn/Other Patient Handouts: Prediabetes, 5 Steps for Eating Healthier, A1C Admission Data Admit Date/Time: 08/21/20 23:43 Attending Provider: Jesse King Admit Provider: Louie Perez Primary Care Provider: Ignacio West Other Providers: Oscar Rust ; Jesse King Other Interventions: Discharge Summary Assessment (RN) Last Done: 08/23/20 10:28 Coding Level of Care Code D/C Day Management >30 mins Diagnoses Seizure R56.9 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
--- NOTE | 2020-08-24 12:35 | Electrocardiogram Report ---
Test Reason : Blood Pressure : / mmHG Vent. Rate : 077 BPM Atrial Rate : 077 BPM P-R Int : 184 ms QRS Dur : 098 ms QT Int : 396 ms P-R-T Axes : 042 023 031 degrees QTc Int : 448 ms Normal sinus rhythm Nonspecific T wave abnormality Borderline ECG When compared with ECG of 05-MAY-2020 13:32, Nonspecific T wave abnormality has replaced inverted T waves in Anterior leads Confirmed by Baldemar Hale ([id number]) on 08/24/2020 12:34:44 PM Referred By: REFERRED SELF Confirmed By:Baldemar Hale
== END 2020-08-23 16:19 | disposition home or self-care (01) | DRG 101 ==
LOC: ED 20:27 → SUATTDRO 23:43 → 2W 23:43